=== PATIENT | female | born 1975 ===

== ENCOUNTER 2017-01-15 10:12 | Observation (INO) | payer MEDICAID ==
[2017-01-15 10:26] VITALS: BMI 39.3
[2017-01-15 11:11] LABS: BASO # 0.1 K/uL (0.0-0.2); BASO % 0.6 % (0.0-2.0); EOS # 0.6 K/uL (0.0-0.7); EOS % 5.8 % (0.0-4.0); HEMATOCRIT 40.8 % (34.0-47.0); LYMPH # 1.5 K/uL (1.0-4.3); LYMPH % 14.6 % (20.0-40.0); MEAN CELL VOLUME 81.8 fL (81.0-99.0); MEAN CORPUSCULAR HEMOGLOBIN 27.5 pg (27.0-31.0); MEAN CORPUSCULAR HGB CONC 33.6 g/dL (33.0-37.0); MEAN PLATELET VOLUME 9.3 fL (7.2-11.7); MONO # 0.7 K/uL (0.0-0.8); MONO % 6.3 % (0.0-10.0); NRBC % 0.1 % (0.0-2.0); RED CELL DISTRIBUTION WIDTH 14.8 % (11.5-14.5); WHITE BLOOD COUNT 10.5 K/uL (4.8-10.8)
[2017-01-15 11:17] LABS: CHLORIDE 100 mmol/L (98-107)
[2017-01-15 11:18] LABS: POTASSIUM 3.6 mmol/L (3.6-5.2); SODIUM 137 mmol/L (132-148)
[2017-01-15 11:20] LABS: ALB/GLOB RATIO 1.1 (1.0-2.1); ALKALINE PHOSPHATASE 113 U/L (38-126); ALT/SGPT 45 U/L (9-52); AST/SGOT 28 U/L (14-36); BILIRUBIN,TOTAL 0.5 mg/dL (0.2-1.3); BLOOD UREA NITROGEN 10 mg/dL (7-17); CARBON DIOXIDE 23 mmol/L (22-30); GFR AFRICAN-AMERICAN > 60; GLUCOSE,RANDOM 170 mg/dL (65-105); TOTAL PROTEIN 7.6 g/dL (6.3-8.3)
[2017-01-15 11:21] LABS: CALCIUM 8.8 mg/dl (8.6-10.4)
[2017-01-15 11:22] LABS: INR 1.1
--- NOTE | 2017-01-15 11:47 | RAD ---
PROCEDURE: CHEST RADIOGRAPH, 1 VIEW. Technique: Single view portable semi erect @ 11:00 HISTORY: chest pain COMPARISON: 09/06/2016. FINDINGS: LUNGS: Clear. PLEURA: No pneumothorax or pleural fluid seen. CARDIOVASCULAR: Normal. OSSEOUS STRUCTURES: No significant abnormalities. VISUALIZED UPPER ABDOMEN: Normal. OTHER FINDINGS: None. IMPRESSION: No active disease. No acute/significant interval changes.
--- NOTE | 2017-01-15 11:50 | C.PDOC ---
History Of Present Illness 41 y/o female pmhx morbid obesity, HTN presents to the ED with complains of worsening chest pain over the past 3 days. Pt brought in by EMS, given aspirin and nitro UMBRELLA TIPPER. Pt is currently pain free. Denies SOB, vomiting, fever or any other complaints at this time. Time Seen by Provider: 01/15/17 10:58 Chief Complaint (Nursing): Chest Pain History Per: Patient History/Exam Limitations: no limitations Onset/Duration Of Symptoms: Days Current Symptoms Are (Timing): Worse Severity: Moderate Quality: "Pain" Modifying Factors: None Alleviating Factors: None Nitro Therapy Administered: 1, Per EMS Recent travel outside of the [place]: No Past Medical History Reviewed: Historical Data, Nursing Documentation, Vital Signs Vital Signs: Last Vital Signs Temp 98.1 F 01/15/17 12:54 Pulse 75 01/15/17 12:54 Resp 18 01/15/17 12:54 BP 161/120 H 01/15/17 12:54 Pulse Ox 99 01/15/17 12:54 - Medical History PMH: Anxiety, Arthritis, Asthma, Back Problems, Bronchitis, COPD, Depression, Diabetes, Emphysema, Gastritis, Gastrointestinal Ulcer, HTN, Hypercholesterolemia, Pancreatitis, Rheumatoid Arthritis Surgical History: Endoscopy (X2) - [facility] Procedures CLOSED ENDOSCOPIC BIOPSY OF LARGE INTESTINE (03/05/14) CORONAR ARTERIOGR-2 CATH (03/28/12) ESOPHAGOGASTRODUODENOSCOPY [EGD] W/CLOSED BIOPSY (03/10/14) EXCISION OF STOMACH, ENDO, DIAGN (10/27/15) INJECT/INFUSE NEC (05/04/14) LEFT HEART CARDIAC CATH (03/28/12) LT HEART ANGIOCARDIOGRAM (03/28/12) Family History: States: Unknown Family Hx - Social History Hx Tobacco Use: Yes Hx Alcohol Use: No Hx Substance Use: No - Immunization History Hx Tetanus Toxoid Vaccination: No Hx Influenza Vaccination: No Hx Pneumococcal Vaccination: No Review Of Systems Except As Marked, All Systems Reviewed And Found Negative. Constitutional: Negative for: Fever Cardiovascular: Positive for: Chest Pain (resolved) Respiratory: Negative for: Shortness of Breath Gastrointestinal: Negative for: Vomiting Physical Exam - Physical Exam Appears: Non-toxic, No Acute Distress Skin: Warm, Dry, No Rash Head: Atraumatic, Normacephalic Neck: Normal ROM, Supple Chest: Symmetrical Cardiovascular: Rhythm Regular, No Murmur Respiratory: Normal Breath Sounds, No Rales, No Rhonchi, No Wheezing Gastrointestinal/Abdominal: Normal Exam, Soft Extremity: Normal ROM Extremity: Bilateral: Atraumatic Neurological/Psych: Oriented x3, Normal Speech ED Course And Treatment - Laboratory Results Result Diagrams: 01/15/17 11:06 01/15/17 11:06 ECG: Interpreted By Me, Viewed By Me ECG Rhythm: Sinus Rhythm Interpretation Of ECG: No ST/T wave changes Rate From EC (BPM) O2 Sat by Pulse Oximetry: 97 (on room air) Pulse Ox Interpretation: Normal - Radiology CXR: Viewed By Me, Read By Radiologist CXR Interpretation: Yes: No Acute Disease Medical Decision Making Medical Decision Making: Plan: EKG, CXR, labs, zofran, UA, IV fluids Disposition - Disposition Disposition: HOSPITALIZED Disposition Time: 12:00 Condition: STABLE - Clinical Impression Clinical Impression: Chest pain - Scribe Statement The provider has reviewed the documentation as recorded by the Bertha Boone Provider Attestation: All medical record entries made by the Yuriibyumi were at my direction and personally dictated by me. I have reviewed the chart and agree that the record accurately reflects my personal performance of the history, physical exam, medical decision making, and the department course for this patient. I have also personally directed, reviewed, and agree with the discharge instructions and disposition. Decision To Admit - Pt Status Changed To: Hospital Disposition Of: Observation - . Bed Request Type: Telemetry Admitting Physician: Corey Orellana Patient Diagnosis: Chest pain
[2017-01-15 15:44] VITALS: RESP 20
[2017-01-15 16:22] LABS: RBC URINE 4068 /hpf (0-3); URINE BACTERIA RARE (<OCC); URINE BILIRUBIN NEGATIVE (NEGATIVE); URINE BLOOD 3+ (NEGATIVE); URINE COLOR Yellow (YELLOW); URINE GLUCOSE (UA) 1+ mg/dL (Normal); URINE KETONE NEGATIVE (NEGATIVE); URINE LEUKOCYTE ESTERASE NEG Leu/uL (Negative); URINE PROTEIN 2+ mg/dL (NEGATIVE); URINE UROBILINOGEN NORMAL mg/dL (0.2-1.0); WBC URINE 5 /hpf (0-5)
[2017-01-15] MEDS: oxyCODONE 5 mg Immediate Release Tab PO PRN (18:49)
[2017-01-15 18:55] VITALS: O2SAT 98
[2017-01-15] MEDS: Albuterol HFA 90 mcg/actuation (8 g) IH SCH ×2 (20:30→20:31)
[2017-01-15] MEDS: (Novolog) Insulin Aspart, Recombinant 100 u/ml 10 ml vial SC SCH (21:51)
[2017-01-15] MEDS ORDERED: Latanoprost 2.5 ml Opht Soln OU SCH (22:00)
[2017-01-15] MEDS ORDERED: (Lantus) Insulin Glargine, Recombinant SC SCH ×2 (22:00)
--- NOTE | 2017-01-15 22:48 | CP.PCM.HP ---
History of Present Illness - History of Present Illness History of Present Illness: Cheif complain: left sided chest pain HPI:41 y/o female pmhx morbid obesity, HTN , hyperlipidemia, DM, non compliant with diet, medications and follow up presents to the ED with complains of worsening chest pain over the past 3 days associated with on and off dyspepsia and cough when she lays down. Pt brought in by EMS, given aspirin and nitro WEB MASTER. Pt is currently pain free. Denies SOB, vomiting, fever or any other complaints at this time. Review of Systems - Review of Systems Systems not reviewed;Unavailable: Acuity of Condition - Constitutional Constitutional: Lethargy, Malaise - EENT Ears: absent: As Per HPI, Decreased Hearing, Ear Discharge, Ear Pain, Tinnitus, Abnormal Hearing, Disequilibrium, Dizziness, Other Nose/Mouth/Throat: absent: As Per HPI, Epistaxis, Nasal Congestion, Nasal Discharge, Nasal Obstruction, Nasal Trauma, Nose Pain, Post Nasal Drip, Sinus Pain, Sinus Pressure, Bleeding Gums, Change in Voice, Dental Pain, Dry Mouth, Dysphagia, Halitosis, Hoarsness, Lip Swelling, Mouth Lesions, Mouth Pain, Odynophagia, Sore Throat, Throat Swelling, Tongue Swelling, Facial Pain, Neck Pain, Neck Mass, Other - Cardiovascular Cardiovascular: Chest Pain, Orthopnea - Respiratory Respiratory: Cough, Dyspnea on Exertion, Chest Congestion, Pain with Coughing - Gastrointestinal Gastrointestinal: Dyspepsia. absent: As Per HPI, Abdominal Pain, Belching, Bloating, Change in Bowel Habits, Change in Stool Character, Coffee Ground Emesis, Constipation, Cramping, Diarrhea, Dysphagia, Early Satiety, Excessive Flatus, Fecal Incontinence, Heartburn, Hematemesis, Hematochezia, Loose Stools, Melena, Nausea, Odynophagia, Temesmus, Vomiting, Other - Genitourinary Genitourinary: absent: As Per HPI, Change in Urinary Stream, Difficulty Urinating, Dysuria, Flank Pain, Hematuria, Pyuria, Nocturia, Urinary Incontinence, Urinary Frequency, Urinary Hesitance, Urinary Urgency, Voiding Freq/Small Amts, Freq UTI, Hx Renal/Bladder Calculi, Hx /Renal Surgery, Bladder Distension, Other - Musculoskeletal Musculoskeletal: Arthralgias, Back Pain, Muscle Cramps - Integumentary Integumentary: absent: As Per HPI, Acne, Alopecia, Bleeding Lesions, Change in Hair, Change in Nails, Change in Pigmentation, Changing Lesions, Dry Skin, Erythema, Furuncle, Hirsutism, Lesions, New Lesions, Non-Healing Lesions, Photosensitivity, Pruritus, Rash, Skin Pain, Skin Ulcer, Sores, Striae, Swelling , Unusual Bruising, Wounds, Jaundice, Other Past Patient History - Infectious Disease Hx of Infectious Diseases: None - Past Medical History & Family History Past Medical History?: Yes - Past Social History Smoking Status: Current Some Days Smoker - CARDIAC Hx Cardiac Disorders: Yes Hx Hypercholesterolemia: Yes Hx Hypertension: Yes - PULMONARY Hx Respiratory Disorders: Yes Hx Asthma: Yes Hx Bronchitis: Yes Hx Chronic Obstructive Pulmonary Disease (COPD): Yes Hx Emphysema: Yes Hx Pneumonia: Yes - NEUROLOGICAL Hx Neurological Disorder: No - HEENT Hx HEENT Problems: Yes Hx Glaucoma: Yes - RENAL Hx Chronic Kidney Disease: No - ENDOCRINE/METABOLIC Hx Endocrine Disorders: Yes Hx Diabetes Mellitus Type 2: Yes Hx Systemic Lupus Erythematosus: Yes - HEMATOLOGICAL/ONCOLOGICAL Hx Blood Disorders: Yes Hx Blood Transfusions: No Other/Comment: lupus - INTEGUMENTARY Hx Dermatological Problems: No - MUSCULOSKELETAL/RHEUMATOLOGICAL Hx Musculoskeletal Disorders: Yes Hx Arthritis: Yes Hx Falls: Yes Hx Rheumatoid Arthritis: Yes - GASTROINTESTINAL Hx Gastrointestinal Disorders: Yes Hx Constipation: Yes Hx Gastritis: Yes Hx Pancreatitis: Yes - GENITOURINARY/GYNECOLOGICAL Hx Genitourinary Disorders: Yes Other/Comment: endometriosis - PSYCHIATRIC Hx Psychophysiologic Disorder: Yes Hx Anxiety: Yes Hx Depression: Yes Hx Physical Abuse: No Hx Substance Use: No - SURGICAL HISTORY Hx Surgeries: Yes Hx Section: Yes (X2) Hx Dilation and Curettage: Yes (X2) Other/Comment: Sinus Sx - ANESTHESIA Hx Anesthesia: Yes Hx Anesthesia Reactions: No Hx Malignant Hyperthermia: No Meds Allergies/Adverse Reactions: Allergies Allergy/AdvReac Type Severity Reaction Status Date / Time methylergonovine maleate Allergy Intermediate RASH Verified 12/21/16 16:00 [From Methergine] Penicillins Allergy Intermediate RASH Verified 12/21/16 16:00 Physical Exam - Constitutional Appears: No Acute Distress - Eye Exam Eye Exam: EOMI, Normal appearance, PERRL Pupil Exam: NORMAL ACCOMODATION, PERRL - ENT Exam ENT Exam: Mucous Membranes Moist, Normal Exam - Neck Exam Neck exam: Positive for: Normal Inspection - Respiratory Exam Respiratory Exam: Clear to Auscultation Bilateral, NORMAL BREATHING PATTERN - Cardiovascular Exam Cardiovascular Exam: REGULAR RHYTHM, +S1, +S2 - GI/Abdominal Exam GI & Abdominal Exam: Normal Bowel Sounds, Soft. absent: Tenderness - Neurological Exam Neurological exam: Alert, CN II-XII Intact, Oriented x3 - Psychiatric Exam Psychiatric exam: Agitated, Anxious Results - Vital Signs Recent Vital Signs: Last Vital Signs Temp 99.2 F 01/15/17 16:46 Pulse 90 01/15/17 20:32 Resp 20 01/15/17 16:46 BP 148/79 01/15/17 16:46 Pulse Ox 98 01/15/17 16:46 - Labs Result Diagrams: 01/15/17 11:06 01/15/17 11:06 Labs: Laboratory Results - last 24 hr 01/15/17 01/15/17 01/15/17 16:01 16:03 19:45 POC Glucose (mg/dL) 200 H Troponin I 0.0130 Urine Color Yellow Urine Clarity Hazy Urine pH 8.0 Ur Specific [place] 1.016 Urine Protein 2+ H Urine Glucose (UA) 1+ Urine Ketones Negative Urine Blood 3+ H Urine Nitrate Negative Urine Bilirubin Negative Urine Urobilinogen Normal Ur Leukocyte Esterase Neg Urine WBC (Auto) 5 Urine RBC (Auto) 4068 H Ur Squamous Epith Cells 1 Urine Bacteria Rare Urine HCG, Qual Negative 01/15/17 21:26 POC Glucose (mg/dL) 129 H Troponin I Urine Color Urine Clarity Urine pH Ur Specific [place] Urine Protein Urine Glucose (UA) Urine Ketones Urine Blood Urine Nitrate Urine Bilirubin Urine Urobilinogen Ur Leukocyte Esterase Urine WBC (Auto) Urine RBC (Auto) Ur Squamous Epith Cells Urine Bacteria Urine HCG, Qual Assessment & Plan (1) Diabetes mellitus Status: Chronic (2) Hypertension Status: Chronic (3) Obesity Status: Chronic (4) Atypical chest pain Status: Acute
[2017-01-16] MEDS: oxyCODONE 5 mg Immediate Release Tab PO PRN ×2 (01:05→08:46)
[2017-01-16] MEDS: Albuterol HFA 90 mcg/actuation (8 g) IH SCH ×2 (01:13→10:40)
[2017-01-16 06:21] LABS: CHLORIDE 95 mmol/L (98-107); POTASSIUM 3.4 mmol/L (3.6-5.2); SODIUM 136 mmol/L (132-148)
[2017-01-16 06:24] LABS: BLOOD UREA NITROGEN 16 mg/dL (7-17); CALCIUM 8.3 mg/dl (8.6-10.4); CARBON DIOXIDE 28 mmol/L (22-30); GFR AFRICAN-AMERICAN > 60; GLUCOSE,RANDOM 150 mg/dL (65-105)
[2017-01-16] MEDS ORDERED: Tiotropium 18 mcg Cap For Inhalation INH SCH (08:00)
[2017-01-16] MEDS: (Novolog) Insulin Aspart, Recombinant 100 u/ml 10 ml vial SC SCH ×2 (08:27→12:38)
[2017-01-16 08:36] VITALS: BP 142/92; PULSE 76; TEMP 98.2
[2017-01-16] MEDS: Enoxaparin 40 mg Syringe SC SCH ×2 (09:08→09:11)
[2017-01-16] MEDS ORDERED: Pantoprazole 40 mg EC Tab PO SCH (10:00)
[2017-01-16] MEDS ORDERED: Tiotropium 18 mcg Cap For Inhalation IH SCH (10:00)
[2017-01-16] MEDS ORDERED: Potassium Chloride 20 mEq ER Tab PO ONE ×2 (10:18→11:00)
[2017-01-16] MEDS ORDERED: Influenza Virus Vaccine 45 mcg/0.5 ml Syr IM ONE (12:15)
--- NOTE | 2017-01-17 21:03 | CP.PCM.DIS ---
Provider - Provider Date of Admission: 01/15/17 11:41 Attending physician: Corey Orellana MD Diagnosis - Discharge Diagnosis (1) Diabetes mellitus Status: Chronic (2) Hypertension Status: Chronic (3) Obesity Status: Chronic (4) Atypical chest pain Status: Acute Hospital Course - Lab Results Lab Results: Most Recent Lab Values WBC 10.5 K/uL (4.8-10.8) 01/15/17 11:06 RBC 4.99 Mil/uL (3.80-5.20) 01/15/17 11:06 Hgb 13.7 g/dL (11.0-16.0) 01/15/17 11:06 Hct 40.8 % (34.0-47.0) 01/15/17 11:06 MCV 81.8 fL (81.0-99.0) D 01/15/17 11:06 MCH 27.5 pg (27.0-31.0) 01/15/17 11:06 MCHC 33.6 g/dL (33.0-37.0) 01/15/17 11:06 RDW 14.8 % (11.5-14.5) H 01/15/17 11:06 Plt Count 158 K/uL (130-400) 01/15/17 11:06 MPV 9.3 fL (7.2-11.7) 01/15/17 11:06 Neut % (Auto) 72.7 % (50.0-75.0) 01/15/17 11:06 Lymph % (Auto) 14.6 % (20.0-40.0) L 01/15/17 11:06 Grant % (Auto) 6.3 % (0.0-10.0) 01/15/17 11:06 Eos % (Auto) 5.8 % (0.0-4.0) H 01/15/17 11:06 Baso % (Auto) 0.6 % (0.0-2.0) 01/15/17 11:06 Neut # 7.7 K/uL (1.8-7.0) H 01/15/17 11:06 Lymph # 1.5 K/uL (1.0-4.3) 01/15/17 11:06 Grant # 0.7 K/uL (0.0-0.8) 01/15/17 11:06 Eos # 0.6 K/uL (0.0-0.7) 01/15/17 11:06 Baso # 0.1 K/uL (0.0-0.2) 01/15/17 11:06 PT 12.0 SECONDS (9.7-12.2) 01/15/17 11:06 INR 1.1 01/15/17 11:06 APTT 35 SECONDS (21-34) H 01/15/17 11:06 Sodium 136 mmol/L (132-148) 01/16/17 06:00 Potassium 3.4 mmol/L (3.6-5.2) L 01/16/17 06:00 Chloride 95 mmol/L (98-107) L 01/16/17 06:00 Carbon Dioxide 28 mmol/L (22-30) 01/16/17 06:00 Anion Gap 16 (10-20) 01/16/17 06:00 BUN 16 mg/dL (7-17) 01/16/17 06:00 Creatinine 0.8 MG/DL (0.7-1.2) 01/16/17 06:00 Est GFR ( Amer) > 60 01/16/17 06:00 Est GFR (Non-Af Amer) > 60 01/16/17 06:00 POC Glucose (mg/dL) 146 mg/dL (65-110) H 01/16/17 11:45 Random Glucose 150 mg/dL (65-105) H 01/16/17 06:00 Calcium 8.3 mg/dl (8.6-10.4) L 01/16/17 06:00 Total Bilirubin 0.5 mg/dL (0.2-1.3) 01/15/17 11:06 AST 28 U/L (14-36) 01/15/17 11:06 ALT 45 U/L (9-52) 01/15/17 11:06 Alkaline Phosphatase 113 U/L (38-126) 01/15/17 11:06 Troponin I < 0.0120 ng/mL (0.00-0.120) 01/16/17 06:00 Total Protein 7.6 g/dL (6.3-8.3) 01/15/17 11:06 Albumin 3.9 g/dL (3.5-5.0) 01/15/17 11:06 Globulin 3.6 gm/dL (2.2-3.9) 01/15/17 11:06 Albumin/Globulin Ratio 1.1 (1.0-2.1) 01/15/17 11:06 Lipase 167 U/L (23-300) 01/15/17 11:06 Urine Color Yellow (YELLOW) 01/15/17 16:01 Urine Clarity Hazy (Clear) 01/15/17 16:01 Urine pH 8.0 (5.0-8.0) 01/15/17 16:01 Ur Specific [place] 1.016 (1.003-1.030) 01/15/17 16:01 Urine Protein 2+ mg/dL (NEGATIVE) H 01/15/17 16:01 Urine Glucose (UA) 1+ mg/dL (Normal) 01/15/17 16:01 Urine Ketones Negative mg/dL (NEGATIVE) 01/15/17 16:01 Urine Blood 3+ (NEGATIVE) H 01/15/17 16:01 Urine Nitrate Negative (NEGATIVE) 01/15/17 16:01 Urine Bilirubin Negative (NEGATIVE) 01/15/17 16:01 Urine Urobilinogen Normal mg/dL (0.2-1.0) 01/15/17 16:01 Ur Leukocyte Esterase Neg Archana/uL (Negative) 01/15/17 16:01 Urine WBC (Auto) 5 /hpf (0-5) 01/15/17 16:01 Urine RBC (Auto) 4068 /hpf (0-3) H 01/15/17 16:01 Ur Squamous Epith Cells 1 /hpf (0-5) 01/15/17 16:01 Urine Bacteria Rare (<OCC) 01/15/17 16:01 Urine HCG, Qual Negative (NEGATIVE) 01/15/17 16:01 - Hospital Course Hospital Course: pt was discharged home today, cardiac enzymes x 3 neg, she denies chest pain, she has some dyspepsia most llikely GERD she states that she feels better Discharge Exam - Eye Exam Eye Exam: EOMI, Normal appearance, PERRL Pupil Exam: NORMAL ACCOMODATION, PERRL - Respiratory Exam Respiratory Exam: Clear to PA & Lateral, NORMAL BREATHING PATTERN - Cardiovascular Exam Cardiovascular Exam: REGULAR RHYTHM, +S1, +S2 - GI/Abdominal Exam GI & Abdominal Exam: Normal Bowel Sounds Discharge Plan - Follow Up Plan Condition: STABLE Disposition: HOME/ ROUTINE Instructions: Chest Pain (DC), Heart Healthy Diet (DC) Additional Instructions: Follow up with Dr Orellana in the office in one week Referrals: Corey Orellana MD [Staff Provider] -
--- NOTE | 2017-01-18 20:00 | CARD ---
APPROVED REPORT EKG Measurement Heart [id number] <Conclusion> Normal sinus rhythm with sinus arrhythmia Prolonged QT Abnormal ECG
== END 2017-01-16 13:28 | disposition home or self-care (01) ==
LOC: C.ER 10:12 → C.9E 11:41 → C.6T 16:01
PROVIDERS: ADMIT Internal Medicine; ATTEND Internal Medicine
DX: R07.9 Chest pain, unspecified (principal); E66.01 Morbid (severe) obesity due to excess calories; J44.1 Chronic obstructive pulmonary disease with (acute) exacerbation; F41.8 Other specified anxiety disorders
CPT/HCPCS: 36415 ×2; 71010; 80048; 80053; 81001; 82948 ×2; 83690; 84484 ×2; 84703; 85025; 85610; 85730; 90471; 94640 ×3; 99285; C9113 ×2; G0378 ×2; Q2035

== ENCOUNTER 2017-02-04 18:27 | Emergency (ER) | payer MEDICAID ==
[2017-02-04 18:27] VITALS: BMI 39.3
[2017-02-04 18:45] VITALS: TEMP 98
[2017-02-04] MEDS ORDERED: Sodium Chloride 0.9% 1,000 ML IV ONE ×2 (19:55→19:57)
[2017-02-04] MEDS ORDERED: Sodium Chloride 0.9% 1,000 ML ONE (20:06)
[2017-02-04] MEDS ORDERED: Morphine 4 MG/ML VIAL ONE ×2 (20:06→22:06)
[2017-02-04 20:26] LABS: BASO # 0.1 K/uL (0.0-0.2); BASO % 0.7 % (0.0-2.0); EOS # 0.1 K/uL (0.0-0.7); EOS % 0.8 % (0.0-4.0); HEMATOCRIT 41.4 % (34.0-47.0); LYMPH # 1.2 K/uL (1.0-4.3); LYMPH % 9.8 % (20.0-40.0); MEAN CELL VOLUME 81.5 fL (81.0-99.0); MEAN CORPUSCULAR HGB CONC 33.1 g/dL (33.0-37.0); MEAN PLATELET VOLUME 9.2 fL (7.2-11.7); MONO # 0.4 K/uL (0.0-0.8); PLATELET COUNT 183 K/uL (130-400); RED CELL DISTRIBUTION WIDTH 14.7 % (11.5-14.5); WHITE BLOOD COUNT 12.7 K/uL (4.8-10.8)
[2017-02-04 20:32] LABS: CHLORIDE 103 mmol/L (98-107); POTASSIUM 3.5 mmol/L (3.6-5.2); SODIUM 138 mmol/L (132-148)
[2017-02-04 20:34] LABS: ALB/GLOB RATIO 1.3 (1.0-2.1); ALKALINE PHOSPHATASE 117 U/L (38-126); AST/SGOT 52 U/L (14-36); BILIRUBIN,TOTAL 0.6 mg/dL (0.2-1.3); CARBON DIOXIDE 20 mmol/L (22-30); GFR AFRICAN-AMERICAN > 60
[2017-02-04 20:35] LABS: ALT/SGPT 49 U/L (9-52); BLOOD UREA NITROGEN 17 mg/dL (7-17); CALCIUM 9.1 mg/dl (8.6-10.4); GLUCOSE,RANDOM 207 mg/dL (65-105)
[2017-02-04 21:03] LABS: LARGE PLATELETS PRESENT; NEUTROPHIL 84 % (50-75); TOTAL CELLS COUNTED 100
[2017-02-04 21:57] LABS: RBC URINE 1 /hpf (0-3); URINE BACTERIA RARE (<OCC); URINE BILIRUBIN NEGATIVE (NEGATIVE); URINE BLOOD NEGATIVE (NEGATIVE); URINE COLOR Yellow (YELLOW); URINE GLUCOSE (UA) NORMAL (Normal); URINE KETONE 1+ mg/dL (NEGATIVE); URINE LEUKOCYTE ESTERASE NEG Leu/uL (Negative); URINE UROBILINOGEN NORMAL mg/dL (0.2-1.0); WBC URINE 1 /hpf (0-5)
[2017-02-04 21:58] LABS: URINE PROTEIN 100 mg/dL (NEGATIVE)
--- NOTE | 2017-02-04 22:52 | C.PDOC ---
History Of Present Illness 41 year old female presents to the ED with complaints of nausea, vomiting, and diarrhea for the past two days. Patient states vomiting episodes have worsened chronic neck pain and has taken Zofran with no relief. She denies any fever, chills, or urinary symptoms. Time Seen by Provider: 02/04/17 19:36 Chief Complaint (Nursing): Abdominal Pain History Per: Patient History/Exam Limitations: no limitations Onset/Duration Of Symptoms: Days Current Symptoms Are (Timing): Still Present Quality Of Discomfort: "Pain" (neck pain) Associated Symptoms: Nausea, Vomiting, Diarrhea. denies: Fever, Chills Past Medical History Reviewed: Historical Data, Nursing Documentation, Vital Signs Vital Signs: Last Vital Signs Temp 98.0 F 02/04/17 23:44 Pulse 76 02/04/17 23:44 Resp 12 02/04/17 23:44 BP 172/90 H 02/04/17 23:44 Pulse Ox 98 02/04/17 23:44 - Medical History PMH: Anxiety, Arthritis, Asthma, Back Problems, Bronchitis, COPD, Depression, Diabetes, Emphysema, Gastritis, Gastrointestinal Ulcer, HTN, Hypercholesterolemia, Pancreatitis, Pneumonia, Rheumatoid Arthritis Surgical History: Endoscopy (X2) - [facility] Procedures CLOSED ENDOSCOPIC BIOPSY OF LARGE INTESTINE (03/05/14) CORONAR ARTERIOGR-2 CATH (03/28/12) ESOPHAGOGASTRODUODENOSCOPY [EGD] W/CLOSED BIOPSY (03/10/14) EXCISION OF STOMACH, ENDO, DIAGN (10/27/15) INJECT/INFUSE NEC (05/04/14) LEFT HEART CARDIAC CATH (03/28/12) LT HEART ANGIOCARDIOGRAM (03/28/12) Family History: States: Unknown Family Hx - Social History Hx Tobacco Use: Yes Hx Alcohol Use: No Hx Substance Use: No Review Of Systems Constitutional: Negative for: Fever, Chills, Sweats Cardiovascular: Negative for: Chest Pain Respiratory: Negative for: Cough, Shortness of Breath Gastrointestinal: Positive for: Nausea, Vomiting, Diarrhea. Negative for: Abdominal Pain Genitourinary: Negative for: Dysuria, Hematuria Musculoskeletal: Positive for: Neck Pain (chronic neck pain worsening due to vomiting episodes ) Physical Exam - Physical Exam Appears: Non-toxic, In Acute Distress Skin: Warm, Dry Neck: Normal ROM, Supple Chest: Symmetrical, No Deformity Cardiovascular: Rhythm Regular, No Murmur Respiratory: No Rales, No Rhonchi, No Wheezing Gastrointestinal/Abdominal: Soft, No Tenderness, No Distention, No Guarding, No Rebound Back: Vertebral Tenderness (diffuse C-spine tenderness ) Neurological/Psych: Oriented x3, Normal Speech, Normal Cognition ED Course And Treatment - Laboratory Results Result Diagrams: 02/04/17 20:21 02/04/17 20:21 O2 Sat by Pulse Oximetry: 100 Medical Decision Making Medical Decision Making: Pt feeling better post meds Abd continued soft Tolerated po Plan dc home Disposition Counseled Patient/Family Regarding: Diagnosis, Need For Followup - Disposition Disposition: HOME/ ROUTINE Disposition Time: 23:27 Condition: GOOD Instructions: Acute Nausea and Vomiting (ED) - Clinical Impression Clinical Impression: Nausea, Vomiting - Scribe Statement The provider has reviewed the documentation as recorded by the Scribyumi Bach All medical record entries made by the Scribe were at my direction and personally dictated by me. I have reviewed the chart and agree that the record accurately reflects my personal performance of the history, physical exam, medical decision making, and the department course for this patient. I have also personally directed, reviewed, and agree with the discharge instructions and disposition.
[2017-02-04 23:44] VITALS: BP 172/90; PULSE 76; RESP 12
[2017-02-06 23:18] VITALS: O2SAT 100
--- NOTE | 2017-02-08 08:33 | CARD ---
APPROVED REPORT EKG Measurement Heart [id number] <Conclusion> SInus rhythm with second degree A-V block type 1. Abnormal ECG
== END 2017-02-04 23:45 | disposition home or self-care (01) ==
LOC: C.ER 18:27
DX: R11.2 Nausea with vomiting, unspecified (principal)
CPT/HCPCS: 80053; 81001; 83690; 84484; 85025; 96361; 96374; 96375; 96376; 99285; J2270; J2765; J7040

== ENCOUNTER 2017-02-05 11:05 | Emergency (ER) | payer MEDICAID ==
[2017-02-05 11:06] VITALS: BMI 39.3
[2017-02-05] MEDS ORDERED: Sodium Chloride 0.9% 1,000 ML IV ONE (12:05)
[2017-02-05] MEDS ORDERED: DiphenhydrAMINE 50 mg/ml Inj IVP STA (12:06)
--- NOTE | 2017-02-05 12:28 | C.PDOC ---
History Of Present Illness 41 y/o female presents to the ED complaining of "gastritis problems." She reports "problems for years" and states she saw a specialist and she is on medication. Patient is complaining of vomiting and states when she tried to take her medications today she vomited. She denies any new foods or "anything different." Patient denies fever, abdominal pain, chest pain, shortness of breath, or other complaints. Note that the patient was seen here in the [facility] ED yesterday and discharged home after symptoms improved. Time Seen by Provider: 02/05/17 11:19 Chief Complaint (Nursing): GI Problem History Per: Patient History/Exam Limitations: no limitations Onset/Duration Of Symptoms: Days, Persistent Current Symptoms Are (Timing): Still Present Pain Scale Rating Of: 0 Radiation Of Pain To:: None Associated Symptoms: Nausea, Vomiting Exacerbating Factors: None Alleviating Factors: None Recent travel outside of the [place]: No Past Medical History Reviewed: Historical Data, Nursing Documentation, Vital Signs Vital Signs: Last Vital Signs Temp 99.0 F 02/05/17 17:09 Pulse 78 02/05/17 17:09 Resp 19 02/05/17 17:09 BP 179/88 H 02/05/17 17:09 Pulse Ox 98 02/09/17 11:14 - Medical History PMH: Anxiety, Arthritis, Asthma, Back Problems, Bronchitis, COPD, Depression, Diabetes, Emphysema, Gastritis, Gastrointestinal Ulcer, HTN, Hypercholesterolemia, Pancreatitis, Pneumonia, Rheumatoid Arthritis Surgical History: Endoscopy (X2) - [facility] Procedures CLOSED ENDOSCOPIC BIOPSY OF LARGE INTESTINE (03/05/14) CORONAR ARTERIOGR-2 CATH (03/28/12) ESOPHAGOGASTRODUODENOSCOPY [EGD] W/CLOSED BIOPSY (03/10/14) EXCISION OF STOMACH, ENDO, DIAGN (10/27/15) INJECT/INFUSE NEC (05/04/14) LEFT HEART CARDIAC CATH (03/28/12) LT HEART ANGIOCARDIOGRAM (03/28/12) Family History: States: No Known Family Hx - Social History Hx Tobacco Use: Yes Hx Alcohol Use: No Hx Substance Use: No - Immunization History Hx Tetanus Toxoid Vaccination: No Hx Influenza Vaccination: Yes (December 2016) Hx Pneumococcal Vaccination: Yes (Oct 2015) Review Of Systems Except As Marked, All Systems Reviewed And Found Negative. Constitutional: Negative for: Fever Cardiovascular: Negative for: Chest Pain Respiratory: Negative for: Shortness of Breath Gastrointestinal: Positive for: Nausea, Vomiting. Negative for: Abdominal Pain Physical Exam - Physical Exam Appears: Non-toxic, No Acute Distress Skin: Normal Color, Warm, Dry, No Rash Head: Atraumatic, Normacephalic Eye(s): bilateral: Normal Inspection, PERRL, EOMI Oral Mucosa: Moist Throat: No Erythema, No Exudate Neck: Normal ROM, Supple Chest: Symmetrical Cardiovascular: Rhythm Regular, No Friction Rub, No Murmur Respiratory: Normal Breath Sounds, No Rales, No Rhonchi, No Wheezing Gastrointestinal/Abdominal: Normal Exam, Bowel Sounds (active), Soft, No Tenderness Back: Normal Inspection, No CVA Tenderness Extremity: Normal ROM, No Tenderness, No Swelling Neurological/Psych: Oriented x3, Normal Speech, Normal Cognition, Normal Motor Gait: Steady ED Course And Treatment - Laboratory Results Result Diagrams: 02/05/17 13:10 02/05/17 13:10 ECG: Interpreted By Me ECG Rhythm: Sinus Rhythm Interpretation Of ECG: normal ST/T waves, no acute changes Rate From EC (bpm) O2 Sat by Pulse Oximetry: 98 (ra) Pulse Ox Interpretation: Normal Medical Decision Making Medical Decision Making: Old records reviewed, the patient was seen in the ED for similar symptoms on , had negative work up, and was discharged home. Plan: * Blood Work * Urinalysis * Benadryl IVP, Protonix IVP, Toradol IVP, Reglan IV, IV Fluids Patient still complaining of abdominal pain, nausea, and vomiting. Given Cozaar PO, Potassium Chloride PO, and Morphine IVP. On reevaluation, patient reports improvement of abdominal pain. Patient is resting comfortably, abdomen remains soft, non-tender and patient is tolerating PO. Patient feels comfortable going home. Patient discharged home and instructed to follow up with physician/clinic in 1-2 days for further evaluation or return to ED if symptoms persist or worsen. Disposition - Disposition Referrals: Corey Orellana MD [Staff Provider] - Disposition: HOME/ ROUTINE Disposition Time: 17:00 Condition: IMPROVED Additional Instructions: Follow up with the medical doctor within 1-2 days. Return if worsened. Prescriptions: Metoclopramide [Reglan] 1 tab PO TID PRN #25 tab PRN Reason: Nausea/Vomiting Instructions: Acute Nausea and Vomiting (ED) - Clinical Impression Clinical Impression: Gastritis, Vomiting alone - PA / TECHNOLOGY SALES REPRESENTATIVE / Resident Statement MD/DO has reviewed & agrees with the documentation as recorded. - Scribe Statement The provider has reviewed the documentation as recorded by the Scribe (Carmela Banegas) All medical record entries made by the Scribe were at my direction and personally dictated by me. I have reviewed the chart and agree that the record accurately reflects my personal performance of the history, physical exam, medical decision making, and the department course for this patient. I have also personally directed, reviewed, and agree with the discharge instructions and disposition.
[2017-02-05] MEDS ORDERED: DiphenhydrAMINE 50 mg/ml Inj ONE (12:37)
[2017-02-05] MEDS ORDERED: Sodium Chloride 0.9% 1,000 ML ONE (12:37)
[2017-02-05 12:42] LABS: RBC URINE 1 /hpf (0-3); URINE BACTERIA RARE (<OCC); URINE BILIRUBIN NEGATIVE (NEGATIVE); URINE BLOOD 2+ (NEGATIVE); URINE COLOR Yellow (YELLOW); URINE GLUCOSE (UA) 1+ mg/dL (Normal); URINE KETONE 2+ mg/dL (NEGATIVE); URINE LEUKOCYTE ESTERASE NEG Leu/uL (Negative); URINE PROTEIN 2+ mg/dL (NEGATIVE); URINE UROBILINOGEN NORMAL mg/dL (0.2-1.0); WBC URINE 1 /hpf (0-5)
[2017-02-05 13:17] LABS: BASO % 0.2 % (0.0-2.0); EOS % 0.1 % (0.0-4.0); HEMATOCRIT 43.4 % (34.0-47.0); LYMPH % 5.7 % (20.0-40.0); MEAN CELL VOLUME 81.8 fL (81.0-99.0); MEAN CORPUSCULAR HEMOGLOBIN 27.4 pg (27.0-31.0); MEAN CORPUSCULAR HGB CONC 33.5 g/dL (33.0-37.0); MEAN PLATELET VOLUME 9.5 fL (7.2-11.7); MONO % 5.3 % (0.0-10.0); PLATELET COUNT 200 K/uL (130-400); WHITE BLOOD COUNT 18.3 K/uL (4.8-10.8)
[2017-02-05 13:26] LABS: CHLORIDE 98 mmol/L (98-107); POTASSIUM 2.9 mmol/L (3.6-5.2); SODIUM 136 mmol/L (132-148)
[2017-02-05 13:28] LABS: GFR AFRICAN-AMERICAN > 60
[2017-02-05 13:29] LABS: ALB/GLOB RATIO 1.3 (1.0-2.1); ALKALINE PHOSPHATASE 117 U/L (38-126); ALT/SGPT 45 U/L (9-52); AST/SGOT 37 U/L (14-36); BILIRUBIN,TOTAL 0.6 mg/dL (0.2-1.3); BLOOD UREA NITROGEN 13 mg/dL (7-17); CALCIUM 9.4 mg/dl (8.6-10.4); CARBON DIOXIDE 20 mmol/L (22-30); GLUCOSE,RANDOM 206 mg/dL (65-105); TOTAL PROTEIN 8.3 g/dL (6.3-8.3)
[2017-02-05] MEDS ORDERED: Potassium Chloride 10 mEq 100 ML IV ONE (13:33)
[2017-02-05] MEDS ORDERED: Potassium Chloride 10 mEq 100 ML IVPB ONE (13:52)
[2017-02-05 14:13] LABS: NEUTROPHIL 92 % (50-75); TOTAL CELLS COUNTED 100
[2017-02-05] MEDS ORDERED: Labetalol 25mg/5ml Syringe IV STA (14:49)
[2017-02-05] MEDS ORDERED: Morphine 4 MG/ML VIAL ONE (15:05)
[2017-02-05 15:46] VITALS: RESP 19
[2017-02-05] MEDS ORDERED: Potassium Chloride 20 mEq/15 ml LIQ UD PO STA (15:48)
[2017-02-05] MEDS ORDERED: Potassium Chloride 20 mEq ER Tab PO STA (15:58)
[2017-02-05] MEDS ORDERED: Potassium Chloride 20 mEq ER Tab PO ONE (15:59)
[2017-02-05 17:10] VITALS: BP 179/88; PULSE 78; TEMP 99
[2017-02-09 11:14] VITALS: O2SAT 98
== END 2017-02-05 17:10 | disposition home or self-care (01) ==
LOC: C.ER 11:05
DX: K29.70 Gastritis, unspecified, without bleeding (principal); R11.11 Vomiting without nausea
CPT/HCPCS: 80053; 81001; 82009; 82948; 83690; 84703; 85025; 96361; 96374; 96375; 99285; C9113; J1200; J1885; J2270; J2765; J3480; J7040

== ENCOUNTER 2017-03-07 14:00 | Emergency (ER) | payer MEDICAID ==
[2017-03-07 14:00] VITALS: BMI 39.3
[2017-03-07 14:21] VITALS: BP 132/82; PULSE 101; RESP 20; TEMP 97.9; O2SAT 98
--- NOTE | 2017-03-07 15:54 | C.PDOC ---
History Of Present Illness 41 yr old female with PMHx of diabetes, presents to the ER efor evaluation of right hand 5th finger pain for the past 3 days. Patient states she accidentally had her hand jammed in the "car door". States the pain is localized over the ulnar aspect of the 5th finger. Patient is also requesting evaluation of left foot, states she was cutting her nails today when "went too deep and was bleeding". Bleeding resolved with time. Patient denies chest pain, back pain, shoulder pain, arm pain, weakness or numbness. Time Seen by Provider: 03/07/17 14:23 Chief Complaint (Nursing): Finger,Hand,&Wrist History Per: Patient History/Exam Limitations: no limitations Onset/Duration Of Symptoms: Days (3) Past Medical History Reviewed: Historical Data, Nursing Documentation, Vital Signs Vital Signs: Last Vital Signs Temp 97.9 F 03/07/17 14:21 Pulse 101 H 03/07/17 14:21 Resp 20 03/07/17 14:21 BP 132/82 03/07/17 14:21 Pulse Ox 98 03/07/17 15:57 - Medical History PMH: Anxiety, Arthritis, Asthma, Back Problems, Bronchitis, COPD, Depression, Diabetes, Emphysema, Gastritis, Gastrointestinal Ulcer, HTN, Hypercholesterolemia, Pancreatitis, Pneumonia, Rheumatoid Arthritis Surgical History: Endoscopy (X2) - [facility] Procedures CLOSED ENDOSCOPIC BIOPSY OF LARGE INTESTINE (03/05/14) CORONAR ARTERIOGR-2 CATH (03/28/12) ESOPHAGOGASTRODUODENOSCOPY [EGD] W/CLOSED BIOPSY (03/10/14) EXCISION OF STOMACH, ENDO, DIAGN (10/27/15) INJECT/INFUSE NEC (05/04/14) LEFT HEART CARDIAC CATH (03/28/12) LT HEART ANGIOCARDIOGRAM (03/28/12) Family History: States: No Known Family Hx - Social History Hx Tobacco Use: Yes Hx Alcohol Use: No Hx Substance Use: No - Immunization History Hx Tetanus Toxoid Vaccination: No Hx Influenza Vaccination: Yes (December 2016) Hx Pneumococcal Vaccination: Yes (Oct 2015) Review Of Systems Except As Marked, All Systems Reviewed And Found Negative. Cardiovascular: Negative for: Chest Pain Musculoskeletal: Positive for: Other ((+) Right Hand - 5th finger pain ). Negative for: Shoulder Pain, Arm Pain, Back Pain Neurological: Negative for: Weakness, Numbness Physical Exam - Physical Exam Appears: Well, Non-toxic, No Acute Distress Skin: Warm, Dry, No Rash, Other (Left foot: no cellulitis , no eviden coef ingrown nail. ) Extremity: Normal ROM (Right upper extrimities), Capillary Refill (<2), No Deformity, No Swelling, Other (Right hand:Diffuse tenderness over ulnar aspect from proximal 5th phalanx down to wrist area. Mild edema to distal 5th phalanx. No palpable deformity, no skin changes, no neurovascular deficist distally to injury noted. ) Neurological/Psych: Oriented x3, Normal Speech, Normal Motor, Normal Sensation, Normal Reflexes ED Course And Treatment O2 Sat by Pulse Oximetry: 98 Pulse Ox Interpretation: Normal - Other Rad Right hand X-Ray: Interpreted by Me, Viewed By Me Interpretation: no acute fx or dislocation Progress Note: On re-evaluation, pt is afebrile, hemodynamicaly stable. Non- toxic. Ambulatory in ED with stable gait. RUE: exam c/w right hand and 5th phalanx contusion. FAROM, no neurovascular deficits. neurologicaly intact. SKin: no evidence of cellulitis. Imaging review and appears noraml. Volar splint applied to Right wrist. analgesics given. Pt avdised. ref. to f/u with PMD, hand specialist in 2-3 days for re-eval. return if any new changes. Medical Decision Making Medical Decision Making: PLAN: * X-Ray - Right Hand * Tramadol PO Disposition Counseled Patient/Family Regarding: Studies Performed, Diagnosis, Need For Followup, Rx Given - Disposition Referrals: Corey Orellana MD [Staff Provider] - Madelin Lopez MD [Staff Provider] - Disposition: HOME/ ROUTINE Disposition Time: 15:45 Condition: STABLE Additional Instructions: Light duty to Right hand ice, splint for 1 week take Iburpofen as need for pain Follow up with PMD, Hand specialist in 2-3 days for re-evaluation. Return to ED if any worsening or new changes. Prescriptions: traMADol [Ultram] 50 mg PO TID #7 tab Instructions: Hand Sprain (ED), Contusion in Adults (ED) - Clinical Impression Clinical Impression: Hand contusion - PA / SPRIGGER / Resident Statement MD/DO has reviewed & agrees with the documentation as recorded. - Scribe Statement The provider has reviewed the documentation as recorded by the Yuriibe Abby Ladd All medical record entries made by the Bertha were at my direction and personally dictated by me. I have reviewed the chart and agree that the record accurately reflects my personal performance of the history, physical exam, medical decision making, and the department course for this patient. I have also personally directed, reviewed, and agree with the discharge instructions and disposition.
--- NOTE | 2017-03-07 16:19 | RAD ---
PROCEDURE: Right 5th finger dated 03/07/2017 PA view of the right hand and 2 cone-down views of the right 5th finger performed. HISTORY: injury COMPARISON: None. FINDINGS: BONES: No evidence of acute displaced fracture nor dislocation. The osseous structures appear intact. JOINTS: Joint spaces preserved. No significant osteoarthritis. SOFT TISSUES: Normal. OTHER FINDINGS: None. IMPRESSION: No acute fractures. If symptoms persist or occult fracture suspected clinically recommend repeat radiographs in 5-10 days as most fractures should become radiographically evident this timeframe.
== END 2017-03-07 16:20 | disposition home or self-care (01) ==
LOC: C.ER 14:00
DX: S60.051A Contusion of right little finger without damage to nail, initial encounter (principal); V48.3XXA Unspecified car occupant injured in noncollision transport accident in nontraffic accident, initial encounter; Y92.410 Unspecified street and highway as the place of occurrence of the external cause

== ENCOUNTER 2017-04-30 18:46 | Inpatient (IN) | payer MEDICAID ==
[2017-04-30 18:47] VITALS: BMI 39.3
[2017-04-30] MEDS ORDERED: Sodium Chloride 0.9% 1,000 ML IV ONE (19:45)
--- NOTE | 2017-04-30 19:45 | C.PDOC ---
History Of Present Illness Patient presents to the ER with a complaint of left flank pain radiating to the groin for the past 2 days. Denies dysuria, fever, chills, nausea, or vomiting. Time Seen by Provider: 04/30/17 19:44 Chief Complaint (Nursing): Back Pain History Per: Patient History/Exam Limitations: no limitations Onset/Duration Of Symptoms: Days (2) Current Symptoms Are (Timing): Still Present Quality Of Discomfort: Unable To Describe Severity: Moderate Pain Scale Rating Of: 4 Previous Symptoms: None Associated Symptoms: None Recent travel outside of the [place]: No Past Medical History Reviewed: Historical Data, Nursing Documentation, Vital Signs Vital Signs: Last Vital Signs Temp 97.8 F 04/30/17 23:05 Pulse 82 04/30/17 23:05 Resp 20 04/30/17 23:05 BP 121/82 04/30/17 18:52 Pulse Ox 98 04/30/17 23:05 - Medical History PMH: Anxiety, Arthritis, Asthma, Back Problems, Bronchitis, COPD, Depression, Diabetes, Emphysema, Gastritis, Gastrointestinal Ulcer, HTN, Hypercholesterolemia, Pancreatitis, Pneumonia, Rheumatoid Arthritis Surgical History: Endoscopy (X2) - [facility] Procedures CLOSED ENDOSCOPIC BIOPSY OF LARGE INTESTINE (03/05/14) CORONAR ARTERIOGR-2 CATH (03/28/12) ESOPHAGOGASTRODUODENOSCOPY [EGD] W/CLOSED BIOPSY (03/10/14) EXCISION OF STOMACH, ENDO, DIAGN (10/27/15) INJECT/INFUSE NEC (05/04/14) LEFT HEART CARDIAC CATH (03/28/12) LT HEART ANGIOCARDIOGRAM (03/28/12) Family History: States: No Known Family Hx - Social History Hx Tobacco Use: Yes Hx Alcohol Use: No Hx Substance Use: No - Immunization History Hx Tetanus Toxoid Vaccination: No Hx Influenza Vaccination: Yes (December 2016) Hx Pneumococcal Vaccination: Yes (Oct 2015) Review Of Systems Constitutional: Negative for: Fever, Chills Eyes: Negative for: Redness ENT: Negative for: Throat Pain Cardiovascular: Negative for: Chest Pain, Palpitations Respiratory: Negative for: Shortness of Breath Gastrointestinal: Positive for: Abdominal Pain (Left flank). Negative for: Nausea, Vomiting Genitourinary: Negative for: Dysuria Musculoskeletal: Negative for: Back Pain Skin: Negative for: Rash, Lesions, Jaundice Neurological: Negative for: Weakness Psych: Negative for: Anxiety Physical Exam - Physical Exam Appears: Non-toxic Skin: Warm, Dry Eye(s): bilateral: Normal Inspection Oral Mucosa: Moist Neck: Trachea Midline, Supple Chest: Symmetrical, No Tenderness Cardiovascular: Rhythm Regular, No Murmur Respiratory: No Rales, No Rhonchi, No Wheezing Gastrointestinal/Abdominal: Soft, Tenderness (Left flank), No Guarding, No Rebound, Other (obese) Back: No CVA Tenderness Extremity: Normal ROM Extremity: Bilateral: Atraumatic, Normal Color And Temperature, Normal ROM Neurological/Psych: Oriented x3, Normal Speech, Normal Cognition Gait: Steady ED Course And Treatment - Laboratory Results Result Diagrams: 04/30/17 19:50 04/30/17 19:50 O2 Sat by Pulse Oximetry: 97 (Room air) Pulse Ox Interpretation: Normal Progress Note: CT abd/pel ordered. Pepcid, toradol, zofran, and IV fluids administered. Disposition Discussed With DrSteffany: Corey Orellana Comment: accepted the pt on his service and took over the care at 12:41 AM Doctor Will See Patient In The: Hospital Counseled Patient/Family Regarding: Studies Performed, Diagnosis - Disposition Disposition: HOSPITALIZED Disposition Time: 19:45 Condition: FAIR - POA Present On Arrival: None - Clinical Impression Clinical Impression: Abdominal pain, Colitis - Scribe Statement The provider has reviewed the documentation as recorded by the Scribyumi Vo All medical record entries made by the Scribe were at my direction and personally dictated by me. I have reviewed the chart and agree that the record accurately reflects my personal performance of the history, physical exam, medical decision making, and the department course for this patient. I have also personally directed, reviewed, and agree with the discharge instructions and disposition. Decision To Admit - Pt Status Changed To: Hospital Disposition Of: Inpatient - Admit Certification Admit to Inpatient:: After my assessment, the patient will require hospitalization for at least two midnights. This is because of the severity of symptoms shown, intensity of services needed, and/or the medical risk in this patient being treated as an outpatient. - InPatient: Physician Admission Certification:: After my assessment, the patient will require hospitalization for at least two midnights. This is because of the severity of symptoms shown, intensity of services needed, and/or the medical risk in this patient being treated as an outpatient. - . Bed Request Type: Regular Patient Diagnosis: Colitis, Abdominal pain
[2017-04-30] MEDS ORDERED: Sodium Chloride 0.9% 1,000 ML ONE (19:56)
[2017-04-30 19:58] LABS: ALBUMIN 3.6 g/dL (3.5-5.0)
[2017-04-30 19:59] LABS: BASO # 0.1 K/uL (0.0-0.2); BASO % 0.7 % (0.0-2.0); EOS # 0.8 K/uL (0.0-0.7); EOS % 8.7 % (0.0-4.0); HEMOGLOBIN 14.2 g/dL (11.0-16.0); LYMPH # 2.1 K/uL (1.0-4.3); LYMPH % 23.7 % (20.0-40.0); MEAN CORPUSCULAR HEMOGLOBIN 28.9 pg (27.0-31.0); MEAN CORPUSCULAR HGB CONC 32.9 g/dL (33.0-37.0); MEAN PLATELET VOLUME 9.7 fL (7.2-11.7); MONO # 0.9 K/uL (0.0-0.8); MONO % 10.2 % (0.0-10.0); NEUT # 4.9 K/uL (1.8-7.0); NEUT % 56.7 % (50.0-75.0); NRBC % 0.2 % (0.0-2.0); RBC 4.91 Mil/uL (3.80-5.20)
[2017-04-30 20:00] LABS: WHITE BLOOD COUNT 8.7 K/uL (4.8-10.8)
[2017-04-30 20:01] LABS: GFR AFRICAN-AMERICAN > 60; GFR NON-AFRICAN AMERICAN > 60
[2017-04-30 20:02] LABS: ALB/GLOB RATIO 1.1 (1.0-2.1); ALT/SGPT 35 U/L (9-52); AST/SGOT 35 U/L (14-36); BLOOD UREA NITROGEN 20 mg/dL (7-17); CALCIUM 8.9 mg/dl (8.6-10.4); LIPASE 201 U/L (23-300)
[2017-04-30 20:07] LABS: SQUAMOUS EPITHIAL 1 /hpf (0-5); URINE BACTERIA RARE (<OCC); URINE BILIRUBIN NEGATIVE (NEGATIVE); URINE BLOOD NEGATIVE (NEGATIVE); URINE CLARITY Clear (Clear); URINE COLOR Yellow (YELLOW); URINE GLUCOSE (UA) NORMAL (Normal); URINE LEUKOCYTE ESTERASE NEG Leu/uL (Negative); URINE NITRATE NEGATIVE (NEGATIVE); URINE PROTEIN NEGATIVE (NEGATIVE); URINE UROBILINOGEN NORMAL mg/dL (0.2-1.0)
[2017-04-30 20:09] LABS: HCG,QUALITATIVE URINE NEGATIVE (NEGATIVE)
[2017-04-30 20:23] LABS: PROTHROMBIN TIME 10.8 SECONDS (9.7-12.2)
[2017-04-30] MEDS ORDERED: Iohexol 300 100 ML IJ ONE (20:41)
[2017-04-30] MEDS ORDERED: Morphine 4 MG/ML VIAL ONE (22:44)
[2017-05-01] MEDS ORDERED: metroNIDAZOLE IV 500 mg/100 ml 500 MG/100 ML BAG IVPB STA (00:18)
[2017-05-01] MEDS ORDERED: HYDROmorphone 1 mg/ml ISec IVP STA (00:26)
[2017-05-01] MEDS ORDERED: HYDROmorphone 1 mg/ml ISec ONE (00:31)
[2017-05-01] MEDS ORDERED: metroNIDAZOLE IV 500 mg/100 ml 500 MG/100 ML BAG ONE (00:31)
[2017-05-01] MEDS: Albuterol HFA 90 mcg/actuation (8 g) IH SCH ×4 (01:15→20:25)
[2017-05-01] MEDS: metroNIDAZOLE IV 500 mg/100 ml 500 MG/100 ML BAG IVPB SCH ×3 (05:01→21:31)
[2017-05-01] MEDS: oxyCODONE 5 mg Immediate Release Tab PO SCH ×3 (06:23→18:06)
[2017-05-01] MEDS: (Novolin R) Insulin Human Regular 100 units/ml vial SC SCH ×4 (07:53→22:09)
[2017-05-01] MEDS: Enoxaparin 40 mg Syringe SC SCH ×2 (09:07→09:13)
--- NOTE | 2017-05-01 09:59 | CT ---
PROCEDURE: CT Abdomen and Pelvis with intravenous contrast HISTORY: Left flank pain. COMPARISON: CT abdomen and pelvis dated 02/13/2016 TECHNIQUE: Multiple contiguous axial images were performed through the abdomen and pelvis with the use of intravenous contrast. Subsequently, sagittal and coronal reformatted images were obtained. Radiation dose: Total exam DLP = 1049 mGy-cm. This CT exam was performed using one or more of the following dose reduction techniques: Automated exposure control, adjustment of the mA and/or kV according to patient size, and/or use of iterative reconstruction technique. FINDINGS: LOWER THORAX: Small left-sided pleural effusion with adjacent compressive atelectasis. LIVER: Enlarged liver. GALLBLADDER AND BILE DUCTS: Decompressed gallbladder. PANCREAS: Unremarkable. No gross lesion or ductal dilatation. SPLEEN: Unremarkable. ADRENALS: Unremarkable. No mass. KIDNEYS AND URETERS: Unremarkable. No hydronephrosis. No solid mass. VASCULATURE: Unremarkable. No aortic aneurysm. BOWEL: Small bowel wall thickening. APPENDIX: Unremarkable. Normal appendix. PERITONEUM: Unremarkable. No free fluid. No free air. LYMPH NODES: Shotty retroperitoneal lymph nodes. BLADDER: Unremarkable. REPRODUCTIVE: Unremarkable. BONES: No acute fracture. OTHER FINDINGS: None. IMPRESSION: Trace mural thickening within multiple loops of small bowel, to the left of midline, without surrounding inflammation or fluid to confirm an acute enteritis. Clinical correlation. Small left pleural effusion with adjacent compressive atelectasis. Enlarged liver. Shotty retroperitoneal lymph nodes. Additional findings as above. These findings were preliminarily reported at 12:05 a.m. on 05/01/[address] Yisel Jaimes from [facility].
[2017-05-01] MEDS ORDERED: Tiotropium 18 mcg Cap For Inhalation IH SCH (10:00)
[2017-05-01] MEDS ORDERED: Pantoprazole 40 mg EC Tab PO SCH (10:00)
[2017-05-01] MEDS ORDERED: Ciprofloxacin 200mg/100ml D5W 100 ML IVPB SCH (17:30)
[2017-05-01] MEDS: Ciprofloxacin 200mg/100ml D5W 100 ML IVPB SCH (19:16)
[2017-05-01] MEDS: (Lantus) Insulin Glargine, Recombinant SC SCH (21:34)
[2017-05-02] MEDS: oxyCODONE 5 mg Immediate Release Tab PO SCH ×4 (00:18→18:18)
[2017-05-02 01:03] VITALS: RESP 20
[2017-05-02] MEDS: Albuterol HFA 90 mcg/actuation (8 g) IH SCH ×2 (01:38→20:00)
[2017-05-02] MEDS: metroNIDAZOLE IV 500 mg/100 ml 500 MG/100 ML BAG IVPB SCH ×3 (05:15→21:19)
[2017-05-02] MEDS: Ciprofloxacin 200mg/100ml D5W 100 ML IVPB SCH ×2 (06:15→18:20)
[2017-05-02] MEDS: (Novolin R) Insulin Human Regular 100 units/ml vial SC SCH ×4 (07:49→22:00)
[2017-05-02] MEDS: Enoxaparin 40 mg Syringe SC SCH (09:20)
[2017-05-02] MEDS: (Lantus) Insulin Glargine, Recombinant SC SCH (21:22)
--- NOTE | 2017-05-02 22:32 | CP.PCM.HP ---
History of Present Illness - History of Present Illness History of Present Illness: Patient presents to the ER with a complaint of left flank pain radiating to the groin for the past 2 days. Denies dysuria, fever, chills, nausea, or vomiting. Present on Admission - Present on Admission Any Indicators Present on Admission: Yes Past Patient History - Infectious Disease Hx of Infectious Diseases: None - Past Medical History & Family History Past Medical History?: Yes - Past Social History Smoking Status: Current Some Days Smoker - CARDIAC Hx Hypercholesterolemia: Yes Hx Hypertension: Yes - PULMONARY Hx Asthma: Yes Hx Bronchitis: Yes Hx Chronic Obstructive Pulmonary Disease (COPD): Yes Hx Emphysema: Yes Hx Pneumonia: Yes - NEUROLOGICAL Hx Neurological Disorder: No - HEENT Hx HEENT Problems: Yes Hx Glaucoma: Yes - RENAL Hx Chronic Kidney Disease: No - ENDOCRINE/METABOLIC Hx Endocrine Disorders: Yes Hx Diabetes Mellitus Type 2: Yes Hx Systemic Lupus Erythematosus: Yes - HEMATOLOGICAL/ONCOLOGICAL Hx Blood Disorders: Yes Hx Blood Transfusions: No Other/Comment: lupus - INTEGUMENTARY Hx Dermatological Problems: No - MUSCULOSKELETAL/RHEUMATOLOGICAL Hx Falls: No - GASTROINTESTINAL Hx Gastritis: Yes Hx Pancreatitis: Yes HX Swallowing Problems: Yes - GENITOURINARY/GYNECOLOGICAL Hx Genitourinary Disorders: Yes (SEE COMMENT) Other/Comment: endometriosis - PSYCHIATRIC Hx Substance Use: No - SURGICAL HISTORY Hx Surgeries: Yes - ANESTHESIA Hx Anesthesia: Yes Hx Anesthesia Reactions: No Hx Malignant Hyperthermia: No Has any member of the family had a problem w/ anesthesia?: No Meds Home Medications: Home Medication List Medication Instructions Recorded Confirmed Type Ciprofloxacin HCl [Cipro] 500 mg PO BID #6 tab 05/03/17 Rx Metronidazole [Flagyl] 500 mg PO Q8 #21 tablet 05/03/17 Rx Allergies/Adverse Reactions: Allergies Allergy/AdvReac Type Severity Reaction Status Date / Time methylergonovine maleate Allergy Intermediate RASH Verified 04/30/17 18:56 [From Methergine] Penicillins Allergy Intermediate RASH Verified 04/30/17 18:56 Results - Vital Signs Recent Vital Signs: Last Vital Signs Temp 98.1 F 05/02/17 15:00 Pulse 65 05/02/17 15:00 Resp 20 05/02/17 15:00 BP 126/74 05/02/17 15:00 Pulse Ox 98 05/02/17 15:00 - Labs Result Diagrams: 04/30/17 19:50 04/30/17 19:50 Labs: Laboratory Results - last 24 hr 05/02/17 05/02/17 05/02/17 03:22 06:21 12:09 POC Glucose (mg/dL) 114 H 119 H 119 H 05/02/17 05/02/17 16:21 21:05 POC Glucose (mg/dL) 83 134 H
--- NOTE | 2017-05-02 22:33 | CP.PCM.PN ---
Subjective - Date & Time of Evaluation Date of Evaluation: 05/02/17 Time of Evaluation: 21:00 - Subjective Subjective: Pt seen and evaluated, charts and labs reviewed is improving Objective - Vital Signs/Intake and Output Vital Signs (last 24 hours): Temp Pulse Resp BP Pulse Ox 98.1 F 65 20 126/74 98 05/02/17 15:00 05/02/17 15:00 05/02/17 15:00 05/02/17 15:00 05/02/17 15:00 Intake and Output: 05/02/17 05/03/17 18:59 06:59 Intake Total 600 Balance 600 - Medications Medications: Current Medications Albuterol (Ventolin Hfa 90 Mcg/Actuation (8 G)) 2 puff IH RQ6 [facility] Last Admin: 05/02/17 20:00 Dose: Not Given Alprazolam (Xanax) 0.5 mg PO TID [facility] Last Admin: 05/02/17 18:18 Dose: 0.5 mg Amlodipine Besylate (Norvasc) 5 mg PO DAILY [facility] Last Admin: 05/02/17 10:24 Dose: 5 mg Cyclobenzaprine HCl (Flexeril) 10 mg PO TID [facility] Last Admin: 05/02/17 18:21 Dose: 10 mg Enoxaparin Sodium (Lovenox) 40 mg SC DAILY [facility] Last Admin: 05/02/17 09:20 Dose: Not Given Famotidine (Pepcid) 40 mg PO DAILY [facility] Last Admin: 05/02/17 10:24 Dose: 40 mg Folic Acid (Folic Acid) 1 mg PO DAILY [facility] Last Admin: 05/02/17 10:24 Dose: 1 mg Gabapentin (Neurontin) 300 mg PO TID [facility] Last Admin: 05/02/17 18:21 Dose: 300 mg Hydrochlorothiazide (Hydrodiuril) 25 mg PO DAILY [facility] Last Admin: 05/02/17 10:24 Dose: 25 mg Hydroxychloroquine Sulfate (Plaquenil) 200 mg PO BID [facility] Last Admin: 05/02/17 18:17 Dose: 200 mg Metronidazole (Flagyl) 500 mg in 100 mls @ 100 mls/hr IVPB Q8 [facility] Last Admin: 05/02/17 21:19 Dose: 100 mls/hr Ciprofloxacin (Cipro 200mg/100ml D5w) 100 mls @ 67 mls/hr IVPB Q12H [facility] Last Admin: 05/02/17 18:20 Dose: 67 mls/hr Insulin Glargine (Lantus) 10 unit SC HS [facility] Last Admin: 05/02/17 21:22 Dose: Not Given Insulin Human Regular (Novolin R) 0 unit SC ACHS [facility] PRN Reason: Protocol Last Admin: 05/02/17 22:00 Dose: Not Given Losartan Potassium (Cozaar) 100 mg PO DAILY [facility] Last Admin: 05/02/17 10:25 Dose: 100 mg Metformin HCl (Glucophage) 1,000 mg PO BID [facility] Metoclopramide HCl (Reglan) 5 mg PO TIDAC [facility] Last Admin: 05/02/17 16:30 Dose: 5 mg Ondansetron HCl (Zofran Inj) 4 mg IVP Q8 PRN PRN Reason: Nausea/Vomiting Last Admin: 05/02/17 09:19 Dose: 4 mg Oxycodone HCl (Oxycodone Immediate Release Tab) 15 mg PO Q6 [facility] Last Admin: 05/02/17 18:18 Dose: 15 mg Tiotropium [place] (Spiriva) 18 mcg IH DAILY [facility] - Labs Labs: PT 10.8 SECONDS (9.7-12.2) 04/30/17 20:07 INR 1.0 04/30/17 20:07 APTT 32 SECONDS (21-34) 04/30/17 20:07
--- NOTE | 2017-05-02 22:33 | CP.PCM.PN ---
Subjective - Date & Time of Evaluation Date of Evaluation: 05/01/17 Time of Evaluation: 08:40 - Subjective Subjective: Pt seen and evaluated, charts and labs reviewed is improving Objective - Vital Signs/Intake and Output Vital Signs (last 24 hours): Temp Pulse Resp BP Pulse Ox 98.1 F 65 20 126/74 98 05/02/17 15:00 05/02/17 15:00 05/02/17 15:00 05/02/17 15:00 05/02/17 15:00 Intake and Output: 05/02/17 05/03/17 18:59 06:59 Intake Total 600 Balance 600 - Medications Medications: Current Medications Albuterol (Ventolin Hfa 90 Mcg/Actuation (8 G)) 2 puff IH RQ6 [facility] Last Admin: 05/02/17 20:00 Dose: Not Given Alprazolam (Xanax) 0.5 mg PO TID [facility] Last Admin: 05/02/17 18:18 Dose: 0.5 mg Amlodipine Besylate (Norvasc) 5 mg PO DAILY [facility] Last Admin: 05/02/17 10:24 Dose: 5 mg Cyclobenzaprine HCl (Flexeril) 10 mg PO TID [facility] Last Admin: 05/02/17 18:21 Dose: 10 mg Enoxaparin Sodium (Lovenox) 40 mg SC DAILY [facility] Last Admin: 05/02/17 09:20 Dose: Not Given Famotidine (Pepcid) 40 mg PO DAILY [facility] Last Admin: 05/02/17 10:24 Dose: 40 mg Folic Acid (Folic Acid) 1 mg PO DAILY [facility] Last Admin: 05/02/17 10:24 Dose: 1 mg Gabapentin (Neurontin) 300 mg PO TID [facility] Last Admin: 05/02/17 18:21 Dose: 300 mg Hydrochlorothiazide (Hydrodiuril) 25 mg PO DAILY [facility] Last Admin: 05/02/17 10:24 Dose: 25 mg Hydroxychloroquine Sulfate (Plaquenil) 200 mg PO BID [facility] Last Admin: 05/02/17 18:17 Dose: 200 mg Metronidazole (Flagyl) 500 mg in 100 mls @ 100 mls/hr IVPB Q8 [facility] Last Admin: 05/02/17 21:19 Dose: 100 mls/hr Ciprofloxacin (Cipro 200mg/100ml D5w) 100 mls @ 67 mls/hr IVPB Q12H [facility] Last Admin: 05/02/17 18:20 Dose: 67 mls/hr Insulin Glargine (Lantus) 10 unit SC HS [facility] Last Admin: 05/02/17 21:22 Dose: Not Given Insulin Human Regular (Novolin R) 0 unit SC ACHS [facility] PRN Reason: Protocol Last Admin: 05/02/17 22:00 Dose: Not Given Losartan Potassium (Cozaar) 100 mg PO DAILY [facility] Last Admin: 05/02/17 10:25 Dose: 100 mg Metformin HCl (Glucophage) 1,000 mg PO BID [facility] Metoclopramide HCl (Reglan) 5 mg PO TIDAC [facility] Last Admin: 05/02/17 16:30 Dose: 5 mg Ondansetron HCl (Zofran Inj) 4 mg IVP Q8 PRN PRN Reason: Nausea/Vomiting Last Admin: 05/02/17 09:19 Dose: 4 mg Oxycodone HCl (Oxycodone Immediate Release Tab) 15 mg PO Q6 [facility] Last Admin: 05/02/17 18:18 Dose: 15 mg Tiotropium [place] (Spiriva) 18 mcg IH DAILY [facility] - Labs Labs: PT 10.8 SECONDS (9.7-12.2) 04/30/17 20:07 INR 1.0 04/30/17 20:07 APTT 32 SECONDS (21-34) 04/30/17 20:07
[2017-05-03] MEDS: oxyCODONE 5 mg Immediate Release Tab PO SCH ×3 (00:25→12:51)
[2017-05-03] MEDS: metroNIDAZOLE IV 500 mg/100 ml 500 MG/100 ML BAG IVPB SCH ×2 (05:30→13:54)
[2017-05-03] MEDS: Ciprofloxacin 200mg/100ml D5W 100 ML IVPB SCH (06:30)
[2017-05-03] MEDS: (Novolin R) Insulin Human Regular 100 units/ml vial SC SCH ×2 (07:30→12:53)
[2017-05-03] MEDS: Enoxaparin 40 mg Syringe SC SCH (09:09)
[2017-05-03 16:53] VITALS: BP 146/93; PULSE 74; TEMP 98.4; O2SAT 98
--- NOTE | 2017-05-03 17:16 | CP.PCM.PN ---
Subjective - Date & Time of Evaluation Date of Evaluation: 05/03/17 Time of Evaluation: 13:00 - Subjective Subjective: Pt seen today , states abdominal pain improved, and tolerating regular diet since yesterday without any issues , denies any N/V/D BMX1 soft , a febrile Objective - Vital Signs/Intake and Output Vital Signs (last 24 hours): Temp Pulse Resp BP Pulse Ox 98.4 F 74 20 146/93 H 98 05/03/17 16:00 05/03/17 16:00 05/03/17 16:00 05/03/17 16:00 05/03/17 16:00 Intake and Output: 05/03/17 05/03/17 06:59 18:59 Intake Total 500 400 Output Total 600 Balance 500 -200 - Medications Medications: Current Medications Albuterol (Ventolin Hfa 90 Mcg/Actuation (8 G)) 2 puff IH RQ6 [facility] Last Admin: 05/02/17 20:00 Dose: Not Given Alprazolam (Xanax) 0.5 mg PO TID [facility] Last Admin: 05/03/17 13:46 Dose: 0.5 mg Amlodipine Besylate (Norvasc) 5 mg PO DAILY [facility] Last Admin: 05/03/17 09:11 Dose: 5 mg Cyclobenzaprine HCl (Flexeril) 10 mg PO TID [facility] Last Admin: 05/03/17 13:46 Dose: 10 mg Enoxaparin Sodium (Lovenox) 40 mg SC DAILY [facility] Last Admin: 05/03/17 09:09 Dose: Not Given Famotidine (Pepcid) 40 mg PO DAILY [facility] Last Admin: 05/03/17 09:09 Dose: 40 mg Folic Acid (Folic Acid) 1 mg PO DAILY [facility] Last Admin: 05/03/17 09:11 Dose: 1 mg Gabapentin (Neurontin) 300 mg PO TID [facility] Last Admin: 05/03/17 13:46 Dose: 300 mg Hydrochlorothiazide (Hydrodiuril) 25 mg PO DAILY [facility] Last Admin: 05/03/17 09:11 Dose: 25 mg Hydroxychloroquine Sulfate (Plaquenil) 200 mg PO BID [facility] Last Admin: 05/03/17 09:09 Dose: 200 mg Metronidazole (Flagyl) 500 mg in 100 mls @ 100 mls/hr IVPB Q8 [facility] Last Admin: 05/03/17 13:54 Dose: 100 mls/hr Ciprofloxacin (Cipro 200mg/100ml D5w) 100 mls @ 67 mls/hr IVPB Q12H [facility] Last Admin: 05/03/17 06:30 Dose: 67 mls/hr Insulin Glargine (Lantus) 10 unit SC HS [facility] Last Admin: 05/02/17 21:22 Dose: Not Given Insulin Human Regular (Novolin R) 0 unit SC ACHS [facility] PRN Reason: Protocol Last Admin: 05/03/17 12:53 Dose: 1 unit Losartan Potassium (Cozaar) 100 mg PO DAILY [facility] Last Admin: 05/03/17 09:11 Dose: 100 mg Metformin HCl (Glucophage) 1,000 mg PO BID [facility] Metoclopramide HCl (Reglan) 5 mg PO TIDAC [facility] Last Admin: 05/03/17 12:52 Dose: 5 mg Ondansetron HCl (Zofran Inj) 4 mg IVP Q8 PRN PRN Reason: Nausea/Vomiting Last Admin: 05/02/17 09:19 Dose: 4 mg Oxycodone HCl (Oxycodone Immediate Release Tab) 15 mg PO Q6 [facility] Last Admin: 05/03/17 12:51 Dose: 15 mg Tiotropium [place] (Spiriva) 18 mcg IH DAILY [facility] - Labs Labs: PT 10.8 SECONDS (9.7-12.2) 04/30/17 20:07 INR 1.0 04/30/17 20:07 APTT 32 SECONDS (21-34) 04/30/17 20:07 Assessment and Plan - Assessment and Plan (Free Text) Assessment: A/P 41 yr old female admitted for abdominal pain/colitis a febrile CT - abdomen -Trace mural thickening within multiple loops of small bowel, to the left of midline, without surrounding inflammation or fluid to confirm an acute enteritis. Clinical correlation. Small left pleural effusion with adjacent compressive atelectasis. D/w Dr. Orellana, stable for discharge home today with jessie and rebeca and f/u with Dr. Orellana office in 1 week
--- NOTE | 2017-05-03 23:03 | CP.PCM.DIS ---
Provider - Provider Date of Admission: 05/01/17 00:40 Attending physician: Corey Orellana MD Time Spent in preparation of Discharge (in minutes): 55 Hospital Course - Lab Results Lab Results: Most Recent Lab Values WBC 8.7 K/uL (4.8-10.8) D 04/30/17 19:50 RBC 4.91 Mil/uL (3.80-5.20) 04/30/17 19:50 Hgb 14.2 g/dL (11.0-16.0) 04/30/17 19:50 Hct 43.3 % (34.0-47.0) 04/30/17 19:50 MCV 88.0 fL (81.0-99.0) D 04/30/17 19:50 MCH 28.9 pg (27.0-31.0) 04/30/17 19:50 MCHC 32.9 g/dL (33.0-37.0) L 04/30/17 19:50 RDW 15.0 % (11.5-14.5) H 04/30/17 19:50 Plt Count 139 K/uL (130-400) 04/30/17 19:50 MPV 9.7 fL (7.2-11.7) 04/30/17 19:50 Neut % (Auto) 56.7 % (50.0-75.0) 04/30/17 19:50 Lymph % (Auto) 23.7 % (20.0-40.0) 04/30/17 19:50 [place] % (Auto) 10.2 % (0.0-10.0) H 04/30/17 19:50 Eos % (Auto) 8.7 % (0.0-4.0) H 04/30/17 19:50 Baso % (Auto) 0.7 % (0.0-2.0) 04/30/17 19:50 Neut # 4.9 K/uL (1.8-7.0) 04/30/17 19:50 Lymph # 2.1 K/uL (1.0-4.3) 04/30/17 19:50 [place] # 0.9 K/uL (0.0-0.8) H 04/30/17 19:50 Eos # 0.8 K/uL (0.0-0.7) H 04/30/17 19:50 Baso # 0.1 K/uL (0.0-0.2) 04/30/17 19:50 PT 10.8 SECONDS (9.7-12.2) 04/30/17 20:07 INR 1.0 04/30/17 20:07 APTT 32 SECONDS (21-34) 04/30/17 20:07 Sodium 135 mmol/L (132-148) 04/30/17 19:50 Potassium 4.0 mmol/L (3.6-5.2) 04/30/17 19:50 Chloride 105 mmol/L (98-107) 04/30/17 19:50 Carbon Dioxide 20 mmol/L (22-30) L 04/30/17 19:50 Anion Gap 14 (10-20) 04/30/17 19:50 BUN 20 mg/dL (7-17) H 04/30/17 19:50 Creatinine 1.0 MG/DL (0.7-1.2) 04/30/17 19:50 Est GFR ( Amer) > 60 04/30/17 19:50 Est GFR (Non-Af Amer) > 60 04/30/17 19:50 POC Glucose (mg/dL) 171 mg/dL (65-110) H 05/03/17 12:44 Random Glucose 112 mg/dL (65-105) H 04/30/17 19:50 Calcium 8.9 mg/dl (8.6-10.4) 04/30/17 19:50 Total Bilirubin 0.4 mg/dL (0.2-1.3) 04/30/17 19:50 AST 35 U/L (14-36) 04/30/17 19:50 ALT 35 U/L (9-52) 04/30/17 19:50 Alkaline Phosphatase 102 U/L (38-126) 04/30/17 19:50 Total Protein 6.9 g/dL (6.3-8.3) 04/30/17 19:50 Albumin 3.6 g/dL (3.5-5.0) 04/30/17 19:50 Globulin 3.3 gm/dL (2.2-3.9) 04/30/17 19:50 Albumin/Globulin Ratio 1.1 (1.0-2.1) 04/30/17 19:50 Lipase 201 U/L (23-300) 04/30/17 19:50 Urine Color Yellow (YELLOW) 04/30/17 19:55 Urine Clarity Clear (Clear) 04/30/17 19:55 Urine pH 5.0 (5.0-8.0) 04/30/17 19:55 Ur Specific [place] 1.024 (1.003-1.030) 04/30/17 19:55 Urine Protein Negative mg/dL (NEGATIVE) 04/30/17 19:55 Urine Glucose (UA) Normal mg/dL (Normal) 04/30/17 19:55 Urine Ketones Negative mg/dL (NEGATIVE) 04/30/17 19:55 Urine Blood Negative (NEGATIVE) 04/30/17 19:55 Urine Nitrate Negative (NEGATIVE) 04/30/17 19:55 Urine Bilirubin Negative (NEGATIVE) 04/30/17 19:55 Urine Urobilinogen Normal mg/dL (0.2-1.0) 04/30/17 19:55 Ur Leukocyte Esterase Neg [place]/uL (Negative) 04/30/17 19:55 Urine WBC (Auto) 1 /hpf (0-5) 04/30/17 19:55 Urine RBC (Auto) < 1 /hpf (0-3) 04/30/17 19:55 Ur Squamous Epith Cells 1 /hpf (0-5) 04/30/17 19:55 Urine Bacteria Rare (<OCC) 04/30/17 19:55 Urine HCG, Qual Negative (NEGATIVE) 04/30/17 19:55 C. difficile Ag & Toxin Negative (NEGATIVE) 05/02/17 Unknown - Hospital Course Hospital Course: A/P 41 yr old female admitted for abdominal pain/colitis a febrile CT - abdomen -Trace mural thickening within multiple loops of small bowel, to the left of midline, without surrounding inflammation or fluid to confirm an acute enteritis. Clinical correlation. Small left pleural effusion with adjacent compressive atelectasis. stable for discharge home today with flagmadie and chrisro and f/u with me office in 1 week Discharge Exam - Head Exam Head Exam: ATRAUMATIC, NORMAL INSPECTION, NORMOCEPHALIC - Eye Exam Eye Exam: EOMI, Normal appearance, PERRL Pupil Exam: NORMAL ACCOMODATION, PERRL - ENT Exam ENT Exam: Mucous Membranes Moist - Respiratory Exam Respiratory Exam: Clear to PA & Lateral, NORMAL BREATHING PATTERN - Cardiovascular Exam Cardiovascular Exam: REGULAR RHYTHM, +S1, +S2 - GI/Abdominal Exam GI & Abdominal Exam: Normal Bowel Sounds - Rectal Exam Rectal Exam: Deferred Discharge Plan - Discharge Medications Prescriptions: Ciprofloxacin HCl [Cipro] 500 mg PO BID #6 tab Metronidazole [Flagyl] 500 mg PO Q8 #21 tablet - Follow Up Plan Condition: FAIR Disposition: HOME/ ROUTINE Instructions: Ciprofloxacin (By mouth), Metronidazole (By mouth), Irritable Bowel Syndrome (DC), Acute Abdominal Pain (DC) Referrals: Corey Orellana MD [Staff Provider] -
== END 2017-05-03 17:15 | disposition home or self-care (01) | DRG 813 ==
LOC: C.ER 18:46 → C.6T 05-01 00:40 → C.3T 05-02 10:35
PROVIDERS: ADMIT Internal Medicine; ATTEND Internal Medicine
DX: K52.9 Noninfective gastroenteritis and colitis, unspecified (principal); J44.9 Chronic obstructive pulmonary disease, unspecified; I10 Essential (primary) hypertension; J98.11 Atelectasis; E11.9 Type 2 diabetes mellitus without complications; E78.00 Pure hypercholesterolemia, unspecified; M06.9 Rheumatoid arthritis, unspecified; Z87.891 Personal history of nicotine dependence

== ENCOUNTER 2017-05-14 10:07 | Inpatient (IN) | payer MEDICAID ==
[2017-05-14 10:07] VITALS: BMI 39.3
[2017-05-14] MEDS ORDERED: Sodium Chloride 0.9% 1,000 ML IV STA (11:01)
[2017-05-14] MEDS ORDERED: Sodium Chloride 0.9% 1,000 ML ONE (11:09)
[2017-05-14 11:18] LABS: BASO # 0.1 K/uL (0.0-0.2); BASO % 0.8 % (0.0-2.0); EOS # 0.5 K/uL (0.0-0.7); EOS % 5.7 % (0.0-4.0); HEMATOCRIT 39.5 % (34.0-47.0); LYMPH # 1.2 K/uL (1.0-4.3); LYMPH % 13.6 % (20.0-40.0); MEAN CELL VOLUME 86.8 fL (81.0-99.0); MEAN CORPUSCULAR HEMOGLOBIN 28.6 pg (27.0-31.0); MEAN PLATELET VOLUME 9.7 fL (7.2-11.7); MONO # 0.7 K/uL (0.0-0.8); MONO % 7.4 % (0.0-10.0); NRBC % 0.1 % (0.0-2.0); RED CELL DISTRIBUTION WIDTH 14.9 % (11.5-14.5); WHITE BLOOD COUNT 9.2 K/uL (4.8-10.8)
[2017-05-14 11:25] LABS: CHLORIDE 99 mmol/L (98-107); POTASSIUM 3.7 mmol/L (3.6-5.2); SODIUM 139 mmol/L (132-148)
[2017-05-14 11:27] LABS: BILIRUBIN,TOTAL 0.5 mg/dL (0.2-1.3); CARBON DIOXIDE 26 mmol/L (22-30); GFR AFRICAN-AMERICAN > 60
[2017-05-14 11:28] LABS: ALB/GLOB RATIO 1.2 (1.0-2.1); ALKALINE PHOSPHATASE 114 U/L (38-126); ALT/SGPT 66 U/L (9-52); AST/SGOT 51 U/L (14-36); BLOOD UREA NITROGEN 17 mg/dL (7-17); CALCIUM 9.8 mg/dl (8.6-10.4); GLUCOSE,RANDOM 121 mg/dL (65-105); TOTAL PROTEIN 7.1 g/dL (6.3-8.3)
--- NOTE | 2017-05-14 11:35 | C.PDOC ---
History Of Present Illness 41 y/o female presents to ED with complaints of left sided abdominal pain and cramping x2 days. Pt recently diagnosed with colitis, discharged home with cipro and flagyl. Pt has not followed up with GI. Denies fever, chills, nausea, vomiting, diarrhea or any other complaints. Chief Complaint (Nursing): Abdominal Pain History Per: Patient History/Exam Limitations: no limitations Onset/Duration Of Symptoms: Days Current Symptoms Are (Timing): Still Present Severity: Moderate Location Of Pain/Discomfort: LUQ, LLQ Radiation Of Pain To:: None Quality Of Discomfort: Cramping, "Pain" Associated Symptoms: denies: Fever, Chills, Nausea, Vomiting, Diarrhea Exacerbating Factors: None Alleviating Factors: None Recent travel outside of the [place]: No Past Medical History Reviewed: Historical Data, Nursing Documentation, Vital Signs Vital Signs: Last Vital Signs Temp 98.1 F 05/14/17 18:00 Pulse 62 05/14/17 18:00 Resp 20 05/14/17 18:00 BP 171/98 H 05/14/17 18:00 Pulse Ox 96 05/14/17 18:00 - Medical History PMH: Anxiety, Arthritis, Asthma, Back Problems, Bronchitis, COPD, Depression, Diabetes, Emphysema, Gastritis, Gastrointestinal Ulcer, HTN, Hypercholesterolemia, Pancreatitis, Pneumonia, Rheumatoid Arthritis Surgical History: Endoscopy (X2) - [facility] Procedures CLOSED ENDOSCOPIC BIOPSY OF LARGE INTESTINE (03/05/14) CORONAR ARTERIOGR-2 CATH (03/28/12) ESOPHAGOGASTRODUODENOSCOPY [EGD] W/CLOSED BIOPSY (03/10/14) EXCISION OF STOMACH, ENDO, DIAGN (10/27/15) INJECT/INFUSE NEC (05/04/14) LEFT HEART CARDIAC CATH (03/28/12) LT HEART ANGIOCARDIOGRAM (03/28/12) Family History: States: Unknown Family Hx - Social History Hx Tobacco Use: Yes Hx Alcohol Use: No Hx Substance Use: No - Immunization History Hx Tetanus Toxoid Vaccination: No Hx Influenza Vaccination: Yes (December 2016) Hx Pneumococcal Vaccination: Yes (Oct 2015) Review Of Systems Except As Marked, All Systems Reviewed And Found Negative. Constitutional: Negative for: Fever, Chills Cardiovascular: Negative for: Chest Pain Respiratory: Negative for: Shortness of Breath Gastrointestinal: Positive for: Abdominal Pain. Negative for: Nausea, Vomiting , Diarrhea Physical Exam - Physical Exam Appears: Non-toxic, No Acute Distress Skin: Warm, Dry, No Rash Head: Atraumatic, Normacephalic Chest: Symmetrical Cardiovascular: Rhythm Regular, No Murmur Respiratory: Normal Breath Sounds, No Rales, No Rhonchi, No Wheezing Gastrointestinal/Abdominal: Soft, Tenderness (diffuse left abdominal tenderness) , No Guarding, No Rebound Extremity: Bilateral: Atraumatic Neurological/Psych: Oriented x3, Normal Speech, Normal Cognition ED Course And Treatment - Laboratory Results Result Diagrams: 05/14/17 11:09 05/14/17 11:09 O2 Sat by Pulse Oximetry: 98 (room air) Pulse Ox Interpretation: Normal - CT Scan/US CT abdomen Other Rad Studies (CT/US): Read By Radiologist, Radiology Report Reviewed CT/US Interpretation: Accession No. : [id number]. Patient Name / ID : ROSHAN ANDRE / [id number]. Exam Date : 05/14/2017 12:37:04 ( Approved ). Study Comment : Sex / Age : F / 41Y. Creator : Althea Tariq MD. Dictator : Althea Tariq MD. Whiskey Proof Reader : Tie Tape Machine Operator : Althea Tariq MD. Approver2 : Report Date : 05/14/2017 13:30:40. My Comment : . PROCEDURE: CT Abdomen and Pelvis without Oral or IV contrast. HISTORY: left abd pain. COMPARISON: CT abdomen and pelvis with contrast performed . TECHNIQUE: Contiguous axial images of the abdomen and pelvis. No oral or IV contrast administered. Coronal and Sagittal reformats generated and reviewed. Radiation dose: Total exam DLP = 1096.05 mGy-cm. This CT exam was performed using one or more of the following dose reduction techniques: Automated exposure control, adjustment of the mA and/or kV according to patient size, and/or use of iterative reconstruction technique. FINDINGS: There is limited evaluation of the solid organs without the administration of IV contrast. LOWER THORAX: No visible consolidation, pleural effusion, or pneumothorax. LIVER: Hepatomegaly. GALLBLADDER AND BILE DUCTS: Contracted gallbladder limits evaluation. PANCREAS: Unremarkable unenhanced appearance. SPLEEN: Unremarkable unenhanced appearance. ADRENALS: Unremarkable unenhanced appearance. KIDNEYS AND URETERS: No hydronephrosis or obstructing renal calculus. BLADDER: The urinary bladder appears unremarkable. REPRODUCTIVE: Uterus is present. APPENDIX: The appendix appears within normal limits of caliber. No secondary signs of acute appendicitis. BOWEL: The stomach is nondistended. Lack of oral contrast limits evaluation for bowel pathology. The bowel loops appear within normal limits of caliber without evidence of intestinal obstruction. Suspect persistent mural thickening involving multiple loops of small bowel to the left of midline ; however cannot be adequately assessed in the absence of oral contrast. No associated inflammatory changes appreciated. Moderate diffuse constipation. PERITONEUM: No significant free fluid. No definite free air. LYMPH NODES: Prominent but sub cm retroperitoneal lymph nodes, nonspecific. No bulky lymphadenopathy identified. VASCULATURE: No aortic aneurysm. BONES: Degenerative changes of the spine. OTHER FINDINGS: Small fat containing umbilical hernia. IMPRESSION : Hepatomegaly. Prominent but sub cm retroperitoneal lymph nodes, nonspecific. Diffuse constipation. Suspect persistent mural thickening involving multiple loops of small bowel to the left of midline ; however cannot be adequately assessed in the absence of oral contrast. No associated inflammatory changes appreciated to indicate acute enteritis. Correlate clinically. Additional findings as above. Progress Note: Plan: CT abd, labs, UA, IV fluids, pepcid, zofran, toradol. Reassess (Abdominal Pain): Patient still c/o severe abdominal pain. case was d/ w who covers for patient's PMD . Patient was accepted to her service for admission. Disposition - Disposition Disposition: HOSPITALIZED Disposition Time: 16:03 Condition: FAIR - Clinical Impression Clinical Impression: Abdominal pain, Colitis Decision To Admit - Pt Status Changed To: Hospital Disposition Of: Inpatient - Admit Certification Admit to Inpatient:: After my assessment, the patient will require hospitalization for at least two midnights. This is because of the severity of symptoms shown, intensity of services needed, and/or the medical risk in this patient being treated as an outpatient. - InPatient: Physician Admission Certification:: Patient failed her outpatient treatment and needs to be admitted for more than 2 days for treatment. - . Bed Request Type: Regular Admitting Physician: Latisha Trevino Patient Diagnosis: Abdominal pain, Colitis
[2017-05-14 11:39] LABS: RBC URINE < 1 /hpf (0-3); URINE BACTERIA RARE (<OCC); URINE BILIRUBIN NEGATIVE (NEGATIVE); URINE BLOOD NEGATIVE (NEGATIVE); URINE COLOR Yellow (YELLOW); URINE GLUCOSE (UA) NORMAL (Normal); URINE KETONE NEGATIVE (NEGATIVE); URINE LEUKOCYTE ESTERASE TRACE Leu/uL (Negative); URINE PROTEIN NEGATIVE (NEGATIVE); URINE UROBILINOGEN NORMAL mg/dL (0.2-1.0); WBC URINE < 1 /hpf (0-5)
--- NOTE | 2017-05-14 13:34 | CT ---
PROCEDURE: CT Abdomen and Pelvis without Oral or IV contrast. HISTORY: left abd pain COMPARISON: CT abdomen and pelvis with contrast performed 04/30/17 TECHNIQUE: Contiguous axial images of the abdomen and pelvis. No oral or IV contrast administered. Coronal and Sagittal reformats generated and reviewed. Radiation dose: Total exam DLP = 1096.05 mGy-cm. This CT exam was performed using one or more of the following dose reduction techniques: Automated exposure control, adjustment of the mA and/or kV according to patient size, and/or use of iterative reconstruction technique. FINDINGS: There is limited evaluation of the solid organs without the administration of IV contrast. LOWER THORAX: No visible consolidation, pleural effusion, or pneumothorax. LIVER: Hepatomegaly. GALLBLADDER AND BILE DUCTS: Contracted gallbladder limits evaluation. PANCREAS: Unremarkable unenhanced appearance. SPLEEN: Unremarkable unenhanced appearance. ADRENALS: Unremarkable unenhanced appearance. KIDNEYS AND URETERS: No hydronephrosis or obstructing renal calculus. BLADDER: The urinary bladder appears unremarkable. REPRODUCTIVE: Uterus is present. APPENDIX: The appendix appears within normal limits of caliber. No secondary signs of acute appendicitis. BOWEL: The stomach is nondistended. Lack of oral contrast limits evaluation for bowel pathology. The bowel loops appear within normal limits of caliber without evidence of intestinal obstruction. Suspect persistent mural thickening involving multiple loops of small bowel to the left of midline ; however cannot be adequately assessed in the absence of oral contrast. No associated inflammatory changes appreciated. Moderate diffuse constipation. PERITONEUM: No significant free fluid. No definite free air. LYMPH NODES: Prominent but sub cm retroperitoneal lymph nodes, nonspecific. No bulky lymphadenopathy identified. VASCULATURE: No aortic aneurysm. BONES: Degenerative changes of the spine. OTHER FINDINGS: Small fat containing umbilical hernia. IMPRESSION: Hepatomegaly. Prominent but sub cm retroperitoneal lymph nodes, nonspecific. Diffuse constipation. Suspect persistent mural thickening involving multiple loops of small bowel to the left of midline ; however cannot be adequately assessed in the absence of oral contrast. No associated inflammatory changes appreciated to indicate acute enteritis. Correlate clinically Additional findings as above.
[2017-05-14] MEDS ORDERED: Morphine 4 MG/ML VIAL ONE (15:17)
[2017-05-14] MEDS ORDERED: Mometasone 220 mcg/puff-14 puff Inh INH SCH (18:00)
[2017-05-14] MEDS: Ciprofloxacin 400mg/200ml D5W 400 MG/200 ML BAG IVPB SCH (21:00)
[2017-05-14] MEDS: (Novolog) Insulin Aspart, Recombinant 100 u/ml 10 ml vial SC SCH (21:46)
[2017-05-14] MEDS: HYDROmorphone 0.5 mg/0.5 ml ISec IVP PRN (21:51)
[2017-05-14] MEDS: Albuterol HFA 90 mcg/actuation (8 g) IH SCH (22:19)
[2017-05-14] MEDS: metroNIDAZOLE IV 500 mg/100 ml 500 MG/100 ML BAG IVPB SCH (23:00)
--- NOTE | 2017-05-14 23:23 | CP.PCM.HP ---
History of Present Illness - History of Present Illness History of Present Illness: 05/14/17 History Of Present Illness 41 y/o female presents to ED with complaints of left sided abdominal pain and cramping x2 days. Pt recently diagnosed with colitis, discharged home with cipro and flagyl. Pt has not followed up with GI. Denies fever, chills, nausea, vomiting, diarrhea or any other complaints. Chief Complaint (Nursing): Abdominal Pain History Per: Patient History/Exam Limitations: no limitations Onset/Duration Of Symptoms: Days Current Symptoms Are (Timing): Still Present Severity: Moderate Location Of Pain/Discomfort: LUQ, LLQ Radiation Of Pain To:: None Quality Of Discomfort: Cramping, "Pain" Associated Symptoms: denies: Fever, Chills, Nausea, Vomiting, Diarrhea Exacerbating Factors: None Alleviating Factors: None Recent travel outside of the [place]: No Temp 98.1 F 05/14/17 18:00 Pulse 62 05/14/17 18:00 Resp 20 05/14/17 18:00 BP 171/98 H Pulse Ox 96 had h/o Anxiety, Arthritis, Asthma, Back Problems, Bronchitis, COPD, Depression, Diabetes, Emphysema, Gastritis, Gastrointestinal Ulcer, HTN, Hypercholesterolemia, Pancreatitis, Pneumonia, Rheumatoid Arthritis Surgical History: Endoscopy (X2) Present on Admission - Present on Admission Any Indicators Present on Admission: No Review of Systems - Constitutional Constitutional: As Per HPI - EENT Eyes: As Per HPI Ears: As Per HPI Nose/Mouth/Throat: As Per HPI - Breasts Breasts: As Per HPI - Cardiovascular Cardiovascular: As Per HPI - Respiratory Respiratory: As Per HPI - Gastrointestinal Gastrointestinal: Abdominal Pain, Cramping, Dyspepsia, Dysphagia - Musculoskeletal Musculoskeletal: As Per HPI - Integumentary Integumentary: As Per HPI - Neurological Neurological: As Per HPI - Psychiatric Psychiatric: As Per HPI - Endocrine Endocrine: As Per HPI - Hematologic/Lymphatic Hematologic: As Per HPI Past Patient History - Infectious Disease Hx of Infectious Diseases: None - Past Medical History & Family History Past Medical History?: Yes - Past Social History Smoking Status: Smoker Currrent Status Unknown - CARDIAC Hx Hypercholesterolemia: Yes Hx Hypertension: Yes - PULMONARY Hx Asthma: Yes Hx Bronchitis: Yes Hx Chronic Obstructive Pulmonary Disease (COPD): Yes Hx Emphysema: Yes Hx Pneumonia: Yes - NEUROLOGICAL Hx Neurological Disorder: No - HEENT Hx HEENT Problems: Yes Hx Glaucoma: Yes - RENAL Hx Chronic Kidney Disease: No - ENDOCRINE/METABOLIC Hx Endocrine Disorders: Yes Hx Diabetes Mellitus Type 2: Yes Hx Systemic Lupus Erythematosus: Yes - HEMATOLOGICAL/ONCOLOGICAL Hx Blood Disorders: Yes Hx Blood Transfusions: No Other/Comment: lupus - INTEGUMENTARY Hx Dermatological Problems: No - MUSCULOSKELETAL/RHEUMATOLOGICAL Hx Arthritis: Yes Hx Rheumatoid Arthritis: Yes - GASTROINTESTINAL Hx Gastritis: Yes Hx Pancreatitis: Yes - GENITOURINARY/GYNECOLOGICAL Hx Genitourinary Disorders: Yes (SEE COMMENT) Other/Comment: endometriosis - PSYCHIATRIC Hx Anxiety: Yes Hx Depression: Yes Hx Substance Use: No - SURGICAL HISTORY Hx Surgeries: Yes Hx Section: Yes (x) Other/Comment: Sinus surgery, laparoscopy - ANESTHESIA Hx Anesthesia: Yes Hx Anesthesia Reactions: No Hx Malignant Hyperthermia: No Has any member of the family had a problem w/ anesthesia?: No Meds Allergies/Adverse Reactions: Allergies Allergy/AdvReac Type Severity Reaction Status Date / Time methylergonovine maleate Allergy Intermediate RASH Verified 05/14/17 10:21 [From Methergine] Penicillins Allergy Intermediate RASH Verified 05/14/17 10:21 Physical Exam - Constitutional Appears: Well - Head Exam Head Exam: ATRAUMATIC, NORMAL INSPECTION, NORMOCEPHALIC - Eye Exam Eye Exam: EOMI, Normal appearance, PERRL Pupil Exam: NORMAL ACCOMODATION, PERRL - ENT Exam ENT Exam: Mucous Membranes Moist, Normal Exam - Neck Exam Neck exam: Positive for: Normal Inspection - Respiratory Exam Respiratory Exam: Clear to Auscultation Bilateral, NORMAL BREATHING PATTERN - Cardiovascular Exam Cardiovascular Exam: REGULAR RHYTHM - GI/Abdominal Exam GI & Abdominal Exam: Soft. absent: Tenderness - Rectal Exam Rectal Exam: NORMAL INSPECTION - Exam Exam: Circumcision, NORMAL INSPECTION External exam: NORMAL EXTERNAL EXAM Speculum exam: NORMAL SPECULUM EXAM Bimanual exam: NORMAL BIMANUAL EXAM - Extremities Exam Extremities exam: Positive for: normal inspection - Back Exam Back exam: NORMAL INSPECTION - Neurological Exam Neurological exam: Alert, CN II-XII Intact, Normal Gait, Oriented x3, Reflexes Normal - Psychiatric Exam Psychiatric exam: Normal Affect, Normal Mood - Skin Skin Exam: Dry, Intact, Normal Color, Warm Results - Vital Signs Recent Vital Signs: Last Vital Signs Temp 98.1 F 05/14/17 18:00 Pulse 62 07/24/17 18:00 Resp 20 05/14/17 18:00 BP 171/98 H 05/14/17 18:00 Pulse Ox 98 05/14/17 19:57 - Labs Result Diagrams: 05/14/17 11:09 05/14/17 11:09 Labs: Laboratory Results - last 24 hr 05/14/17 05/14/17 18:20 21:16 POC Glucose (mg/dL) 137 H 169 H Assessment & Plan (1) Abdominal pain Status: Acute Priority: High (2) Colitis Status: Acute (3) Acute pancreatitis Status: Acute (4) Asthma Status: Acute (5) Atypical chest pain Status: Acute (6) Bronchitis Status: Acute (7) Cervical sprain Status: Acute (8) Chest pain Status: Acute (9) Chest pain Status: Acute (10) Colitis Status: Acute (11) Cough Status: Acute (12) Ear pain Status: Acute (13) Foot contusion Status: Acute (14) Gastritis Status: Acute (15) Gastroesophageal reflux disease Status: Acute (16) Hand contusion Status: Acute (17) Head injury Status: Acute (18) Herpes genitalia Status: Acute (19) Hyperglycemia Status: Acute (20) Hyperlipidemia Status: Acute (21) Joint pain Status: Acute (22) Joint swelling Status: Acute (23) Leg pain Status: Acute (24) Nausea Status: Acute (25) Nausea & vomiting Status: Acute (26) Neck pain on left side Status: Acute (27) Respiratory tract infection Status: Acute (28) Right knee sprain Status: Acute (29) Thrombophlebitis Status: Acute (30) UTI (urinary tract infection) Status: Acute (31) Visit for wound check Status: Acute (32) Vomiting Status: Acute (33) Vomiting alone Status: Acute (34) Diabetes mellitus Status: Chronic (35) Diabetes mellitus type 2 Status: Chronic Priority: Medium (36) Hypertension Status: Chronic (37) Obesity Status: Chronic - Assessment and Plan (Free Text) Assessment: Abdominal pain, Colitis , htn , failed out pt treatment , obesity had h/o Anxiety, Arthritis, Asthma, Back Problems, Bronchitis, COPD, Depression, Diabetes, Emphysema, Gastritis, Gastrointestinal Ulcer, HTN, Hypercholesterolemia, Pancreatitis, Pneumonia, Rheumatoid Arthritis Surgical History: Endoscopy (X2)gi consult called . anb, stARTED , pain meds given
[2017-05-15] MEDS: Albuterol HFA 90 mcg/actuation (8 g) IH SCH ×4 (01:50→21:05)
[2017-05-15] MEDS: HYDROmorphone 0.5 mg/0.5 ml ISec IVP PRN ×4 (02:01→19:05)
--- NOTE | 2017-05-15 05:26 | CP.PCM.CON ---
<Akshat King - Last Filed: 05/15/17 06:58> History of Present Illness - History of Present Illness History of Present Illness: Surgery Consult note. Dr. Norman CC: Abdominal Pain 41yo F with PMHx including Anxiety/Depression, Asthma, COPD, DM, HTN, HLD, Lupus , RA, here for evaluation of left sided abdominal pain. Patient states that she was recently in the hospital for similar symptoms and was told she has colitis and was discharged on Cipro/Flagyl. She completed her course of antibiotics, however, denies any relief. She states that the pain is located in the left side of the abd, cramping in nature, radiates to left back. Denies any fever. Does state she has chills. Had one episode of vomiting 2 days ago, non bloody, non bilious. Does state that she has been having loose stools, attributes this to taking antibiotics. Pain is not associated with food intake. No CP/SOB. No Headaches. PMD: Reyna PMHx: Anxiety/Depression, Arthritis, Asthma, COPD, DM, HTN, HLD, Gastritis, Lupus, RA, Endometriosis PSHx: EGDx3, Colonoscopy, Laparascopic Endometriosis removal, x2, Left breast Bx x2 (benign) Social Hx: Unemployed; 2-3 cigarrets per week. Denies Alcohol use. Denies any illicit drugs Family Hx: Maternal Hx- RA, various types of CA; Paternal Hx - Lupus, HTN, DM Allergy: Methylergonovine Maleate, PCN Review of Systems - Review of Systems All systems: reviewed and no additional remarkable complaints except - Constitutional Constitutional: Chills. absent: Fever - EENT Ears: absent: Dizziness - Cardiovascular Cardiovascular: absent: Chest Pain, Dyspnea - Gastrointestinal Gastrointestinal: Abdominal Pain, Vomiting. absent: Diarrhea, Hematochezia, Melena, Nausea - Genitourinary Genitourinary: absent: Dysuria, Hematuria - Musculoskeletal Musculoskeletal: Back Pain - Neurological Neurological: absent: Confusion, Headaches - Psychiatric Psychiatric: Anxiety Past Patient History - Infectious Disease Hx of Infectious Diseases: None - Past Medical History & Family History Past Medical History?: Yes - Past Social History Smoking Status: Current Some Days Smoker - CARDIAC Hx Hypercholesterolemia: Yes Hx Hypertension: Yes - PULMONARY Hx Asthma: Yes Hx Bronchitis: Yes Hx Chronic Obstructive Pulmonary Disease (COPD): Yes Hx Emphysema: Yes Hx Pneumonia: Yes - NEUROLOGICAL Hx Neurological Disorder: No - HEENT Hx HEENT Problems: Yes Hx Glaucoma: Yes - RENAL Hx Chronic Kidney Disease: No - ENDOCRINE/METABOLIC Hx Endocrine Disorders: Yes Hx Diabetes Mellitus Type 2: Yes Hx Systemic Lupus Erythematosus: Yes - HEMATOLOGICAL/ONCOLOGICAL Hx Blood Disorders: Yes Hx Blood Transfusions: No Other/Comment: lupus - INTEGUMENTARY Hx Dermatological Problems: No - MUSCULOSKELETAL/RHEUMATOLOGICAL Hx Arthritis: Yes Hx Rheumatoid Arthritis: Yes - GASTROINTESTINAL Hx Gastritis: Yes Hx Pancreatitis: Yes - GENITOURINARY/GYNECOLOGICAL Hx Genitourinary Disorders: Yes (SEE COMMENT) Other/Comment: endometriosis - PSYCHIATRIC Hx Anxiety: Yes Hx Depression: Yes Hx Substance Use: No - SURGICAL HISTORY Hx Surgeries: Yes Hx Section: Yes (x) Other/Comment: Sinus surgery, laparoscopy - ANESTHESIA Hx Anesthesia: Yes Hx Anesthesia Reactions: No Hx Malignant Hyperthermia: No Has any member of the family had a problem w/ anesthesia?: No Meds Allergies/Adverse Reactions: Allergies Allergy/AdvReac Type Severity Reaction Status Date / Time methylergonovine maleate Allergy Intermediate RASH Verified 05/14/17 10:21 [From Methergine] Penicillins Allergy Intermediate RASH Verified 05/14/17 10:21 - Medications Medications: Current Medications Albuterol (Ventolin Hfa 90 Mcg/Actuation (8 G)) 2 puff IH RQ6 [facility] Last Admin: 05/15/17 01:50 Dose: 2 puff Alprazolam (Xanax) 0.5 mg PO TID [facility] Last Admin: 05/14/17 19:00 Dose: 0.5 mg Amlodipine Besylate (Norvasc) 5 mg PO DAILY [facility] Enoxaparin Sodium (Lovenox) 40 mg SC DAILY [facility] Famotidine (Pepcid) 40 mg PO DAILY [facility] Folic Acid (Folic Acid) 1 mg PO DAILY [facility] Gabapentin (Neurontin) 300 mg PO TID [facility] Last Admin: 05/14/17 19:00 Dose: 300 mg Hydrochlorothiazide (Hydrodiuril) 25 mg PO DAILY [facility] Hydromorphone HCl (Dilaudid) 0.5 mg IVP Q4H PRN PRN Reason: Pain, Mild (1-3) Last Admin: 05/15/17 02:01 Dose: 0.5 mg Metronidazole (Flagyl) 500 mg in 100 mls @ 100 mls/hr IVPB Q8 [facility] Last Admin: 05/14/17 23:00 Dose: 100 mls/hr Ciprofloxacin (Cipro 400mg/200ml Dsw) 400 mg in 200 mls @ 133 mls/hr IVPB Q12H [facility] Last Admin: 05/14/17 21:00 Dose: 133 mls/hr Insulin Aspart (Novolog) 0 unit SC ACHS [facility] PRN Reason: Protocol Last Admin: 05/14/17 21:46 Dose: Not Given Losartan Potassium (Cozaar) 100 mg PO DAILY [facility] Mometasone Furoate (Asmanex Twisthaler 220 Mcg) 1 puff INH QPM [facility] Ondansetron HCl (Zofran Inj) 4 mg IVP Q6H PRN PRN Reason: Nausea/Vomiting Last Admin: 05/15/17 01:57 Dose: 4 mg Pantoprazole Sodium (Protonix Ec Tab) 40 mg PO DAILY [facility] Tiotropium [place] (Spiriva) 18 mcg IH RQD [facility] Physical Exam - Constitutional Appears: Well, No Acute Distress - Head Exam Head Exam: ATRAUMATIC, NORMAL INSPECTION, NORMOCEPHALIC - Eye Exam Eye Exam: EOMI - ENT Exam ENT Exam: Mucous Membranes Moist - Respiratory Exam Respiratory Exam: NORMAL BREATHING PATTERN - GI/Abdominal Exam GI & Abdominal Exam: Soft Additional comments: Tender to palpation left abdomen. Soft, non distended - Extremities Exam Extremities exam: Positive for: normal inspection. Negative for: calf tenderness, pedal edema - Back Exam Back exam: NORMAL INSPECTION. absent: CVA tenderness (L), CVA tenderness (R) - Neurological Exam Neurological exam: Alert, Oriented x3 - Psychiatric Exam Psychiatric exam: Normal Affect, Normal Mood - Skin Skin Exam: Dry, Intact, Normal Color, Warm Results - Vital Signs Recent Vital Signs: Last Vital Signs Temp 97.7 F 05/15/17 00:03 Pulse 67 05/15/17 00:03 Resp 18 05/15/17 00:03 BP 152/92 H 05/15/17 00:03 Pulse Ox 98 05/15/17 00:03 - Labs Result Diagrams: 05/14/17 11:09 05/14/17 11:09 Labs: Laboratory Results - last 24 hr 05/14/17 05/14/17 18:20 21:16 POC Glucose (mg/dL) 137 H 169 H Assessment & Plan - Assessment and Plan (Free Text) Assessment: 41yo F here for Left sided Abdominal pain - CT- Constipation, persistent mural thickening of multiple small bowel loops, no inflammatory changes. Hepatomegaly - Mild Transaminitis noted - VSS - Continue Abx - f/u stool studies - IVF - Trial of Colace for constipation - Agree with GI eval. Will f/u - No plans for any acute surgical intervention Further recs as per Dr. Emerson King PGY1 surgery pager: [phone] <Negrito Norman - Last Filed: 05/15/17 20:14> Meds - Medications Medications: Current Medications Albuterol (Ventolin Hfa 90 Mcg/Actuation (8 G)) 2 puff IH RQ6 [facility] Last Admin: 05/15/17 13:40 Dose: 2 puff Alprazolam (Xanax) 0.5 mg PO TID [facility] Last Admin: 05/15/17 18:23 Dose: 0.5 mg Amlodipine Besylate (Norvasc) 5 mg PO DAILY [facility] Last Admin: 05/15/17 10:46 Dose: 5 mg Docusate Sodium (Colace) 100 mg PO BID [facility] Last Admin: 05/15/17 18:22 Dose: 100 mg Enoxaparin Sodium (Lovenox) 40 mg SC DAILY [facility] Last Admin: 05/15/17 10:55 Dose: Not Given Folic Acid (Folic Acid) 1 mg PO DAILY [facility] Last Admin: 05/15/17 10:46 Dose: 1 mg Gabapentin (Neurontin) 300 mg PO TID [facility] Last Admin: 05/15/17 18:22 Dose: 300 mg Hydrochlorothiazide (Hydrodiuril) 25 mg PO DAILY [facility] Last Admin: 05/15/17 10:46 Dose: 25 mg Hydromorphone HCl (Dilaudid) 0.5 mg IVP Q4H PRN PRN Reason: Pain, Mild (1-3) Last Admin: 05/15/17 19:05 Dose: 0.5 mg Metronidazole (Flagyl) 500 mg in 100 mls @ 100 mls/hr IVPB Q8 [facility] Last Admin: 05/15/17 13:35 Dose: 100 mls/hr Ciprofloxacin (Cipro 400mg/200ml Dsw) 400 mg in 200 mls @ 133 mls/hr IVPB Q12H [facility] Last Admin: 05/15/17 08:41 Dose: 133 mls/hr Insulin Aspart (Novolog) 0 unit SC ACHS [facility] PRN Reason: Protocol Last Admin: 05/15/17 18:22 Dose: Not Given Losartan Potassium (Cozaar) 100 mg PO DAILY [facility] Last Admin: 05/15/17 10:46 Dose: 100 mg Metoclopramide HCl (Reglan) 10 mg IVP ACTID [facility] Last Admin: 05/15/17 18:23 Dose: 10 mg Mometasone Furoate (Asmanex Twisthaler 220 Mcg) 1 puff INH QPM [facility] Pantoprazole Sodium (Protonix Ec Tab) 40 mg PO DAILY [facility] Last Admin: 05/15/17 10:46 Dose: 40 mg Polyethylene Glycol (Miralax) 17 gm PO DAILY [facility] Last Admin: 05/15/17 10:53 Dose: 17 gm Tiotropium [place] (Spiriva) 18 mcg IH RQD [facility] Results - Vital Signs Recent Vital Signs: Last Vital Signs Temp 98 F 05/15/17 15:00 Pulse 60 05/15/17 15:00 Resp 20 05/15/17 15:00 BP 143/82 05/15/17 15:00 Pulse Ox 96 05/15/17 15:00 - Labs Result Diagrams: 05/15/17 06:32 05/15/17 06:32 Labs: Laboratory Results - last 24 hr 05/14/17 05/15/17 05/15/17 21:16 06:32 06:32 WBC 8.3 RBC 4.28 Hgb 12.3 Hct 37.1 MCV 86.7 MCH 28.7 MCHC 33.1 RDW 15.1 H Plt Count 171 MPV 9.7 Sodium 138 Potassium 4.0 Chloride 98 Carbon Dioxide 28 Anion Gap 16 BUN 12 Creatinine 0.8 Est GFR ( Amer) > 60 Est GFR (Non-Af Amer) > 60 POC Glucose (mg/dL) 169 H Random Glucose 110 H Hemoglobin A1c Calcium 8.5 L Total Bilirubin 0.5 Direct Bilirubin 0.4 AST 48 H ALT 54 H Alkaline Phosphatase 90 Total Protein 6.6 Albumin 3.5 Globulin 3.1 Albumin/Globulin Ratio 1.1 Urine Opiates Screen Urine Methadone Screen Ur Barbiturates Screen Ur Phencyclidine Scrn Ur Amphetamines Screen U Benzodiazepines Scrn U Oth Cocaine Metabols U Cannabinoids Screen Alcohol, Quantitative < 10 Hepatitis A IgM Ab Hep Bs Antigen Hep B Core IgM Ab Hepatitis C Antibody 05/15/17 05/15/17 05/15/17 06:35 06:35 07:09 WBC RBC Hgb Hct MCV MCH MCHC RDW Plt Count MPV Sodium Potassium Chloride Carbon Dioxide Anion Gap BUN Creatinine Est GFR ( Amer) Est GFR (Non-Af Amer) POC Glucose (mg/dL) 123 H Random Glucose Hemoglobin A1c 7.0 H Calcium Total Bilirubin Direct Bilirubin AST ALT Alkaline Phosphatase Total Protein Albumin Globulin Albumin/Globulin Ratio Urine Opiates Screen Urine Methadone Screen Ur Barbiturates Screen Ur Phencyclidine Scrn Ur Amphetamines Screen U Benzodiazepines Scrn U Oth Cocaine Metabols U Cannabinoids Screen Alcohol, Quantitative Hepatitis A IgM Ab Negative Hep Bs Antigen Negative Hep B Core IgM Ab Negative Hepatitis C Antibody Negative 05/15/17 05/15/17 05/15/17 07:14 11:29 16:36 WBC RBC Hgb Hct MCV MCH MCHC RDW Plt Count MPV Sodium Potassium Chloride Carbon Dioxide Anion Gap BUN Creatinine Est GFR ( Amer) Est GFR (Non-Af Amer) POC Glucose (mg/dL) 159 H 116 H Random Glucose Hemoglobin A1c Calcium Total Bilirubin Direct Bilirubin AST ALT Alkaline Phosphatase Total Protein Albumin Globulin Albumin/Globulin Ratio Urine Opiates Screen Positive Urine Methadone Screen Negative Ur Barbiturates Screen Negative Ur Phencyclidine Scrn Negative Ur Amphetamines Screen Negative U Benzodiazepines Scrn Positive U Oth Cocaine Metabols Negative U Cannabinoids Screen Positive Alcohol, Quantitative Hepatitis A IgM Ab Hep Bs Antigen Hep B Core IgM Ab Hepatitis C Antibody Attending/Attestation - Attestation I have personally seen and examined this patient.: Yes I have fully participated in the care of the patient.: Yes I have reviewed all pertinent clinical information: Yes Notes (Text): 05/15/17 20:13 Pt was seen and examined at bedside on 05/15/17 Agree with above note and assessment. Pt with Colitis C.w current mx ID consult IV antibiotics GI consult appreciated Plan d.w pt in detail Risk and benefit explained in detail.
[2017-05-15] MEDS: metroNIDAZOLE IV 500 mg/100 ml 500 MG/100 ML BAG IVPB SCH ×3 (05:40→21:38)
[2017-05-15 07:00] LABS: CHLORIDE 98 mmol/L (98-107); HEMATOCRIT 37.1 % (34.0-47.0); MEAN CELL VOLUME 86.7 fL (81.0-99.0); MEAN CORPUSCULAR HEMOGLOBIN 28.7 pg (27.0-31.0); MEAN CORPUSCULAR HGB CONC 33.1 g/dL (33.0-37.0); MEAN PLATELET VOLUME 9.7 fL (7.2-11.7); RED CELL DISTRIBUTION WIDTH 15.1 % (11.5-14.5); WHITE BLOOD COUNT 8.3 K/uL (4.8-10.8)
[2017-05-15 07:01] LABS: SODIUM 138 mmol/L (132-148)
[2017-05-15 07:03] LABS: ALB/GLOB RATIO 1.1 (1.0-2.1); BILIRUBIN,DIRECT 0.4 mg/dL (0.0-0.4); BILIRUBIN,TOTAL 0.5 mg/dL (0.2-1.3); CARBON DIOXIDE 28 mmol/L (22-30); GFR AFRICAN-AMERICAN > 60; TOTAL PROTEIN 6.6 g/dL (6.3-8.3)
[2017-05-15 07:04] LABS: ALKALINE PHOSPHATASE 90 U/L (38-126); ALT/SGPT 54 U/L (9-52); AST/SGOT 48 U/L (14-36); BLOOD UREA NITROGEN 12 mg/dL (7-17); CALCIUM 8.5 mg/dl (8.6-10.4); GLUCOSE,RANDOM 110 mg/dL (65-105)
[2017-05-15 07:05] LABS: ALCOHOL SERUM < 10 mg/dl (0-10)
--- NOTE | 2017-05-15 07:14 | CP.PCM.CON ---
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 Pt pw co left sided abdominal pain, sharp pain radiating to back with associated nausea and vomiting, chills, and loose BM for 2 days. Pt did complete her antibiotic course with no improvement in pain. Pt does report to taking pain medication for back and neck pain and has a regular bm daily without taking any stool softeners, denies any rectal bleeding. Pt CT A/P shows mural thickening of small bowel loops with moderate constipation and hepatomegaly, imaging similar to prior CT scan. Pt reports history of transaminitis due to medications but no hx of hepatitis exposure, denies alcohol use. Pt had an EGD 10/2015-mild chronic inflammation, gastritis. EGD/ Colonoscopy 02/2014: gastritis, esophagitis, chronic inflammation, mild colitis with mild chronic inflammation. ROS: A 12pt ROS was obtained and was negative except as above. PmHx: As stated in HPI PsHx: Laparascopic Endometriosis removal, , Left breast Bx SHx: 2-3 cigarets weekly, no current alcohol, drank socially in the past, hx of marijuana FHx: RA, SLE, HTN, DM Past Patient History - Infectious Disease Hx of Infectious Diseases: None - Past Medical History & Family History Past Medical History?: Yes - Past Social History Smoking Status: Current Some Days Smoker - CARDIAC Hx Hypercholesterolemia: Yes Hx Hypertension: Yes - PULMONARY Hx Asthma: Yes Hx Bronchitis: Yes Hx Chronic Obstructive Pulmonary Disease (COPD): Yes Hx Emphysema: Yes Hx Pneumonia: Yes - NEUROLOGICAL Hx Neurological Disorder: No - HEENT Hx HEENT Problems: Yes Hx Glaucoma: Yes - RENAL Hx Chronic Kidney Disease: No - ENDOCRINE/METABOLIC Hx Endocrine Disorders: Yes Hx Diabetes Mellitus Type 2: Yes Hx Systemic Lupus Erythematosus: Yes - HEMATOLOGICAL/ONCOLOGICAL Hx Blood Disorders: Yes Hx Blood Transfusions: No Other/Comment: lupus - INTEGUMENTARY Hx Dermatological Problems: No - MUSCULOSKELETAL/RHEUMATOLOGICAL Hx Arthritis: Yes Hx Rheumatoid Arthritis: Yes - GASTROINTESTINAL Hx Gastritis: Yes Hx Pancreatitis: Yes - GENITOURINARY/GYNECOLOGICAL Hx Genitourinary Disorders: Yes (SEE COMMENT) Other/Comment: endometriosis - PSYCHIATRIC Hx Anxiety: Yes Hx Depression: Yes Hx Substance Use: No - SURGICAL HISTORY Hx Surgeries: Yes Hx Section: Yes (x) Other/Comment: Sinus surgery, laparoscopy - ANESTHESIA Hx Anesthesia: Yes Hx Anesthesia Reactions: No Hx Malignant Hyperthermia: No Has any member of the family had a problem w/ anesthesia?: No Meds Allergies/Adverse Reactions: Allergies Allergy/AdvReac Type Severity Reaction Status Date / Time methylergonovine maleate Allergy Intermediate RASH Verified 05/14/17 10:21 [From Methergine] Penicillins Allergy Intermediate RASH Verified 05/14/17 10:21 - Medications Medications: Current Medications Albuterol (Ventolin Hfa 90 Mcg/Actuation (8 G)) 2 puff IH RQ6 [facility] Last Admin: 05/15/17 01:50 Dose: 2 puff Alprazolam (Xanax) 0.5 mg PO TID [facility] Last Admin: 05/14/17 19:00 Dose: 0.5 mg Amlodipine Besylate (Norvasc) 5 mg PO DAILY [facility] Docusate Sodium (Colace) 100 mg PO BID [facility] Enoxaparin Sodium (Lovenox) 40 mg SC DAILY [facility] Folic Acid (Folic Acid) 1 mg PO DAILY [facility] Gabapentin (Neurontin) 300 mg PO TID [facility] Last Admin: 05/14/17 19:00 Dose: 300 mg Hydrochlorothiazide (Hydrodiuril) 25 mg PO DAILY [facility] Hydromorphone HCl (Dilaudid) 0.5 mg IVP Q4H PRN PRN Reason: Pain, Mild (1-3) Last Admin: 05/15/17 02:01 Dose: 0.5 mg Metronidazole (Flagyl) 500 mg in 100 mls @ 100 mls/hr IVPB Q8 [facility] Last Admin: 05/15/17 05:40 Dose: 100 mls/hr Ciprofloxacin (Cipro 400mg/200ml Dsw) 400 mg in 200 mls @ 133 mls/hr IVPB Q12H [facility] Last Admin: 05/14/17 21:00 Dose: 133 mls/hr Insulin Aspart (Novolog) 0 unit SC ACHS [facility] PRN Reason: Protocol Last Admin: 05/14/17 21:46 Dose: Not Given Losartan Potassium (Cozaar) 100 mg PO DAILY [facility] Mometasone Furoate (Asmanex Twisthaler 220 Mcg) 1 puff INH QPM [facility] Ondansetron HCl (Zofran Inj) 4 mg IVP Q6H PRN PRN Reason: Nausea/Vomiting Last Admin: 05/15/17 01:57 Dose: 4 mg Pantoprazole Sodium (Protonix Ec Tab) 40 mg PO DAILY [facility] Polyethylene Glycol (Miralax) 17 gm PO BID [facility] Tiotropium [place] (Spiriva) 18 mcg IH RQD [facility] Physical Exam - Constitutional Appears: Well, Non-toxic, No Acute Distress - Head Exam Head Exam: ATRAUMATIC, NORMAL INSPECTION, NORMOCEPHALIC - Eye Exam Eye Exam: EOMI, Normal appearance, PERRL Pupil Exam: PERRL - ENT Exam ENT Exam: Mucous Membranes Moist, Normal Exam - Neck Exam Neck exam: Positive for: Normal Inspection - Respiratory Exam Respiratory Exam: Clear to Auscultation Bilateral, NORMAL BREATHING PATTERN - Cardiovascular Exam Cardiovascular Exam: RRR, +S1, +S2 - GI/Abdominal Exam GI & Abdominal Exam: Normal Bowel Sounds, Soft, Tenderness. absent: Distended, Firm, Guarding, Organomegaly Additional comments: Mild TTP LLQ, obese - Rectal Exam Rectal Exam: Deferred - Extremities Exam Extremities exam: Positive for: full ROM, normal inspection - Back Exam Back exam: NORMAL INSPECTION - Neurological Exam Neurological exam: Alert, Oriented x3 - Psychiatric Exam Psychiatric exam: Normal Affect, Normal Mood - Skin Skin Exam: Dry, Intact, Normal Color, Warm Results - Vital Signs Recent Vital Signs: Last Vital Signs Temp 97.7 F 05/15/17 00:03 Pulse 67 05/15/17 00:03 Resp 18 05/15/17 00:03 BP 152/92 H 05/15/17 00:03 Pulse Ox 98 05/15/17 00:03 - Labs Result Diagrams: 05/15/17 06:32 05/15/17 06:32 Labs: Laboratory Results - last 24 hr 05/14/17 05/14/17 05/15/17 18:20 21:16 06:32 WBC 8.3 RBC 4.28 Hgb 12.3 Hct 37.1 MCV 86.7 MCH 28.7 MCHC 33.1 RDW 15.1 H Plt Count 171 MPV 9.7 Sodium Potassium Chloride Carbon Dioxide Anion Gap BUN Creatinine Est GFR ( Amer) Est GFR (Non-Af Amer) POC Glucose (mg/dL) 137 H 169 H Random Glucose Calcium Total Bilirubin Direct Bilirubin AST ALT Alkaline Phosphatase Total Protein Albumin Globulin Albumin/Globulin Ratio Alcohol, Quantitative 05/15/17 06:32 WBC RBC Hgb Hct MCV MCH MCHC RDW Plt Count MPV Sodium 138 Potassium 4.0 Chloride 98 Carbon Dioxide 28 Anion Gap 16 BUN 12 Creatinine 0.8 Est GFR ( Amer) > 60 Est GFR (Non-Af Amer) > 60 POC Glucose (mg/dL) Random Glucose 110 H Calcium 8.5 L Total Bilirubin 0.5 Direct Bilirubin 0.4 AST 48 H ALT 54 H Alkaline Phosphatase 90 Total Protein 6.6 Albumin 3.5 Globulin 3.1 Albumin/Globulin Ratio 1.1 Alcohol, Quantitative < 10 Assessment & Plan - Assessment and Plan (Free Text) Assessment: This is a 41yF recently discharged from [facility] with enteritis and antibiotic therapy pw recurrent abdominal pain, nausea, vomiting and loose BM for 2 days. 1. Enteritis 2. Constipation 3. Transaminitis 4. Chronic pain and narcotic use 5. DM 6. HLD 7. Hx of RA/SLE Plan: -Continue supportive care for enteritis with full liquid diet and advance as tolerated -Recommend discontinuing antibiotic therapy since pt has already been treated with abx course, also can worsen symptoms of nausea/vomiting-no signs of fever or leukocytes -Constipation from narcotic use-aggressive bowel regimen with miralax bid and colace bid, constipation can be contributing the abdominal pain -Abdominal Pain, N/V can also be from gastroparesis with hx of DM and uncontrolled BG, order HgbA1c, may need outpt gastric emptying study -Transaminitis maybe from medications, pt is on methotrexate and hydroxycloroquine, will order hepatitis panel and alcohol level for completion -Hx of Marijuana use which can contribute to cyclic nausea/vomiting-UDS ordered -No plan for inpt endoscopic evaluation, recommend outpt followup <Mario Floyd - Last Filed: 05/15/17 11:51> Meds - Medications Medications: Current Medications Albuterol (Ventolin Hfa 90 Mcg/Actuation (8 G)) 2 puff IH RQ6 [facility] Last Admin: 05/15/17 01:50 Dose: 2 puff Alprazolam (Xanax) 0.5 mg PO TID [facility] Last Admin: 05/15/17 10:46 Dose: 0.5 mg Amlodipine Besylate (Norvasc) 5 mg PO DAILY [facility] Last Admin: 05/15/17 10:46 Dose: 5 mg Docusate Sodium (Colace) 100 mg PO BID [facility] Last Admin: 05/15/17 10:46 Dose: 100 mg Enoxaparin Sodium (Lovenox) 40 mg SC DAILY [facility] Last Admin: 05/15/17 10:55 Dose: Not Given Folic Acid (Folic Acid) 1 mg PO DAILY [facility] Last Admin: 05/15/17 10:46 Dose: 1 mg Gabapentin (Neurontin) 300 mg PO TID [facility] Last Admin: 05/15/17 10:46 Dose: 300 mg Hydrochlorothiazide (Hydrodiuril) 25 mg PO DAILY [facility] Last Admin: 05/15/17 10:46 Dose: 25 mg Hydromorphone HCl (Dilaudid) 0.5 mg IVP Q4H PRN PRN Reason: Pain, Mild (1-3) Last Admin: 05/15/17 08:28 Dose: 0.5 mg Metronidazole (Flagyl) 500 mg in 100 mls @ 100 mls/hr IVPB Q8 [facility] Last Admin: 05/15/17 05:40 Dose: 100 mls/hr Ciprofloxacin (Cipro 400mg/200ml Dsw) 400 mg in 200 mls @ 133 mls/hr IVPB Q12H [facility] Last Admin: 05/15/17 08:41 Dose: 133 mls/hr Insulin Aspart (Novolog) 0 unit SC ACHS [facility] PRN Reason: Protocol Last Admin: 05/15/17 08:30 Dose: Not Given Losartan Potassium (Cozaar) 100 mg PO DAILY [facility] Last Admin: 05/15/17 10:46 Dose: 100 mg Mometasone Furoate (Asmanex Twisthaler 220 Mcg) 1 puff INH QPM [facility] Pantoprazole Sodium (Protonix Ec Tab) 40 mg PO DAILY [facility] Last Admin: 05/15/17 10:46 Dose: 40 mg Polyethylene Glycol (Miralax) 17 gm PO DAILY [facility] Last Admin: 05/15/17 10:53 Dose: 17 gm Tiotropium [place] (Spiriva) 18 mcg IH RQD [facility] Results - Vital Signs Recent Vital Signs: Last Vital Signs Temp 98.3 F 05/15/17 07:57 Pulse 70 05/15/17 07:57 Resp 20 05/15/17 07:57 BP 151/96 H 05/15/17 07:57 Pulse Ox 97 05/15/17 07:57 - Labs Result Diagrams: 05/15/17 06:32 05/15/17 06:32 Labs: Laboratory Results - last 24 hr 05/14/17 05/14/17 05/15/17 18:20 21:16 06:32 WBC 8.3 RBC 4.28 Hgb 12.3 Hct 37.1 MCV 86.7 MCH 28.7 MCHC 33.1 RDW 15.1 H Plt Count 171 MPV 9.7 Sodium Potassium Chloride Carbon Dioxide Anion Gap BUN Creatinine Est GFR ( Amer) Est GFR (Non-Af Amer) POC Glucose (mg/dL) 137 H 169 H Random Glucose Hemoglobin A1c Calcium Total Bilirubin Direct Bilirubin AST ALT Alkaline Phosphatase Total Protein Albumin Globulin Albumin/Globulin Ratio Urine Opiates Screen Urine Methadone Screen Ur Barbiturates Screen Ur Phencyclidine Scrn Ur Amphetamines Screen U Benzodiazepines Scrn U Oth Cocaine Metabols U Cannabinoids Screen Alcohol, Quantitative Hepatitis A IgM Ab Hep Bs Antigen Hep B Core IgM Ab Hepatitis C Antibody 05/15/17 05/15/17 05/15/17 06:32 06:35 06:35 WBC RBC Hgb Hct MCV MCH MCHC RDW Plt Count MPV Sodium 138 Potassium 4.0 Chloride 98 Carbon Dioxide 28 Anion Gap 16 BUN 12 Creatinine 0.8 Est GFR ( Amer) > 60 Est GFR (Non-Af Amer) > 60 POC Glucose (mg/dL) Random Glucose 110 H Hemoglobin A1c 7.0 H Calcium 8.5 L Total Bilirubin 0.5 Direct Bilirubin 0.4 AST 48 H ALT 54 H Alkaline Phosphatase 90 Total Protein 6.6 Albumin 3.5 Globulin 3.1 Albumin/Globulin Ratio 1.1 Urine Opiates Screen Urine Methadone Screen Ur Barbiturates Screen Ur Phencyclidine Scrn Ur Amphetamines Screen U Benzodiazepines Scrn U Oth Cocaine Metabols U Cannabinoids Screen Alcohol, Quantitative < 10 Hepatitis A IgM Ab Negative Hep Bs Antigen Negative Hep B Core IgM Ab Negative Hepatitis C Antibody Negative 05/15/17 05/15/17 07:09 07:14 WBC RBC Hgb Hct MCV MCH MCHC RDW Plt Count MPV Sodium Potassium Chloride Carbon Dioxide Anion Gap BUN Creatinine Est GFR ( Amer) Est GFR (Non-Af Amer) POC Glucose (mg/dL) 123 H Random Glucose Hemoglobin A1c Calcium Total Bilirubin Direct Bilirubin AST ALT Alkaline Phosphatase Total Protein Albumin Globulin Albumin/Globulin Ratio Urine Opiates Screen Positive Urine Methadone Screen Negative Ur Barbiturates Screen Negative Ur Phencyclidine Scrn Negative Ur Amphetamines Screen Negative U Benzodiazepines Scrn Positive U Oth Cocaine Metabols Negative U Cannabinoids Screen Positive Alcohol, Quantitative Hepatitis A IgM Ab Hep Bs Antigen Hep B Core IgM Ab Hepatitis C Antibody Attending/Attestation - Attestation I have personally seen and examined this patient.: Yes I have fully participated in the care of the patient.: Yes I have reviewed all pertinent clinical information: Yes Notes (Text): 05/15/17 11:43 I have seen and examined patient with GI fellow. Agree with above documentation with the following additions. In brief, this is a 41 year old female with history of HTN, DM, hyperlipidemia, SLE, rheumatoid arthritis who presents to hospital with complaint of left sided abdominal pain and loose bowel movements for the past two days. She describes sharp, 8/10 intensity pain in LUQ which radiates to back that is worse after attempted meal consumption. Patient with recent hospitalization for similar complaints and was diagnosed with enteritis and was discharged with antibiotic regimen which has not helped her. She denies vomiting, fever/chills, weight loss, rectal bleeding, sick contacts, or unusual food consumption. Of note, patient takes chronic narcotic pain medication at home for relief of back and neck pain. She had an EGD in october 2015 and colonoscopy in 2013 which did not reveal any significant findings. HTN / DM Hyperlipidemia SLE RA Abdominal pain CT imaging reviewed by me showing fecal retention, mural thickening of small bowel loops consistent with enteritis - Liquid diet as tolerated - Check stool studies (culture, c-difficile) - Continue with antibiotic therapy as per ID - Optimize blood glucose control, check HbA1C - LFTs stable, continue to monitor, awaiting viral hepatitis panel - Continue with supportive care, anti-emetic therapy. No planned inpatient GI intervention, will continue to monitor patient clinical course.
[2017-05-15] MEDS ORDERED: Tiotropium 18 mcg Cap For Inhalation IH SCH (08:00)
[2017-05-15] MEDS: (Novolog) Insulin Aspart, Recombinant 100 u/ml 10 ml vial SC SCH ×4 (08:30→21:41)
[2017-05-15] MEDS: Ciprofloxacin 400mg/200ml D5W 400 MG/200 ML BAG IVPB SCH ×2 (08:41→21:32)
[2017-05-15] MEDS ORDERED: POLYETHYLENE GLYCOL 3350 17 GM/Dose PACKET PO SCH ×2 (10:00)
[2017-05-15] MEDS: Pantoprazole 40 mg EC Tab PO SCH (10:46)
[2017-05-15] MEDS: Enoxaparin 40 mg Syringe SC SCH ×2 (10:46→10:55)
[2017-05-15] MEDS ORDERED: Bisacodyl 5mg EC Tab PO ONE (12:24)
[2017-05-16] MEDS: Albuterol HFA 90 mcg/actuation (8 g) IH SCH ×4 (01:35→19:47)
[2017-05-16] MEDS: HYDROmorphone 0.5 mg/0.5 ml ISec IVP PRN ×3 (06:00→19:04)
[2017-05-16] MEDS: metroNIDAZOLE IV 500 mg/100 ml 500 MG/100 ML BAG IVPB SCH ×2 (06:01→13:40)
--- NOTE | 2017-05-16 08:22 | CP.PCM.PN ---
<StevanVedaJulietCarlyle - Last Filed: 05/16/17 08:18> Subjective - Date & Time of Evaluation Date of Evaluation: 05/16/17 Time of Evaluation: 08:18 - Subjective Subjective: Surgery: Dr. Norman Patient reports similar pain to the left side of her abdomen. She reports some nausea but denies vomiting. She had 1 loose BM yesterday but denies BM or diarrhea today. She denies f/c. Objective - Vital Signs/Intake and Output Vital Signs (last 24 hours): Temp Pulse Resp BP Pulse Ox 98.4 F 73 20 169/100 H 99 05/16/17 07:42 05/16/17 07:42 05/16/17 07:42 05/16/17 07:42 05/16/17 07:42 Intake and Output: 05/16/17 05/16/17 06:59 18:59 Intake Total 940 Balance 940 - Medications Medications: Current Medications Albuterol (Ventolin Hfa 90 Mcg/Actuation (8 G)) 2 puff IH RQ6 [facility] Last Admin: 05/16/17 01:35 Dose: 2 puff Alprazolam (Xanax) 0.5 mg PO TID [facility] Last Admin: 05/15/17 18:23 Dose: 0.5 mg Amlodipine Besylate (Norvasc) 5 mg PO DAILY [facility] Last Admin: 05/15/17 10:46 Dose: 5 mg Docusate Sodium (Colace) 100 mg PO BID [facility] Last Admin: 05/15/17 18:22 Dose: 100 mg Enoxaparin Sodium (Lovenox) 40 mg SC DAILY [facility] Last Admin: 05/15/17 10:55 Dose: Not Given Folic Acid (Folic Acid) 1 mg PO DAILY [facility] Last Admin: 05/15/17 10:46 Dose: 1 mg Gabapentin (Neurontin) 300 mg PO TID [facility] Last Admin: 05/15/17 18:22 Dose: 300 mg Hydrochlorothiazide (Hydrodiuril) 25 mg PO DAILY [facility] Last Admin: 05/15/17 10:46 Dose: 25 mg Hydromorphone HCl (Dilaudid) 0.5 mg IVP Q4H PRN PRN Reason: Pain, Mild (1-3) Last Admin: 05/16/17 06:00 Dose: 0.5 mg Metronidazole (Flagyl) 500 mg in 100 mls @ 100 mls/hr IVPB Q8 [facility] Last Admin: 05/16/17 06:01 Dose: 100 mls/hr Ciprofloxacin (Cipro 400mg/200ml Dsw) 400 mg in 200 mls @ 133 mls/hr IVPB Q12H [facility] Last Admin: 05/15/17 21:32 Dose: 133 mls/hr Insulin Aspart (Novolog) 0 unit SC ACHS [facility] PRN Reason: Protocol Last Admin: 05/15/17 21:41 Dose: Not Given Losartan Potassium (Cozaar) 100 mg PO DAILY [facility] Last Admin: 05/15/17 10:46 Dose: 100 mg Metoclopramide HCl (Reglan) 10 mg IVP ACTID [facility] Last Admin: 05/16/17 08:03 Dose: 10 mg Mometasone Furoate (Asmanex Twisthaler 220 Mcg) 1 puff INH QPM [facility] Pantoprazole Sodium (Protonix Ec Tab) 40 mg PO DAILY [facility] Last Admin: 05/15/17 10:46 Dose: 40 mg Polyethylene Glycol (Miralax) 17 gm PO DAILY [facility] Last Admin: 05/15/17 10:53 Dose: 17 gm Tiotropium [place] (Spiriva) 18 mcg IH RQD [facility] - Labs Labs: 05/15/17 06:32 05/15/17 06:32 - Constitutional Appears: Non-toxic, No Acute Distress - Head Exam Head Exam: ATRAUMATIC, NORMOCEPHALIC - Eye Exam Eye Exam: EOMI, Normal appearance - ENT Exam ENT Exam: Mucous Membranes Moist - Respiratory Exam Respiratory Exam: NORMAL BREATHING PATTERN. absent: Respiratory Distress - Cardiovascular Exam Cardiovascular Exam: REGULAR RHYTHM. absent: Tachycardia - GI/Abdominal Exam GI & Abdominal Exam: Soft, Tenderness (Left mid abdomen, mild w/ deep palpation ). absent: Guarding, Rigid, Rebound - Neurological Exam Neurological Exam: Alert, Awake, Oriented x3 - Psychiatric Exam Psychiatric exam: Normal Affect, Normal Mood - Skin Skin Exam: Dry, Normal Color, Warm Assessment and Plan - Assessment and Plan (Free Text) Assessment: 41 y/o female w/ enteritis, recurrent Plan: -recommend infectious disease consult for antibiotic coverage considering cipro/ flagyl has not yielded significant improvement and patient with PCN allergy -cont diet per GI -serial abdominal exams -stool studies -no acute surgical intervention at this time -further recs [place] Dr. [place] PGY3 <Negrito Norman - Last Filed: 05/16/17 19:24> Objective - Vital Signs/Intake and Output Vital Signs (last 24 hours): Temp Pulse Resp BP Pulse Ox 98.6 F 78 20 152/91 H 95 05/16/17 15:00 05/16/17 15:00 05/16/17 15:00 05/16/17 15:00 05/16/17 15:00 Intake and Output: 05/16/17 05/17/17 18:59 06:59 Intake Total 540 Balance 540 - Medications Medications: Current Medications Albuterol (Ventolin Hfa 90 Mcg/Actuation (8 G)) 2 puff IH RQ6 [facility] Last Admin: 05/16/17 13:30 Dose: 2 puff Alprazolam (Xanax) 0.5 mg PO TID [facility] Last Admin: 05/16/17 18:01 Dose: 0.5 mg Amlodipine Besylate (Norvasc) 5 mg PO DAILY [facility] Last Admin: 05/16/17 11:23 Dose: 5 mg Docusate Sodium (Colace) 100 mg PO BID [facility] Last Admin: 05/16/17 18:01 Dose: 100 mg Enoxaparin Sodium (Lovenox) 40 mg SC DAILY [facility] Last Admin: 05/16/17 11:24 Dose: Not Given Folic Acid (Folic Acid) 1 mg PO DAILY [facility] Last Admin: 05/16/17 11:22 Dose: 1 mg Gabapentin (Neurontin) 300 mg PO TID [facility] Last Admin: 05/16/17 18:01 Dose: 300 mg Hydrochlorothiazide (Hydrodiuril) 25 mg PO DAILY [facility] Last Admin: 05/16/17 11:22 Dose: 25 mg Hydromorphone HCl (Dilaudid) 0.5 mg IVP Q4H PRN PRN Reason: Pain, Mild (1-3) Last Admin: 05/16/17 19:04 Dose: 0.5 mg Ciprofloxacin (Cipro 400mg/200ml Dsw) 400 mg in 200 mls @ 133 mls/hr IVPB Q12H [facility] Last Admin: 05/16/17 09:07 Dose: 133 mls/hr Insulin Aspart (Novolog) 0 unit SC ACHS [facility] PRN Reason: Protocol Last Admin: 05/16/17 17:10 Dose: 1 unit Losartan Potassium (Cozaar) 100 mg PO DAILY [facility] Last Admin: 05/16/17 11:22 Dose: 100 mg Metoclopramide HCl (Reglan) 10 mg IVP ACTID [facility] Last Admin: 05/16/17 17:10 Dose: 10 mg Mometasone Furoate (Asmanex Twisthaler 220 Mcg) 1 puff INH QPM [facility] Pantoprazole Sodium (Protonix Ec Tab) 40 mg PO DAILY [facility] Last Admin: 05/16/17 11:23 Dose: 40 mg Polyethylene Glycol (Miralax) 17 gm PO BID [facility] Last Admin: 05/16/17 18:15 Dose: 17 gm Tiotropium [place] (Spiriva) 18 mcg IH RQD [facility] - Labs Labs: 05/15/17 06:32 05/15/17 06:32 Attending/Attestation - Attestation I have personally seen and examined this patient.: Yes I have fully participated in the care of the patient.: Yes I have reviewed all pertinent clinical information, including history, physical exam and plan: Yes Notes (Text): 05/16/17 19:23 Pt was seen and examined at bedside on 05/16/17 Agree with above note and assessment Pt with colitis Stable Improving clinically No general surgery intervention required at present F/U PRN Plan d.w pt in detail Risk and benefit explained in detail
[2017-05-16] MEDS: (Novolog) Insulin Aspart, Recombinant 100 u/ml 10 ml vial SC SCH ×4 (08:36→21:52)
[2017-05-16] MEDS: Ciprofloxacin 400mg/200ml D5W 400 MG/200 ML BAG IVPB SCH ×2 (09:07→21:00)
--- NOTE | 2017-05-16 10:40 | CP.PCM.PN ---
Subjective - Date & Time of Evaluation Date of Evaluation: 05/15/17 Time of Evaluation: 06:30 - Subjective Subjective: 41yo F with PMHx including Anxiety/Depression, Asthma, COPD, DM, HTN, HLD, Lupus , RA, here for evaluation of left sided abdominal pain. Patient states that she was recently in the hospital for similar symptoms and was told she has colitis and was discharged on Cipro/Flagyl. She completed her course of antibiotics, however, denies any relief. She states that the pain is located in the left side of the abd, cramping in nature, radiates to left back. Denies any fever. Does state she has chills. Had one episode of vomiting 2 days ago, non bloody, non bilious. Does state that she has been having loose stools, attributes this to taking antibiotics. Pain is not associated with food intake. No CP/SOB. No Headaches. Objective - Vital Signs/Intake and Output Vital Signs (last 24 hours): Temp Pulse Resp BP Pulse Ox 98.4 F 73 20 169/100 H 99 05/16/17 07:42 05/16/17 07:42 05/16/17 07:42 05/16/17 07:42 05/16/17 07:42 Intake and Output: 05/16/17 05/16/17 06:59 18:59 Intake Total 940 Balance 940 - Medications Medications: Current Medications Albuterol (Ventolin Hfa 90 Mcg/Actuation (8 G)) 2 puff IH RQ6 [facility] Last Admin: 05/16/17 01:35 Dose: 2 puff Alprazolam (Xanax) 0.5 mg PO TID [facility] Last Admin: 05/15/17 18:23 Dose: 0.5 mg Amlodipine Besylate (Norvasc) 5 mg PO DAILY [facility] Last Admin: 05/15/17 10:46 Dose: 5 mg Docusate Sodium (Colace) 100 mg PO BID [facility] Last Admin: 05/15/17 18:22 Dose: 100 mg Enoxaparin Sodium (Lovenox) 40 mg SC DAILY [facility] Last Admin: 05/15/17 10:55 Dose: Not Given Folic Acid (Folic Acid) 1 mg PO DAILY [facility] Last Admin: 05/15/17 10:46 Dose: 1 mg Gabapentin (Neurontin) 300 mg PO TID [facility] Last Admin: 05/15/17 18:22 Dose: 300 mg Hydrochlorothiazide (Hydrodiuril) 25 mg PO DAILY [facility] Last Admin: 05/15/17 10:46 Dose: 25 mg Hydromorphone HCl (Dilaudid) 0.5 mg IVP Q4H PRN PRN Reason: Pain, Mild (1-3) Last Admin: 05/16/17 06:00 Dose: 0.5 mg Metronidazole (Flagyl) 500 mg in 100 mls @ 100 mls/hr IVPB Q8 [facility] Last Admin: 05/16/17 06:01 Dose: 100 mls/hr Ciprofloxacin (Cipro 400mg/200ml Dsw) 400 mg in 200 mls @ 133 mls/hr IVPB Q12H [facility] Last Admin: 05/16/17 09:07 Dose: 133 mls/hr Insulin Aspart (Novolog) 0 unit SC ACHS [facility] PRN Reason: Protocol Last Admin: 05/16/17 08:36 Dose: Not Given Losartan Potassium (Cozaar) 100 mg PO DAILY [facility] Last Admin: 05/15/17 10:46 Dose: 100 mg Metoclopramide HCl (Reglan) 10 mg IVP ACTID [facility] Last Admin: 05/16/17 08:03 Dose: 10 mg Mometasone Furoate (Asmanex Twisthaler 220 Mcg) 1 puff INH QPM [facility] Pantoprazole Sodium (Protonix Ec Tab) 40 mg PO DAILY [facility] Last Admin: 05/15/17 10:46 Dose: 40 mg Polyethylene Glycol (Miralax) 17 gm PO BID [facility] Tiotropium [place] (Spiriva) 18 mcg IH RQD [facility] - Labs Labs: 05/15/17 06:32 05/15/17 06:32 - Constitutional Appears: Well Assessment and Plan (1) Abdominal pain Status: Acute (2) Colitis Status: Acute (3) Acute pancreatitis Status: Acute (4) Asthma Status: Acute (5) Atypical chest pain Status: Acute (6) Bronchitis Status: Acute (7) Cervical sprain Status: Acute (8) Chest pain Status: Acute (9) Chest pain Status: Acute (10) Colitis Status: Acute (11) Cough Status: Acute (12) Ear pain Status: Acute (13) Foot contusion Status: Acute (14) Gastritis Status: Acute (15) Gastroesophageal reflux disease Status: Acute (16) Hand contusion Status: Acute (17) Head injury Status: Acute (18) Herpes genitalia Status: Acute (19) Hyperglycemia Status: Acute (20) Hyperlipidemia Status: Acute (21) Joint pain Status: Acute (22) Joint swelling Status: Acute (23) Leg pain Status: Acute (24) Nausea Status: Acute (25) Nausea & vomiting Status: Acute (26) Neck pain on left side Status: Acute (27) Respiratory tract infection Status: Acute (28) Right knee sprain Status: Acute (29) Thrombophlebitis Status: Acute (30) UTI (urinary tract infection) Status: Acute (31) Visit for wound check Status: Acute (32) Vomiting Status: Acute (33) Vomiting alone Status: Acute (34) Diabetes mellitus Status: Chronic (35) Diabetes mellitus type 2 Status: Chronic (36) Hypertension Status: Chronic (37) Obesity Status: Chronic - Assessment and Plan (Free Text) Assessment: Assessment: This is a 41yF recently discharged from [facility] with enteritis and antibiotic therapy pw recurrent abdominal pain, nausea, vomiting and loose BM for 2 days. 1. Enteritis 2. Constipation 3. Transaminitis 4. Chronic pain and narcotic use 5. DM 6. HLD 7. Hx of RA/SLE Plan: -Continue supportive care for enteritis with full liquid diet and advance as tolerated -Recommend discontinuing antibiotic therapy since pt has already been treated with abx course, also can worsen symptoms of nausea/vomiting-no signs of fever or leukocytes -Constipation from narcotic use-aggressive bowel regimen with miralax bid and colace bid, constipation can be contributing the abdominal pain -Abdominal Pain, N/V can also be from gastroparesis with hx of DM and uncontrolled BG, order HgbA1c, may need outpt gastric emptying study -Transaminitis maybe from medications, pt is on methotrexate and hydroxycloroquine, will order hepatitis panel and alcohol level for completion -Hx of Marijuana use which can contribute to cyclic nausea/vomiting-UDS ordered -No plan for inpt endoscopic evaluation, recommend outpt followup surgion is on the case
[2017-05-16 11:22] LABS: IRON 47 ug/dL (37-170)
[2017-05-16] MEDS: POLYETHYLENE GLYCOL 3350 17 GM/Dose PACKET PO SCH ×2 (11:23→18:15)
[2017-05-16] MEDS: Enoxaparin 40 mg Syringe SC SCH ×2 (11:23→11:24)
[2017-05-16] MEDS: Pantoprazole 40 mg EC Tab PO SCH (11:23)
--- NOTE | 2017-05-16 11:47 | CP.PCM.PN ---
<Xi Dow - Last Filed: 05/16/17 14:11> Subjective - Date & Time of Evaluation Date of Evaluation: 05/16/17 Time of Evaluation: 07:10 - Subjective Subjective: GI Fellow PGY4 Progress Note Pt seen and evaluated at beside, pt reports abdominal pain is the same and pain medication helps. Reports tolerating liquid diet with no vomiting but does have nausea that is relieved IV Zofran. No more diarrhea and did have a small BM yesterday with bowel regimen. Denies fevers or chills. ROS: A 12pt ROS was obtained and negative except as above. Objective - Vital Signs/Intake and Output Vital Signs (last 24 hours): Temp Pulse Resp BP Pulse Ox 98.4 F 73 20 169/100 H 99 05/16/17 07:42 05/16/17 07:42 05/16/17 07:42 05/16/17 07:42 05/16/17 07:42 Intake and Output: 05/16/17 05/16/17 06:59 18:59 Intake Total 940 Balance 940 - Medications Medications: Current Medications Albuterol (Ventolin Hfa 90 Mcg/Actuation (8 G)) 2 puff IH RQ6 [facility] Last Admin: 05/16/17 01:35 Dose: 2 puff Alprazolam (Xanax) 0.5 mg PO TID [facility] Last Admin: 05/16/17 11:28 Dose: 0.5 mg Amlodipine Besylate (Norvasc) 5 mg PO DAILY [facility] Last Admin: 05/16/17 11:23 Dose: 5 mg Docusate Sodium (Colace) 100 mg PO BID [facility] Last Admin: 05/16/17 11:22 Dose: 100 mg Enoxaparin Sodium (Lovenox) 40 mg SC DAILY [facility] Last Admin: 05/16/17 11:24 Dose: Not Given Folic Acid (Folic Acid) 1 mg PO DAILY [facility] Last Admin: 05/16/17 11:22 Dose: 1 mg Gabapentin (Neurontin) 300 mg PO TID [facility] Last Admin: 05/16/17 11:23 Dose: 300 mg Hydrochlorothiazide (Hydrodiuril) 25 mg PO DAILY [facility] Last Admin: 05/16/17 11:22 Dose: 25 mg Hydromorphone HCl (Dilaudid) 0.5 mg IVP Q4H PRN PRN Reason: Pain, Mild (1-3) Last Admin: 05/16/17 06:00 Dose: 0.5 mg Metronidazole (Flagyl) 500 mg in 100 mls @ 100 mls/hr IVPB Q8 [facility] Last Admin: 05/16/17 06:01 Dose: 100 mls/hr Ciprofloxacin (Cipro 400mg/200ml Dsw) 400 mg in 200 mls @ 133 mls/hr IVPB Q12H [facility] Last Admin: 05/16/17 09:07 Dose: 133 mls/hr Insulin Aspart (Novolog) 0 unit SC ACHS [facility] PRN Reason: Protocol Last Admin: 05/16/17 08:36 Dose: Not Given Losartan Potassium (Cozaar) 100 mg PO DAILY [facility] Last Admin: 05/16/17 11:22 Dose: 100 mg Metoclopramide HCl (Reglan) 10 mg IVP ACTID [facility] Last Admin: 05/16/17 08:03 Dose: 10 mg Mometasone Furoate (Asmanex Twisthaler 220 Mcg) 1 puff INH QPM [facility] Pantoprazole Sodium (Protonix Ec Tab) 40 mg PO DAILY [facility] Last Admin: 05/16/17 11:23 Dose: 40 mg Polyethylene Glycol (Miralax) 17 gm PO BID [facility] Last Admin: 05/16/17 11:23 Dose: 17 gm Tiotropium [place] (Spiriva) 18 mcg IH RQD [facility] - Labs Labs: 05/15/17 06:32 05/15/17 06:32 - Constitutional Appears: Well, Non-toxic, No Acute Distress - Head Exam Head Exam: ATRAUMATIC, NORMAL INSPECTION, NORMOCEPHALIC - Eye Exam Eye Exam: EOMI, Normal appearance, PERRL Pupil Exam: PERRL - ENT Exam ENT Exam: Mucous Membranes Moist, Normal Exam - Neck Exam Neck Exam: Full ROM, Normal Inspection - Respiratory Exam Respiratory Exam: Clear to Ausculation Bilateral, NORMAL BREATHING PATTERN - Cardiovascular Exam Cardiovascular Exam: RRR, +S1, +S2 - GI/Abdominal Exam GI & Abdominal Exam: Soft, Tenderness, Normal Bowel Sounds. absent: Distended, Organomegaly Additional comments: Left flank TTP - Rectal Exam Rectal Exam: Deferred - Extremities Exam Extremities Exam: Full ROM, Normal Inspection. absent: Pedal Edema - Back Exam Back Exam: NORMAL INSPECTION - Neurological Exam Neurological Exam: Alert, Awake, Oriented x3 - Psychiatric Exam Psychiatric exam: Normal Affect, Normal Mood - Skin Skin Exam: Dry, Intact, Normal Color, Warm Assessment and Plan - Assessment and Plan (Free Text) Assessment: This is a 41yF recently discharged from [facility] with enteritis and antibiotic therapy pw recurrent abdominal pain, nausea, vomiting and loose BM for 2 days. 1. Enteritis 2. Constipation 3. Transaminitis 4. Chronic pain and narcotic use 5. DM 6. HLD 7. Hx of RA/SLE Plan: -Continue supportive care for enteritis with bland diet and advance as tolerated -Recommend discontinuing antibiotic therapy since pt has already been treated with abx course, also can worsen symptoms of nausea/vomiting-no signs of fever or leukocytes -Constipation from narcotic use-aggressive bowel regimen with miralax bid and colace bid, constipation can be contributing the abdominal pain -Transaminitis maybe from medications, pt is on methotrexate and hydroxycloroquine, hepatitis panel negative and alcohol level negative -Will order autoimmune workup and iron studies -Hx of Marijuana use which can contribute to cyclic nausea/vomiting-UDS positive -No plan for inpt endoscopic evaluation, recommend outpt followup <Rafael Lopez - Last Filed: 05/16/17 15:32> Objective - Vital Signs/Intake and Output Vital Signs (last 24 hours): Temp Pulse Resp BP Pulse Ox 98.4 F 73 20 169/100 H 99 05/16/17 07:42 05/16/17 07:42 05/16/17 07:42 05/16/17 07:42 05/16/17 07:42 Intake and Output: 05/16/17 05/16/17 06:59 18:59 Intake Total 940 Balance 940 - Medications Medications: Current Medications Albuterol (Ventolin Hfa 90 Mcg/Actuation (8 G)) 2 puff IH RQ6 [facility] Last Admin: 05/16/17 13:30 Dose: 2 puff Alprazolam (Xanax) 0.5 mg PO TID [facility] Last Admin: 05/16/17 13:40 Dose: 0.5 mg Amlodipine Besylate (Norvasc) 5 mg PO DAILY [facility] Last Admin: 05/16/17 11:23 Dose: 5 mg Docusate Sodium (Colace) 100 mg PO BID [facility] Last Admin: 05/16/17 11:22 Dose: 100 mg Enoxaparin Sodium (Lovenox) 40 mg SC DAILY [facility] Last Admin: 05/16/17 11:24 Dose: Not Given Folic Acid (Folic Acid) 1 mg PO DAILY [facility] Last Admin: 05/16/17 11:22 Dose: 1 mg Gabapentin (Neurontin) 300 mg PO TID [facility] Last Admin: 05/16/17 13:40 Dose: 300 mg Hydrochlorothiazide (Hydrodiuril) 25 mg PO DAILY [facility] Last Admin: 05/16/17 11:22 Dose: 25 mg Hydromorphone HCl (Dilaudid) 0.5 mg IVP Q4H PRN PRN Reason: Pain, Mild (1-3) Last Admin: 05/16/17 12:14 Dose: 0.5 mg Ciprofloxacin (Cipro 400mg/200ml Dsw) 400 mg in 200 mls @ 133 mls/hr IVPB Q12H [facility] Last Admin: 05/16/17 09:07 Dose: 133 mls/hr Insulin Aspart (Novolog) 0 unit SC ACHS [facility] PRN Reason: Protocol Last Admin: 05/16/17 12:25 Dose: Not Given Losartan Potassium (Cozaar) 100 mg PO DAILY [facility] Last Admin: 05/16/17 11:22 Dose: 100 mg Metoclopramide HCl (Reglan) 10 mg IVP ACTID [facility] Last Admin: 05/16/17 08:03 Dose: 10 mg Mometasone Furoate (Asmanex Twisthaler 220 Mcg) 1 puff INH QPM [facility] Pantoprazole Sodium (Protonix Ec Tab) 40 mg PO DAILY [facility] Last Admin: 05/16/17 11:23 Dose: 40 mg Polyethylene Glycol (Miralax) 17 gm PO BID [facility] Last Admin: 05/16/17 11:23 Dose: 17 gm Tiotropium [place] (Spiriva) 18 mcg IH RQD [facility] - Labs Labs: 05/15/17 06:32 05/15/17 06:32 Attending/Attestation - Attestation I have personally seen and examined this patient.: Yes I have fully participated in the care of the patient.: Yes I have reviewed all pertinent clinical information, including history, physical exam and plan: Yes Notes (Text): 05/16/17 15:27 41 year old female with h/o chronic pain, opiate use, constipation, RA on methotrexate admitted with abdominal pain, N/V. 1. Elevated LFTs 2. Chronic pain 3. Opiate induced constipation 4. Nausea and vomiting Plan: -No need for antibiotics -recommend bowel regimen for opiate induced constipation -advised patient to re-evaluate chronic methotrexate use in the setting of abnormal lfts, as this is could be related to MTX -eval for other chronic liver dz as above -advised discontinuation of marijuana -supportive care with anti-emetics/zofran -minimize narcotics -advance diet as tolerated / small frequent meals / low fat diet
--- NOTE | 2017-05-16 14:08 | CP.PCM.CON ---
History of Present Illness - History of Present Illness History of Present Illness: INFECTIOUS DISEASE CONSULTATION; HPI;40-year-old female with multiple medical problems including rheumatoid arthritis/SLE, diabetes mellitus, hyperlipidemia, chronic pain and narcotic use who presented to [facility] on 05/14/17 with recurrent abdominal pain, nausea and vomiting and LOOSE BM for 2 days. PATIENT WAS RECENTLY DISCHARGED FROM ON PO CIPRO AND FLAGYL FOR 1 WEEK FOR ENTERITIS. Patient now returns with similar complaints. Stool C. difficile is negative and hepatitis screen is negative for A,B AND HEPATITIS C ANTIBODY. PATIENT DOES HAVE SOME ELEVATION OF TRANSAMINASES. CT A/P shows mural thickening of small bowel loops with moderate constipation and hepatomegaly, imaging similar to prior CT scan. Pt reports history of transaminitis due to medications but no hx of hepatitis exposure, denies alcohol use. PATIENT WAS EMPIRICALLY STARTED ON iv cIPRO AND fLAGYL. pATIENT CONTINUES TO HAVE NAUSEA BUT PRESENTLY DENIES ANY FURTHER DIARRHEA OR VOMITING. INFECTIOUS DISEASE CONSULTATION REQUESTED BY PMD RECURRENT COLITIS. Patient denies any fever or chills. PMHx: Anxiety/Depression, Arthritis, Asthma, COPD, DM, HTN, HLD, Gastritis, Lupus, RA, Endometriosis PSHx: EGDx3, Colonoscopy, Laparascopic Endometriosis removal, x2, Left breast Bx x2 (benign) Social Hx: Unemployed; 2-3 cigarrets per week. Denies Alcohol use. Denies any illicit drugs Family Hx: Maternal Hx- RA, various types of CA; Paternal Hx - Lupus, HTN, DM Allergy: Methylergonovine Maleate, penicillin. meds; reviewed. Review of Systems - Constitutional Constitutional: absent: Chills, Fever, Weight Loss - EENT Eyes: absent: Floaters - Cardiovascular Cardiovascular: absent: Chest Pain, Dyspnea - Respiratory Respiratory: absent: Cough, Chest Congestion - Gastrointestinal Gastrointestinal: Abdominal Pain, Constipation, Diarrhea, Nausea. absent: Vomiting - Genitourinary Genitourinary: Flank Pain. absent: Dysuria, Pyuria - Neurological Neurological: absent: Headaches - Hematologic/Lymphatic Hematologic: As Per HPI. absent: Lymphadenopathy Past Patient History - Infectious Disease Hx of Infectious Diseases: None - Past Medical History & Family History Past Medical History?: Yes - Past Social History Smoking Status: Current Some Days Smoker - CARDIAC Hx Hypercholesterolemia: Yes Hx Hypertension: Yes - PULMONARY Hx Asthma: Yes Hx Bronchitis: Yes Hx Chronic Obstructive Pulmonary Disease (COPD): Yes Hx Emphysema: Yes Hx Pneumonia: Yes - NEUROLOGICAL Hx Neurological Disorder: No - HEENT Hx HEENT Problems: Yes Hx Glaucoma: Yes - RENAL Hx Chronic Kidney Disease: No - ENDOCRINE/METABOLIC Hx Endocrine Disorders: Yes Hx Diabetes Mellitus Type 2: Yes Hx Systemic Lupus Erythematosus: Yes - HEMATOLOGICAL/ONCOLOGICAL Hx Blood Disorders: Yes Hx Blood Transfusions: No Other/Comment: lupus - INTEGUMENTARY Hx Dermatological Problems: No - MUSCULOSKELETAL/RHEUMATOLOGICAL Hx Arthritis: Yes Hx Rheumatoid Arthritis: Yes - GASTROINTESTINAL Hx Gastritis: Yes Hx Pancreatitis: Yes - GENITOURINARY/GYNECOLOGICAL Hx Genitourinary Disorders: Yes (SEE COMMENT) Other/Comment: endometriosis - PSYCHIATRIC Hx Anxiety: Yes Hx Depression: Yes Hx Substance Use: No - SURGICAL HISTORY Hx Surgeries: Yes Hx Section: Yes (x) Other/Comment: Sinus surgery, laparoscopy - ANESTHESIA Hx Anesthesia: Yes Hx Anesthesia Reactions: No Hx Malignant Hyperthermia: No Has any member of the family had a problem w/ anesthesia?: No Meds Allergies/Adverse Reactions: Allergies Allergy/AdvReac Type Severity Reaction Status Date / Time methylergonovine maleate Allergy Intermediate RASH Verified 05/14/17 10:21 [From Methergine] Penicillins Allergy Intermediate RASH Verified 05/14/17 10:21 - Medications Medications: Current Medications Albuterol (Ventolin Hfa 90 Mcg/Actuation (8 G)) 2 puff IH RQ6 [facility] Last Admin: 05/16/17 13:30 Dose: 2 puff Alprazolam (Xanax) 0.5 mg PO TID [facility] Last Admin: 05/16/17 13:40 Dose: 0.5 mg Amlodipine Besylate (Norvasc) 5 mg PO DAILY [facility] Last Admin: 05/16/17 11:23 Dose: 5 mg Docusate Sodium (Colace) 100 mg PO BID [facility] Last Admin: 05/16/17 11:22 Dose: 100 mg Enoxaparin Sodium (Lovenox) 40 mg SC DAILY [facility] Last Admin: 05/16/17 11:24 Dose: Not Given Folic Acid (Folic Acid) 1 mg PO DAILY [facility] Last Admin: 05/16/17 11:22 Dose: 1 mg Gabapentin (Neurontin) 300 mg PO TID [facility] Last Admin: 05/16/17 13:40 Dose: 300 mg Hydrochlorothiazide (Hydrodiuril) 25 mg PO DAILY [facility] Last Admin: 05/16/17 11:22 Dose: 25 mg Hydromorphone HCl (Dilaudid) 0.5 mg IVP Q4H PRN PRN Reason: Pain, Mild (1-3) Last Admin: 05/16/17 12:14 Dose: 0.5 mg Metronidazole (Flagyl) 500 mg in 100 mls @ 100 mls/hr IVPB Q8 [facility] Last Admin: 05/16/17 13:40 Dose: 100 mls/hr Ciprofloxacin (Cipro 400mg/200ml Dsw) 400 mg in 200 mls @ 133 mls/hr IVPB Q12H [facility] Last Admin: 05/16/17 09:07 Dose: 133 mls/hr Insulin Aspart (Novolog) 0 unit SC ACHS [facility] PRN Reason: Protocol Last Admin: 05/16/17 12:25 Dose: Not Given Losartan Potassium (Cozaar) 100 mg PO DAILY [facility] Last Admin: 05/16/17 11:22 Dose: 100 mg Metoclopramide HCl (Reglan) 10 mg IVP ACTID [facility] Last Admin: 05/16/17 08:03 Dose: 10 mg Mometasone Furoate (Asmanex Twisthaler 220 Mcg) 1 puff INH QPM [facility] Pantoprazole Sodium (Protonix Ec Tab) 40 mg PO DAILY [facility] Last Admin: 05/16/17 11:23 Dose: 40 mg Polyethylene Glycol (Miralax) 17 gm PO BID [facility] Last Admin: 05/16/17 11:23 Dose: 17 gm Tiotropium [place] (Spiriva) 18 mcg IH RQD [facility] Physical Exam - Constitutional Appears: No Acute Distress - Head Exam Head Exam: NORMAL INSPECTION - Eye Exam Eye Exam: EOMI, PERRL. absent: Scleral icterus - ENT Exam ENT Exam: Normal Oropharynx - Neck Exam Neck exam: Positive for: Normal Inspection - Respiratory Exam Respiratory Exam: Clear to Auscultation Bilateral - Cardiovascular Exam Cardiovascular Exam: REGULAR RHYTHM, +S1, +S2 - GI/Abdominal Exam GI & Abdominal Exam: Normal Bowel Sounds, Soft, Tenderness (epigastric and left flank/LLQ.) - Extremities Exam Extremities exam: Positive for: pedal pulses present. Negative for: calf tenderness, pedal edema - Psychiatric Exam Psychiatric exam: Normal Mood - Skin Skin Exam: Normal Color, Warm Results - Vital Signs Recent Vital Signs: Last Vital Signs Temp 98.4 F 05/16/17 07:42 Pulse 73 05/16/17 07:42 Resp 20 05/16/17 07:42 BP 169/100 H 05/16/17 07:42 Pulse Ox 99 05/16/17 07:42 - Labs Result Diagrams: 05/15/17 06:32 05/15/17 06:32 Labs: Laboratory Results - last 24 hr 05/15/17 05/15/17 05/16/17 16:36 21:20 07:49 POC Glucose (mg/dL) 116 H 161 H 128 H Iron TIBC % Saturation Ferritin 05/16/17 05/16/17 05/16/17 11:05 11:05 11:05 POC Glucose (mg/dL) Iron 47 TIBC 297 % Saturation 16 L 17 L Ferritin 14.5 05/16/17 11:18 POC Glucose (mg/dL) 134 H Iron TIBC % Saturation Ferritin - Imaging and Cardiology CT scan - abdomenand pelvis without contrast Status: Report reviewed by me Assessment & Plan (1) Abdominal pain Assessment and Plan: CT of the abdomen and pelvis without by mouth contrast. 05/14/17 noted. Patient still continues to have abdominal pain and intermittent constipation and diarrhea. Status: Acute Priority: High (2) Colitis Assessment and Plan: stools C. difficile negative.. DC IV Flagyl as may be causing nausea and elevation of LFTs. Continue IV Cipro 400 mg every 12 hourly for now as patient has still persistent mural thickening involving multiple loops of small bowel to the left of midline. ? Ischemic colitis vs bowel edema. Status: Acute (3) Transaminitis Assessment and Plan: follow-up LFTs. Status: Acute (4) Nausea Assessment and Plan: patient on Zofran as per PMD for nausea and vomiting. check serum amylase and lipase. Status: Acute (5) Diabetes mellitus type 2 Status: Chronic Priority: Medium (6) Obesity Status: Chronic (7) Lupus (systemic lupus erythematosus) Assessment and Plan: patient on hydroxychloroquine and methotrexate. Consider rheumatology evaluation.. Status: Acute
[2017-05-16 15:31] LABS: IMMUNOGLOBULIN A 195.1 mg/dL (70.0-400.0); IMMUNOGLOBULIN M 226.4 mg/dL (40.0-230.0)
[2017-05-17] MEDS: HYDROmorphone 0.5 mg/0.5 ml ISec IVP PRN ×5 (00:10→21:03)
[2017-05-17] MEDS: Albuterol HFA 90 mcg/actuation (8 g) IH SCH ×4 (01:14→19:52)
[2017-05-17] MEDS: (Novolog) Insulin Aspart, Recombinant 100 u/ml 10 ml vial SC SCH ×4 (07:47→22:05)
[2017-05-17] MEDS: Ciprofloxacin 400mg/200ml D5W 400 MG/200 ML BAG IVPB SCH ×2 (07:58→20:30)
[2017-05-17 08:20] LABS: HEMATOCRIT 41.3 % (34.0-47.0); MEAN CELL VOLUME 86.5 fL (81.0-99.0); MEAN CORPUSCULAR HEMOGLOBIN 28.7 pg (27.0-31.0); MEAN CORPUSCULAR HGB CONC 33.2 g/dL (33.0-37.0); MEAN PLATELET VOLUME 9.7 fL (7.2-11.7); RED CELL DISTRIBUTION WIDTH 15.2 % (11.5-14.5); WHITE BLOOD COUNT 8.1 K/uL (4.8-10.8)
[2017-05-17 08:30] LABS: CHLORIDE 99 mmol/L (98-107); POTASSIUM 3.6 mmol/L (3.6-5.2); SODIUM 137 mmol/L (132-148)
[2017-05-17 08:32] LABS: AST/SGOT 62 U/L (14-36); BILIRUBIN,TOTAL 0.4 mg/dL (0.2-1.3); CARBON DIOXIDE 24 mmol/L (22-30); GFR AFRICAN-AMERICAN > 60
[2017-05-17 08:33] LABS: ALB/GLOB RATIO 1.1 (1.0-2.1); ALKALINE PHOSPHATASE 127 U/L (38-126); ALT/SGPT 65 U/L (9-52); BLOOD UREA NITROGEN 13 mg/dL (7-17); CALCIUM 8.7 mg/dl (8.6-10.4); GLUCOSE,RANDOM 127 mg/dL (65-105); TOTAL PROTEIN 7.1 g/dL (6.3-8.3)
[2017-05-17] MEDS: Pantoprazole 40 mg EC Tab PO SCH (10:35)
[2017-05-17] MEDS: POLYETHYLENE GLYCOL 3350 17 GM/Dose PACKET PO SCH ×2 (10:36→17:35)
[2017-05-17] MEDS: Enoxaparin 40 mg Syringe SC SCH ×2 (10:36→10:40)
--- NOTE | 2017-05-17 10:57 | CP.PCM.PN ---
<Xi Dow - Last Filed: 05/17/17 10:53> Subjective - Date & Time of Evaluation Date of Evaluation: 05/17/17 Time of Evaluation: 07:00 - Subjective Subjective: GI Fellow PGY4 Progress Note Pt seen and evaluated at bedside, no events over night. Pt has a small bm last night, denies any nausea or vomiting. Pt tolerated diet without worsening abdominal pain. Pt reports that she still has crampy abdominal pain, left sided which has not improved since admission. ROS: A 12pt ROS was obtained adn was negative except as above. Objective - Vital Signs/Intake and Output Vital Signs (last 24 hours): Temp Pulse Resp BP Pulse Ox 98.2 F 72 20 160/92 H 97 05/17/17 08:09 05/17/17 08:09 05/17/17 08:09 05/17/17 08:09 05/17/17 08:09 Intake and Output: 05/17/17 05/17/17 06:59 18:59 Intake Total 760 Balance 760 - Medications Medications: Current Medications Albuterol (Ventolin Hfa 90 Mcg/Actuation (8 G)) 2 puff IH RQ6 [facility] Last Admin: 05/17/17 07:27 Dose: Not Given Alprazolam (Xanax) 0.5 mg PO TID [facility] Last Admin: 05/17/17 10:35 Dose: 0.5 mg Amlodipine Besylate (Norvasc) 5 mg PO DAILY [facility] Last Admin: 05/17/17 10:35 Dose: 5 mg Docusate Sodium (Colace) 100 mg PO BID [facility] Last Admin: 05/17/17 10:35 Dose: 100 mg Enoxaparin Sodium (Lovenox) 40 mg SC DAILY [facility] Last Admin: 05/17/17 10:40 Dose: Not Given Folic Acid (Folic Acid) 1 mg PO DAILY [facility] Last Admin: 05/17/17 10:36 Dose: 1 mg Gabapentin (Neurontin) 300 mg PO TID [facility] Last Admin: 05/17/17 10:35 Dose: 300 mg Hydrochlorothiazide (Hydrodiuril) 25 mg PO DAILY [facility] Last Admin: 05/17/17 10:35 Dose: 25 mg Hydromorphone HCl (Dilaudid) 0.5 mg IVP Q4H PRN PRN Reason: Pain, Mild (1-3) Last Admin: 05/17/17 06:12 Dose: 0.5 mg Ciprofloxacin (Cipro 400mg/200ml Dsw) 400 mg in 200 mls @ 133 mls/hr IVPB Q12H [facility] Last Admin: 05/17/17 07:58 Dose: 133 mls/hr Insulin Aspart (Novolog) 0 unit SC ACHS [facility] PRN Reason: Protocol Last Admin: 05/17/17 07:47 Dose: Not Given Losartan Potassium (Cozaar) 100 mg PO DAILY [facility] Last Admin: 05/17/17 10:35 Dose: 100 mg Metoclopramide HCl (Reglan) 10 mg IVP ACTID [facility] Last Admin: 05/17/17 07:58 Dose: 10 mg Mometasone Furoate (Asmanex Twisthaler 220 Mcg) 1 puff INH QPM [facility] Pantoprazole Sodium (Protonix Ec Tab) 40 mg PO DAILY [facility] Last Admin: 05/17/17 10:35 Dose: 40 mg Polyethylene Glycol (Miralax) 17 gm PO BID [facility] Last Admin: 05/17/17 10:36 Dose: 17 gm Tiotropium [place] (Spiriva) 18 mcg IH RQD [facility] - Labs Labs: 05/17/17 08:11 05/17/17 08:11 - Constitutional Appears: Well, Non-toxic, No Acute Distress - Head Exam Head Exam: ATRAUMATIC, NORMAL INSPECTION, NORMOCEPHALIC - Eye Exam Eye Exam: EOMI, Normal appearance, PERRL Pupil Exam: PERRL - ENT Exam ENT Exam: Mucous Membranes Moist, Normal Exam - Neck Exam Neck Exam: Full ROM, Normal Inspection - Respiratory Exam Respiratory Exam: Clear to Ausculation Bilateral, NORMAL BREATHING PATTERN - Cardiovascular Exam Cardiovascular Exam: RRR, +S1, +S2 - GI/Abdominal Exam GI & Abdominal Exam: Soft, Tenderness, Normal Bowel Sounds. absent: Organomegaly - Extremities Exam Extremities Exam: Full ROM, Normal Inspection - Back Exam Back Exam: NORMAL INSPECTION - Neurological Exam Neurological Exam: Alert, Awake, Normal Gait, Oriented x3 - Psychiatric Exam Psychiatric exam: Normal Affect, Normal Mood - Skin Skin Exam: Dry, Intact, Normal Color, Warm Assessment and Plan - Assessment and Plan (Free Text) Assessment: This is a 41yF recently discharged from [facility] with enteritis and antibiotic therapy pw recurrent abdominal pain, nausea, vomiting and loose BM for 2 days. 1. Enteritis 2. Opioid indcied Constipation 3. Transaminitis 4. Chronic pain and narcotic use 5. DM 6. HLD 7. Hx of RA/SLE 8. Nausea and Vomiting Plan: -Continue supportive care for enteritis with bland diet and advance as tolerated -Abx therapy per ID -Constipation from narcotic use-aggressive bowel regimen with miralax bid and colace bid, will add tap water enema today -Transaminitis maybe from medications, pt is on methotrexate and hydroxycloroquine, hepatitis panel negative and alcohol level negative -Autoimmune workup pending and iron studies wnl -Hx of Marijuana use which can contribute to cyclic nausea/vomiting-UDS positive -No plan for inpt endoscopic evaluation, recommend outpt followup <Mario Floyd - Last Filed: 05/17/17 13:08> Objective - Vital Signs/Intake and Output Vital Signs (last 24 hours): Temp Pulse Resp BP Pulse Ox 98.2 F 72 20 160/92 H 97 05/17/17 08:09 05/17/17 08:09 05/17/17 08:09 05/17/17 08:09 05/17/17 08:09 Intake and Output: 05/17/17 05/17/17 06:59 18:59 Intake Total 760 Balance 760 - Medications Medications: Current Medications Albuterol (Ventolin Hfa 90 Mcg/Actuation (8 G)) 2 puff IH RQ6 [facility] Last Admin: 05/17/17 07:27 Dose: Not Given Alprazolam (Xanax) 0.5 mg PO TID [facility] Last Admin: 05/17/17 10:35 Dose: 0.5 mg Amlodipine Besylate (Norvasc) 5 mg PO DAILY [facility] Last Admin: 05/17/17 10:35 Dose: 5 mg Docusate Sodium (Colace) 100 mg PO BID [facility] Last Admin: 05/17/17 10:35 Dose: 100 mg Enoxaparin Sodium (Lovenox) 40 mg SC DAILY [facility] Last Admin: 05/17/17 10:40 Dose: Not Given Folic Acid (Folic Acid) 1 mg PO DAILY [facility] Last Admin: 05/17/17 10:36 Dose: 1 mg Gabapentin (Neurontin) 300 mg PO TID [facility] Last Admin: 05/17/17 10:35 Dose: 300 mg Hydrochlorothiazide (Hydrodiuril) 25 mg PO DAILY [facility] Last Admin: 05/17/17 10:35 Dose: 25 mg Hydromorphone HCl (Dilaudid) 0.5 mg IVP Q4H PRN PRN Reason: Pain, Mild (1-3) Last Admin: 05/17/17 10:56 Dose: 0.5 mg Ciprofloxacin (Cipro 400mg/200ml Dsw) 400 mg in 200 mls @ 133 mls/hr IVPB Q12H [facility] Last Admin: 05/17/17 07:58 Dose: 133 mls/hr Insulin Aspart (Novolog) 0 unit SC ACHS [facility] PRN Reason: Protocol Last Admin: 05/17/17 11:42 Dose: Not Given Losartan Potassium (Cozaar) 100 mg PO DAILY [facility] Last Admin: 05/17/17 10:35 Dose: 100 mg Metoclopramide HCl (Reglan) 10 mg IVP ACTID [facility] Last Admin: 05/17/17 12:30 Dose: 10 mg Mometasone Furoate (Asmanex Twisthaler 220 Mcg) 1 puff INH QPM [facility] Pantoprazole Sodium (Protonix Ec Tab) 40 mg PO DAILY [facility] Last Admin: 05/17/17 10:35 Dose: 40 mg Polyethylene Glycol (Miralax) 17 gm PO BID [facility] Last Admin: 05/17/17 10:36 Dose: 17 gm Tiotropium [place] (Spiriva) 18 mcg IH RQD [facility] - Labs Labs: 05/17/17 08:11 05/17/17 08:11 Attending/Attestation - Attestation I have personally seen and examined this patient.: Yes I have fully participated in the care of the patient.: Yes I have reviewed all pertinent clinical information, including history, physical exam and plan: Yes Notes (Text): 05/17/17 13:05 I have seen and examined patient with GI fellow. No acute events overnight, she is seen resting in bed, continues to endorse L flank, LUQ abdominal pain. She denies nausea, vomiting, fever/chills. She had a scant bowel movement yesterday, tolerating PO diet without difficulty. Review of vitals from today shows elevated BP. Abdominal pain Constipation Eneteritis - Diet as tolerated - Antibiotic therapy adjusted as per ID recommendations - Maintain aggressive bowel regimen for treatment of constipation, administer tap water enema x 1 today - LFTs stable, continue to monitor, awaiting autoimmune panel - From GI perspective if patient tolerating PO diet, ok to discharge home with subsequent outpatient follow up
--- NOTE | 2017-05-17 11:47 | CP.PCM.PN ---
Subjective - Date & Time of Evaluation Date of Evaluation: 05/16/17 Time of Evaluation: 08:00 - Subjective Subjective: Subjective: Pt seen and evaluated at beside, pt reports abdominal pain is the same and pain medication helps. Reports tolerating liquid diet with no vomiting but does have nausea that is relieved IV Zofran. No more diarrhea and did have a small BM yesterday with bowel regimen. Denies fevers or chills. ROS: A 12pt ROS was obtained and negative except as above. Objective - Vital Signs/Intake and Output Vital Signs (last 24 hours): Temp Pulse Resp BP Pulse Ox 98.2 F 72 20 160/92 H 97 05/17/17 08:09 05/17/17 08:09 05/17/17 08:09 05/17/17 08:09 05/17/17 08:09 Intake and Output: 05/17/17 05/17/17 06:59 18:59 Intake Total 760 Balance 760 - Medications Medications: Current Medications Albuterol (Ventolin Hfa 90 Mcg/Actuation (8 G)) 2 puff IH RQ6 [facility] Last Admin: 05/17/17 07:27 Dose: Not Given Alprazolam (Xanax) 0.5 mg PO TID [facility] Last Admin: 05/17/17 10:35 Dose: 0.5 mg Amlodipine Besylate (Norvasc) 5 mg PO DAILY [facility] Last Admin: 05/17/17 10:35 Dose: 5 mg Docusate Sodium (Colace) 100 mg PO BID [facility] Last Admin: 05/17/17 10:35 Dose: 100 mg Enoxaparin Sodium (Lovenox) 40 mg SC DAILY [facility] Last Admin: 05/17/17 10:40 Dose: Not Given Folic Acid (Folic Acid) 1 mg PO DAILY [facility] Last Admin: 05/17/17 10:36 Dose: 1 mg Gabapentin (Neurontin) 300 mg PO TID [facility] Last Admin: 05/17/17 10:35 Dose: 300 mg Hydrochlorothiazide (Hydrodiuril) 25 mg PO DAILY [facility] Last Admin: 05/17/17 10:35 Dose: 25 mg Hydromorphone HCl (Dilaudid) 0.5 mg IVP Q4H PRN PRN Reason: Pain, Mild (1-3) Last Admin: 05/17/17 10:56 Dose: 0.5 mg Ciprofloxacin (Cipro 400mg/200ml Dsw) 400 mg in 200 mls @ 133 mls/hr IVPB Q12H [facility] Last Admin: 05/17/17 07:58 Dose: 133 mls/hr Insulin Aspart (Novolog) 0 unit SC ACHS [facility] PRN Reason: Protocol Last Admin: 05/17/17 07:47 Dose: Not Given Losartan Potassium (Cozaar) 100 mg PO DAILY [facility] Last Admin: 05/17/17 10:35 Dose: 100 mg Metoclopramide HCl (Reglan) 10 mg IVP ACTID [facility] Last Admin: 05/17/17 07:58 Dose: 10 mg Mometasone Furoate (Asmanex Twisthaler 220 Mcg) 1 puff INH QPM [facility] Pantoprazole Sodium (Protonix Ec Tab) 40 mg PO DAILY [facility] Last Admin: 05/17/17 10:35 Dose: 40 mg Polyethylene Glycol (Miralax) 17 gm PO BID [facility] Last Admin: 05/17/17 10:36 Dose: 17 gm Tiotropium [place] (Spiriva) 18 mcg IH RQD [facility] - Labs Labs: 05/17/17 08:11 05/17/17 08:11 - Constitutional Appears: Well - Head Exam Head Exam: ATRAUMATIC, NORMAL INSPECTION, NORMOCEPHALIC - Eye Exam Eye Exam: EOMI, Normal appearance, PERRL Pupil Exam: NORMAL ACCOMODATION, PERRL - ENT Exam ENT Exam: Mucous Membranes Moist, Normal Exam - Neck Exam Neck Exam: Full ROM, Normal Inspection. absent: Lymphadenopathy - Respiratory Exam Respiratory Exam: Clear to Ausculation Bilateral, NORMAL BREATHING PATTERN - Cardiovascular Exam Cardiovascular Exam: REGULAR RHYTHM, +S1, +S2. absent: Murmur - GI/Abdominal Exam GI & Abdominal Exam: Soft, Normal Bowel Sounds. absent: Tenderness - Rectal Exam Rectal Exam: NORMAL INSPECTION - Exam Exam: Circumcision, NORMAL INSPECTION External exam: NORMAL EXTERNAL EXAM Speculum exam: NORMAL SPECULUM EXAM Bimanual exam: NORMAL BIMANUAL EXAM - Extremities Exam Extremities Exam: Full ROM, Normal Capillary Refill, Normal Inspection. absent : Joint Swelling, Pedal Edema - Back Exam Back Exam: NORMAL INSPECTION - Neurological Exam Neurological Exam: Alert, Awake, CN II-XII Intact, Normal Gait, Oriented x3 - Psychiatric Exam Psychiatric exam: Normal Affect, Normal Mood - Skin Skin Exam: Dry, Intact, Normal Color, Warm Assessment and Plan (1) Abdominal pain Status: Acute (2) Colitis Status: Acute (3) Asthma Status: Acute (4) Chest pain Status: Acute (5) Colitis Status: Acute (6) Foot contusion Status: Acute (7) Gastritis Status: Acute (8) Gastroesophageal reflux disease Status: Acute (9) Herpes genitalia Status: Acute (10) Hyperglycemia Status: Acute (11) Hyperlipidemia Status: Acute (12) Joint pain Status: Chronic (13) Leg pain Status: Acute (14) Nausea & vomiting Status: Acute (15) Respiratory tract infection Status: Acute (16) Right knee sprain Status: Acute (17) Visit for wound check Status: Acute (18) Diabetes mellitus Status: Chronic (19) Diabetes mellitus type 2 Status: Chronic (20) Hypertension Status: Chronic (21) Obesity Status: Chronic - Assessment and Plan (Free Text) Assessment: Assessment and Plan - Assessment and Plan (Free Text) Assessment: This is a 41yF recently discharged from [facility] with enteritis and antibiotic therapy pw recurrent abdominal pain, nausea, vomiting and loose BM for 2 days. 1. Enteritis 2. Constipation 3. Transaminitis 4. Chronic pain and narcotic use 5. DM 6. HLD 7. Hx of RA/SLE Plan: -Continue supportive care for enteritis with bland diet and advance as tolerated -Recommend discontinuing antibiotic therapy since pt has already been treated with abx course, also can worsen symptoms of nausea/vomiting-no signs of fever or leukocytes -Constipation from narcotic use-aggressive bowel regimen with miralax bid and colace bid, constipation can be contributing the abdominal pain -Transaminitis maybe from medications, pt is on methotrexate and hydroxycloroquine, hepatitis panel negative and alcohol level negative -Will order autoimmune workup and iron studies -Hx of Marijuana use which can contribute to cyclic nausea/vomiting-UDS positive -No plan for inpt endoscopic evaluation, recommend outpt followup
[2017-05-17] MEDS: Mometasone 220 mcg/puff-14 puff Inh INH SCH (19:52)
--- NOTE | 2017-05-17 22:32 | CP.PCM.PN ---
Subjective - Date & Time of Evaluation Date of Evaluation: 05/17/17 Time of Evaluation: 20:00 - Subjective Subjective: Pt seen and evaluated c/o left upper quad abdominal pain associated with nausea , no vomitting, pt is on medical optimization, also evaluated by GI Objective - Vital Signs/Intake and Output Vital Signs (last 24 hours): Temp Pulse Resp BP Pulse Ox 98.6 F 74 20 138/88 98 05/17/17 16:00 05/17/17 16:00 05/17/17 16:00 05/17/17 16:00 05/17/17 16:00 Intake and Output: 05/17/17 05/18/17 18:59 06:59 Intake Total 700 Balance 700 - Medications Medications: Current Medications Albuterol (Ventolin Hfa 90 Mcg/Actuation (8 G)) 2 puff IH RQ6 [facility] Last Admin: 05/17/17 19:52 Dose: 2 puff Alprazolam (Xanax) 0.5 mg PO TID [facility] Last Admin: 05/17/17 17:36 Dose: 0.5 mg Amlodipine Besylate (Norvasc) 5 mg PO DAILY [facility] Last Admin: 05/17/17 10:35 Dose: 5 mg Docusate Sodium (Colace) 100 mg PO BID [facility] Last Admin: 05/17/17 17:34 Dose: 100 mg Enoxaparin Sodium (Lovenox) 40 mg SC DAILY [facility] Last Admin: 05/17/17 10:40 Dose: Not Given Folic Acid (Folic Acid) 1 mg PO DAILY [facility] Last Admin: 05/17/17 10:36 Dose: 1 mg Gabapentin (Neurontin) 300 mg PO TID [facility] Last Admin: 05/17/17 17:35 Dose: 300 mg Hydrochlorothiazide (Hydrodiuril) 25 mg PO DAILY [facility] Last Admin: 05/17/17 10:35 Dose: 25 mg Hydromorphone HCl (Dilaudid) 0.5 mg IVP Q4H PRN PRN Reason: Pain, Mild (1-3) Last Admin: 05/17/17 21:03 Dose: 0.5 mg Ciprofloxacin (Cipro 400mg/200ml Dsw) 400 mg in 200 mls @ 133 mls/hr IVPB Q12H [facility] Last Admin: 05/17/17 20:30 Dose: 133 mls/hr Insulin Aspart (Novolog) 0 unit SC ACHS [facility] PRN Reason: Protocol Last Admin: 05/17/17 22:05 Dose: Not Given Losartan Potassium (Cozaar) 100 mg PO DAILY [facility] Last Admin: 05/17/17 10:35 Dose: 100 mg Metoclopramide HCl (Reglan) 10 mg IVP ACTID [facility] Last Admin: 05/17/17 16:18 Dose: 10 mg Mometasone Furoate (Asmanex Twisthaler 220 Mcg) 1 puff INH RQ24 [facility] Last Admin: 05/17/17 19:52 Dose: 1 puff Pantoprazole Sodium (Protonix Ec Tab) 40 mg PO DAILY [facility] Last Admin: 05/17/17 10:35 Dose: 40 mg Polyethylene Glycol (Miralax) 17 gm PO BID [facility] Last Admin: 05/17/17 17:35 Dose: 17 gm Tiotropium [place] (Spiriva) 18 mcg IH RQD [facility] - Labs Labs: 05/17/17 08:11 05/17/17 08:11 - Constitutional Appears: No Acute Distress - Head Exam Head Exam: ATRAUMATIC, NORMAL INSPECTION, NORMOCEPHALIC - Eye Exam Eye Exam: EOMI, Normal appearance, PERRL Pupil Exam: NORMAL ACCOMODATION, PERRL - Respiratory Exam Respiratory Exam: Decreased Breath Sounds - Cardiovascular Exam Cardiovascular Exam: REGULAR RHYTHM, +S1, +S2. absent: Murmur - GI/Abdominal Exam GI & Abdominal Exam: Tenderness - Rectal Exam Rectal Exam: Deferred - Back Exam Back Exam: NORMAL INSPECTION - Neurological Exam Neurological Exam: Alert, Awake, CN II-XII Intact, Normal Gait, Oriented x3 Assessment and Plan (1) Enteritis Status: Acute (2) Abdominal pain Status: Acute (3) Colitis Status: Acute (4) Lupus (systemic lupus erythematosus) Status: Acute (5) Transaminitis Status: Acute - Assessment and Plan (Free Text) Assessment: This is a 41yF recently discharged from [facility] with enteritis and antibiotic therapy pw recurrent abdominal pain, nausea, vomiting and loose BM for 2 days. 1. Enteritis 2. Constipation 3. Transaminitis 4. Chronic pain and narcotic use 5. DM 6. HLD 7. Hx of RA/SLE Plan: Plan: -Continue supportive care for enteritis with bland diet and advance as tolerated -Recommend discontinuing antibiotic therapy since pt has already been treated with abx course, also can worsen symptoms of nausea/vomiting-no signs of fever or leukocytes -Constipation from narcotic use-aggressive bowel regimen with miralax bid and colace bid, constipation can be contributing the abdominal pain -Transaminitis maybe from medications, pt is on methotrexate and hydroxycloroquine, hepatitis panel negative and alcohol level negative -Will order autoimmune workup and iron studies -Hx of Marijuana use which can contribute to cyclic nausea/vomiting-UDS positive -No plan for inpt endoscopic evaluation, recommend outpt followup
--- NOTE | 2017-05-17 22:47 | CP.PCM.PN ---
Subjective - Date & Time of Evaluation Date of Evaluation: 05/17/17 Time of Evaluation: 22:47 - Subjective Subjective: afebrile, Patient denies any nausea vomiting.. Tolerating diet Still with abdominal pains mainly left-sided. had a bowel movement LFTS STILL HAS TRANSAMINITIS ? DRUGS HEPATITIS PROFILE NEGATIVE. Objective - Vital Signs/Intake and Output Vital Signs (last 24 hours): Temp Pulse Resp BP Pulse Ox 98.6 F 74 20 138/88 98 05/17/17 16:00 05/17/17 16:00 05/17/17 16:00 05/17/17 16:00 05/17/17 16:00 Intake and Output: 05/17/17 05/18/17 18:59 06:59 Intake Total 700 Balance 700 - Medications Medications: Current Medications Albuterol (Ventolin Hfa 90 Mcg/Actuation (8 G)) 2 puff IH RQ6 [facility] Last Admin: 05/17/17 19:52 Dose: 2 puff Alprazolam (Xanax) 0.5 mg PO TID [facility] Last Admin: 05/17/17 17:36 Dose: 0.5 mg Amlodipine Besylate (Norvasc) 5 mg PO DAILY [facility] Last Admin: 05/17/17 10:35 Dose: 5 mg Docusate Sodium (Colace) 100 mg PO BID [facility] Last Admin: 05/17/17 17:34 Dose: 100 mg Enoxaparin Sodium (Lovenox) 40 mg SC DAILY [facility] Last Admin: 05/17/17 10:40 Dose: Not Given Folic Acid (Folic Acid) 1 mg PO DAILY [facility] Last Admin: 05/17/17 10:36 Dose: 1 mg Gabapentin (Neurontin) 300 mg PO TID [facility] Last Admin: 05/17/17 17:35 Dose: 300 mg Hydrochlorothiazide (Hydrodiuril) 25 mg PO DAILY [facility] Last Admin: 05/17/17 10:35 Dose: 25 mg Hydromorphone HCl (Dilaudid) 0.5 mg IVP Q4H PRN PRN Reason: Pain, Mild (1-3) Last Admin: 05/17/17 21:03 Dose: 0.5 mg Ciprofloxacin (Cipro 400mg/200ml Dsw) 400 mg in 200 mls @ 133 mls/hr IVPB Q12H [facility] Last Admin: 05/17/17 20:30 Dose: 133 mls/hr Insulin Aspart (Novolog) 0 unit SC ACHS [facility] PRN Reason: Protocol Last Admin: 05/17/17 22:05 Dose: Not Given Losartan Potassium (Cozaar) 100 mg PO DAILY [facility] Last Admin: 05/17/17 10:35 Dose: 100 mg Metoclopramide HCl (Reglan) 10 mg IVP ACTID [facility] Last Admin: 05/17/17 16:18 Dose: 10 mg Mometasone Furoate (Asmanex Twisthaler 220 Mcg) 1 puff INH RQ24 [facility] Last Admin: 05/17/17 19:52 Dose: 1 puff Pantoprazole Sodium (Protonix Ec Tab) 40 mg PO DAILY [facility] Last Admin: 05/17/17 10:35 Dose: 40 mg Polyethylene Glycol (Miralax) 17 gm PO BID [facility] Last Admin: 05/17/17 17:35 Dose: 17 gm Tiotropium [place] (Spiriva) 18 mcg IH RQD [facility] - Labs Labs: 05/17/17 08:11 05/17/17 08:11 - Constitutional Appears: No Acute Distress - Head Exam Head Exam: NORMAL INSPECTION - Eye Exam Eye Exam: EOMI, PERRL. absent: Scleral icterus - ENT Exam ENT Exam: Normal Oropharynx - Neck Exam Neck Exam: Normal Inspection - Respiratory Exam Respiratory Exam: Clear to Ausculation Bilateral, NORMAL BREATHING PATTERN - Cardiovascular Exam Cardiovascular Exam: REGULAR RHYTHM, +S1, +S2 - GI/Abdominal Exam GI & Abdominal Exam: Soft, Tenderness (MILD TENDERNESS LEFT FLANK AND LEFT LOWER QUADRANT.), Normal Bowel Sounds - Extremities Exam Extremities Exam: Normal Capillary Refill. absent: Calf Tenderness, Pedal Edema - Neurological Exam Neurological Exam: Alert, Awake, CN II-XII Intact, Oriented x3 - Psychiatric Exam Psychiatric exam: Normal Mood - Skin Skin Exam: Normal Color, Warm Assessment and Plan (1) Abdominal pain Assessment & Plan: SLIGHTLY IMPROVED FROM BEFORE. TOLERATING DIET. Status: Acute (2) Colitis Assessment & Plan: STOOL C. DIFFICILE NEGATIVE. Status: Acute (3) Transaminitis Assessment & Plan: INCREASING TRANSAMINITIS ? DRUGS. dc iv CIPRO AND OBSERVE FEVER CURVE AND LFTS. WORKUP IN PROGRESS TO RULE OUT AUTOIMMUNE HEPATITIS. Status: Acute (4) Diabetes mellitus type 2 Status: Chronic (5) Obesity Status: Chronic (6) Lupus (systemic lupus erythematosus) Assessment & Plan: PATIENT ON HYDROXYCHLOROQUINE AND METHOTREXATE FOR HER LUPUS AND RHEUMATOID ARTHRITIS. Status: Acute
[2017-05-18] MEDS: HYDROmorphone 0.5 mg/0.5 ml ISec IVP PRN ×6 (01:01→23:46)
[2017-05-18] MEDS: Albuterol HFA 90 mcg/actuation (8 g) IH SCH ×4 (01:18→19:40)
[2017-05-18] MEDS: (Novolog) Insulin Aspart, Recombinant 100 u/ml 10 ml vial SC SCH ×4 (07:44→21:20)
[2017-05-18] MEDS: Mometasone 220 mcg/puff-14 puff Inh INH SCH (08:05)
[2017-05-18] MEDS ORDERED: Iohexol 240 (50 ml) PO ONE (08:30)
[2017-05-18] MEDS: Pantoprazole 40 mg EC Tab PO SCH (09:55)
[2017-05-18] MEDS: Enoxaparin 40 mg Syringe SC SCH (09:56)
[2017-05-18] MEDS: POLYETHYLENE GLYCOL 3350 17 GM/Dose PACKET PO SCH ×2 (09:56→17:00)
--- NOTE | 2017-05-18 10:07 | CP.PCM.PN ---
<Obie Harper - Last Filed: 05/18/17 10:15> Subjective - Date & Time of Evaluation Date of Evaluation: 05/18/17 Time of Evaluation: 06:30 - Subjective Subjective: PGY5 GI Fellow Progress Note Patient seen and examined bedside this morning. The patient states that she continues to have left sided abdominal pain. Passed small amount of stool with enema yesterday. Tolerating diet thusfar without nausea, vomiting. Denies any fever, chills. 12 system ROS performed and negative except where stated. Objective - Vital Signs/Intake and Output Vital Signs (last 24 hours): Temp Pulse Resp BP Pulse Ox 98.4 F 72 20 123/82 98 05/18/17 00:00 05/18/17 00:00 05/18/17 00:00 05/18/17 00:00 05/18/17 00:00 Intake and Output: 05/18/17 05/18/17 06:59 18:59 Intake Total 350 Balance 350 - Medications Medications: Current Medications Albuterol (Ventolin Hfa 90 Mcg/Actuation (8 G)) 2 puff IH RQ6 [facility] Last Admin: 05/18/17 08:05 Dose: 2 puff Alprazolam (Xanax) 0.5 mg PO TID [facility] Last Admin: 05/18/17 09:55 Dose: 0.5 mg Amlodipine Besylate (Norvasc) 5 mg PO DAILY [facility] Last Admin: 05/18/17 09:55 Dose: 5 mg Docusate Sodium (Colace) 100 mg PO BID [facility] Last Admin: 05/18/17 09:55 Dose: 100 mg Enoxaparin Sodium (Lovenox) 40 mg SC DAILY [facility] Last Admin: 05/18/17 09:56 Dose: Not Given Folic Acid (Folic Acid) 1 mg PO DAILY [facility] Last Admin: 05/18/17 09:55 Dose: 1 mg Gabapentin (Neurontin) 300 mg PO TID [facility] Last Admin: 05/18/17 09:55 Dose: 300 mg Hydrochlorothiazide (Hydrodiuril) 25 mg PO DAILY [facility] Last Admin: 05/18/17 09:55 Dose: 25 mg Hydromorphone HCl (Dilaudid) 0.5 mg IVP Q4H PRN PRN Reason: Pain, Mild (1-3) Last Admin: 05/18/17 06:11 Dose: 0.5 mg Insulin Aspart (Novolog) 0 unit SC ACHS [facility] PRN Reason: Protocol Last Admin: 05/18/17 07:44 Dose: Not Given Losartan Potassium (Cozaar) 100 mg PO DAILY [facility] Last Admin: 05/18/17 09:55 Dose: 100 mg Metoclopramide HCl (Reglan) 10 mg IVP ACTID [facility] Last Admin: 05/18/17 07:59 Dose: 10 mg Mometasone Furoate (Asmanex Twisthaler 220 Mcg) 1 puff INH RQ24 [facility] Last Admin: 05/18/17 08:05 Dose: 1 puff Pantoprazole Sodium (Protonix Ec Tab) 40 mg PO DAILY [facility] Last Admin: 05/18/17 09:55 Dose: 40 mg Polyethylene Glycol (Miralax) 17 gm PO BID [facility] Last Admin: 05/18/17 09:56 Dose: 17 gm Tiotropium [place] (Spiriva) 18 mcg IH RQD [facility] - Labs Labs: 05/17/17 08:11 05/17/17 08:11 - Constitutional Appears: Non-toxic, No Acute Distress - Eye Exam Eye Exam: EOMI, PERRL - ENT Exam ENT Exam: Mucous Membranes Moist - Respiratory Exam Respiratory Exam: Clear to Ausculation Bilateral. absent: Rales, Rhonchi, Wheezes - Cardiovascular Exam Cardiovascular Exam: RRR, +S1, +S2 - GI/Abdominal Exam GI & Abdominal Exam: Soft, Tenderness (left sided), Normal Bowel Sounds. absent : Distended, Firm, Guarding, Rigid, Organomegaly - Extremities Exam Extremities Exam: Normal Inspection. absent: Pedal Edema - Neurological Exam Neurological Exam: Alert, Awake, Oriented x3 - Psychiatric Exam Psychiatric exam: Anxious, Normal Mood - Skin Skin Exam: Dry, Warm Assessment and Plan - Assessment and Plan (Free Text) Assessment: Patient is a 41yo female with PMHx significant for RA/SLE, DM, HTN, recent bout of enteritis earlier this month, chronic pain with narcotic use who presented to the hospital with abdominal pain, nausea, vomiting and loose BM for 2 days. -Acute enteritis -Opioid induced constipation -Elevated LFTs -H/O SLE and RA on MTX and hydroxychloroquine -DM -HLD Plan: -Given persistent discomfort, check CT enterography if patient can tolerate PO contrast load -Inflammatory process possibly 2/2 infection, underlying rheumatologic disease or less likely undiagnosed IBD (given prior endoscopic history) -ABX therapy per ID recommendations -Recommend repeating enemas today Q3H x 3 doses + continued miralax -Consider addition of Dulcolax if above unsuccessful -May ultimately need an agent such as Relistor -Repeat CMP tomorrow; LFTs possibly elevated as a result of MTX -Outpatient follow up with rheumatology -Autoimmune w/u pending: ASMA negative; FRANK/AMA/LKM-Ab pending -Encourage marijuana cessation <Rafael Lopez - Last Filed: 05/18/17 19:31> Objective - Vital Signs/Intake and Output Vital Signs (last 24 hours): Temp Pulse Resp BP Pulse Ox 98.5 F 73 20 130/80 97 05/18/17 08:00 05/18/17 08:00 05/18/17 08:00 05/18/17 08:00 05/18/17 08:00 Intake and Output: 05/18/17 05/19/17 18:59 06:59 Intake Total 120 Balance 120 - Medications Medications: Current Medications Albuterol (Ventolin Hfa 90 Mcg/Actuation (8 G)) 2 puff IH RQ6 [facility] Last Admin: 05/18/17 13:55 Dose: Not Given Alprazolam (Xanax) 0.5 mg PO TID [facility] Last Admin: 05/18/17 17:02 Dose: 0.5 mg Amlodipine Besylate (Norvasc) 5 mg PO DAILY [facility] Last Admin: 05/18/17 09:55 Dose: 5 mg Docusate Sodium (Colace) 100 mg PO BID [facility] Last Admin: 05/18/17 17:00 Dose: 100 mg Enoxaparin Sodium (Lovenox) 40 mg SC DAILY [facility] Last Admin: 05/18/17 09:56 Dose: Not Given Folic Acid (Folic Acid) 1 mg PO DAILY [facility] Last Admin: 05/18/17 09:55 Dose: 1 mg Gabapentin (Neurontin) 300 mg PO TID [facility] Last Admin: 05/18/17 17:00 Dose: 300 mg Hydrochlorothiazide (Hydrodiuril) 25 mg PO DAILY [facility] Last Admin: 05/18/17 09:55 Dose: 25 mg Hydromorphone HCl (Dilaudid) 0.5 mg IVP Q4H PRN PRN Reason: Pain, Mild (1-3) Last Admin: 05/18/17 18:13 Dose: 0.5 mg Insulin Aspart (Novolog) 0 unit SC ACHS [facility] PRN Reason: Protocol Last Admin: 05/18/17 16:50 Dose: 1 unit Losartan Potassium (Cozaar) 100 mg PO DAILY [facility] Last Admin: 05/18/17 09:55 Dose: 100 mg Metoclopramide HCl (Reglan) 10 mg IVP ACTID [facility] Last Admin: 05/18/17 16:53 Dose: 10 mg Mometasone Furoate (Asmanex Twist[place]er 220 Mcg) 1 puff INH RQ24 [facility] Last Admin: 05/18/17 08:05 Dose: 1 puff Pantoprazole Sodium (Protonix Ec Tab) 40 mg PO DAILY [facility] Last Admin: 05/18/17 09:55 Dose: 40 mg Polyethylene Glycol (Miralax) 17 gm PO BID [facility] Last Admin: 05/18/17 17:00 Dose: 17 gm Tiotropium [place] (Spiriva) 18 mcg IH RQD [facility] - Labs Labs: 05/17/17 08:11 05/17/17 08:11 Attending/Attestation - Attestation I have personally seen and examined this patient.: Yes I have fully participated in the care of the patient.: Yes I have reviewed all pertinent clinical information, including history, physical exam and plan: Yes Notes (Text): 05/18/17 10:29 41 year old female with h/o chronic pain, opiate use, constipation, RA on methotrexate admitted with abdominal pain, N/V. 1. Chronic abdominal pain 2. Opiate induced constipation 3. Nausea and vomiting 4. Elevated lfts Plan: -continue bowel regimen for opiate induced constipation including enema -considering persistent pain and abnormal CT findings in small bowel, recommend CT enterography for further evaluation -supportive measures in the meantime -advised patient to re-evaluate chronic methotrexate use in the setting of abnormal lfts, as this is could be related to MTX -supportive care with anti-emetics/zofran -minimize narcotics -advance diet as tolerated / small frequent meals / low fat diet
[2017-05-18] MEDS ORDERED: Barium Sulfate Susp 0.1% w/v, 0.1% w/w 450 mL Bottle PO ONE (12:43)
[2017-05-18] MEDS ORDERED: Iodixanol 320 MG/ML 100 ML BOTTLE IV ONE (13:00)
--- NOTE | 2017-05-18 14:35 | CT ---
PROCEDURE: CT Abdomen and Pelvis with contrast HISTORY: abdominal pain/vomiting/dilated SB r/o crohns COMPARISON: None. TECHNIQUE: Contrast dose: Visipaque 320, 100 cc. Radiation dose: Total exam DLP = 1058 mGy-cm. This CT exam was performed using one or more of the following dose reduction techniques: Automated exposure control, adjustment of the mA and/or kV according to patient size, and/or use of iterative reconstruction technique. FINDINGS: LOWER THORAX: Unremarkable. LIVER: Diffuse fatty infiltration liver is identified without definitive mass or intrahepatic biliary duct dilatation. GALLBLADDER AND BILE DUCTS: Gallbladder is partially contracted with the wall upper limits normal thickness. No radiodense cholelithiasis or pericholecystic fluid collection identified. PANCREAS: Unremarkable. No gross lesion or ductal dilatation. SPLEEN: Unremarkable. ADRENALS: Unremarkable. No mass. KIDNEYS AND URETERS: Unremarkable. No hydronephrosis. No solid mass. VASCULATURE: Unremarkable. No aortic aneurysm. BOWEL: Limited mural thickening is questioned along the proximal small bowel at the left upper quadrant with the remaining small bowel unremarkable.There is no mesenteric reaction or ascites appreciated. Oral contrast mildly distends the stomach. No obstruction. There are no suspicious large-bowel findings. APPENDIX: Normal appendix. PERITONEUM: Unremarkable. No free fluid. No free air. LYMPH NODES: Unremarkable. No enlarged lymph nodes. BLADDER: Unremarkable. REPRODUCTIVE: Somewhat inhomogeneous enhancement throughout the uterus may indicate an element of fibroid uterine disease. Consider follow-up pelvic ultrasound for greater characterization. BONES: No acute fracture. OTHER FINDINGS: None. IMPRESSION: Segmental enteritis of the proximal small bowel is suggested in limited fashion with remaining large and small bowel loops unremarkable. No measure edema ascites appears or gas. Diversion differs diagnosis is of infectious or inflammatory causes with ischemia less likely as well as neoplasm. Remainder the examination appears unremarkable.
--- NOTE | 2017-05-18 22:26 | CP.PCM.PN ---
Subjective - Date & Time of Evaluation Date of Evaluation: 05/18/17 Time of Evaluation: 22:24 - Subjective Subjective: afebrile, Patient denies any nausea vomiting.. Tolerating diet Still with abdominal pains mainly left-sided. had a SMALL bowel movement OFF ANTIBIOTICS. FOLLOW-UP lftS W/U IN PROGRESS TO RULE OUT AUTOIMMUNE HEPATITIS. Objective - Vital Signs/Intake and Output Vital Signs (last 24 hours): Temp Pulse Resp BP Pulse Ox 98.5 F 73 20 130/80 97 05/18/17 08:00 05/18/17 08:00 05/18/17 08:00 05/18/17 08:00 05/18/17 08:00 Intake and Output: 05/18/17 05/19/17 18:59 06:59 Intake Total 120 Output Total 600 Balance 120 -600 - Medications Medications: Current Medications Albuterol (Ventolin Hfa 90 Mcg/Actuation (8 G)) 2 puff IH RQ6 [facility] Last Admin: 05/18/17 19:40 Dose: 2 puff Alprazolam (Xanax) 0.5 mg PO TID [facility] Last Admin: 05/18/17 17:02 Dose: 0.5 mg Amlodipine Besylate (Norvasc) 5 mg PO DAILY [facility] Last Admin: 05/18/17 09:55 Dose: 5 mg Docusate Sodium (Colace) 100 mg PO BID [facility] Last Admin: 05/18/17 17:00 Dose: 100 mg Enoxaparin Sodium (Lovenox) 40 mg SC DAILY [facility] Last Admin: 05/18/17 09:56 Dose: Not Given Folic Acid (Folic Acid) 1 mg PO DAILY [facility] Last Admin: 05/18/17 09:55 Dose: 1 mg Gabapentin (Neurontin) 300 mg PO TID [facility] Last Admin: 05/18/17 17:00 Dose: 300 mg Hydrochlorothiazide (Hydrodiuril) 25 mg PO DAILY [facility] Last Admin: 05/18/17 09:55 Dose: 25 mg Hydromorphone HCl (Dilaudid) 0.5 mg IVP Q4H PRN PRN Reason: Pain, Mild (1-3) Last Admin: 05/18/17 18:13 Dose: 0.5 mg Insulin Aspart (Novolog) 0 unit SC [facility] PRN Reason: Protocol Last Admin: 05/18/17 21:20 Dose: Not Given Losartan Potassium (Cozaar) 100 mg PO DAILY [facility] Last Admin: 05/18/17 09:55 Dose: 100 mg Metoclopramide HCl (Reglan) 10 mg IVP ACTID [facility] Last Admin: 05/18/17 16:53 Dose: 10 mg Mometasone Furoate (Asmanex Twisthaler 220 Mcg) 1 puff INH RQ24 [facility] Last Admin: 05/18/17 08:05 Dose: 1 puff Pantoprazole Sodium (Protonix Ec Tab) 40 mg PO DAILY [facility] Last Admin: 05/18/17 09:55 Dose: 40 mg Polyethylene Glycol (Miralax) 17 gm PO BID [facility] Last Admin: 05/18/17 17:00 Dose: 17 gm Tiotropium [place] (Spiriva) 18 mcg IH RQD [facility] - Labs Labs: 05/17/17 08:11 05/17/17 08:11 - Constitutional Appears: No Acute Distress - Head Exam Head Exam: NORMAL INSPECTION - Eye Exam Eye Exam: EOMI, PERRL - ENT Exam ENT Exam: Normal Oropharynx - Neck Exam Neck Exam: Normal Inspection - Respiratory Exam Respiratory Exam: Clear to Ausculation Bilateral, NORMAL BREATHING PATTERN - Cardiovascular Exam Cardiovascular Exam: REGULAR RHYTHM, +S1, +S2 - GI/Abdominal Exam GI & Abdominal Exam: Soft, Tenderness (EPIGASTRIC LEFT UPPER QUADRANT.). absent : Organomegaly - Extremities Exam Extremities Exam: absent: Calf Tenderness, Pedal Edema - Neurological Exam Neurological Exam: Alert, Awake, CN II-XII Intact, Oriented x3 - Psychiatric Exam Psychiatric exam: Normal Mood - Skin Skin Exam: Normal Color, Warm Assessment and Plan (1) Abdominal pain Assessment & Plan: IMPROVING. tOLERATING DIET. Status: Acute (2) Colitis Status: Acute (3) Transaminitis Assessment & Plan: FOLLOW-UP lftS. oFF ANTIBIOTICS SINCE 05/17/17 GI W/U IN PROGRESS RULE OUT AUTOIMMUNE HEPATITIS.. Status: Acute (4) Diabetes mellitus type 2 Status: Chronic (5) Obesity Status: Chronic (6) Lupus (systemic lupus erythematosus) Status: Acute
--- NOTE | 2017-05-18 23:46 | CP.PCM.PN ---
Subjective - Date & Time of Evaluation Date of Evaluation: 05/18/17 Time of Evaluation: 20:40 - Subjective Subjective: afebrile, Patient denies any nausea vomiting.. Tolerating diet Still with abdominal pains mainly left-sided. had a SMALL bowel movement OFF ANTIBIOTICS. FOLLOW-UP lftS W/U IN PROGRESS TO RULE OUT AUTOIMMUNE HEPATITIS. Objective - Vital Signs/Intake and Output Vital Signs (last 24 hours): Temp Pulse Resp BP Pulse Ox 98.5 F 73 20 130/80 97 05/18/17 08:00 05/18/17 08:00 05/18/17 08:00 05/18/17 08:00 05/18/17 08:00 Intake and Output: 05/18/17 05/19/17 18:59 06:59 Intake Total 120 Output Total 600 Balance 120 -600 - Medications Medications: Current Medications Albuterol (Ventolin Hfa 90 Mcg/Actuation (8 G)) 2 puff IH RQ6 [facility] Last Admin: 05/18/17 19:40 Dose: 2 puff Alprazolam (Xanax) 0.5 mg PO TID [facility] Last Admin: 05/18/17 17:02 Dose: 0.5 mg Amlodipine Besylate (Norvasc) 5 mg PO DAILY [facility] Last Admin: 05/18/17 09:55 Dose: 5 mg Docusate Sodium (Colace) 100 mg PO BID [facility] Last Admin: 05/18/17 17:00 Dose: 100 mg Enoxaparin Sodium (Lovenox) 40 mg SC DAILY [facility] Last Admin: 05/18/17 09:56 Dose: Not Given Folic Acid (Folic Acid) 1 mg PO DAILY [facility] Last Admin: 05/18/17 09:55 Dose: 1 mg Gabapentin (Neurontin) 300 mg PO TID [facility] Last Admin: 05/18/17 17:00 Dose: 300 mg Hydrochlorothiazide (Hydrodiuril) 25 mg PO DAILY [facility] Last Admin: 05/18/17 09:55 Dose: 25 mg Hydromorphone HCl (Dilaudid) 0.5 mg IVP Q4H PRN PRN Reason: Pain, Mild (1-3) Last Admin: 05/18/17 18:13 Dose: 0.5 mg Insulin Aspart (Novolog) 0 unit SC [facility] PRN Reason: Protocol Last Admin: 05/18/17 21:20 Dose: Not Given Losartan Potassium (Cozaar) 100 mg PO DAILY [facility] Last Admin: 05/18/17 09:55 Dose: 100 mg Metoclopramide HCl (Reglan) 10 mg IVP ACTID [facility] Last Admin: 05/18/17 16:53 Dose: 10 mg Mometasone Furoate (Asmanex Twisthaler 220 Mcg) 1 puff INH RQ24 [facility] Last Admin: 05/18/17 08:05 Dose: 1 puff Pantoprazole Sodium (Protonix Ec Tab) 40 mg PO DAILY [facility] Last Admin: 05/18/17 09:55 Dose: 40 mg Polyethylene Glycol (Miralax) 17 gm PO BID [facility] Last Admin: 05/18/17 17:00 Dose: 17 gm Tiotropium [place] (Spiriva) 18 mcg IH RQD [facility] - Labs Labs: 05/17/17 08:11 05/17/17 08:11 - Constitutional Appears: No Acute Distress, Chronically Ill - Head Exam Head Exam: ATRAUMATIC, NORMAL INSPECTION, NORMOCEPHALIC - Eye Exam Eye Exam: EOMI, Normal appearance, PERRL Pupil Exam: NORMAL ACCOMODATION, PERRL - Respiratory Exam Respiratory Exam: Clear to Ausculation Bilateral, NORMAL BREATHING PATTERN - Cardiovascular Exam Cardiovascular Exam: REGULAR RHYTHM, +S1, +S2. absent: Murmur - GI/Abdominal Exam GI & Abdominal Exam: Soft, Normal Bowel Sounds. absent: Tenderness Assessment and Plan (1) Enteritis Status: Acute (2) Abdominal pain Status: Acute (3) Colitis Status: Acute (4) Lupus (systemic lupus erythematosus) Status: Acute (5) Transaminitis Status: Acute
[2017-05-19] MEDS: HYDROmorphone 0.5 mg/0.5 ml ISec IVP PRN ×5 (04:00→20:28)
[2017-05-19 07:11] LABS: BASO # 0.1 K/uL (0.0-0.2); BASO % 0.7 % (0.0-2.0); EOS # 1.7 K/uL (0.0-0.7); EOS % 15.3 % (0.0-4.0); HEMATOCRIT 42.6 % (34.0-47.0); LYMPH # 2.1 K/uL (1.0-4.3); LYMPH % 18.2 % (20.0-40.0); MEAN CELL VOLUME 86.4 fL (81.0-99.0); MEAN CORPUSCULAR HEMOGLOBIN 28.4 pg (27.0-31.0); MEAN CORPUSCULAR HGB CONC 32.8 g/dL (33.0-37.0); MEAN PLATELET VOLUME 10.1 fL (7.2-11.7); MONO # 1.1 K/uL (0.0-0.8); MONO % 9.9 % (0.0-10.0); NRBC % 0.1 % (0.0-2.0); RED CELL DISTRIBUTION WIDTH 15.2 % (11.5-14.5); WHITE BLOOD COUNT 11.3 K/uL (4.8-10.8)
[2017-05-19] MEDS ORDERED: Mineral Oil Enema 135 ml RC ONE (07:51)
[2017-05-19] MEDS: Mometasone 220 mcg/puff-14 puff Inh INH SCH (07:52)
[2017-05-19] MEDS ORDERED: Bisacodyl 5mg EC Tab PO ONE (07:52)
[2017-05-19] MEDS: Albuterol HFA 90 mcg/actuation (8 g) IH SCH ×3 (07:53→20:23)
[2017-05-19 07:55] LABS: CHLORIDE 99 mmol/L (98-107); POTASSIUM 3.9 mmol/L (3.6-5.2); SODIUM 135 mmol/L (132-148)
[2017-05-19 07:57] LABS: BILIRUBIN,TOTAL 0.5 mg/dL (0.2-1.3); GFR AFRICAN-AMERICAN > 60
[2017-05-19 07:58] LABS: ALKALINE PHOSPHATASE 114 U/L (38-126); ALT/SGPT 52 U/L (9-52); AST/SGOT 44 U/L (14-36); BLOOD UREA NITROGEN 12 mg/dL (7-17); CALCIUM 8.8 mg/dl (8.6-10.4); CARBON DIOXIDE 23 mmol/L (22-30); GLUCOSE,RANDOM 134 mg/dL (65-105); TOTAL PROTEIN 7.1 g/dL (6.3-8.3)
[2017-05-19] MEDS: (Novolog) Insulin Aspart, Recombinant 100 u/ml 10 ml vial SC SCH ×4 (07:59→22:28)
[2017-05-19] MEDS: Pantoprazole 40 mg EC Tab PO SCH (09:16)
[2017-05-19] MEDS: Enoxaparin 40 mg Syringe SC SCH (09:16)
[2017-05-19] MEDS: POLYETHYLENE GLYCOL 3350 17 GM/Dose PACKET PO SCH ×2 (09:16→18:03)
--- NOTE | 2017-05-19 13:25 | CP.PCM.PN ---
<Obie Harper - Last Filed: 05/19/17 13:15> Subjective - Date & Time of Evaluation Date of Evaluation: 05/19/17 Time of Evaluation: 11:20 - Subjective Subjective: PGY5 GI Fellow Progress Note Patient seen and examined bedside this morning. The patient denies any new symptoms. Remains constipated despite therapies thusfar. Pain improved overall. 12 system ROS performed and negative except where stated. Objective - Vital Signs/Intake and Output Vital Signs (last 24 hours): Temp Pulse Resp BP Pulse Ox 98.3 F 76 20 143/88 72 L 05/19/17 08:00 05/19/17 08:00 05/19/17 08:00 05/19/17 08:00 05/19/17 08:00 Intake and Output: 05/19/17 05/19/17 06:59 18:59 Intake Total 240 Output Total 600 Balance -360 - Medications Medications: Current Medications Albuterol (Ventolin Hfa 90 Mcg/Actuation (8 G)) 2 puff IH RQ6 [facility] Last Admin: 05/19/17 13:09 Dose: 2 puff Alprazolam (Xanax) 0.5 mg PO TID [facility] Last Admin: 05/19/17 09:16 Dose: 0.5 mg Amlodipine Besylate (Norvasc) 5 mg PO DAILY [facility] Last Admin: 05/19/17 09:16 Dose: 5 mg Enoxaparin Sodium (Lovenox) 40 mg SC DAILY [facility] Last Admin: 05/19/17 09:16 Dose: Not Given Folic Acid (Folic Acid) 1 mg PO DAILY [facility] Last Admin: 05/19/17 09:16 Dose: 1 mg Gabapentin (Neurontin) 300 mg PO TID [facility] Last Admin: 05/19/17 09:16 Dose: 300 mg Hydrochlorothiazide (Hydrodiuril) 25 mg PO DAILY [facility] Last Admin: 05/19/17 09:16 Dose: 25 mg Hydromorphone HCl (Dilaudid) 0.5 mg IVP Q4H PRN PRN Reason: Pain, Mild (1-3) Last Admin: 05/19/17 12:05 Dose: 0.5 mg Insulin Aspart (Novolog) 0 unit SC ACHS [facility] PRN Reason: Protocol Last Admin: 05/19/17 11:58 Dose: 1 unit Losartan Potassium (Cozaar) 100 mg PO DAILY [facility] Last Admin: 05/19/17 09:16 Dose: 100 mg Metoclopramide HCl (Reglan) 10 mg IVP ACTID [facility] Last Admin: 05/19/17 11:58 Dose: 10 mg Mometasone Furoate (Asmanex Twisthaler 220 Mcg) 1 puff INH RQ24 [facility] Last Admin: 05/19/17 07:52 Dose: 1 puff Pantoprazole Sodium (Protonix Ec Tab) 40 mg PO DAILY [facility] Last Admin: 05/19/17 09:16 Dose: 40 mg Polyethylene Glycol (Miralax) 17 gm PO BID [facility] Last Admin: 05/19/17 09:16 Dose: 17 gm Tiotropium [place] (Spiriva) 18 mcg IH RQD [facility] - Labs Labs: 05/19/17 06:56 05/19/17 06:56 - Constitutional Appears: Non-toxic, No Acute Distress - Eye Exam Eye Exam: EOMI, PERRL - ENT Exam ENT Exam: Mucous Membranes Moist - Respiratory Exam Respiratory Exam: Clear to Ausculation Bilateral. absent: Rales, Rhonchi, Wheezes - Cardiovascular Exam Cardiovascular Exam: RRR, +S1, +S2 - GI/Abdominal Exam GI & Abdominal Exam: Soft, Tenderness (left sided), Normal Bowel Sounds. absent : Distended, Firm, Guarding, Rigid, Organomegaly - Extremities Exam Extremities Exam: Normal Inspection. absent: Pedal Edema - Neurological Exam Neurological Exam: Alert, Awake, Oriented x3 - Psychiatric Exam Psychiatric exam: Normal Affect, Normal Mood - Skin Skin Exam: Dry, Warm Assessment and Plan - Assessment and Plan (Free Text) Assessment: Patient is a 41yo female with PMHx significant for RA/SLE, DM, HTN, recent bout of enteritis earlier this month, chronic pain with narcotic use who presented to the hospital with abdominal pain, nausea, vomiting and loose BM for 2 days. -Acute enteritis -Opioid induced constipation -Elevated LFTs -AMA positivity -H/O SLE and RA on MTX and hydroxychloroquine -DM -HLD Plan: -CTE reviewed; no new significant findings -ABX per ID -Continue bowel regimen for constipation; s/p mineral oil enema and dulcolax PO -May ultimately need an agent such as Relistor -LFTs improved, possibly improved as a result of holding MTX -AMA+ in 1:1280 titer; possibly 2/2 underlying SLE vs PBC picture - patient fits demographic but does not have symptoms of PBC presently -Outpatient follow up with rheumatology -Encourage marijuana cessation <Ivan Yan MD - Last Filed: 05/19/17 15:52> Objective - Vital Signs/Intake and Output Vital Signs (last 24 hours): Temp Pulse Resp BP Pulse Ox 98.3 F 76 20 143/88 72 L 05/19/17 08:00 05/19/17 08:00 05/19/17 08:00 05/19/17 08:00 05/19/17 08:00 Intake and Output: 05/19/17 05/19/17 06:59 18:59 Intake Total 240 Output Total 600 Balance -360 - Medications Medications: Current Medications Albuterol (Ventolin Hfa 90 Mcg/Actuation (8 G)) 2 puff IH RQ6 [facility] Last Admin: 05/19/17 13:09 Dose: 2 puff Alprazolam (Xanax) 0.5 mg PO TID [facility] Last Admin: 05/19/17 13:30 Dose: 0.5 mg Amlodipine Besylate (Norvasc) 5 mg PO DAILY [facility] Last Admin: 05/19/17 09:16 Dose: 5 mg Enoxaparin Sodium (Lovenox) 40 mg SC DAILY [facility] Last Admin: 05/19/17 09:16 Dose: Not Given Folic Acid (Folic Acid) 1 mg PO DAILY [facility] Last Admin: 05/19/17 09:16 Dose: 1 mg Gabapentin (Neurontin) 300 mg PO TID [facility] Last Admin: 05/19/17 13:30 Dose: 300 mg Hydrochlorothiazide (Hydrodiuril) 25 mg PO DAILY [facility] Last Admin: 05/19/17 09:16 Dose: 25 mg Hydromorphone HCl (Dilaudid) 0.5 mg IVP Q4H PRN PRN Reason: Pain, Mild (1-3) Last Admin: 05/19/17 12:05 Dose: 0.5 mg Insulin Aspart (Novolog) 0 unit SC ACHS [facility] PRN Reason: Protocol Last Admin: 05/19/17 11:58 Dose: 1 unit Losartan Potassium (Cozaar) 100 mg PO DAILY [facility] Last Admin: 05/19/17 09:16 Dose: 100 mg Metoclopramide HCl (Reglan) 10 mg IVP ACTID [facility] Last Admin: 05/19/17 11:58 Dose: 10 mg Mometasone Furoate (Asmanex Twisthaler 220 Mcg) 1 puff INH RQ24 [facility] Last Admin: 05/19/17 07:52 Dose: 1 puff Pantoprazole Sodium (Protonix Ec Tab) 40 mg PO DAILY [facility] Last Admin: 05/19/17 09:16 Dose: 40 mg Polyethylene Glycol (Miralax) 17 gm PO BID [facility] Last Admin: 05/19/17 09:16 Dose: 17 gm Tiotropium [place] (Spiriva) 18 mcg IH RQD [facility] - Labs Labs: 05/19/17 06:56 05/19/17 06:56 Attending/Attestation - Attestation I have personally seen and examined this patient.: Yes I have fully participated in the care of the patient.: Yes I have reviewed all pertinent clinical information, including history, physical exam and plan: Yes Notes (Text): 05/19/17 15:48 Patient seen with GI fellow. This is a 41 yo female with PMHx significant for RA /SLE, DM, HTN, recent bout of enteritis earlier this month, chronic pain with narcotic use who presented to the hospital with abdominal pain, nausea, vomiting and loose BM for 2 days. Found to have dilated small bowel loops and enteritis. Now with opioid induced constipation. AMA positive with abnormal transminemia likely due to MTX or/ and lupus. Had few BM - will increase laxatives. Antibiotics as per ID. Abdominal pain resolving. Advance diet as tolerated
[2017-05-19 17:49] LABS: LKM-1 Ab (IgG) <=20.0 U (<=20.0)
--- NOTE | 2017-05-19 18:20 | CP.PCM.PN ---
Subjective - Date & Time of Evaluation Date of Evaluation: 05/19/17 Time of Evaluation: 18:20 - Subjective Subjective: afebrile, REMAINS CONSTIPATED OVERALL ABDOMINAL PAIN IMPROVED. DENIES NAUSEA OR VOMITING. tOLERATING BY MOUTH DIET. Objective - Vital Signs/Intake and Output Vital Signs (last 24 hours): Temp Pulse Resp BP Pulse Ox 98.6 F 70 20 145/86 99 05/19/17 15:00 05/19/17 15:00 05/19/17 15:00 05/19/17 15:00 05/19/17 15:00 Intake and Output: 05/19/17 05/19/17 06:59 18:59 Intake Total 240 Output Total 600 Balance -360 - Medications Medications: Current Medications Albuterol (Ventolin Hfa 90 Mcg/Actuation (8 G)) 2 puff IH RQ6 [facility] Last Admin: 05/19/17 13:09 Dose: 2 puff Alprazolam (Xanax) 0.5 mg PO TID [facility] Last Admin: 05/19/17 18:03 Dose: 0.5 mg Amlodipine Besylate (Norvasc) 5 mg PO DAILY [facility] Last Admin: 05/19/17 09:16 Dose: 5 mg Enoxaparin Sodium (Lovenox) 40 mg SC DAILY [facility] Last Admin: 05/19/17 09:16 Dose: Not Given Folic Acid (Folic Acid) 1 mg PO DAILY [facility] Last Admin: 05/19/17 09:16 Dose: 1 mg Gabapentin (Neurontin) 300 mg PO TID [facility] Last Admin: 05/19/17 18:03 Dose: 300 mg Hydrochlorothiazide (Hydrodiuril) 25 mg PO DAILY [facility] Last Admin: 05/19/17 09:16 Dose: 25 mg Hydromorphone HCl (Dilaudid) 0.5 mg IVP Q4H PRN PRN Reason: Pain, Mild (1-3) Last Admin: 05/19/17 16:23 Dose: 0.5 mg Insulin Aspart (Novolog) 0 unit SC ACHS [facility] PRN Reason: Protocol Last Admin: 05/19/17 18:07 Dose: 1 unit Losartan Potassium (Cozaar) 100 mg PO DAILY [facility] Last Admin: 05/19/17 09:16 Dose: 100 mg Metoclopramide HCl (Reglan) 10 mg IVP ACTID [facility] Last Admin: 05/19/17 16:24 Dose: 10 mg Mometasone Furoate (Asmanex Twisthaler 220 Mcg) 1 puff INH RQ24 [facility] Last Admin: 05/19/17 07:52 Dose: 1 puff Pantoprazole Sodium (Protonix Ec Tab) 40 mg PO DAILY [facility] Last Admin: 05/19/17 09:16 Dose: 40 mg Polyethylene Glycol (Miralax) 17 gm PO BID [facility] Last Admin: 05/19/17 18:03 Dose: 17 gm Tiotropium [place] (Spiriva) 18 mcg IH RQD [facility] - Labs Labs: 05/19/17 06:56 05/19/17 06:56 - Constitutional Appears: No Acute Distress - Head Exam Head Exam: NORMAL INSPECTION - Eye Exam Eye Exam: EOMI, PERRL - ENT Exam ENT Exam: Normal Oropharynx - Neck Exam Neck Exam: Normal Inspection - Respiratory Exam Respiratory Exam: Clear to Ausculation Bilateral - Cardiovascular Exam Cardiovascular Exam: REGULAR RHYTHM, +S1, +S2 - GI/Abdominal Exam GI & Abdominal Exam: Soft, Tenderness (MILD TENDERNESS LEFT LOWER QUADRANT.), Normal Bowel Sounds - Extremities Exam Extremities Exam: absent: Calf Tenderness, Pedal Edema - Neurological Exam Neurological Exam: Awake, CN II-XII Intact, Normal Gait, Oriented x3, Reflexes Normal - Psychiatric Exam Psychiatric exam: Normal Mood - Skin Skin Exam: Normal Color, Warm Assessment and Plan (1) Abdominal pain Assessment & Plan: IMPROVING. pATIENT CONSTIPATED STILL. oN VARIOUS REGIMENS FOR CONSTIPATION. Status: Acute (2) Colitis Assessment & Plan: PATIENT OFF ANTIBIOTICS. cONTINUE TO OBSERVE. Status: Acute (3) Transaminitis Assessment & Plan: IMPROVING. ANTIMITOCHONDRIAL ANTIBODIES +VE. mORE CONSISTENT WITH LUPUS aS PER GI , NO EVIDENCE OF PRIMARY BILIARY CIRRHOSIS. Status: Acute (4) Diabetes mellitus type 2 Status: Chronic (5) Obesity Status: Chronic (6) Lupus (systemic lupus erythematosus) Status: Acute
[2017-05-19] MEDS: Latanoprost 2.5 ml Opht Soln OU SCH (22:00)
--- NOTE | 2017-05-19 22:45 | CP.PCM.PN ---
Subjective - Date & Time of Evaluation Date of Evaluation: 05/19/17 Time of Evaluation: 20:00 - Subjective Subjective: afebrile, REMAINS CONSTIPATED OVERALL ABDOMINAL PAIN IMPROVED. DENIES NAUSEA OR VOMITING. tOLERATING BY MOUTH DIET. Objective - Vital Signs/Intake and Output Vital Signs (last 24 hours): Temp Pulse Resp BP Pulse Ox 98.6 F 70 20 145/86 99 05/19/17 15:00 05/19/17 15:00 05/19/17 15:00 05/19/17 15:00 05/19/17 15:00 Intake and Output: 05/19/17 05/20/17 18:59 06:59 Intake Total 300 Output Total 500 Balance -200 - Medications Medications: Current Medications Albuterol (Ventolin Hfa 90 Mcg/Actuation (8 G)) 2 puff IH RQ6 [facility] Last Admin: 05/19/17 20:23 Dose: 2 puff Alprazolam (Xanax) 0.5 mg PO TID [facility] Last Admin: 05/19/17 18:03 Dose: 0.5 mg Amlodipine Besylate (Norvasc) 5 mg PO DAILY [facility] Last Admin: 05/19/17 09:16 Dose: 5 mg Enoxaparin Sodium (Lovenox) 40 mg SC DAILY [facility] Last Admin: 05/19/17 09:16 Dose: Not Given Folic Acid (Folic Acid) 1 mg PO DAILY [facility] Last Admin: 05/19/17 09:16 Dose: 1 mg Gabapentin (Neurontin) 300 mg PO TID [facility] Last Admin: 05/19/17 18:03 Dose: 300 mg Hydrochlorothiazide (Hydrodiuril) 25 mg PO DAILY [facility] Last Admin: 05/19/17 09:16 Dose: 25 mg Hydromorphone HCl (Dilaudid) 0.5 mg IVP Q4H PRN PRN Reason: Pain, Mild (1-3) Last Admin: 05/19/17 20:28 Dose: 0.5 mg Insulin Aspart (Novolog) 0 unit SC ACHS [facility] PRN Reason: Protocol Last Admin: 05/19/17 22:28 Dose: Not Given Latanoprost (Xalatan Opht) 0 ml OU HS [facility] Losartan Potassium (Cozaar) 100 mg PO DAILY [facility] Last Admin: 05/19/17 09:16 Dose: 100 mg Metoclopramide HCl (Reglan) 10 mg IVP ACTID [facility] Last Admin: 05/19/17 16:24 Dose: 10 mg Mometasone Furoate (Asmanex Twisthaler 220 Mcg) 1 puff INH RQ24 [facility] Last Admin: 05/19/17 07:52 Dose: 1 puff Pantoprazole Sodium (Protonix Ec Tab) 40 mg PO DAILY [facility] Last Admin: 05/19/17 09:16 Dose: 40 mg Polyethylene Glycol (Miralax) 17 gm PO BID [facility] Last Admin: 05/19/17 18:03 Dose: 17 gm Tiotropium [place] (Spiriva) 18 mcg IH RQD [facility] - Labs Labs: 05/19/17 06:56 05/19/17 06:56 Assessment and Plan (1) Enteritis Status: Acute (2) Abdominal pain Status: Acute (3) Colitis Status: Acute (4) Lupus (systemic lupus erythematosus) Status: Acute (5) Transaminitis Status: Acute
[2017-05-20] MEDS: HYDROmorphone 0.5 mg/0.5 ml ISec IVP PRN ×6 (00:32→21:52)
[2017-05-20] MEDS: Albuterol HFA 90 mcg/actuation (8 g) IH SCH ×4 (01:35→20:11)
[2017-05-20] MEDS: Mometasone 220 mcg/puff-14 puff Inh INH SCH (08:14)
[2017-05-20] MEDS: (Novolog) Insulin Aspart, Recombinant 100 u/ml 10 ml vial SC SCH ×4 (08:29→21:56)
[2017-05-20] MEDS: Pantoprazole 40 mg EC Tab PO SCH (09:00)
[2017-05-20] MEDS: Enoxaparin 40 mg Syringe SC SCH (09:01)
[2017-05-20] MEDS: POLYETHYLENE GLYCOL 3350 17 GM/Dose PACKET PO SCH ×2 (09:01→17:04)
[2017-05-20] MEDS ORDERED: Bisacodyl 5mg EC Tab PO ONE (10:00)
--- NOTE | 2017-05-20 11:23 | CP.PCM.PN ---
<Obie Harper - Last Filed: 05/20/17 11:20> Subjective - Date & Time of Evaluation Date of Evaluation: 05/20/17 Time of Evaluation: 09:40 - Subjective Subjective: PGY5 GI Fellow Progress Note Patient seen and examined bedside this morning. The patient states that she is feeling better overall but is fatigued from lack of sleep. Denies any nausea vomiting and is tolerating diet. Did have small bowel movement yesterday. 12 system ROS performed and negative except where stated. Objective - Vital Signs/Intake and Output Vital Signs (last 24 hours): Temp Pulse Resp BP Pulse Ox 98.7 F 80 18 112/70 98 05/19/17 23:00 05/19/17 23:00 05/19/17 23:00 05/19/17 23:00 05/19/17 23:00 Intake and Output: 05/20/17 05/20/17 06:59 18:59 Intake Total 780 Output Total 500 Balance 280 - Medications Medications: Current Medications Albuterol (Ventolin Hfa 90 Mcg/Actuation (8 G)) 2 puff IH RQ6 [facility] Last Admin: 05/20/17 08:15 Dose: 2 puff Alprazolam (Xanax) 0.5 mg PO TID [facility] Last Admin: 05/20/17 09:00 Dose: 0.5 mg Amlodipine Besylate (Norvasc) 5 mg PO DAILY [facility] Last Admin: 05/20/17 09:00 Dose: 5 mg Enoxaparin Sodium (Lovenox) 40 mg SC DAILY [facility] Last Admin: 05/20/17 09:01 Dose: Not Given Folic Acid (Folic Acid) 1 mg PO DAILY [facility] Last Admin: 05/20/17 09:00 Dose: 1 mg Gabapentin (Neurontin) 300 mg PO TID [facility] Last Admin: 05/20/17 09:00 Dose: 300 mg Hydrochlorothiazide (Hydrodiuril) 25 mg PO DAILY [facility] Last Admin: 05/20/17 09:00 Dose: 25 mg Hydromorphone HCl (Dilaudid) 0.5 mg IVP Q4H PRN PRN Reason: Pain, Mild (1-3) Last Admin: 05/20/17 08:32 Dose: 0.5 mg Insulin Aspart (Novolog) 0 unit SC ACHS [facility] PRN Reason: Protocol Last Admin: 05/20/17 08:29 Dose: 1 unit Latanoprost (Xalatan Opht) 0 ml OU HS [facility] Losartan Potassium (Cozaar) 100 mg PO DAILY [facility] Last Admin: 05/20/17 09:01 Dose: 100 mg Metoclopramide HCl (Reglan) 10 mg IVP ACTID [facility] Last Admin: 05/20/17 08:29 Dose: 10 mg Mometasone Furoate (Asmanex Twisthaler 220 Mcg) 1 puff INH RQ24 [facility] Last Admin: 05/20/17 08:14 Dose: 1 puff Pantoprazole Sodium (Protonix Ec Tab) 40 mg PO DAILY [facility] Last Admin: 05/20/17 09:00 Dose: 40 mg Polyethylene Glycol (Miralax) 17 gm PO BID [facility] Last Admin: 05/20/17 09:01 Dose: 17 gm Tiotropium [place] (Spiriva) 18 mcg IH RQD [facility] - Labs Labs: 05/19/17 06:56 05/19/17 06:56 - Constitutional Appears: Non-toxic, No Acute Distress - Eye Exam Eye Exam: EOMI, PERRL - ENT Exam ENT Exam: Mucous Membranes Moist - Respiratory Exam Respiratory Exam: Clear to Ausculation Bilateral. absent: Rales, Rhonchi, Wheezes - Cardiovascular Exam Cardiovascular Exam: RRR, +S1, +S2 - GI/Abdominal Exam GI & Abdominal Exam: Soft, Normal Bowel Sounds. absent: Distended, Firm, Guarding, Rigid, Tenderness, Organomegaly - Extremities Exam Extremities Exam: Normal Inspection. absent: Pedal Edema - Neurological Exam Neurological Exam: Alert, Awake, Oriented x3 - Psychiatric Exam Psychiatric exam: Normal Affect, Normal Mood - Skin Skin Exam: Dry, Warm Assessment and Plan - Assessment and Plan (Free Text) Assessment: Patient is a 41yo female with PMHx significant for RA/SLE, DM, HTN, recent bout of enteritis earlier this month, chronic pain with narcotic use who presented to the hospital with abdominal pain, nausea, vomiting and loose BM for 2 days. -Acute enteritis -Opioid induced constipation -Elevated LFTs -AMA positivity -H/O SLE and RA on MTX and hydroxychloroquine -DM -HLD Plan: -Dulcolax 20mg PO once today -Continue aggressive bowel regimen as outpatient as long as she continues with analgesic medications -ABX per ID -LFTs improved, possibly improved as a result of holding MTX -AMA+ in 1:1280 titer -Outpatient follow up with rheumatology given above findings -Tolerating diet w/o issue, pain lessened -Encourage marijuana cessation -OK to D/C from GI standpoint <Ivan Yan MD - Last Filed: 05/20/17 12:41> Objective - Vital Signs/Intake and Output Vital Signs (last 24 hours): Temp Pulse Resp BP Pulse Ox 98.7 F 80 18 112/70 98 05/19/17 23:00 05/19/17 23:00 05/19/17 23:00 05/19/17 23:00 05/19/17 23:00 Intake and Output: 05/20/17 05/20/17 06:59 18:59 Intake Total 780 Output Total 500 Balance 280 - Medications Medications: Current Medications Albuterol (Ventolin Hfa 90 Mcg/Actuation (8 G)) 2 puff IH RQ6 [facility] Last Admin: 05/20/17 08:15 Dose: 2 puff Alprazolam (Xanax) 0.5 mg PO TID [facility] Last Admin: 05/20/17 09:00 Dose: 0.5 mg Amlodipine Besylate (Norvasc) 5 mg PO DAILY [facility] Last Admin: 05/20/17 09:00 Dose: 5 mg Enoxaparin Sodium (Lovenox) 40 mg SC DAILY [facility] Last Admin: 05/20/17 09:01 Dose: Not Given Folic Acid (Folic Acid) 1 mg PO DAILY [facility] Last Admin: 05/20/17 09:00 Dose: 1 mg Gabapentin (Neurontin) 300 mg PO TID [facility] Last Admin: 05/20/17 09:00 Dose: 300 mg Hydrochlorothiazide (Hydrodiuril) 25 mg PO DAILY [facility] Last Admin: 05/20/17 09:00 Dose: 25 mg Hydromorphone HCl (Dilaudid) 0.5 mg IVP Q4H PRN PRN Reason: Pain, Mild (1-3) Last Admin: 05/20/17 12:28 Dose: 0.5 mg Insulin Aspart (Novolog) 0 unit SC ACHS [facility] PRN Reason: Protocol Last Admin: 05/20/17 12:30 Dose: 1 unit Latanoprost (Xalatan Opht) 0 ml OU HS [facility] Losartan Potassium (Cozaar) 100 mg PO DAILY [facility] Last Admin: 05/20/17 09:01 Dose: 100 mg Metoclopramide HCl (Reglan) 10 mg IVP ACTID [facility] Last Admin: 05/20/17 12:30 Dose: 10 mg Mometasone Furoate (Asmanex Twisthaler 220 Mcg) 1 puff INH RQ24 [facility] Last Admin: 05/20/17 08:14 Dose: 1 puff Pantoprazole Sodium (Protonix Ec Tab) 40 mg PO DAILY [facility] Last Admin: 05/20/17 09:00 Dose: 40 mg Polyethylene Glycol (Miralax) 17 gm PO BID [facility] Last Admin: 05/20/17 09:01 Dose: 17 gm Tiotropium [place] (Spiriva) 18 mcg IH RQD [facility] - Labs Labs: 05/19/17 06:56 05/19/17 06:56 Attending/Attestation - Attestation I have personally seen and examined this patient.: Yes I have fully participated in the care of the patient.: Yes I have reviewed all pertinent clinical information, including history, physical exam and plan: Yes Notes (Text): 05/20/17 12:40 Patient seen with GI fellow. This is a 41 yo female with PMHx significant for RA /SLE, DM, HTN, recent bout of enteritis earlier this month, chronic pain with narcotic use who presented to the hospital with abdominal pain, nausea, vomiting and loose BM for 2 days. Found to have dilated small bowel loops and enteritis. Now with opioid induced constipation. AMA positive with abnormal transminemia likely due to MTX or/ and lupus. Had few BM - will increase laxatives. Antibiotics as per ID. Abdominal pain resolved and tolerating diet. Can be discharged with outpatient follow up
[2017-05-20 17:14] VITALS: RESP 20
[2017-05-20] MEDS: Latanoprost 2.5 ml Opht Soln OU SCH (21:51)
--- NOTE | 2017-05-20 22:25 | CP.PCM.PN ---
Subjective - Date & Time of Evaluation Date of Evaluation: 05/20/17 Time of Evaluation: 15:15 - Subjective Subjective: pt seen and examined, improving, abdominal pain decreased Objective - Vital Signs/Intake and Output Vital Signs (last 24 hours): Temp Pulse Resp BP Pulse Ox 98.3 F 71 20 130/72 97 05/20/17 16:00 05/20/17 16:00 05/20/17 16:00 05/20/17 16:00 05/20/17 16:00 Intake and Output: 05/20/17 05/21/17 18:59 06:59 Intake Total 360 300 Output Total 700 Balance 360 -400 - Medications Medications: Current Medications Albuterol (Ventolin Hfa 90 Mcg/Actuation (8 G)) 2 puff IH RQ6 [facility] Last Admin: 05/20/17 20:11 Dose: 2 puff Alprazolam (Xanax) 0.5 mg PO TID [facility] Last Admin: 05/20/17 17:06 Dose: 0.5 mg Amlodipine Besylate (Norvasc) 5 mg PO DAILY [facility] Last Admin: 05/20/17 09:00 Dose: 5 mg Enoxaparin Sodium (Lovenox) 40 mg SC DAILY [facility] Last Admin: 05/20/17 09:01 Dose: Not Given Folic Acid (Folic Acid) 1 mg PO DAILY [facility] Last Admin: 05/20/17 09:00 Dose: 1 mg Gabapentin (Neurontin) 300 mg PO TID [facility] Last Admin: 05/20/17 17:04 Dose: 300 mg Hydrochlorothiazide (Hydrodiuril) 25 mg PO DAILY [facility] Last Admin: 05/20/17 09:00 Dose: 25 mg Hydromorphone HCl (Dilaudid) 0.5 mg IVP Q4H PRN PRN Reason: Pain, Mild (1-3) Last Admin: 05/20/17 21:52 Dose: 0.5 mg Insulin Aspart (Novolog) 0 unit SC ACHS [facility] PRN Reason: Protocol Last Admin: 05/20/17 21:56 Dose: Not Given Latanoprost (Xalatan Opht) 0 ml OU HS [facility] Last Admin: 05/20/17 21:51 Dose: 2.5 ml Losartan Potassium (Cozaar) 100 mg PO DAILY [facility] Last Admin: 05/20/17 09:01 Dose: 100 mg Metoclopramide HCl (Reglan) 10 mg IVP ACTID [facility] Last Admin: 05/20/17 17:04 Dose: 10 mg Mometasone Furoate (Asmanex Twisthaler 220 Mcg) 1 puff INH RQ24 [facility] Last Admin: 05/20/17 08:14 Dose: 1 puff Pantoprazole Sodium (Protonix Ec Tab) 40 mg PO DAILY [facility] Last Admin: 05/20/17 09:00 Dose: 40 mg Polyethylene Glycol (Miralax) 17 gm PO BID [facility] Last Admin: 05/20/17 17:04 Dose: 17 gm Tiotropium [place] (Spiriva) 18 mcg IH RQD [facility] - Labs Labs: 05/19/17 06:56 05/19/17 06:56 - Constitutional Appears: No Acute Distress - Head Exam Head Exam: ATRAUMATIC, NORMAL INSPECTION, NORMOCEPHALIC - Cardiovascular Exam Cardiovascular Exam: REGULAR RHYTHM, +S1, +S2. absent: Murmur - GI/Abdominal Exam GI & Abdominal Exam: Tenderness Assessment and Plan (1) Enteritis Status: Acute (2) Abdominal pain Assessment & Plan: Assessment and Plan (1) Abdominal pain Assessment & Plan: IMPROVING. pATIENT CONSTIPATED STILL. oN VARIOUS REGIMENS FOR CONSTIPATION. Status: Acute (2) Colitis Assessment & Plan: PATIENT OFF ANTIBIOTICS. cONTINUE TO OBSERVE. Status: Acute (3) Transaminitis Assessment & Plan: IMPROVING. ANTIMITOCHONDRIAL ANTIBODIES +VE. mORE CONSISTENT WITH LUPUS aS PER GI , NO EVIDENCE OF PRIMARY BILIARY CIRRHOSIS. Status: Acute (4) Diabetes mellitus type 2 Status: Chronic (5) Obesity Status: Chronic (6) Lupus (systemic lupus erythematosus) Status: Acute Status: Acute (3) Colitis Status: Acute (4) Lupus (systemic lupus erythematosus) Status: Acute (5) Transaminitis Status: Acute - Assessment and Plan (Free Text) Assessment: Assessment and Plan (1) Abdominal pain Assessment & Plan: IMPROVING. pATIENT CONSTIPATED STILL. oN VARIOUS REGIMENS FOR CONSTIPATION. Status: Acute (2) Colitis Assessment & Plan: PATIENT OFF ANTIBIOTICS. cONTINUE TO OBSERVE. Status: Acute (3) Transaminitis Assessment & Plan: IMPROVING. ANTIMITOCHONDRIAL ANTIBODIES +VE. mORE CONSISTENT WITH LUPUS aS PER GI , NO EVIDENCE OF PRIMARY BILIARY CIRRHOSIS. Status: Acute (4) Diabetes mellitus type 2 Status: Chronic (5) Obesity Status: Chronic (6) Lupus (systemic lupus erythematosus) Status: Acute
[2017-05-21] MEDS: Albuterol HFA 90 mcg/actuation (8 g) IH SCH ×3 (01:48→13:34)
[2017-05-21] MEDS: HYDROmorphone 0.5 mg/0.5 ml ISec IVP PRN ×3 (01:53→10:11)
--- NOTE | 2017-05-21 06:36 | CP.PCM.PN ---
<Nirmala Sullivan - Last Filed: 05/21/17 12:14> Subjective - Date & Time of Evaluation Date of Evaluation: 05/21/17 Time of Evaluation: 06:30 - Subjective Subjective: PGY4 GI Fellow Progress Note Patient seen and examined bedside this morning. Fell better Wants to go home today Tolerating Po intake and reg diet yesterday Reports have multiple bina BM, loose w/ formed stool; s/p 4 tabs of dulcolax yesteray in the AM Pain in LUQ, but minimal, states its a 3 out of 10 reports some abd discomfort yesterday, but improved after BM No other complaints 12 system ROS performed and negative except where stated. Objective - Vital Signs/Intake and Output Vital Signs (last 24 hours): Temp Pulse Resp BP Pulse Ox 97.8 F 78 20 144/91 H 98 05/21/17 00:00 05/21/17 00:00 05/21/17 00:00 05/21/17 00:00 05/21/17 00:00 Intake and Output: 05/20/17 05/21/17 18:59 06:59 Intake Total 360 300 Output Total 700 Balance 360 -400 - Medications Medications: Current Medications Albuterol (Ventolin Hfa 90 Mcg/Actuation (8 G)) 2 puff IH RQ6 [facility] Last Admin: 05/21/17 01:48 Dose: Not Given Alprazolam (Xanax) 0.5 mg PO TID [facility] Last Admin: 05/20/17 17:06 Dose: 0.5 mg Amlodipine Besylate (Norvasc) 5 mg PO DAILY [facility] Last Admin: 05/20/17 09:00 Dose: 5 mg Enoxaparin Sodium (Lovenox) 40 mg SC DAILY [facility] Last Admin: 05/20/17 09:01 Dose: Not Given Folic Acid (Folic Acid) 1 mg PO DAILY [facility] Last Admin: 05/20/17 09:00 Dose: 1 mg Gabapentin (Neurontin) 300 mg PO TID [facility] Last Admin: 05/20/17 17:04 Dose: 300 mg Hydrochlorothiazide (Hydrodiuril) 25 mg PO DAILY [facility] Last Admin: 05/20/17 09:00 Dose: 25 mg Hydromorphone HCl (Dilaudid) 0.5 mg IVP Q4H PRN PRN Reason: Pain, Mild (1-3) Last Admin: 05/21/17 05:54 Dose: 0.5 mg Insulin Aspart (Novolog) 0 unit SC ACHS [facility] PRN Reason: Protocol Last Admin: 05/20/17 21:56 Dose: Not Given Latanoprost (Xalatan Opht) 0 ml OU HS [facility] Last Admin: 05/20/17 21:51 Dose: 2.5 ml Losartan Potassium (Cozaar) 100 mg PO DAILY [facility] Last Admin: 05/20/17 09:01 Dose: 100 mg Metoclopramide HCl (Reglan) 10 mg IVP ACTID [facility] Last Admin: 05/20/17 17:04 Dose: 10 mg Mometasone Furoate (Asmanex Twisthaler 220 Mcg) 1 puff INH RQ24 [facility] Last Admin: 05/20/17 08:14 Dose: 1 puff Pantoprazole Sodium (Protonix Ec Tab) 40 mg PO DAILY [facility] Last Admin: 05/20/17 09:00 Dose: 40 mg Polyethylene Glycol (Miralax) 17 gm PO BID [facility] Last Admin: 05/20/17 17:04 Dose: 17 gm Tiotropium [place] (Spiriva) 18 mcg IH RQD [facility] - Labs Labs: 05/19/17 06:56 05/19/17 06:56 - Constitutional Appears: Non-toxic, No Acute Distress - Eye Exam Eye Exam: Normal appearance - ENT Exam ENT Exam: Mucous Membranes Moist, Normal Exam - Neck Exam Neck Exam: Normal Inspection - Respiratory Exam Respiratory Exam: Clear to Ausculation Bilateral, NORMAL BREATHING PATTERN. absent: Rales, Rhonchi, Wheezes, Respiratory Distress - Cardiovascular Exam Cardiovascular Exam: REGULAR RHYTHM, +S1, +S2 - GI/Abdominal Exam GI & Abdominal Exam: Soft, Normal Bowel Sounds. absent: Distended, Firm, Guarding, Rigid, Organomegaly - Extremities Exam Extremities Exam: Normal Inspection - Neurological Exam Neurological Exam: Alert, Awake, Oriented x3 - Psychiatric Exam Psychiatric exam: Normal Affect, Normal Mood - Skin Skin Exam: Dry, Intact, Normal Color, Warm Assessment and Plan - Assessment and Plan (Free Text) Assessment: Patient is a 41yo female with PMHx significant for RA/SLE, DM, HTN, recent bout of enteritis earlier this month, chronic pain with narcotic use who presented to the hospital with abdominal pain, nausea, vomiting and loose BM for 2 days. -Acute enteritis -Opioid induced constipation -Elevated LFTs -AMA positivity -H/O SLE and RA on MTX and hydroxychloroquine -DM -HLD Plan: -Continue Miralax BID at home and dulcolax PRN -ABX per ID -LFTs improved, possibly improved as a result of holding MTX -AMA+ in 1:1280 titer -Outpatient follow up with rheumatology given above findings -Tolerating diet w/o issue, pain lessened -Encourage marijuana cessation -OK to D/C from GI standpoint -F/U with Dr. Floyd as oupt once discharged D/W Dr. Yan <Farrah PATEL,[facility] - Last Filed: 05/21/17 19:58> Objective - Vital Signs/Intake and Output Vital Signs (last 24 hours): Temp Pulse Resp BP Pulse Ox 98.2 F 68 20 176/83 H 97 05/21/17 08:00 05/21/17 08:00 05/21/17 08:00 05/21/17 08:00 05/21/17 08:00 Intake and Output: 05/21/17 05/22/17 18:59 06:59 Intake Total 500 Balance 500 - Labs Labs: 05/19/17 06:56 05/19/17 06:56 Attending/Attestation - Attestation I have personally seen and examined this patient.: Yes I have fully participated in the care of the patient.: Yes I have reviewed all pertinent clinical information, including history, physical exam and plan: Yes Notes (Text): 05/21/17 19:57 This is a 41yo female with PMHx significant for RA/SLE, DM, HTN, recent bout of enteritis earlier this month, chronic pain with narcotic use who presented to the hospital with abdominal pain, nausea, vomiting and loose BM for 2 days. LFt improved after holding MTX. Needs rheumatology follow up. Enteritis resolved. Can be discharged
[2017-05-21] MEDS: (Novolog) Insulin Aspart, Recombinant 100 u/ml 10 ml vial SC SCH ×2 (08:04→12:52)
[2017-05-21 08:40] VITALS: BP 176/83; PULSE 68; TEMP 98.2; O2SAT 97
[2017-05-21] MEDS: Mometasone 220 mcg/puff-14 puff Inh INH SCH (09:16)
[2017-05-21] MEDS: Pantoprazole 40 mg EC Tab PO SCH (10:06)
[2017-05-21] MEDS: Enoxaparin 40 mg Syringe SC SCH ×2 (10:06→10:07)
[2017-05-21] MEDS: POLYETHYLENE GLYCOL 3350 17 GM/Dose PACKET PO SCH (10:06)
--- NOTE | 2017-05-21 14:04 | CP.PCM.PN ---
Subjective - Date & Time of Evaluation Date of Evaluation: 05/21/17 Time of Evaluation: 14:04 - Subjective Subjective: AFEBRILE. fEELING MUCH BETTER. sTILL CONSTIPATED OFF AND ON. aNXIOUS TO GO HOME Objective - Vital Signs/Intake and Output Vital Signs (last 24 hours): Temp Pulse Resp BP Pulse Ox 98.2 F 68 20 176/83 H 97 05/21/17 08:00 05/21/17 08:00 05/21/17 08:00 05/21/17 08:00 05/21/17 08:00 Intake and Output: 05/21/17 05/21/17 06:59 18:59 Intake Total 660 Output Total 700 Balance -40 - Medications Medications: Current Medications Albuterol (Ventolin Hfa 90 Mcg/Actuation (8 G)) 2 puff IH RQ6 [facility] Last Admin: 05/21/17 13:34 Dose: Not Given Alprazolam (Xanax) 0.5 mg PO TID [facility] Last Admin: 05/21/17 10:06 Dose: 0.5 mg Amlodipine Besylate (Norvasc) 5 mg PO DAILY [facility] Last Admin: 05/21/17 10:05 Dose: 5 mg Enoxaparin Sodium (Lovenox) 40 mg SC DAILY [facility] Last Admin: 05/21/17 10:07 Dose: Not Given Folic Acid (Folic Acid) 1 mg PO DAILY [facility] Last Admin: 05/21/17 10:06 Dose: 1 mg Gabapentin (Neurontin) 300 mg PO TID [facility] Last Admin: 05/21/17 10:06 Dose: 300 mg Hydrochlorothiazide (Hydrodiuril) 25 mg PO DAILY [facility] Last Admin: 05/21/17 10:05 Dose: 25 mg Hydromorphone HCl (Dilaudid) 0.5 mg IVP Q4H PRN PRN Reason: Pain, Mild (1-3) Last Admin: 05/21/17 10:11 Dose: 0.5 mg Insulin Aspart (Novolog) 0 unit SC ACHS [facility] PRN Reason: Protocol Last Admin: 05/21/17 12:52 Dose: 1 unit Latanoprost (Xalatan Opht) 0 ml OU HS [facility] Last Admin: 05/20/17 21:51 Dose: 2.5 ml Losartan Potassium (Cozaar) 100 mg PO DAILY [facility] Last Admin: 05/21/17 10:06 Dose: 100 mg Metoclopramide HCl (Reglan) 10 mg IVP ACTID [facility] Last Admin: 05/21/17 12:53 Dose: 10 mg Mometasone Furoate (Asmanex Twisthaler 220 Mcg) 1 puff INH RQ24 [facility] Last Admin: 05/21/17 09:16 Dose: 1 puff Pantoprazole Sodium (Protonix Ec Tab) 40 mg PO DAILY [facility] Last Admin: 05/21/17 10:06 Dose: 40 mg Polyethylene Glycol (Miralax) 17 gm PO BID [facility] Last Admin: 05/21/17 10:06 Dose: 17 gm Tiotropium [place] (Spiriva) 18 mcg IH RQD [facility] - Labs Labs: 05/19/17 06:56 05/19/17 06:56 - Constitutional Appears: No Acute Distress - Head Exam Head Exam: NORMAL INSPECTION - Eye Exam Eye Exam: EOMI Pupil Exam: NORMAL ACCOMODATION - ENT Exam ENT Exam: Normal Oropharynx - Neck Exam Neck Exam: Normal Inspection - Respiratory Exam Respiratory Exam: Clear to Ausculation Bilateral - Cardiovascular Exam Cardiovascular Exam: REGULAR RHYTHM, +S1, +S2 - GI/Abdominal Exam GI & Abdominal Exam: Soft, Normal Bowel Sounds (MILD TENDERNESS LEFT FLANK ON DEEP PRESSURE.) - Extremities Exam Extremities Exam: absent: Calf Tenderness, Pedal Edema - Neurological Exam Neurological Exam: Awake, CN II-XII Intact, Oriented x3, Reflexes Normal - Psychiatric Exam Psychiatric exam: Normal Mood - Skin Skin Exam: Normal Color, Warm Assessment and Plan (1) Abdominal pain Assessment & Plan: IMPROVED. Status: Acute (2) Colitis Status: Acute (3) Transaminitis Assessment & Plan: IMPROVING. AMA -ANTIBODIES POSITIVE. PATIENT FOLLOW-UP WITH RHEUMATOLOGY AND gi OUTPATIENT.. Status: Acute (4) Diabetes mellitus type 2 Status: Chronic (5) Obesity Assessment & Plan: PATIENT ENCOURAGED TO LOSE WEIGHT. Status: Chronic (6) Lupus (systemic lupus erythematosus) Status: Acute
--- NOTE | 2017-05-21 16:17 | CP.PCM.PN ---
Subjective - Date & Time of Evaluation Date of Evaluation: 05/21/17 Time of Evaluation: 10:00 - Subjective Subjective: Alert and orietedx3, denies abdominal wallis or distress. Objective - Vital Signs/Intake and Output Vital Signs (last 24 hours): Temp Pulse Resp BP Pulse Ox 98.2 F 68 20 176/83 H 97 05/21/17 08:00 05/21/17 08:00 05/21/17 08:00 05/21/17 08:00 05/21/17 08:00 Intake and Output: 05/21/17 05/21/17 06:59 18:59 Intake Total 660 500 Output Total 700 Balance -40 500 - Labs Labs: 05/19/17 06:56 05/19/17 06:56 Assessment and Plan - Assessment and Plan (Free Text) Assessment: Patient is seen and examined. Awake, alert, NAD. No fever or distress. Cleared by GI, DR Carver, and DR Orellana for discharge home today on no antibiotics. Patient is advised to follow up with DR Carver and PMD in 1 week.
--- NOTE | 2017-05-21 23:46 | CP.PCM.DIS ---
Provider - Provider Date of Admission: 05/14/17 16:03 Attending physician: Corey Orellana MD Time Spent in preparation of Discharge (in minutes): 34 Diagnosis - Discharge Diagnosis (1) Enteritis Status: Acute (2) Abdominal pain Status: Acute Priority: High (3) Colitis Status: Acute (4) Lupus (systemic lupus erythematosus) Status: Acute (5) Transaminitis Status: Acute Hospital Course - Lab Results Lab Results: Most Recent Lab Values WBC 11.3 K/uL (4.8-10.8) H 05/19/17 06:56 RBC 4.93 Mil/uL (3.80-5.20) 05/19/17 06:56 Hgb 14.0 g/dL (11.0-16.0) 05/19/17 06:56 Hct 42.6 % (34.0-47.0) 05/19/17 06:56 MCV 86.4 fL (81.0-99.0) 05/19/17 06:56 MCH 28.4 pg (27.0-31.0) 05/19/17 06:56 MCHC 32.8 g/dL (33.0-37.0) L 05/19/17 06:56 RDW 15.2 % (11.5-14.5) H 05/19/17 06:56 Plt Count 186 K/uL (130-400) 05/19/17 06:56 MPV 10.1 fL (7.2-11.7) 05/19/17 06:56 Neut % (Auto) 55.9 % (50.0-75.0) 05/19/17 06:56 Lymph % (Auto) 18.2 % (20.0-40.0) L 05/19/17 06:56 [place] % (Auto) 9.9 % (0.0-10.0) 05/19/17 06:56 Eos % (Auto) 15.3 % (0.0-4.0) H 05/19/17 06:56 Baso % (Auto) 0.7 % (0.0-2.0) 05/19/17 06:56 Neut # 6.3 K/uL (1.8-7.0) 05/19/17 06:56 Lymph # 2.1 K/uL (1.0-4.3) 05/19/17 06:56 [place] # 1.1 K/uL (0.0-0.8) H 05/19/17 06:56 Eos # 1.7 K/uL (0.0-0.7) H 05/19/17 06:56 Baso # 0.1 K/uL (0.0-0.2) 05/19/17 06:56 Sodium 135 mmol/L (132-148) 05/19/17 06:56 Potassium 3.9 mmol/L (3.6-5.2) 05/19/17 06:56 Chloride 99 mmol/L (98-107) 05/19/17 06:56 Carbon Dioxide 23 mmol/L (22-30) 05/19/17 06:56 Anion Gap 17 (10-20) 05/19/17 06:56 BUN 12 mg/dL (7-17) 05/19/17 06:56 Creatinine 0.6 MG/DL (0.7-1.2) L 05/19/17 06:56 Est GFR ( Amer) > 60 05/19/17 06:56 Est GFR (Non-Af Amer) > 60 05/19/17 06:56 POC Glucose (mg/dL) 187 mg/dL (65-110) H 05/21/17 11:40 Random Glucose 134 mg/dL (65-105) H 05/19/17 06:56 Hemoglobin A1c 7.0 % (4.2-6.5) H 05/15/17 06:35 Calcium 8.8 mg/dl (8.6-10.4) 05/19/17 06:56 Iron 47 ug/dL (37-170) 05/16/17 11:05 TIBC 297 ug/dL (250-450) 05/16/17 11:05 % Saturation 17 (20-55) L 05/16/17 11:05 Ferritin 14.5 ng/mL 05/16/17 11:05 Total Bilirubin 0.5 mg/dL (0.2-1.3) 05/19/17 06:56 Direct Bilirubin 0.4 mg/dL (0.0-0.4) 05/15/17 06:32 AST 44 U/L (14-36) H D 05/19/17 06:56 ALT 52 U/L (9-52) 07/29/17 06:56 Alkaline Phosphatase 114 U/L (38-126) 05/19/17 06:56 Total Protein 7.1 g/dL (6.3-8.3) 05/19/17 06:56 Albumin 3.6 g/dL (3.5-5.0) 05/19/17 06:56 Globulin 3.5 gm/dL (2.2-3.9) 05/19/17 06:56 Albumin/Globulin Ratio 1.0 (1.0-2.1) 05/19/17 06:56 Lipase 103 U/L (23-300) 05/14/17 11:09 Mitochondrial AB Titer 1:1280 Titer (< 1:20) H 05/16/17 11:05 Urine Color Yellow (YELLOW) 05/14/17 11:09 Urine Clarity Clear (Clear) 05/14/17 11:09 Urine pH 6.0 (5.0-8.0) 05/14/17 11:09 Ur Specific [place] 1.015 (1.003-1.030) 05/14/17 11:09 Urine Protein Negative mg/dL (NEGATIVE) 05/14/17 11:09 Urine Glucose (UA) Normal mg/dL (Normal) 05/14/17 11:09 Urine Ketones Negative mg/dL (NEGATIVE) 05/14/17 11:09 Urine Blood Negative (NEGATIVE) 05/14/17 11:09 Urine Nitrate Negative (NEGATIVE) 05/14/17 11:09 Urine Bilirubin Negative (NEGATIVE) 05/14/17 11:09 Urine Urobilinogen Normal mg/dL (0.2-1.0) 05/14/17 11:09 Ur Leukocyte Esterase Trace [place]/uL (Negative) 05/14/17 11:09 Urine WBC (Auto) < 1 /hpf (0-5) 05/14/17 11:09 Urine RBC (Auto) < 1 /hpf (0-3) 05/14/17 11:09 Ur Squamous Epith Cells 3 /hpf (0-5) 05/14/17 11:09 Urine Bacteria Rare (<OCC) 05/14/17 11:09 Urine HCG, Qual Negative (NEGATIVE) 05/18/17 10:26 Urine Opiates Screen Positive (NEGATIVE) 05/15/17 07:14 Urine Methadone Screen Negative (NEGATIVE) 05/15/17 07:14 Ur Barbiturates Screen Negative (NEGATIVE) 05/15/17 07:14 Ur Phencyclidine Scrn Negative (NEGATIVE) 05/15/17 07:14 Ur Amphetamines Screen Negative (NEGATIVE) 05/15/17 07:14 U Benzodiazepines Scrn Positive (NEGATIVE) 05/15/17 07:14 U Oth Cocaine Metabols Negative (NEGATIVE) 05/15/17 07:14 U Cannabinoids Screen Positive (NEGATIVE) 05/15/17 07:14 Alcohol, Quantitative < 10 mg/dl (0-10) 05/15/17 06:32 IgG 1282.0 mg/dL (700.0-1600.0) 05/16/17 14:36 IgA 195.1 mg/dL (70.0-400.0) 05/16/17 14:36 IgM 226.4 mg/dL (40.0-230.0) 05/16/17 14:36 FRANK 6 Profile Negative (NEGATIVE) 05/16/17 11:05 Anti-Mitochondrial Ab Positive (Negative) H 05/16/17 11:05 Anti-Smooth Muscle Ab Negative (Negative) 05/16/17 11:05 Liver/Kid Microsomes Ab <=20.0 U (<=20.0) 05/16/17 11:05 C. difficile Ag & Toxin Negative (NEGATIVE) 05/15/17 17:15 Hepatitis A IgM Ab Negative (NEGATIVE) 05/15/17 06:35 Hep Bs Antigen Negative (NEGATIVE) 05/15/17 06:35 Hep B Core IgM Ab Negative (NEGATIVE) 05/15/17 06:35 Hepatitis C Antibody Negative (NEGATIVE) 05/15/17 06:35 - Hospital Course Hospital Course: Patient is seen and examined. Awake, alert, NAD. No fever or distress. Cleared by GI, DR Carver, and me for discharge home today on no antibiotics. Patient is advised to follow up with DR Carver and PMD in 1 week. Discharge Exam - Head Exam Head Exam: NORMAL INSPECTION Discharge Plan - Discharge Medications Prescriptions: Docusate Sodium [Dulcolax Stool Softener] 100 mg PO BID #60 capsule Polyethylene Glycol 3350 [Miralax] 17 gm PO BID #30 packet - Follow Up Plan Condition: FAIR Disposition: HOME/ ROUTINE Instructions: Laxative, Stool Softeners (By mouth), Polyethylene Glycol 3350 ( By mouth), Lupus Erythematosus (DC), Enteritis (DC), Enteritis (GEN) Additional Instructions: Follow up with in office. Follow up with Home Office Representative Follow up with in 1 week Referrals: Mario Floyd MD [Staff Provider] - Corey Orellana MD [Staff Provider] - Oswaldo Patton MD [Staff Provider] -
== END 2017-05-21 14:15 | disposition home or self-care (01) | DRG 551 ==
LOC: C.ER 10:07 → C.9E 16:03 → C.3T 17:18
PROVIDERS: ADMIT Internal Medicine; ATTEND Internal Medicine
DX: K52.9 Noninfective gastroenteritis and colitis, unspecified (principal); K85.90 Acute pancreatitis without necrosis or infection, unspecified; S09.90XA Unspecified injury of head, initial encounter; M32.9 Systemic lupus erythematosus, unspecified; E11.65 Type 2 diabetes mellitus with hyperglycemia; I80.9 Phlebitis and thrombophlebitis of unspecified site; J44.9 Chronic obstructive pulmonary disease, unspecified; N39.0 Urinary tract infection, site not specified; K29.70 Gastritis, unspecified, without bleeding; K21.9 Gastro-esophageal reflux disease without esophagitis; A60.00 Herpesviral infection of urogenital system, unspecified; E78.5 Hyperlipidemia, unspecified; I10 Essential (primary) hypertension; E66.9 Obesity, unspecified; Z68.38 Body mass index [BMI] 38.0-38.9, adult; Z72.0 Tobacco use; G89.29 Other chronic pain; K59.03 Drug induced constipation; T40.2X5A Adverse effect of other opioids, initial encounter; M06.9 Rheumatoid arthritis, unspecified; Z79.899 Other long term (current) drug therapy; R74.0 Nonspecific elevation of levels of transaminase and lactic acid dehydrogenase [LDH]

== ENCOUNTER 2017-07-22 23:47 | Inpatient (IN) | payer MEDICAID ==
[2017-07-22 23:48] VITALS: BMI 39.3
[2017-07-23] MEDS ORDERED: Sodium Chloride 0.9% 1,000 ML IV ONE (00:14)
--- NOTE | 2017-07-23 00:20 | C.PDOC ---
History Of Present Illness Patient presents to the ER with a complaint of dull, cramping abdominal pain for the past few days; associated with vomiting all day today. Patient states she ate [employer] pizza and developed abdominal pain afterwards; patient reports she cannot tolerate any PO. Denies fever or chills. Time Seen by Provider: 07/23/17 00:07 Chief Complaint (Nursing): Abdominal Pain History Per: Patient History/Exam Limitations: no limitations Onset/Duration Of Symptoms: Days Current Symptoms Are (Timing): Still Present Severity: Mild Pain Scale Rating Of: 4 Location Of Pain/Discomfort: Diffuse Radiation Of Pain To:: None Quality Of Discomfort: Dull, Cramping Associated Symptoms: Vomiting. denies: Fever, Chills Exacerbating Factors: None Alleviating Factors: None Recent travel outside of the [place]: No Abnormal Vaginal Bleeding: No Past Medical History Reviewed: Historical Data, Nursing Documentation, Vital Signs Vital Signs: Last Vital Signs Temp 98 F 07/23/17 00:47 Pulse 81 07/23/17 01:58 Resp 16 07/23/17 01:58 BP 158/93 H 07/23/17 01:58 Pulse Ox 100 07/23/17 02:34 - Medical History PMH: Anxiety, Arthritis, Asthma, Back Problems, Bronchitis, COPD, Depression, Diabetes, Emphysema, Gastritis, Gastrointestinal Ulcer, HTN, Hypercholesterolemia, Pancreatitis, Pneumonia, Rheumatoid Arthritis Surgical History: Endoscopy (X2) - [facility] Procedures CLOSED ENDOSCOPIC BIOPSY OF LARGE INTESTINE (03/05/14) CORONAR ARTERIOGR-2 CATH (03/28/12) ESOPHAGOGASTRODUODENOSCOPY [EGD] W/CLOSED BIOPSY (03/10/14) EXCISION OF STOMACH, ENDO, DIAGN (10/27/15) INJECT/INFUSE NEC (05/04/14) LEFT HEART CARDIAC CATH (03/28/12) LT HEART ANGIOCARDIOGRAM (03/28/12) Family History: States: No Known Family Hx - Social History Hx Tobacco Use: Yes Hx Alcohol Use: No Hx Substance Use: No - Immunization History Hx Tetanus Toxoid Vaccination: No Hx Influenza Vaccination: Yes (December 2016) Hx Pneumococcal Vaccination: Yes (Oct 2015) Review Of Systems Constitutional: Negative for: Fever, Chills Gastrointestinal: Positive for: Vomiting, Abdominal Pain Physical Exam - Physical Exam Appears: Non-toxic Skin: Warm, Dry Head: Normacephalic Oral Mucosa: Dry Chest: Symmetrical Cardiovascular: Rhythm Regular Respiratory: No Rales, No Rhonchi, No Wheezing Gastrointestinal/Abdominal: Bowel Sounds (Increased), Soft, Tenderness (Mild, Diffuse), No Guarding, No Rebound Neurological/Psych: Oriented x3 ED Course And Treatment - Laboratory Results Result Diagrams: 07/23/17 00:18 07/23/17 00:18 O2 Sat by Pulse Oximetry: 100 (Room air) Pulse Ox Interpretation: Normal - Radiology CXR: Interpreted by Me, Viewed By Me CXR Interpretation: No: Infiltrates, Fracture, Pnemothorax - Other Rad obstr X-Ray: Interpreted by Me, Viewed By Me Interpretation: no free air or obstr Progress Note: Blood work and urinalysis ordered. IV fluids administered. Disposition Discussed With : Corey Orellana Comment: accepted the pt on his service and took over the care at 2:42 AM Doctor Will See Patient In The: Hospital Counseled Patient/Family Regarding: Studies Performed, Diagnosis - Disposition Disposition: HOSPITALIZED Disposition Time: 00:20 Condition: FAIR Forms: Patient[employer] (Azerbaijani) - POA Present On Arrival: Poor Glycemic Control - Clinical Impression Clinical Impression: Nausea, Vomiting, Diabetes mellitus type 2, Hyperglycemia, Abdominal pain - Scribe Statement The provider has reviewed the documentation as recorded by the Scribyumi Vo All medical record entries made by the Scribe were at my direction and personally dictated by me. I have reviewed the chart and agree that the record accurately reflects my personal performance of the history, physical exam, medical decision making, and the department course for this patient. I have also personally directed, reviewed, and agree with the discharge instructions and disposition. Decision To Admit - Pt Status Changed To: Hospital Disposition Of: Inpatient - Admit Certification Admit to Inpatient:: After my assessment, the patient will require hospitalization for at least two midnights. This is because of the severity of symptoms shown, intensity of services needed, and/or the medical risk in this patient being treated as an outpatient. - InPatient: Physician Admission Certification:: After my assessment, the patient will require hospitalization for at least two midnights. This is because of the severity of symptoms shown, intensity of services needed, and/or the medical risk in this patient being treated as an outpatient. - . Bed Request Type: Regular Admitting Physician: Corey Orellana Patient Diagnosis: Nausea, Vomiting, Diabetes mellitus type 2, Hyperglycemia, Abdominal pain
[2017-07-23 00:21] LABS: BASO # 0.1 K/uL (0.0-0.2); BASO % 0.5 % (0.0-2.0); EOS % 0.2 % (0.0-4.0); HEMATOCRIT 46.4 % (34.0-47.0); LYMPH # 0.9 K/uL (1.0-4.3); LYMPH % 6.1 % (20.0-40.0); MEAN CELL VOLUME 82.1 fL (81.0-99.0); MEAN CORPUSCULAR HEMOGLOBIN 28.3 pg (27.0-31.0); MEAN CORPUSCULAR HGB CONC 34.5 g/dL (33.0-37.0); MEAN PLATELET VOLUME 10.2 fL (7.2-11.7); MONO # 0.3 K/uL (0.0-0.8); MONO % 2.3 % (0.0-10.0); PLATELET COUNT 200 K/uL (130-400); RED CELL DISTRIBUTION WIDTH 14.9 % (11.5-14.5); WHITE BLOOD COUNT 14.7 K/uL (4.8-10.8)
[2017-07-23 00:31] LABS: CHLORIDE 95 mmol/L (98-107); POTASSIUM 3.5 mmol/L (3.6-5.2); RBC URINE 3127 /hpf (0-3); SODIUM 137 mmol/L (132-148); URINE BILIRUBIN NEGATIVE (NEGATIVE); URINE BLOOD 3+ (NEGATIVE); URINE COLOR Yellow (YELLOW); URINE GLUCOSE (UA) 2+ mg/dL (Normal); URINE KETONE 1+ mg/dL (NEGATIVE); URINE LEUKOCYTE ESTERASE NEG Leu/uL (Negative); URINE PROTEIN 3+ mg/dL (NEGATIVE); URINE UROBILINOGEN NORMAL mg/dL (0.2-1.0)
[2017-07-23 00:33] LABS: ALB/GLOB RATIO 1.1 (1.0-2.1); ALKALINE PHOSPHATASE 143 U/L (38-126); AST/SGOT 24 U/L (14-36); BILIRUBIN,TOTAL 0.7 mg/dL (0.2-1.3); CARBON DIOXIDE 23 mmol/L (22-30); GFR AFRICAN-AMERICAN > 60; TOTAL PROTEIN 9.4 g/dL (6.3-8.3)
[2017-07-23 00:34] LABS: ALT/SGPT 46 U/L (9-52); BLOOD UREA NITROGEN 16 mg/dL (7-17); CALCIUM 10.4 mg/dl (8.6-10.4); GLUCOSE,RANDOM 248 mg/dL (65-105)
[2017-07-23] MEDS ORDERED: Morphine 4 MG/ML VIAL ONE (01:13)
[2017-07-23 01:38] LABS: NEUTROPHIL 86 % (50-75); REACTIVE LYMPHOCYTES 1 % (0-0); TOTAL CELLS COUNTED 100
[2017-07-23] MEDS ORDERED: Enalaprilat 2.5 MG/2 ML IV ONE (01:41)
[2017-07-23] MEDS ORDERED: Enalaprilat 2.5 MG/2 ML ONE (01:43)
[2017-07-23] MEDS ORDERED: Ciprofloxacin 400mg/200ml D5W 400 MG/200 ML BAG IVPB STA (02:46)
[2017-07-23] MEDS ORDERED: metroNIDAZOLE IV 500 mg/100 ml 500 MG/100 ML BAG IVPB STA (02:58)
[2017-07-23] MEDS ORDERED: Albuterol HFA 90 mcg/actuation (8 g) IH SCH (03:00)
[2017-07-23] MEDS: Sodium Chloride 0.45% 1,000 ML IV SCH ×2 (03:00→17:28)
[2017-07-23] MEDS ORDERED: Ciprofloxacin 400mg/200ml D5W 400 MG/200 ML BAG IVPB ONE (03:06)
[2017-07-23] MEDS: Albuterol HFA 90 mcg/actuation (8 g) IH PRN (03:46)
[2017-07-23] MEDS: oxyCODONE 5 mg Immediate Release Tab PO SCH ×2 (06:11→13:14)
[2017-07-23] MEDS ORDERED: (Novolin R) Insulin Human Regular 100 units/ml vial SC SCH (07:30)
[2017-07-23] MEDS: (Novolin R) Insulin Human Regular 100 units/ml vial SC SCH ×4 (08:50→21:54)
[2017-07-23] MEDS: Pantoprazole 40 mg EC Tab PO SCH (09:20)
--- NOTE | 2017-07-23 09:38 | RAD ---
PROCEDURE: Radiographs of the chest and abdomen (obstructive series) HISTORY: abd pain COMPARISON: CT abdomen and pelvis with contrast performed 05/18/17 FINDINGS: Examination limited by habitus. CHEST: Heart size appears within normal limits. Ectatic aorta. No focal consolidation, significant pleural effusion, or definite pneumothorax identified.Please note that chest x-ray has limited sensitivity for the detection of pulmonary masses. ABDOMEN AND PELVIS: Nonspecific bowel gas pattern. Moderate constipation. No definite free air. Degenerative changes. IMPRESSION: Nonspecific bowel gas pattern. Moderate constipation.
[2017-07-23] MEDS ORDERED: Tiotropium 18 mcg Cap For Inhalation IH SCH (10:00)
[2017-07-23] MEDS ORDERED: Latanoprost 2.5 ml Opht Soln OU SCH (10:00)
[2017-07-23] MEDS ORDERED: Home Med 1 UNIT (Losartan/Hydrochlorothiazide [Losartan-Hctz 100-25 Mg Tab] 1 TAB) PO SCH (10:00)
[2017-07-23] MEDS ORDERED: FLUTICASONE PROPIONATE IH SCH (10:00)
[2017-07-23] MEDS ORDERED: METFORMIN 850 MG PO SCH (10:00)
[2017-07-23 16:29] VITALS: TEMP 98.2
[2017-07-23] MEDS ORDERED: Mometasone 220 mcg/puff-14 puff Inh INH SCH (18:00)
[2017-07-23] MEDS: oxyCODONE 5 mg Immediate Release Tab PO PRN (21:50)
--- NOTE | 2017-07-23 22:52 | CP.PCM.HP ---
History of Present Illness - History of Present Illness History of Present Illness: CC: abdominal pain HPI: Patient presents to the ER with a complaint of dull, cramping abdominal pain for the past few days; associated with vomiting all day today. Patient states she ate [employer] and developed abdominal pain afterwards; patient reports she cannot tolerate any PO. Denies fever or chills. Present on Admission - Present on Admission Any Indicators Present on Admission: No Past Patient History - Infectious Disease Hx of Infectious Diseases: None - Past Medical History & Family History Past Medical History?: Yes - Past Social History Smoking Status: Never Smoked - CARDIAC Hx Cardiac Disorders: Yes Hx Hypercholesterolemia: Yes Hx Hypertension: Yes - PULMONARY Hx Respiratory Disorders: Yes Hx Asthma: Yes Hx Bronchitis: Yes Hx Chronic Obstructive Pulmonary Disease (COPD): Yes Hx Emphysema: Yes Hx Pneumonia: Yes - NEUROLOGICAL Hx Neurological Disorder: No - HEENT Hx HEENT Problems: Yes Hx Glaucoma: Yes - RENAL Hx Chronic Kidney Disease: No - ENDOCRINE/METABOLIC Hx Endocrine Disorders: Yes Hx Diabetes Mellitus Type 2: Yes Hx Systemic Lupus Erythematosus: Yes - HEMATOLOGICAL/ONCOLOGICAL Hx Blood Disorders: No - INTEGUMENTARY Hx Dermatological Problems: No - MUSCULOSKELETAL/RHEUMATOLOGICAL Hx Arthritis: Yes Hx Falls: No Hx Rheumatoid Arthritis: Yes - GASTROINTESTINAL Hx Gastrointestinal Disorders: Yes Hx Gastritis: Yes Hx Pancreatitis: Yes - GENITOURINARY/GYNECOLOGICAL Hx Genitourinary Disorders: Yes (SEE COMMENT) Other/Comment: endometriosis - PSYCHIATRIC Hx Psychophysiologic Disorder: Yes Hx Anxiety: Yes Hx Depression: Yes Hx Substance Use: No - SURGICAL HISTORY Hx Surgeries: Yes Hx Section: Yes (x) Other/Comment: Sinus surgery, laparoscopy - ANESTHESIA Hx Anesthesia: Yes Hx Anesthesia Reactions: No Hx Malignant Hyperthermia: No Meds Home Medications: Home Medication List Medication Instructions Recorded Confirmed Type Alprazolam [Xanax] 0.5 mg PO TID PRN #15 tablet 07/24/17 Rx Allergies/Adverse Reactions: Allergies Allergy/AdvReac Type Severity Reaction Status Date / Time methylergonovine maleate Allergy Intermediate RASH Verified 07/22/17 23:54 [From Methergine] Penicillins Allergy Intermediate RASH Verified 07/22/17 23:54 Results - Vital Signs Recent Vital Signs: Last Vital Signs Temp 98.2 F 07/23/17 15:00 Pulse 95 H 07/23/17 15:00 Resp 20 07/23/17 15:00 BP 117/69 07/23/17 15:00 Pulse Ox 97 07/23/17 15:00 - Labs Result Diagrams: 07/24/17 11:46 07/24/17 11:46 Labs: Laboratory Results - last 24 hr 07/23/17 07/23/17 07/23/17 00:18 00:18 00:18 WBC 14.7 H RBC 5.65 H Hgb 16.0 D Hct 46.4 MCV 82.1 D MCH 28.3 MCHC 34.5 RDW 14.9 H Plt Count 200 MPV 10.2 Neut % (Auto) 90.9 H Lymph % (Auto) 6.1 L [place] % (Auto) 2.3 Eos % (Auto) 0.2 Baso % (Auto) 0.5 Neut # 13.3 H Lymph # 0.9 L [place] # 0.3 Eos # 0.0 Baso # 0.1 Neutrophils % (Manual) 86 H Band Neutrophils % 3 H Lymphocytes % (Manual) 5 L Reactive Lymphs % 1 H Monocytes % (Manual) 5 Platelet Estimate Normal Sodium 137 Potassium 3.5 L Chloride 95 L Carbon Dioxide 23 Anion Gap 22 H BUN 16 Creatinine 0.6 L Est GFR ( Amer) > 60 Est GFR (Non-Af Amer) > 60 POC Glucose (mg/dL) Random Glucose 248 H Calcium 10.4 Total Bilirubin 0.7 AST 24 ALT 46 Alkaline Phosphatase 143 H Total Protein 9.4 H Albumin 4.9 Globulin 4.5 H Albumin/Globulin Ratio 1.1 Lipase 127 Urine Color Yellow Urine Clarity Hazy Urine pH 8.0 Ur Specific [place] 1.023 Urine Protein 3+ H Urine Glucose (UA) 2+ H Urine Ketones 1+ H Urine Blood 3+ H Urine Nitrate Negative Urine Bilirubin Negative Urine Urobilinogen Normal Ur Leukocyte Esterase Neg Urine RBC (Auto) 3127 H Ur Squamous Epith Cells 6 H Urine HCG, Qual Serum Ketones 07/23/17 07/23/17 07/23/17 00:29 00:29 01:25 WBC RBC Hgb Hct MCV MCH MCHC RDW Plt Count MPV Neut % (Auto) Lymph % (Auto) [place] % (Auto) Eos % (Auto) Baso % (Auto) Neut # Lymph # [place] # Eos # Baso # Neutrophils % (Manual) Band Neutrophils % Lymphocytes % (Manual) Reactive Lymphs % Monocytes % (Manual) Platelet Estimate Sodium Potassium Chloride Carbon Dioxide Anion Gap BUN Creatinine Est GFR ( Amer) Est GFR (Non-Af Amer) POC Glucose (mg/dL) 249 H Random Glucose Calcium Total Bilirubin AST ALT Alkaline Phosphatase Total Protein Albumin Globulin Albumin/Globulin Ratio Lipase Urine Color Urine Clarity Urine pH Ur Specific [place] Urine Protein Urine Glucose (UA) Urine Ketones Urine Blood Urine Nitrate Urine Bilirubin Urine Urobilinogen Ur Leukocyte Esterase Urine RBC (Auto) Ur Squamous Epith Cells Urine HCG, Qual Negative Serum Ketones Negative 07/23/17 07/23/17 07/23/17 11:26 16:48 21:40 WBC RBC Hgb Hct MCV MCH MCHC RDW Plt Count MPV Neut % (Auto) Lymph % (Auto) [place] % (Auto) Eos % (Auto) Baso % (Auto) Neut # Lymph # [place] # Eos # Baso # Neutrophils % (Manual) Band Neutrophils % Lymphocytes % (Manual) Reactive Lymphs % Monocytes % (Manual) Platelet Estimate Sodium Potassium Chloride Carbon Dioxide Anion Gap BUN Creatinine Est GFR ( Amer) Est GFR (Non-Af Amer) POC Glucose (mg/dL) 226 H 175 H 151 H Random Glucose Calcium Total Bilirubin AST ALT Alkaline Phosphatase Total Protein Albumin Globulin Albumin/Globulin Ratio Lipase Urine Color Urine Clarity Urine pH Ur Specific [place] Urine Protein Urine Glucose (UA) Urine Ketones Urine Blood Urine Nitrate Urine Bilirubin Urine Urobilinogen Ur Leukocyte Esterase Urine RBC (Auto) Ur Squamous Epith Cells Urine HCG, Qual Serum Ketones
[2017-07-24] MEDS: oxyCODONE 5 mg Immediate Release Tab PO PRN ×3 (04:31→16:05)
[2017-07-24] MEDS: Sodium Chloride 0.45% 1,000 ML IV SCH ×2 (04:33→17:10)
[2017-07-24] MEDS ORDERED: Tiotropium 18 mcg Cap For Inhalation INH SCH (08:00)
[2017-07-24] MEDS: Albuterol HFA 90 mcg/actuation (8 g) IH PRN (08:12)
[2017-07-24 08:23] VITALS: O2SAT 98
[2017-07-24] MEDS: (Novolin R) Insulin Human Regular 100 units/ml vial SC SCH ×3 (08:27→17:07)
[2017-07-24] MEDS ORDERED: Tiotropium 18 mcg Cap For Inhalation IH SCH (10:00)
[2017-07-24] MEDS: Pantoprazole 40 mg EC Tab PO SCH (10:00)
[2017-07-24] MEDS ORDERED: Magnesium Hydroxide Susp 30 ml UD PO ONE ×2 (10:54→12:00)
[2017-07-24] MEDS ORDERED: POLYETHYLENE GLYCOL 3350 17 GM/Dose PACKET PO SCH (11:00)
[2017-07-24 12:00] LABS: EOS # 0.2 K/uL (0.0-0.7); HEMATOCRIT 40.9 % (34.0-47.0); MEAN PLATELET VOLUME 10.1 fL (7.2-11.7); NRBC % 0.1 % (0.0-2.0); WHITE BLOOD COUNT 9.3 K/uL (4.8-10.8)
[2017-07-24 12:05] LABS: BASO % 0.4 % (0.0-2.0); LYMPH # 2.4 K/uL (1.0-4.3); LYMPH % 25.7 % (20.0-40.0); MEAN CELL VOLUME 83.6 fL (81.0-99.0); MEAN CORPUSCULAR HEMOGLOBIN 28.4 pg (27.0-31.0); MONO # 0.9 K/uL (0.0-0.8); MONO % 9.4 % (0.0-10.0); RED CELL DISTRIBUTION WIDTH 14.6 % (11.5-14.5)
[2017-07-24 12:09] LABS: CHLORIDE 96 mmol/L (98-107); POTASSIUM 3.1 mmol/L (3.6-5.2); SODIUM 136 mmol/L (132-148)
[2017-07-24 12:12] LABS: BLOOD UREA NITROGEN 14 mg/dL (7-17); CARBON DIOXIDE 24 mmol/L (22-30); GFR AFRICAN-AMERICAN > 60
[2017-07-24 12:13] LABS: CALCIUM 8.8 mg/dl (8.6-10.4); GLUCOSE,RANDOM 167 mg/dL (65-105)
[2017-07-24] MEDS: Potassium Chloride 20 mEq ER Tab PO SCH ×2 (12:34→16:06)
--- NOTE | 2017-07-24 16:51 | CP.PCM.PN ---
Subjective - Date & Time of Evaluation Date of Evaluation: 07/24/17 Time of Evaluation: 11:00 - Subjective Subjective: Patient seen today, states abdominal pain, resolved, denies any N/V , tolerating diet without any problems a febrile Objective - Vital Signs/Intake and Output Vital Signs (last 24 hours): Temp Pulse Resp BP Pulse Ox 98.2 F 80 18 133/79 98 07/24/17 07:30 07/24/17 08:14 07/24/17 07:30 07/24/17 07:30 07/24/17 07:30 Intake and Output: 07/24/17 07/24/17 06:59 18:59 Intake Total 740 Balance 740 - Medications Medications: Current Medications Albuterol (Ventolin Hfa 90 Mcg/Actuation (8 G)) 2 puff IH RQ6 PRN PRN Reason: Shortness of Breath Last Admin: 07/24/17 08:12 Dose: 2 puff Alprazolam (Xanax) 0.5 mg PO TID PRN PRN Reason: Anxiety Last Admin: 07/24/17 16:10 Dose: 0.5 mg Amlodipine Besylate (Norvasc) 5 mg PO DAILY [facility] Last Admin: 07/24/17 10:00 Dose: 5 mg Cyclobenzaprine HCl (Flexeril) 10 mg PO TID [facility] Last Admin: 07/24/17 13:57 Dose: 10 mg Famotidine (Pepcid) 40 mg PO DAILY [facility] Last Admin: 07/24/17 10:01 Dose: 40 mg Folic Acid (Folic Acid) 1 mg PO DAILY [facility] Last Admin: 07/24/17 09:59 Dose: 1 mg Gabapentin (Neurontin) 300 mg PO BID [facility] Last Admin: 07/24/17 10:00 Dose: 300 mg Hydrochlorothiazide (Hydrodiuril) 25 mg PO DAILY [facility] Last Admin: 07/24/17 10:00 Dose: 25 mg Hydroxychloroquine Sulfate (Plaquenil) 200 mg PO BID [facility] Last Admin: 07/24/17 10:00 Dose: 200 mg Sodium Chloride (Sodium Chloride 0.45%) 1,000 mls @ 80 mls/hr IV .[id number] [facility] Last Admin: 07/24/17 04:33 Dose: 80 mls/hr Insulin Human Regular (Novolin R) 0 unit SC ACHS [facility] PRN Reason: Protocol Last Admin: 07/24/17 12:35 Dose: 1 unit Latanoprost (Xalatan Opht) 0 ml OU HS [facility] Losartan Potassium (Cozaar) 100 mg PO DAILY [facility] Last Admin: 07/24/17 10:01 Dose: 100 mg Metformin HCl (Glucophage) 850 mg PO BID [facility] Last Admin: 07/24/17 10:01 Dose: 850 mg Metoclopramide HCl (Reglan) 10 mg PO ACHS [facility] Last Admin: 07/24/17 13:04 Dose: 10 mg Mometasone Furoate (Asmanex Twisthaler 220 Mcg) 220 puff INH RQD [facility] Oxycodone HCl (Oxycodone Immediate Release Tab) 15 mg PO Q6 PRN Last Admin: 07/24/17 16:05 Dose: 15 mg Pantoprazole Sodium (Protonix Ec Tab) 40 mg PO DAILY [facility] Last Admin: 07/24/17 10:00 Dose: 40 mg Pneumococcal Polyvalent Vaccine (Pneumovax 23 Vaccine) 0.5 ml IM .ONCE ONE Stop: 07/25/17 10:01 Polyethylene Glycol (Miralax) 17 gm PO DAILY [facility] Last Admin: 07/24/17 12:36 Dose: 17 gm Tiotropium [place] (Spiriva) 18 mcg INH RQ24 [facility] Last Admin: 07/24/17 08:12 Dose: 18 mcg - Labs Labs: 07/24/17 11:46 07/24/17 11:46 - Constitutional Appears: Well, No Acute Distress - Respiratory Exam Respiratory Exam: Clear to Ausculation Bilateral, NORMAL BREATHING PATTERN - Cardiovascular Exam Cardiovascular Exam: REGULAR RHYTHM, +S1, +S2 - GI/Abdominal Exam GI & Abdominal Exam: Soft Assessment and Plan - Assessment and Plan (Free Text) Assessment: A/P 42 yr old female admitted for abdominal pain, N/V abdominal serious-Nonspecific bowel gas pattern. Moderate constipation. -pt tolerated diet without any problems D/w Dr. Orellana, cleared for discharge home today and f/u with Dr. Orellana offfice in 1 week Discharge plan discussed with patient who understands and agrees with plan patient instructed to returns to ED if symptoms returns
[2017-07-24 17:07] VITALS: BP 130/84; PULSE 95; RESP 20
[2017-07-24] MEDS ORDERED: Influenza Vaccine 60 mcg/0.5 mL SYR (4YR UP) IM ONE (18:12)
[2017-07-24] MEDS ORDERED: Latanoprost 2.5 ml Opht Soln OU SCH (22:00)
[2017-07-25] MEDS ORDERED: Pneumococcal 23-Valent Vaccine IM ONE (10:00)
[2017-07-25] MEDS ORDERED: Influenza Vaccine 60 mcg/0.5 mL SYR (4YR UP) IM ONE (10:00)
--- NOTE | 2017-07-25 11:53 | CARD ---
APPROVED REPORT EKG Measurement Heart [id number] <Conclusion> Sinus rhythm with marked sinus arrhythmia Prolonged QT Abnormal ECG
== END 2017-07-24 19:36 | disposition home or self-care (01) | DRG 813 ==
LOC: C.ER 23:47 → C.6T 07-23 02:41
PROVIDERS: ADMIT Internal Medicine; ATTEND Internal Medicine
DX: R10.9 Unspecified abdominal pain (principal); J43.9 Emphysema, unspecified; E11.65 Type 2 diabetes mellitus with hyperglycemia; M32.9 Systemic lupus erythematosus, unspecified; I10 Essential (primary) hypertension; F32.9 Major depressive disorder, single episode, unspecified; F41.9 Anxiety disorder, unspecified; E78.00 Pure hypercholesterolemia, unspecified; M06.9 Rheumatoid arthritis, unspecified; F17.210 Nicotine dependence, cigarettes, uncomplicated; Z79.4 Long term (current) use of insulin; Z88.0 Allergy status to penicillin

== ENCOUNTER 2017-11-15 22:41 | Inpatient (IN) | payer MEDICAID ==
[2017-11-15 22:42] VITALS: BMI 39.3
[2017-11-15 23:57] LABS: SQUAMOUS EPITHIAL 3 /hpf (0-5); URINE BACTERIA RARE (<OCC); URINE BILIRUBIN NEGATIVE (NEGATIVE); URINE BLOOD NEGATIVE (NEGATIVE); URINE CLARITY Clear (Clear); URINE COLOR Yellow (YELLOW); URINE GLUCOSE (UA) 3+ mg/dL (Normal); URINE HYALINE CAST 0-2 /lpf (0-2); URINE LEUKOCYTE ESTERASE NEG Leu/uL (Negative); URINE NITRATE NEGATIVE (NEGATIVE); URINE PROTEIN 3+ mg/dL (NEGATIVE); URINE UROBILINOGEN NORMAL mg/dL (0.2-1.0)
[2017-11-16] MEDS ORDERED: Sodium Chloride 0.9% 1,000 ML IV ONE (00:04)
[2017-11-16 00:20] LABS: VENOUS BLOOD GAS BASE EXCESS -1.8 mmol/L (0.0-2.0); VENOUS BLOOD GAS PCO2 22 mmHg (40-60); VENOUS BLOOD GAS PO2 203 mm/Hg (30-55); VENOUS BLOOD PH 7.54 (7.32-7.43)
--- NOTE | 2017-11-16 00:40 | C.PDOC ---
History Of Present Illness 42 year old female with a Hx of diabetes presents to the ER with hyperglycemia. Patient reports she has been anxious and nervous since her daughter has been dealing with certain issues.; she notes when she gets anxiety she often has stomach problems. Today she has had multiple episodes of anxiety with vomiting and has not been able to tolerate her HTN or diabetes medications. Patient noticed her sugar and blood pressure were high which prompted ER visit. Denies chest pain, SOB, homicidal ideation, or suicidal ideation. Time Seen by Provider: 11/15/17 23:19 Chief Complaint (Nursing): GI Problem History Per: Patient History/Exam Limitations: no limitations Onset/Duration Of Symptoms: Hrs Current Symptoms Are (Timing): Still Present Quality Of Discomfort: Unable To Describe Associated Symptoms: Vomiting, Other (Anxiety) Alleviating Factors: None Recent travel outside of the [place]: No Abnormal Vaginal Bleeding: No Past Medical History Reviewed: Historical Data, Nursing Documentation, Vital Signs Vital Signs: Last Vital Signs Temp 98.1 F 11/15/17 22:48 Pulse 100 H 11/16/17 01:34 Resp 20 11/15/17 22:48 BP 202/123 H 11/16/17 01:36 Pulse Ox 97 11/16/17 01:32 - Medical History PMH: Anxiety, Arthritis, Asthma, Back Problems, Bronchitis, COPD, Depression, Diabetes, Emphysema, Gastritis, Gastrointestinal Ulcer, HTN, Hypercholesterolemia, Pancreatitis, Pneumonia, Rheumatoid Arthritis Surgical History: Endoscopy (X2) - [facility] Procedures CLOSED ENDOSCOPIC BIOPSY OF LARGE INTESTINE (03/05/14) CORONAR ARTERIOGR-2 CATH (03/28/12) ESOPHAGOGASTRODUODENOSCOPY [EGD] W/CLOSED BIOPSY (03/10/14) EXCISION OF STOMACH, ENDO, DIAGN (10/27/15) INJECT/INFUSE NEC (05/04/14) LEFT HEART CARDIAC CATH (03/28/12) LT HEART ANGIOCARDIOGRAM (03/28/12) Family History: States: Unknown Family Hx - Social History Hx Tobacco Use: Yes Hx Alcohol Use: No Hx Substance Use: No - Immunization History Hx Tetanus Toxoid Vaccination: No Hx Influenza Vaccination: Yes (December 2016) Hx Pneumococcal Vaccination: Yes (Oct 2015) Review Of Systems Except As Marked, All Systems Reviewed And Found Negative. Cardiovascular: Negative for: Chest Pain Respiratory: Negative for: Shortness of Breath Psych: Positive for: Anxiety. Negative for: Suicidal ideation, Other ( Homicidal ideation) Physical Exam - Physical Exam Appears: Non-toxic Skin: Normal Color, Warm, Dry Head: Atraumatic, Normacephalic Eye(s): bilateral: Normal Inspection Oral Mucosa: Moist Neck: Normal, Supple Chest: Symmetrical, No Tenderness Cardiovascular: Rhythm Regular, No Murmur Respiratory: Normal Breath Sounds, No Rales, No Rhonchi, No Wheezing Gastrointestinal/Abdominal: Soft, No Tenderness Neurological/Psych: Oriented x3, Normal Speech, Other (No focal deficits) ED Course And Treatment - Laboratory Results Result Diagrams: 11/16/17 01:05 11/16/17 00:27 O2 Sat by Pulse Oximetry: 97 (Room air) Pulse Ox Interpretation: Normal Medical Decision Making Medical Decision Making: Plan: * Blood work * EKG * CXR * Urinalysis * Norvasc * IV fluids * Zofran * * 1:29AM Labs significant for hyponatriemia. Patient's blood glucose is elevated but patient is not acidotic. She has normal lactate. Will transfer to [facility]/s observation under Dr. Orellana for hyponatriemia and persistent vomiting. Disposition - Disposition Disposition: HOSPITALIZED Disposition Time: 01:32 Condition: FAIR Forms: [facility] (Colombian) - Clinical Impression Clinical Impression: Hyponatremia, Hypertension, Vomiting - Scribe Statement The provider has reviewed the documentation as recorded by the Scribe Willian
[2017-11-16 00:49] LABS: CALCIUM 9.3 mg/dl (8.6-10.4); GFR AFRICAN-AMERICAN > 60; GFR NON-AFRICAN AMERICAN > 60; LIPASE 152 U/L (23-300)
[2017-11-16 00:51] LABS: ALBUMIN 4.4 g/dL (3.5-5.0); ALT/SGPT 29 U/L (9-52); AST/SGOT 49 U/L (14-36); BLOOD UREA NITROGEN 12 mg/dL (7-17)
[2017-11-16] MEDS ORDERED: Sodium Chloride 0.9% 1,000 ML ONE (00:57)
[2017-11-16 01:18] LABS: BASO # 0.1 K/uL (0.0-0.2); BASO % 0.4 % (0.0-2.0); HEMOGLOBIN 15.6 g/dL (11.0-16.0); LYMPH # 1.1 K/uL (1.0-4.3); LYMPH % 7.4 % (20.0-40.0); MEAN CELL VOLUME 82.8 fL (81.0-99.0); MEAN CORPUSCULAR HEMOGLOBIN 28.6 pg (27.0-31.0); MEAN CORPUSCULAR HGB CONC 34.5 g/dL (33.0-37.0); MEAN PLATELET VOLUME 10.3 fL (7.2-11.7); MONO # 0.3 K/uL (0.0-0.8); NEUT # 12.9 K/uL (1.8-7.0); NEUT % 90.2 % (50.0-75.0); PLATELET COUNT 196 K/uL (130-400); RBC 5.45 Mil/uL (3.80-5.20); RED CELL DISTRIBUTION WIDTH 14.3 % (11.5-14.5); WHITE BLOOD COUNT 14.3 K/uL (4.8-10.8)
[2017-11-16] MEDS ORDERED: Metoprolol 1 mg/ml Inj IVP ONE ×2 (01:34→02:02)
[2017-11-16] MEDS ORDERED: Sodium Chloride 0.9% 1,000 ML IV SCH (01:45)
[2017-11-16 04:08] LABS: LYMPHOCYTE 6 % (20-40); NEUTROPHIL 87 % (50-75); PLATELET ESTIMATE NORMAL (NORMAL); REACTIVE LYMPHOCYTES 7 % (0-0); TOTAL CELLS COUNTED 100
[2017-11-16 04:10] LABS: MONOCYTE 0 % (0-10)
--- NOTE | 2017-11-16 07:37 | RAD ---
HISTORY: Hypertension. COMPARISON: 01/15/2017. FINDINGS: LUNGS: No active pulmonary disease. PLEURA: No significant pleural effusion identified, no pneumothorax apparent. CARDIOVASCULAR: No radiographic findings to suggest acute or significant cardiovascular disease. OSSEOUS STRUCTURES: No significant abnormalities. VISUALIZED UPPER ABDOMEN: Normal. OTHER FINDINGS: None. IMPRESSION: No active disease. No significant interval change compared to the prior examination(s).
[2017-11-16] MEDS ORDERED: Nitroglycerin 2% Ointment Foilpak UD TOP STA (07:47)
[2017-11-16] MEDS ORDERED: Dextrose 5%/0.45% NS 1,000 ML IV SCH (08:00)
[2017-11-16] MEDS ORDERED: Dextrose 5%-0.225% NS 1,000 ML IV ONE (08:05)
[2017-11-16] MEDS ORDERED: Nitroglycerin 2% Ointment Foilpak UD TOP ONE (08:05)
[2017-11-16] MEDS: oxyCODONE 5 mg Immediate Release Tab PO PRN ×3 (09:01→23:45)
[2017-11-16] MEDS ORDERED: FLUTICASONE PROPIONATE IH SCH (10:00)
[2017-11-16] MEDS ORDERED: Tiotropium 18 mcg Cap For Inhalation IH SCH (10:00)
[2017-11-16] MEDS: Enoxaparin 40 mg Syringe SC SCH (11:24)
[2017-11-16] MEDS ORDERED: oxyCODONE 5 mg Immediate Release Tab PO SCH (12:00)
[2017-11-16] MEDS: Sodium Chloride 0.9% 1,000 ML IV SCH (12:52)
[2017-11-16] MEDS: (Novolog) Insulin Aspart, Recombinant 100 u/ml 10 ml vial SC SCH ×3 (13:00→23:40)
[2017-11-16] MEDS ORDERED: oxyCODONE 5 mg Immediate Release Tab ONE (17:25)
[2017-11-16] MEDS ORDERED: Mometasone 110 mcg/puff-30 puff Inh INH SCH (19:15)
[2017-11-16] MEDS: Latanoprost 2.5 ml Opht Soln OU SCH (23:45)
[2017-11-17] MEDS: Albuterol HFA 90 mcg/actuation (8 g) IH SCH ×5 (01:53→20:48)
[2017-11-17] MEDS: Sodium Chloride 0.9% 1,000 ML IV SCH ×4 (05:30→21:25)
[2017-11-17 06:31] LABS: HEMOGLOBIN 14.7 g/dL (11.0-16.0); MEAN CELL VOLUME 82.6 fL (81.0-99.0); MEAN CORPUSCULAR HEMOGLOBIN 28.6 pg (27.0-31.0); MEAN CORPUSCULAR HGB CONC 34.6 g/dL (33.0-37.0); MEAN PLATELET VOLUME 9.7 fL (7.2-11.7); RBC 5.15 Mil/uL (3.80-5.20); RED CELL DISTRIBUTION WIDTH 14.3 % (11.5-14.5); WHITE BLOOD COUNT 16.6 K/uL (4.8-10.8)
[2017-11-17 06:48] LABS: ALB/GLOB RATIO 1.1 (1.0-2.1); ALT/SGPT 22 U/L (9-52); AST/SGOT 19 U/L (14-36); BLOOD UREA NITROGEN 13 mg/dL (7-17); GFR AFRICAN-AMERICAN > 60; GFR NON-AFRICAN AMERICAN > 60
[2017-11-17 06:58] LABS: AMYLASE 216 U/L (30-110); LIPASE 521 U/L (23-300)
[2017-11-17] MEDS: oxyCODONE 5 mg Immediate Release Tab PO PRN ×3 (08:10→21:23)
[2017-11-17] MEDS: (Novolog) Insulin Aspart, Recombinant 100 u/ml 10 ml vial SC SCH ×4 (08:12→21:27)
--- NOTE | 2017-11-17 08:15 | PN ---
DATE: 11/17/2017 LOCATION: 350, bed A. SUBJECTIVE: This is a 42-year-old female seen and examined yesterday, 11/16/2017 in the emergency room as requested by the admitting MD as well as the ER staff, reexamined again today with a complaint of abdominal pain, but less than before with less nausea and vomiting. No reported active bleeding, chest pain, palpitation or significant shortness of breath. The entire chart is reviewed including but not limited to the most recent lab and radiology study results, current and the previous medication list, current and the previous medical events and today's labs showed leukocytosis of 16.6 with normal hemoglobin and hematocrit with increased sodium to 131, but still low with low potassium of 3.0. Blood glucose level is elevated to 171 with amylase ordered by myself to 116, lipase ordered by myself 521. The patient is still awaiting ultrasound of the abdomen to be done. PHYSICAL EXAMINATION: GENERAL: A 42-year-old female. Awake, alert, oriented. Complaining of this abdominal pain, but no active bleeding with persistent nausea, dyspnea. No vomiting this morning. VITAL SIGNS: The patient is afebrile with pulse of 86, respiratory rate 20 to 22, blood pressure 140/82. HEENT: Showed mildly pale dry oral mucous membrane. Nonicteric sclerae. LUNGS: Few scattered crepitation. Decreased air entry at bases. HEART: Positive S1 and S2. ABDOMEN: Soft with generalized tenderness with mild distention. No mass or organomegaly. No rebound tenderness or guarding. RECTAL: The patient refused. EXTREMITIES: Without significant clubbing, cyanosis or edema. NEUROLOGIC: No reported new neurological deficits, sensory or motor. No reported focal deficits. VASCULAR: Peripheral pulses are present bilaterally. IMPRESSION: 1. Acute pancreatitis of unclear etiology. That could be viral in nature verus hyperlipidemia induced. The possibility of acute pancreatitis secondary to medication was raised. 2. Re-exacerbation of peptic ulcer disease. To rule out gastric versus duodenal ulcers inducing the patient's clinical presentation of recurrent nausea and vomiting. 3. Leukocytosis, most likely secondary to above. 4. Electrolyte imbalance including hyponatremia with hypokalemia secondary to above. 5. Poorly-controlled diabetes mellitus with possible diabetic gastroparesis. 6. Known history of but not limited to chronic obstructive pulmonary disease with bronchitis, severe anxiety syndrome, arthritis, chronic lower back pain syndrome, hyperlipidemia, hypertension with previous episode of pneumonia and pancreatitis. 7. The patient has known history of rheumatoid arthritis. SUGGESTION: 1. Agree with your plan. 2. Keep n.p.o until serum lipase, amylase level normal or near normal. 3. Abdominal ultrasound. 4. Flagyl IV. 5. Endoscopic evaluation of the upper GI tract when the patient is more stable clinically. 6. Further recommendation to follow. Roni Graff MD
[2017-11-17] MEDS: Tiotropium 18 mcg Cap For Inhalation IH SCH (09:19)
--- NOTE | 2017-11-17 09:22 | US ---
Abdominal ultrasound History: Intractable vomiting. Comparison: CT scan dated 05/18/2017 Technique: Real-time sonography was performed through the abdomen. Findings: Liver: 19.4 centimeters in length. Prominent. Increased echogenicity of the hepatic parenchymal cortex suggestive for fatty infiltration versus hepatic parenchymal disease. Clinical correlation. Gallbladder appears preserved. No calculi or sludge. Normal wall thickness of 1.9 millimeters. Negative sonographic Forbes's sign. Common bile duct measures 2.8 millimeters, within normal limits. Visualized portions of the pancreas are preserved. Pancreatic tail not well visualized. Spleen measures 11.8 centimeters in length, within normal limits. Limited visualization of the aorta. Visualized portions appear preserved. Visualized IVC appears grossly preserved. Right kidney: 11.5 x 5.4 x 4.7 centimeters. No calculi or hydronephrosis. Left Kidney: 11.7 x 5.2 x 5.1 centimeters. No calculi or hydronephrosis. Impression: Prominent liver with diffuse increased echogenicity suggestive for fatty infiltration versus hepatic parenchymal disease. Clinical correlation.
[2017-11-17] MEDS: metroNIDAZOLE IV 500 mg/100 ml 500 MG/100 ML BAG IVPB SCH ×2 (10:00→17:02)
[2017-11-17] MEDS: Enoxaparin 40 mg Syringe SC SCH (11:00)
[2017-11-17 14:51] LABS: INR 1.1; PROTHROMBIN TIME 12.2 SECONDS (9.7-12.2)
--- NOTE | 2017-11-17 16:42 | CP.PCM.HP ---
History of Present Illness - History of Present Illness History of Present Illness: CC: nausea, vomitting, weakness HPI: 42 year old female, morbidly obeses with a Hx of diabetes, bronchial asthma , HTn presents to the ER with hyperglycemia. Patient reports she has been anxious and nervous since her daughter has been dealing with certain issues.; she notes when she gets anxiety she often has stomach problems. Today she has had multiple episodes of anxiety with vomiting and has not been able to tolerate her HTN or diabetes medications. Patient noticed her sugar and blood pressure were high which prompted ER visit. Denies chest pain, SOB, homicidal ideation, or suicidal ideation.vomitis consits of food particles hen yellowish but denies any hematites Present on Admission - Present on Admission Any Indicators Present on Admission: Yes Review of Systems - Review of Systems Systems not reviewed;Unavailable: Acuity of Condition - Constitutional Constitutional: Fatigue, Lethargy, Weakness - Cardiovascular Cardiovascular: absent: As Per HPI, Acrocyanosis, Chest Pain, Chest Pain at Rest , Chest Pain with Activity, Claudication, Diaphoresis, Dyspnea, Dyspnea on Exertion, Edema, Irregular Heart Rhythm, Pain Radiating to Arm/Neck/Jaw, Leg Edema, Leg Ulcers, Lightheadedness, Orthopnea, Palpitations, Paroxysmal Nocturnal Dyspnea, Pedal Edema, Radiating Pain, Rapid Heart Rate, Slow Heart Rate, Syncope, Other - Respiratory Respiratory: Dyspnea on Exertion, Pain with Coughing - Gastrointestinal Gastrointestinal: Abdominal Pain, Nausea, Vomiting - Genitourinary Genitourinary: absent: As Per HPI, Change in Urinary Stream, Difficulty Urinating, Dysuria, Flank Pain, Hematuria, Pyuria, Nocturia, Urinary Incontinence, Urinary Frequency, Urinary Hesitance, Urinary Urgency, Voiding Freq/Small Amts, Freq UTI, Hx Renal/Bladder Calculi, Hx /Renal Surgery, Bladder Distension, Other - Reproductive: Female Reproductive:Female: absent: As Per HPI, Amenorrhea, Amenorrhea/ Control, Currently Menstual, Cycle <21 Days, Cycle >35 Days, Cycle Variable, Menses 1-7 Days, Menses >/= 8 Days, Menses Variable, Cycle > 4 Weeks Between, No Menses for 6 Months, Heavy Menses, Light Menses, Normal Menses, Spotting Between Cycles , S/P Hysterectomy, Menopausal, Post Menopausal, Premenarche, Abnormal Vaginal Bleeding, Dysmenorrhea, Dyspareunia, Genital Lesions, Genital Pruritis, Pelvic Pain, Prolapse Symptoms, Sexual Dysfunction, Vaginal Discharge, Vaginal Dryness , Vaginal Odor, Vaginal Pruritis, Other - Musculoskeletal Musculoskeletal: absent: As Per HPI, Abnormal Gait, Arthralgias, Atrophy, Back Pain, Deformity, Joint Swelling, Limited Range of Motion, Loss of Height, Muscle Cramps, Muscle Weakness, Myalgias, Neck Pain, Numbness, Radiating Pain into Limb, Stiffness, Tingling, Other - Integumentary Integumentary: absent: As Per HPI, Acne, Alopecia, Bleeding Lesions, Change in Hair, Change in Nails, Change in Pigmentation, Changing Lesions, Dry Skin, Erythema, Furuncle, Hirsutism, Lesions, New Lesions, Non-Healing Lesions, Photosensitivity, Pruritus, Rash, Skin Pain, Skin Ulcer, Sores, Striae, Swelling , Unusual Bruising, Wounds, Jaundice, Other - Neurological Neurological: absent: As Per HPI, Abnormal Gait, Abnormal Hearing, Abnormal Movements, Abnormal Speech, Behavioral Changes, Burning Sensations, Confusion, Convulsions, Disequilibrium, Dizziness, Numbness, Focal Weakness, Frequent Falls , Headaches, Lack of Coordination, Loss of Vision, Memory Loss, Paresthesias, Radicular Pain, Restless Legs, Sensory Deficit, Syncope, Tingling, Tremor, Vertigo, Weakness, Other Visual Disturbances, Other - Psychiatric Psychiatric: absent: As Per HPI, Abnormal Sleep Pattern, Anhedonia, Anxiety, Auditory Hallucinations, Behavioral Changes, Change in Appetite, Change in Libido, Confusion, Depression, Difficulty Concentrating, Hallucinations, Homicidal Ideation, Hopelessness, Irritability, Memory Loss, Mood Swings, Panic Attacks, Paranoia, Suicidal Ideation, Visual Hallucinations, Tactile Hallucinations, Other - Endocrine Endocrine: absent: As Per HPI, Change in Body Appearance, Change in Libido, Cold Intolorance, Deepening of Voice, Excessive Sweating, Fatigue, Flushing, Heat Intolorance, Increase in Ring/Shoe/Hat Size, Palpitations, Polydipsia, Polyphagia, Polyuria, Other Past Patient History - Infectious Disease Hx of Infectious Diseases: None - Past Medical History & Family History Past Medical History?: Yes - Past Social History Smoking Status: Never Smoked - CARDIAC Hx Hypercholesterolemia: Yes Hx Hypertension: Yes - PULMONARY Hx Asthma: Yes Hx Bronchitis: Yes Hx Chronic Obstructive Pulmonary Disease (COPD): Yes Hx Emphysema: Yes Hx Pneumonia: Yes - NEUROLOGICAL Hx Neurological Disorder: No - HEENT Hx HEENT Problems: Yes Hx Glaucoma: Yes - RENAL Hx Chronic Kidney Disease: No - ENDOCRINE/METABOLIC Hx Endocrine Disorders: Yes Hx Diabetes Mellitus Type 2: Yes Hx Systemic Lupus Erythematosus: Yes - HEMATOLOGICAL/ONCOLOGICAL Hx Blood Disorders: No - INTEGUMENTARY Hx Dermatological Problems: No - MUSCULOSKELETAL/RHEUMATOLOGICAL Hx Arthritis: Yes Hx Rheumatoid Arthritis: Yes - GASTROINTESTINAL Hx Gastritis: Yes Hx Pancreatitis: Yes - GENITOURINARY/GYNECOLOGICAL Hx Genitourinary Disorders: Yes (SEE COMMENT) Other/Comment: endometriosis - PSYCHIATRIC Hx Anxiety: Yes Hx Depression: Yes Hx Substance Use: No - SURGICAL HISTORY Hx Surgeries: Yes Hx Section: Yes (x) Other/Comment: Sinus surgery, laparoscopy - ANESTHESIA Hx Anesthesia: Yes Hx Anesthesia Reactions: No Hx Malignant Hyperthermia: No Meds Allergies/Adverse Reactions: Allergies Allergy/AdvReac Type Severity Reaction Status Date / Time methylergonovine maleate Allergy Intermediate RASH Verified 07/22/17 23:54 [From Methergine] Penicillins Allergy Intermediate RASH Verified 07/22/17 23:54 Physical Exam - Constitutional Appears: Other (in mild distress) - Eye Exam Eye Exam: EOMI, Normal appearance, PERRL Pupil Exam: NORMAL ACCOMODATION, PERRL - Respiratory Exam Respiratory Exam: Clear to Auscultation Bilateral, NORMAL BREATHING PATTERN - Cardiovascular Exam Cardiovascular Exam: REGULAR RHYTHM - GI/Abdominal Exam GI & Abdominal Exam: Tenderness Additional comments: epigastric tenderness - Psychiatric Exam Psychiatric exam: Anxious - Skin Skin Exam: Dry, Intact, Normal Color, Warm Results - Vital Signs Recent Vital Signs: Last Vital Signs Temp 98.2 F 11/17/17 16:00 Pulse 103 H 11/17/17 16:00 Resp 20 11/17/17 16:00 BP 134/81 11/17/17 16:00 Pulse Ox 96 11/17/17 16:00 - Labs Result Diagrams: 11/17/17 06:22 11/17/17 06:22 Labs: Laboratory Results - last 24 hr 11/16/17 11/16/17 11/17/17 17:09 22:52 06:22 WBC 16.6 H RBC 5.15 Hgb 14.7 Hct 42.6 MCV 82.6 MCH 28.6 MCHC 34.6 RDW 14.3 Plt Count 199 MPV 9.7 PT INR Sodium Potassium Chloride Carbon Dioxide Anion Gap BUN Creatinine Est GFR ( Amer) Est GFR (Non-Af Amer) POC Glucose (mg/dL) 203 H 153 H Random Glucose Calcium Total Bilirubin AST ALT Alkaline Phosphatase Total Protein Albumin Globulin Albumin/Globulin Ratio Amylase Lipase Urine HCG, Qual 11/17/17 11/17/17 11/17/17 06:22 06:22 07:35 WBC RBC Hgb Hct MCV MCH MCHC RDW Plt Count MPV PT INR Sodium 131 L Potassium 3.0 L Chloride 96 L Carbon Dioxide 24 Anion Gap 14 BUN 13 Creatinine 0.8 Est GFR ( Amer) > 60 Est GFR (Non-Af Amer) > 60 POC Glucose (mg/dL) Random Glucose 171 H Calcium 9.0 Total Bilirubin 0.7 AST 19 ALT 22 Alkaline Phosphatase 108 Total Protein 7.8 Albumin 4.0 Globulin 3.8 Albumin/Globulin Ratio 1.1 Amylase 216 H D Lipase 521 H Urine HCG, Qual Negative 11/17/17 11/17/17 07:52 14:14 WBC RBC Hgb Hct MCV MCH MCHC RDW Plt Count MPV PT 12.2 INR 1.1 Sodium Potassium Chloride Carbon Dioxide Anion Gap BUN Creatinine Est GFR ( Amer) Est GFR (Non-Af Amer) POC Glucose (mg/dL) 204 H Random Glucose Calcium Total Bilirubin AST ALT Alkaline Phosphatase Total Protein Albumin Globulin Albumin/Globulin Ratio Amylase Lipase Urine HCG, Qual Assessment & Plan (1) Vomiting Status: Acute (2) Hypertension Status: Chronic (3) Abdominal pain Assessment and Plan: Rule ou gastritis, PUD, GERD, OA, \ Medical managment reglan alexan amylase/lipase/UA detailed orders written Status: Acute Priority: High (4) Nausea & vomiting Status: Acute (5) Diabetes mellitus type 2 Status: Chronic Priority: Medium (6) Obesity Status: Chronic
--- NOTE | 2017-11-17 16:42 | CP.PCM.PN ---
Subjective - Date & Time of Evaluation Date of Evaluation: 11/17/17 Time of Evaluation: 19:40 Objective - Vital Signs/Intake and Output Vital Signs (last 24 hours): Temp Pulse Resp BP Pulse Ox 98.2 F 103 H 20 134/81 96 11/17/17 16:00 11/17/17 16:00 11/17/17 16:00 11/17/17 16:00 11/17/17 16:00 Intake and Output: 11/17/17 11/17/17 06:59 18:59 Intake Total 820 Balance 820 - Medications Medications: Current Medications Albuterol (Ventolin Hfa 90 Mcg/Actuation (8 G)) 2 puff IH RQ6 [facility] Last Admin: 11/17/17 14:24 Dose: 2 puff Alprazolam (Xanax) 0.5 mg PO TID PRN PRN Reason: Anxiety Amlodipine Besylate (Norvasc) 5 mg PO DAILY [facility] Last Admin: 11/17/17 11:05 Dose: 5 mg Enoxaparin Sodium (Lovenox) 40 mg SC DAILY [facility] Last Admin: 11/17/17 11:00 Dose: Not Given Famotidine (Pepcid) 20 mg IVP BID [facility] Last Admin: 11/17/17 11:00 Dose: 20 mg Gabapentin (Neurontin) 300 mg PO BID [facility] Last Admin: 11/17/17 11:00 Dose: 300 mg Sodium Chloride (Sodium Chloride 0.9%) 1,000 mls @ 100 mls/hr IV .Q10H [facility] Last Admin: 11/17/17 08:13 Dose: Not Given Metronidazole (Flagyl) 500 mg in 100 mls @ 100 mls/hr IVPB Q8H [facility] Last Admin: 11/17/17 10:00 Dose: 100 mls/hr Insulin Aspart (Novolog) 0 unit SC ACHS [facility] PRN Reason: Protocol Last Admin: 11/17/17 12:30 Dose: 2 unit Latanoprost (Xalatan Opht) 0 ml OU HS [facility] Last Admin: 11/16/17 23:45 Dose: 2.5 ml Losartan Potassium (Cozaar) 100 mg PO DAILY [facility] Last Admin: 11/17/17 11:00 Dose: 100 mg Metoclopramide HCl (Reglan) 10 mg IVP Q8 [facility] Last Admin: 11/17/17 15:00 Dose: 10 mg Mometasone Furoate (Asmanex Twisthaler 110 Mcg) 1 puff INH RBID [facility] Ondansetron HCl (Zofran Inj) 4 mg IVP Q4 PRN PRN Reason: Nausea/Vomiting Stop: 11/23/17 08:05 Oxycodone HCl (Oxycodone Immediate Release Tab) 15 mg PO Q6 PRN PRN Reason: Pain, severe (8-10) Last Admin: 11/17/17 08:10 Dose: 15 mg Pantoprazole Sodium (Protonix Inj) 40 mg IVP DAILY [facility] Last Admin: 11/17/17 11:00 Dose: 40 mg Potassium Chloride (Potassium Chloride Oral Soln) 40 meq PO ONCE ONE Stop: 11/17/17 16:46 Tiotropium [place] (Spiriva) 18 mcg IH RQD [facility] Last Admin: 11/17/17 09:19 Dose: 18 mcg - Labs Labs: 11/17/17 06:22 11/17/17 06:22 PT 12.2 SECONDS (9.7-12.2) 11/17/17 14:14 INR 1.1 11/17/17 14:14
[2017-11-17] MEDS ORDERED: Potassium Chloride 20 mEq/15 ml LIQ UD PO ONE (16:45)
--- NOTE | 2017-11-17 18:37 | CARD ---
APPROVED REPORT EKG Measurement Heart [id number] <Conclusion> Sinus rhythm with premature atrial complexes Prolonged QT Abnormal ECG
[2017-11-17] MEDS: Latanoprost 2.5 ml Opht Soln OU SCH (21:15)
[2017-11-18] MEDS: metroNIDAZOLE IV 500 mg/100 ml 500 MG/100 ML BAG IVPB SCH ×3 (00:25→16:04)
[2017-11-18] MEDS: Albuterol HFA 90 mcg/actuation (8 g) IH SCH ×4 (01:57→20:11)
[2017-11-18] MEDS: oxyCODONE 5 mg Immediate Release Tab PO PRN ×4 (03:25→21:45)
[2017-11-18] MEDS: Sodium Chloride 0.9% 1,000 ML IV SCH ×4 (04:43→21:04)
[2017-11-18 07:45] LABS: AMYLASE 132 U/L (30-110); HDL CHOLESTEROL 24 mg/dL (30-70); LIPASE 130 U/L (23-300)
[2017-11-18 07:50] LABS: LDL CHOLESTEROL 148 mg/dL (0-129)
[2017-11-18] MEDS: Tiotropium 18 mcg Cap For Inhalation IH SCH (08:09)
[2017-11-18] MEDS: (Novolog) Insulin Aspart, Recombinant 100 u/ml 10 ml vial SC SCH ×4 (08:40→21:21)
--- NOTE | 2017-11-18 09:28 | CON ---
DATE: 11/16/[address] Graff to Dr. Corey Orellana. I was called for a GI consultation by the admitting MD. The patient was seen and fully examined on 11/16/2017 as requested by the ER staff and the admitting medical staff. The entire chart is reviewed, including, but not limited to the most recent lab and the radiology study results, current and the previous medication list, current and the previous medical events, allergies to medications list, as well as all the available current and the previous medical records. Case discussed with the staff at length. HISTORY OF PRESENT ILLNESS: This is a 42-year-old female, who was admitted to the hospital through the emergency room with recurrence of severe, crampy abdominal pain and anxiety syndrome, nausea, and vomiting, possible abdominal distention with very poor oral intake for the last several hours prior to her admission with intermittent periods of headache and body ache. No chest pain. No shortness of breath. No palpitation, and no reported active bleeding. No reported chills or fever. PAST MEDICAL HISTORY: Including, but not limited to: 1. COPD with bronchitis. 2. Diabetes mellitus. 3. Peptic ulcer disease. 4. Known history of hypertension with hyperlipidemia. 5. Rheumatoid arthritis. 6. Severe anxiety syndrome. 7. Poorly-controlled diabetes mellitus. 8. More than one episode of pancreatitis - recent, as well as pneumonia before. 9. The patient had her last upper endoscopy done about 2 years ago. FAMILY HISTORY: Unknown. SOCIAL HISTORY: Positive for cigarette smoking, but no reported recent history of alcoholic intake. CURRENT MEDICATIONS: Medication lists were reviewed. ALLERGIES TO MEDICATIONS: Unclear. After being admitted to the hospital, the patient was found to have leukocytosis of 14.3 with low sodium of 126, low CO2 content of 20 indicative of metabolic acidosis with elevated blood glucose level to 277 with low creatinine. PHYSICAL EXAMINATION: GENERAL: A 42-year-old female, who appears to be awake, alert, and oriented, complaining of crampy abdominal pain with recurrent episodes of vomiting with persistent nausea. VITAL SIGNS: Afebrile with pulse of 96, respiratory rate 20-22 with a blood pressure of 194/110. HEENT: Showed mildly dry oral mucous membrane. Nonicteric sclerae. LYMPH NODES: No lymphadenitis or lymphadenopathy. LUNGS: A few scattered crepitation with decreased air entry at bases. HEART: Positive S1 and S2 with increased rate. ABDOMEN: Soft with mild generalized tenderness with mild distention. No mass or organomegaly. No rebound tenderness or guarding. Mild abdominal distention seen. RECTAL EXAMINATION: The patient refused. EXTREMITIES: With slight lower extremity edematous changes. No clubbing or cyanosis. NEUROLOGIC: No reported new neurological deficits, sensory or motor. No focal neurological deficits newly reported. Peripheral pulses are present bilaterally. IMPRESSION 1. Re-exacerbation of peptic ulcer disease, rule out gastric versus duodenal ulcer. 2. Poorly-controlled diabetes mellitus with possible diabetic gastroparesis with recurrent episodes of nausea and vomiting. 3. To rule out an acute stage of recurrent pancreatitis with possible biliary tree disorder. 4. Electrolyte imbalance with hyponatremia that could be secondary to the recurrent episodes of nausea and vomiting versus poorly controlled hyperglycemia. 5. Multiple past medical histories as reported above with severe anxiety syndrome. SUGGESTION: 1. Agree with your plan. 2. Serum lipase and amylase levels. 3. Abdominal ultrasound with attention to the biliary tree and the pancreas. 4. Correct any underlying electrolyte imbalance including the patient's hyperglycemia. 5. Reglan IV. 6. Proton pump inhibitors IV. 7. Re-hydration. 8. Endoscopic evaluation of the upper gastrointestinal tract when the patient is more stable clinically. 9. Further recommendations to follow. Thank you for letting me to participate in your patient's case management. Roni Graff MD
[2017-11-18] MEDS: Enoxaparin 40 mg Syringe SC SCH (10:15)
--- NOTE | 2017-11-18 11:39 | PN ---
DATE: LOCATION: [facility], bed A. SUBJECTIVE: This is a 42-year-old female seen and examined in rounds without significant clinical changes, with complaint of abdominal pain, somewhat less than before, with nausea and dyspepsia. The entire chart is reviewed including, but not limited to the most recent lab and radiology study results, current and the previous medication list, current and the previous medical events. Case discussed with the staff. The patient had abdominal ultrasound indicative of diffuse fatty liver, most likely. Today's lab showed elevated triglyceride to 187, with normal cholesterol, but amylase is still elevated to 132, with normal lipase. The patient had elevated blood glucose level recently. PHYSICAL EXAMINATION: GENERAL: A 42-year-old female. VITAL SIGNS: Afebrile, with pulse of 92, respiratory rate 20 to 22, blood pressure 138/82. HEENT: Showed mildly pale dry oral mucous membrane. Nonicteric sclerae. LUNGS: Few scattered crepitations, decreased air entry at bases. HEART: Positive S1 and S2. ABDOMEN: Soft with mid epigastric tenderness and mild distention. No mass or organomegaly. No rebound tenderness or guarding. RECTAL: The patient refused again. EXTREMITIES: No clubbing, cyanosis or edematous changes. Peripheral pulses are present bilaterally. NEUROLOGIC: No reported new neurological deficits, sensory or motor. IMPRESSION: 1. Acute pancreatitis, gradually improving biochemically and clinically, that could be secondary to hyperlipidemia. 2. Re-exacerbation of peptic ulcer disease, to rule out gastric versus duodenal ulcers. 3. Electrolyte imbalance. 4. Leukocytosis, most likely secondary to above. 5. Poorly-controlled diabetes mellitus with possible diabetic gastroparesis. 6. Known history of rheumatoid arthritis. 7. Known history of severe anxiety syndrome, hypertension with hyperlipidemia, and previous episodes of pancreatitis as well as pneumonia, before. SUGGESTION: 1. Continue current management. 2. Full liquid diet. 3. Patient for upper endoscopy at a.m. 4. Further recommendations to follow. Roni Graff MD
--- NOTE | 2017-11-18 20:58 | CP.PCM.PN ---
Subjective - Date & Time of Evaluation Date of Evaluation: 11/18/17 Time of Evaluation: 18:40 - Subjective Subjective: Pt seen and evaluated at bedside, is anxious, s/p EGD consistent with gastritis , JAYLON, pt is afberile, decresaed nausea, vomitting and abdominal pain, she is feeling better Objective - Vital Signs/Intake and Output Vital Signs (last 24 hours): Temp Pulse Resp BP Pulse Ox 98.5 F 88 20 159/96 H 97 11/18/17 16:00 11/18/17 16:00 11/18/17 16:00 11/18/17 16:00 11/18/17 16:00 Intake and Output: 11/18/17 11/19/17 18:59 06:59 Intake Total 1200 Balance 1200 - Medications Medications: Current Medications Albuterol (Ventolin Hfa 90 Mcg/Actuation (8 G)) 2 puff IH RQ6 [facility] Last Admin: 11/18/17 20:11 Dose: 2 puff Alprazolam (Xanax) 0.5 mg PO TID PRN PRN Reason: Anxiety Amlodipine Besylate (Norvasc) 5 mg PO DAILY [facility] Last Admin: 11/18/17 10:14 Dose: 5 mg Enoxaparin Sodium (Lovenox) 40 mg SC DAILY [facility] Last Admin: 11/18/17 10:15 Dose: Not Given Famotidine (Pepcid) 20 mg IVP BID [facility] Last Admin: 11/18/17 18:07 Dose: 20 mg Gabapentin (Neurontin) 300 mg PO BID [facility] Last Admin: 11/18/17 18:07 Dose: 300 mg Sodium Chloride (Sodium Chloride 0.9%) 1,000 mls @ 100 mls/hr IV .Q10H [facility] Last Admin: 11/18/17 15:20 Dose: Not Given Metronidazole (Flagyl) 500 mg in 100 mls @ 100 mls/hr IVPB Q8H [facility] Last Admin: 11/18/17 16:04 Dose: 100 mls/hr Insulin Aspart (Novolog) 0 unit SC ACHS [facility] PRN Reason: Protocol Last Admin: 11/18/17 16:44 Dose: 2 unit Latanoprost (Xalatan Opht) 0 ml OU HS [facility] Last Admin: 11/17/17 21:15 Dose: 2.5 ml Losartan Potassium (Cozaar) 100 mg PO DAILY [facility] Last Admin: 11/18/17 10:14 Dose: 100 mg Metoclopramide HCl (Reglan) 10 mg IVP Q8 [facility] Last Admin: 11/18/17 13:31 Dose: 10 mg Mometasone Furoate (Asmanex Twisthaler 110 Mcg) 1 puff INH RBID [facility] Ondansetron HCl (Zofran Inj) 4 mg IVP Q4 PRN PRN Reason: Nausea/Vomiting Stop: 11/23/17 08:05 Oxycodone HCl (Oxycodone Immediate Release Tab) 15 mg PO Q6 PRN PRN Reason: Pain, severe (8-10) Last Admin: 11/18/17 16:48 Dose: 15 mg Pantoprazole Sodium (Protonix Inj) 40 mg IVP DAILY [facility] Last Admin: 11/18/17 10:15 Dose: 40 mg Tiotropium [place] (Spiriva) 18 mcg IH RQD [facility] Last Admin: 11/18/17 08:09 Dose: 18 mcg - Labs Labs: 11/17/17 06:22 11/17/17 06:22 PT 12.2 SECONDS (9.7-12.2) 11/17/17 14:14 INR 1.1 11/17/17 14:14 APTT 29 SECONDS (21-34) 11/18/17 08:16 - Constitutional Appears: No Acute Distress - Head Exam Head Exam: ATRAUMATIC, NORMAL INSPECTION, NORMOCEPHALIC - Eye Exam Eye Exam: EOMI, Normal appearance, PERRL Pupil Exam: NORMAL ACCOMODATION, PERRL - Respiratory Exam Respiratory Exam: Decreased Breath Sounds - Cardiovascular Exam Cardiovascular Exam: REGULAR RHYTHM, +S1, +S2. absent: Murmur - GI/Abdominal Exam GI & Abdominal Exam: Soft, Normal Bowel Sounds. absent: Tenderness Assessment and Plan (1) Vomiting Status: Acute (2) Hypertension Status: Chronic (3) Abdominal pain Status: Acute (4) Nausea & vomiting Status: Acute (5) Diabetes mellitus type 2 Status: Chronic (6) Obesity Status: Chronic
[2017-11-18] MEDS: Latanoprost 2.5 ml Opht Soln OU SCH (21:06)
[2017-11-19] MEDS: Albuterol HFA 90 mcg/actuation (8 g) IH SCH ×4 (01:48→19:00)
[2017-11-19] MEDS: oxyCODONE 5 mg Immediate Release Tab PO PRN ×3 (04:35→23:16)
[2017-11-19 07:45] LABS: BASO % 0.6 % (0.0-2.0); EOS # 0.2 K/uL (0.0-0.7); EOS % 2.3 % (0.0-4.0); HEMOGLOBIN 13.5 g/dL (11.0-16.0); LYMPH # 1.8 K/uL (1.0-4.3); LYMPH % 25.4 % (20.0-40.0); MEAN CELL VOLUME 83.4 fL (81.0-99.0); MEAN CORPUSCULAR HEMOGLOBIN 28.5 pg (27.0-31.0); MEAN CORPUSCULAR HGB CONC 34.2 g/dL (33.0-37.0); MEAN PLATELET VOLUME 9.9 fL (7.2-11.7); MONO # 0.9 K/uL (0.0-0.8); MONO % 12.1 % (0.0-10.0); NEUT # 4.2 K/uL (1.8-7.0); NEUT % 59.6 % (50.0-75.0); NRBC % 0.1 % (0.0-2.0); RBC 4.73 Mil/uL (3.80-5.20); RED CELL DISTRIBUTION WIDTH 14.3 % (11.5-14.5)
[2017-11-19 08:12] LABS: ALB/GLOB RATIO 1.1 (1.0-2.1); ALBUMIN 3.4 g/dL (3.5-5.0); ALT/SGPT 27 U/L (9-52); AMYLASE 77 U/L (30-110); AST/SGOT 19 U/L (14-36); BLOOD UREA NITROGEN 7 mg/dL (7-17); CALCIUM 8.6 mg/dl (8.6-10.4); GFR AFRICAN-AMERICAN > 60; GFR NON-AFRICAN AMERICAN > 60; LIPASE 82 U/L (23-300)
[2017-11-19] MEDS: Sodium Chloride 0.9% 1,000 ML IV SCH ×4 (08:15→23:15)
[2017-11-19] MEDS: (Novolog) Insulin Aspart, Recombinant 100 u/ml 10 ml vial SC SCH ×4 (08:16→21:36)
[2017-11-19] MEDS: metroNIDAZOLE IV 500 mg/100 ml 500 MG/100 ML BAG IVPB SCH ×3 (09:46→17:44)
[2017-11-19] MEDS: Tiotropium 18 mcg Cap For Inhalation IH SCH (10:28)
[2017-11-19] MEDS ORDERED: Propofol 10 mg/ml Inj (20 ML) ONE (13:17)
[2017-11-19] MEDS ORDERED: Lidocaine Hydrochloride 10 ML INJ ONE (13:18)
[2017-11-19] MEDS ORDERED: Midazolam 2 MG/2 ML VIAL ONE (13:18)
[2017-11-19] MEDS ORDERED: Lactated Ringer's 1,000 ML IV ONE ×2 (13:20)
[2017-11-19] MEDS ORDERED: Lidocaine 4% (Laryng-O-Jet) Kit MM ONE (13:21)
[2017-11-19] MEDS: Sucralfate 1 gm/10 ml Oral Susp UD PO SCH ×3 (14:58→21:31)
[2017-11-19 15:45] VITALS: RESP 20
[2017-11-19] MEDS ORDERED: Potassium Chloride 20 mEq ER Tab PO ONE (16:00)
[2017-11-19] MEDS: Latanoprost 2.5 ml Opht Soln OU SCH (21:32)
--- NOTE | 2017-11-19 22:15 | CP.PCM.PN ---
Subjective - Date & Time of Evaluation Date of Evaluation: 11/19/17 Time of Evaluation: 19:40 - Subjective Subjective: Pt seen and evaluated at bedside, is anxious, s/p EGD consistent with gastritis , JAYLON, pt is afberile, decresaed nausea, vomitting and abdominal pain, she is feeling better Objective - Vital Signs/Intake and Output Vital Signs (last 24 hours): Temp Pulse Resp BP Pulse Ox 98.4 F 86 20 162/94 H 98 11/19/17 15:30 11/19/17 15:30 11/19/17 15:30 11/19/17 15:30 11/19/17 15:30 Intake and Output: 11/19/17 11/20/17 18:59 06:59 Intake Total 300 Output Total 2 Balance 298 - Medications Medications: Current Medications Albuterol (Ventolin Hfa 90 Mcg/Actuation (8 G)) 2 puff IH RQ6 [facility] Last Admin: 11/19/17 19:00 Dose: 2 puff Alprazolam (Xanax) 0.5 mg PO TID PRN PRN Reason: Anxiety Last Admin: 11/19/17 17:47 Dose: 0.5 mg Amlodipine Besylate (Norvasc) 5 mg PO DAILY [facility] Last Admin: 11/19/17 09:48 Dose: Not Given Enoxaparin Sodium (Lovenox) 40 mg SC DAILY [facility] Last Admin: 11/18/17 10:15 Dose: Not Given Gabapentin (Neurontin) 300 mg PO BID [facility] Last Admin: 11/19/17 17:42 Dose: 300 mg Metronidazole (Flagyl) 500 mg in 100 mls @ 100 mls/hr IVPB Q8H [facility] Last Admin: 11/19/17 17:44 Dose: 100 mls/hr Insulin Aspart (Novolog) 0 unit SC ACHS [facility] PRN Reason: Protocol Last Admin: 11/19/17 21:36 Dose: Not Given Latanoprost (Xalatan Opht) 0 ml OU HS [facility] Last Admin: 11/19/17 21:32 Dose: 2.5 ml Losartan Potassium (Cozaar) 100 mg PO DAILY [facility] Last Admin: 11/19/17 10:07 Dose: Not Given Metoclopramide HCl (Reglan) 10 mg IVP Q8 [facility] Last Admin: 11/19/17 21:31 Dose: 10 mg Mometasone Furoate (Asmanex Twisthaler 110 Mcg) 1 puff INH RBID [facility] Ondansetron HCl (Zofran Inj) 4 mg IVP Q4 PRN PRN Reason: Nausea/Vomiting Stop: 11/23/17 08:05 Oxycodone HCl (Oxycodone Immediate Release Tab) 15 mg PO Q6 PRN PRN Reason: Pain, severe (8-10) Last Admin: 11/19/17 16:45 Dose: 15 mg Pantoprazole Sodium (Protonix Inj) 40 mg IVP DAILY [facility] Last Admin: 11/19/17 10:08 Dose: 40 mg Sucralfate (Carafate Oral Susp) 1 gm PO ACHS [facility] Last Admin: 11/19/17 21:31 Dose: 1 gm Tiotropium [place] (Spiriva) 18 mcg IH RQD [facility] Last Admin: 11/19/17 10:28 Dose: 18 mcg - Labs Labs: 11/19/17 07:23 11/19/17 07:23 PT 12.2 SECONDS (9.7-12.2) 11/17/17 14:14 INR 1.1 11/17/17 14:14 APTT 29 SECONDS (21-34) 11/18/17 08:16 - Constitutional Appears: No Acute Distress - Head Exam Head Exam: ATRAUMATIC, NORMAL INSPECTION, NORMOCEPHALIC - Eye Exam Eye Exam: EOMI, Normal appearance, PERRL Pupil Exam: NORMAL ACCOMODATION, PERRL - Respiratory Exam Respiratory Exam: Clear to Ausculation Bilateral, NORMAL BREATHING PATTERN - Cardiovascular Exam Cardiovascular Exam: REGULAR RHYTHM, +S1, +S2. absent: Murmur - GI/Abdominal Exam GI & Abdominal Exam: Soft, Normal Bowel Sounds. absent: Tenderness Assessment and Plan (1) Vomiting Status: Acute (2) Hypertension Status: Chronic (3) Abdominal pain Status: Resolved (4) Nausea & vomiting Status: Resolved (5) Diabetes mellitus type 2 Status: Chronic (6) Obesity Status: Chronic (7) GERD (gastroesophageal reflux disease) Status: Acute
[2017-11-20] MEDS: metroNIDAZOLE IV 500 mg/100 ml 500 MG/100 ML BAG IVPB SCH ×2 (01:10→09:46)
[2017-11-20] MEDS: Albuterol HFA 90 mcg/actuation (8 g) IH SCH ×3 (01:51→13:17)
[2017-11-20 07:52] LABS: AMYLASE 95 U/L (30-110); LIPASE 66 U/L (23-300)
[2017-11-20] MEDS: Sucralfate 1 gm/10 ml Oral Susp UD PO SCH ×2 (08:04→12:05)
[2017-11-20] MEDS: (Novolog) Insulin Aspart, Recombinant 100 u/ml 10 ml vial SC SCH ×2 (08:05→12:09)
[2017-11-20 08:35] VITALS: BP 159/98; PULSE 77; TEMP 98; O2SAT 99
[2017-11-20] MEDS: Tiotropium 18 mcg Cap For Inhalation IH SCH (09:25)
[2017-11-20] MEDS: oxyCODONE 5 mg Immediate Release Tab PO PRN (09:58)
--- NOTE | 2017-11-20 12:17 | PN ---
DATE: LOCATION: Room 350 bed A. SUBJECTIVE: This is a 42-year-old female seen and examined in rounds without significant clear new changes with much less abdominal pain, tolerating oral intake well. The entire chart is reviewed including, but not limited to the most recent lab and radiology study results, current and the previous medication list, current and the previous medical events and the base blood glucose level is still elevated to 215, but with normal lipase and amylase levels. PHYSICAL EXAMINATION GENERAL: A 42-year-old female VITAL SIGNS: Afebrile with pulse of 74, respiratory rate 20 to 22 with blood pressure 152/90. HEENT: Showed mildly pale dry oral mucoid membrane. Nonicteric sclerae. LUNGS: Few scattered crepitation. Decreased air entry at bases. HEART: Positive S1 and S2. ABDOMEN: Soft, bowel sounds are present with mild distention. No mass or organomegaly. No rebound tenderness or guarding. EXTREMITIES: Without edema, clubbing, or cyanosis. NEUROLOGIC: No reported new neurological deficits, sensory or motor. No focal new deficits reported. IMPRESSION 1. Re-exacerbation of peptic ulcer disease with acute gastritis and duodenitis with medium-sized hiatus hernia. 2. Possible diabetic gastroparesis. 3. Known history of, but not limited to recent acute pancreatitis, improving clinically and biochemically; rheumatoid arthritis, severe anxiety syndrome with history of poorly controlled hypertension. 4. Known history of hyperlipidemia and pneumonia before. SUGGESTIONS 1. Continue current management. 2. tablet one twice a day. 3. Bentyl 10 mg one tablet twice a day. 4. Further recommendations to follow. Roni Graff MD 11/20/2017 9:45:07DT: 11/20/2017 11:02:14Job # [id number]
[2017-11-20 13:44] LABS: BLOOD UREA NITROGEN 12 mg/dL (7-17); CALCIUM 8.4 mg/dl (8.6-10.4); GFR AFRICAN-AMERICAN > 60; GFR NON-AFRICAN AMERICAN > 60
[2017-11-20] MEDS ORDERED: Potassium Chloride 20 mEq ER Tab PO ONE (15:00)
--- NOTE | 2017-11-20 15:30 | CP.PCM.PN ---
Subjective - Date & Time of Evaluation Date of Evaluation: 11/20/17 Time of Evaluation: 11:00 - Subjective Subjective: Alert and orientedx3, no abdominal pain or distress. Objective - Vital Signs/Intake and Output Vital Signs (last 24 hours): Temp Pulse Resp BP Pulse Ox 98.0 F 77 20 159/98 H 99 11/20/17 08:00 11/20/17 08:00 11/20/17 08:00 11/20/17 08:00 11/20/17 08:00 Intake and Output: 11/20/17 11/20/17 06:59 18:59 Intake Total 1100 1040 Balance 1100 1040 - Labs Labs: 11/19/17 07:23 11/20/17 07:18 PT 12.2 SECONDS (9.7-12.2) 11/17/17 14:14 INR 1.1 11/17/17 14:14 APTT 29 SECONDS (21-34) 11/18/17 08:16 Assessment and Plan - Assessment and Plan (Free Text) Assessment: Patient is seen and examined. Had EGD done yesterday, tolerating diet today. No vomiting or abdominal pain noted. Alert and orientedx3, anxious. Discussed with DR Orellana, plan to discharge home today. prescription given for carafate as advised by DR Kwok. Advised to follow up with PMD in 1 week.
--- NOTE | 2017-11-20 23:41 | CP.PCM.DIS ---
Provider - Provider Date of Admission: 11/17/17 09:17 Attending physician: Corey Orellana MD Diagnosis - Discharge Diagnosis (1) Vomiting Status: Acute (2) Hypertension Status: Chronic (3) Abdominal pain Status: Resolved Priority: High (4) Nausea & vomiting Status: Resolved (5) Diabetes mellitus type 2 Status: Chronic Priority: Medium (6) Obesity Status: Chronic (7) GERD (gastroesophageal reflux disease) Status: Acute Hospital Course - Lab Results Lab Results: Most Recent Lab Values WBC 7.0 K/uL (4.8-10.8) D 11/19/17 07:23 RBC 4.73 Mil/uL (3.80-5.20) 11/19/17 07:23 Hgb 13.5 g/dL (11.0-16.0) 11/19/17 07:23 Hct 39.5 % (34.0-47.0) 11/19/17 07:23 MCV 83.4 fL (81.0-99.0) 11/19/17 07:23 MCH 28.5 pg (27.0-31.0) 11/19/17 07:23 MCHC 34.2 g/dL (33.0-37.0) 11/19/17 07:23 RDW 14.3 % (11.5-14.5) 11/19/17 07:23 Plt Count 147 K/uL (130-400) 11/19/17 07:23 MPV 9.9 fL (7.2-11.7) 11/19/17 07:23 Neut % (Auto) 59.6 % (50.0-75.0) 11/19/17 07:23 Lymph % (Auto) 25.4 % (20.0-40.0) 11/19/17 07:23 [place] % (Auto) 12.1 % (0.0-10.0) H 11/19/17 07:23 Eos % (Auto) 2.3 % (0.0-4.0) 11/19/17 07:23 Baso % (Auto) 0.6 % (0.0-2.0) 11/19/17 07:23 Neut # 4.2 K/uL (1.8-7.0) 11/19/17 07:23 Lymph # 1.8 K/uL (1.0-4.3) 11/19/17 07:23 [place] # 0.9 K/uL (0.0-0.8) H 11/19/17 07:23 Eos # 0.2 K/uL (0.0-0.7) 11/19/17 07:23 Baso # 0.0 K/uL (0.0-0.2) 11/19/17 07:23 Neutrophils % (Manual) 87 % (50-75) H 11/16/17 01:05 Lymphocytes % (Manual) 6 % (20-40) L 11/16/17 01:05 Reactive Lymphs % 7 % (0-0) H 11/16/17 01:05 Monocytes % (Manual) 0 % (0-10) 11/16/17 01:05 Platelet Estimate Normal (NORMAL) 11/16/17 01:05 PT 12.2 SECONDS (9.7-12.2) 11/17/17 14:14 INR 1.1 11/17/17 14:14 APTT 29 SECONDS (21-34) 11/18/17 08:16 pO2 203 mm/Hg (30-55) H 11/15/17 00:10 VBG pH 7.54 (7.32-7.43) H 11/15/17 00:10 VBG pCO2 22 mmHg (40-60) L 11/15/17 00:10 VBG HCO3 23.6 mmol/L 11/15/17 00:10 VBG Total CO2 19.5 mmol/L (22-28) L 11/15/17 00:10 VBG O2 Sat (Calc) 98.5 % (40-65) H 11/15/17 00:10 VBG Base Excess -1.8 mmol/L (0.0-2.0) L 11/15/17 00:10 VBG Potassium 5.1 mmol/L (3.6-5.2) 11/15/17 00:10 Sodium 135.0 mmol/l (132-148) 11/15/17 00:10 Chloride 104.0 mmol/L (98-107) 11/15/17 00:10 Glucose 248 mg/dl (65-105) H 11/15/17 00:10 Lactate 1.3 mmol/L (0.7-2.1) 11/15/17 00:10 Sodium 127 mmol/L (132-148) L 11/20/17 07:18 Potassium 3.5 mmol/L (3.6-5.2) L 11/20/17 07:18 Chloride 99 mmol/L (98-107) 11/20/17 07:18 Carbon Dioxide 22 mmol/L (22-30) 11/20/17 07:18 Anion Gap 10 (10-20) 11/20/17 07:18 BUN 12 mg/dL (7-17) 11/20/17 07:18 Creatinine 0.6 mg/dL (0.7-1.2) L 11/20/17 07:18 Est GFR ( Amer) > 60 11/20/17 07:18 Est GFR (Non-Af Amer) > 60 11/20/17 07:18 POC Glucose (mg/dL) 196 mg/dL (65-110) H 11/20/17 11:09 Random Glucose 232 mg/dL (65-105) H 11/20/17 07:18 Calcium 8.4 mg/dl (8.6-10.4) L 11/20/17 07:18 Total Bilirubin 0.6 mg/dL (0.2-1.3) 11/19/17 07:23 AST 19 U/L (14-36) 11/19/17 07:23 ALT 27 U/L (9-52) 11/19/17 07:23 Alkaline Phosphatase 76 U/L (38-126) 11/19/17 07:23 Troponin I 0.0220 ng/mL (0.00-0.120) 11/16/17 00:27 Total Protein 6.6 g/dL (6.3-8.3) 11/19/17 07:23 Albumin 3.4 g/dL (3.5-5.0) L 11/19/17 07:23 Globulin 3.1 gm/dL (2.2-3.9) 11/19/17 07:23 Albumin/Globulin Ratio 1.1 (1.0-2.1) 11/19/17 07:23 Triglycerides 187 mg/dL (0-149) H 11/18/17 07:15 Cholesterol 187 mg/dL (0-199) 11/18/17 07:15 LDL Cholesterol Direct 148 mg/dL (0-129) H 11/18/17 07:15 HDL Cholesterol 24 mg/dL (30-70) L 11/18/17 07:15 Amylase 95 U/L (30-110) 11/20/17 07:18 Lipase 66 U/L (23-300) 11/20/17 07:18 Venous Blood Potassium 5.1 mmol/L (3.6-5.2) 11/15/17 00:10 Urine Color Yellow (YELLOW) 11/15/17 11:50 Urine Clarity Clear (Clear) 11/15/17 11:50 Urine pH 7.0 (5.0-8.0) 11/15/17 11:50 Ur Specific [place] 1.021 (1.003-1.030) 11/15/17 11:50 Urine Protein 3+ mg/dL (NEGATIVE) H 11/15/17 11:50 Urine Glucose (UA) 3+ mg/dL (Normal) H 11/15/17 11:50 Urine Ketones 2+ mg/dL (NEGATIVE) H 11/15/17 11:50 Urine Blood Negative (NEGATIVE) 11/15/17 11:50 Urine Nitrate Negative (NEGATIVE) 11/15/17 11:50 Urine Bilirubin Negative (NEGATIVE) 11/15/17 11:50 Urine Urobilinogen Normal mg/dL (0.2-1.0) 11/15/17 11:50 Ur Leukocyte Esterase Neg [place]/uL (Negative) 11/15/17 11:50 Urine WBC (Auto) 1 /hpf (0-5) 11/15/17 11:50 Urine RBC (Auto) 3 /hpf (0-3) 11/15/17 11:50 Ur Squamous Epith Cells 3 /hpf (0-5) 11/15/17 11:50 Urine Bacteria Rare (<OCC) 11/15/17 11:50 Hyaline Casts 0-2 /lpf (0-2) 11/15/17 11:50 Urine HCG, Qual Negative (NEGATIVE) 11/19/17 07:46 - Hospital Course Hospital Course: Patient is seen and examined. Had EGD done yesterday, tolerating diet today. No vomiting or abdominal pain noted. Alert and orientedx3, anxious. pt is stable, plan to discharge home today. prescription given for carafate as advised by DR Kwok. Advised to follow up with me in 1 week. Discharge Exam - Head Exam Head Exam: ATRAUMATIC, NORMAL INSPECTION, NORMOCEPHALIC Discharge Plan - Discharge Medications Prescriptions: Sucralfate [Carafate] 1 gm PO TID #90 tab Alprazolam [Xanax] 0.5 mg PO TID PRN #15 tablet PRN Reason: Anxiety - Follow Up Plan Condition: FAIR Disposition: HOME/ ROUTINE Instructions: Sucralfate (By mouth), Alprazolam (By mouth), Hyponatremia (DC), Acute Nausea and Vomiting (DC) Referrals: Corey Orellana MD [Staff Provider] -
== END 2017-11-20 15:04 | disposition home or self-care (01) | DRG 533 ==
LOC: C.ER 22:41 → C.9E 11-16 01:35 → C.3T 11-16 17:38 → OBSVTOIN 11-17 09:17
PROVIDERS: ADMIT Internal Medicine; ATTEND Internal Medicine
PROC: 0DB88ZX Excision of Small Intestine, Via Natural or Artificial Opening Endoscopic, Diagnostic (ICD-10-PCS; principal; 2017-11-19 13:29)
DX: E11.43 Type 2 diabetes mellitus with diabetic autonomic (poly)neuropathy (principal); K85.90 Acute pancreatitis without necrosis or infection, unspecified; E11.65 Type 2 diabetes mellitus with hyperglycemia; E87.2 Acidosis; E87.1 Hypo-osmolality and hyponatremia; E66.01 Morbid (severe) obesity due to excess calories; K26.9 Duodenal ulcer, unspecified as acute or chronic, without hemorrhage or perforation; J44.9 Chronic obstructive pulmonary disease, unspecified; I10 Essential (primary) hypertension; K31.84 Gastroparesis; F41.9 Anxiety disorder, unspecified; F32.9 Major depressive disorder, single episode, unspecified; M06.9 Rheumatoid arthritis, unspecified; Z68.39 Body mass index [BMI] 39.0-39.9, adult; K21.9 Gastro-esophageal reflux disease without esophagitis; K29.70 Gastritis, unspecified, without bleeding; F17.210 Nicotine dependence, cigarettes, uncomplicated; Z79.4 Long term (current) use of insulin; E78.5 Hyperlipidemia, unspecified; K29.00 Acute gastritis without bleeding; K44.9 Diaphragmatic hernia without obstruction or gangrene

== ENCOUNTER 2018-03-11 17:53 | Emergency (ER) | payer MEDICAID ==
[2018-03-11 17:54] VITALS: BMI 39.3
--- NOTE | 2018-03-11 20:39 | C.PDOC ---
History Of Present Illness Patient c/o b/l foot and ankle pain for7-10 days. Patient sts she twisted her right foot 10 days ago and was trying to put more pressure to the left side that lead to the pain in the both sides. Patient sts she has h/o RA. Time Seen by Provider: 03/11/18 18:52 Chief Complaint (Nursing): Lower Extremity Problem/Injury Past Medical History Reviewed: Historical Data, Nursing Documentation, Vital Signs Vital Signs: Last Vital Signs Temp 98.1 F 03/11/18 21:18 Pulse 75 03/11/18 21:18 Resp 20 03/11/18 21:18 BP 150/90 03/11/18 21:18 Pulse Ox 96 03/11/18 21:18 - Medical History PMH: Anxiety, Arthritis, Asthma, Back Problems, Bronchitis, COPD, Depression, Diabetes, Emphysema, Gastritis, Gastrointestinal Ulcer, HTN, Hypercholesterolemia, Pancreatitis, Pneumonia, Rheumatoid Arthritis Denies: Chronic Kidney Disease Surgical History: Endoscopy (X2) - [facility] Procedures CLOSED ENDOSCOPIC BIOPSY OF LARGE INTESTINE (03/05/14) CORONAR ARTERIOGR-2 CATH (03/28/12) ESOPHAGOGASTRODUODENOSCOPY [EGD] W/CLOSED BIOPSY (03/10/14) EXCISION OF SMALL INTESTINE, ENDO, DIAGN (11/17/17) EXCISION OF STOMACH, ENDO, DIAGN (10/27/15) INJECT/INFUSE NEC (05/04/14) LEFT HEART CARDIAC CATH (03/28/12) LT HEART ANGIOCARDIOGRAM (03/28/12) Family History: States: Unknown Family Hx - Social History Hx Tobacco Use: Yes Hx Alcohol Use: No Hx Substance Use: No - Immunization History Hx Tetanus Toxoid Vaccination: No Hx Influenza Vaccination: Yes (December 2016) Hx Pneumococcal Vaccination: Yes (Oct 2015) Review Of Systems Except As Marked, All Systems Reviewed And Found Negative. Physical Exam - Physical Exam Appears: Well, Non-toxic, No Acute Distress Skin: Normal Color, Warm, Dry Head: Atraumatic, Normacephalic Eye(s): bilateral: Normal Inspection Neck: Normal ROM Extremity: Normal ROM, Tenderness (diffuse tenderness of both feet and both ankles), No Pedal Edema, No Calf Tenderness, Capillary Refill (<2 sec), No Deformity, No Swelling Neurological/Psych: Oriented x3, Normal Speech, Normal Cognition ED Course And Treatment O2 Sat by Pulse Oximetry: 100 - Other Rad b/l ankles and b/l foot X-Ray: Interpreted by Me Interpretation: DJD, heel spurs Progress Note: Patient was referred to business analysis professional. Disposition - Disposition Referrals: Cameron Orozco DPM [Doctor Podiatric Medicine] - Delfino Lambert DPM [Staff Provider] - Rocael Sepulveda DPM [Doctor Podiatric Medicine] - Disposition: HOME/ ROUTINE Disposition Time: 20:36 Condition: STABLE Additional Instructions: Follow up with business analysis professional within 1-2 days. Return to ED if feel worse. Prescriptions: Naproxen [Naprosyn] 1 tab PO BID PRN #25 tab PRN Reason: Pain Famotidine [Pepcid] 20 mg PO BID #20 tab Forms: [facility] (Ecuadorean) - Clinical Impression Clinical Impression: Foot pain, bilateral
[2018-03-11 21:19] VITALS: BP 150/90; PULSE 75; RESP 20; TEMP 98.1
[2018-03-11 22:43] VITALS: O2SAT 100
--- NOTE | 2018-03-12 11:09 | RAD ---
PROCEDURE: Bilateral Feet Radiographs. More HISTORY: pain/swelling/injury COMPARISON: None. FINDINGS: BONES: Right Foot: Normal. No fracture. Left Foot: Normal. No fracture. JOINTS: Right Foot: Normal. No osteoarthritis. Left Foot: Normal. No osteoarthritis. SOFT TISSUES: Right Foot: Normal. Left Foot: Normal. OTHER FINDINGS: None. IMPRESSION: Normal radiographs of the feet.
--- NOTE | 2018-03-12 11:10 | RAD ---
PROCEDURE: Bilateral Ankle Radiographs. HISTORY: pain/swelling/injury COMPARISON: None FINDINGS: BONES: Right Ankle: No fracture. Plantar calcaneal spur. Left Ankle: No fracture. Plantar calcaneal spur. JOINTS: Right Ankle: Normal. No osteoarthritis. Ankle mortise maintained. Talar dome intact. Left Ankle: Normal. No osteoarthritis. Ankle mortise maintained. Talar dome intact. SOFT TISSUES: Right Ankle: Normal. Left Ankle: Normal. OTHER FINDINGS: None. IMPRESSION: Bilateral plantar calcaneal spur. Otherwise unremarkable examination.
== END 2018-03-11 21:20 | disposition home or self-care (01) ==
LOC: C.ER 17:53
DX: M79.672 Pain in left foot (principal); M79.671 Pain in right foot

== ENCOUNTER 2018-03-19 08:52 | Inpatient (IN) | payer MEDICAID ==
[2018-03-19 08:52] VITALS: BMI 39.3
[2018-03-19] MEDS ORDERED: Magnesium Sulfate 1 gm in D5W 1 GM/100 ML BAG IVPB ONE ×2 (09:25→09:49)
[2018-03-19] MEDS ORDERED: Albuterol-Ipratrop 3 mg / 0.5 (3 ml) UD INH STA ×3 (09:25→11:12)
[2018-03-19 09:35] LABS: BASO % 0.3 % (0.0-2.0); EOS % 0.2 % (0.0-4.0); HEMOGLOBIN 14.6 g/dL (11.0-16.0); LYMPH # 1.5 K/uL (1.0-4.3); LYMPH % 12.2 % (20.0-40.0); MEAN CELL VOLUME 84.6 fL (81.0-99.0); MEAN CORPUSCULAR HEMOGLOBIN 28.9 pg (27.0-31.0); MEAN CORPUSCULAR HGB CONC 34.1 g/dL (33.0-37.0); MEAN PLATELET VOLUME 10.2 fL (7.2-11.7); MONO # 0.8 K/uL (0.0-0.8); MONO % 6.6 % (0.0-10.0); NEUT # 9.9 K/uL (1.8-7.0); NEUT % 80.7 % (50.0-75.0); RBC 5.06 Mil/uL (3.80-5.20); RED CELL DISTRIBUTION WIDTH 14.4 % (11.5-14.5)
[2018-03-19] MEDS ORDERED: Albuterol-Ipratrop 3 mg / 0.5 (3 ml) UD ONE ×3 (09:37→11:20)
[2018-03-19 09:41] LABS: WHITE BLOOD COUNT 12.3 K/uL (4.8-10.8)
[2018-03-19 09:56] LABS: ALB/GLOB RATIO 1.1 (1.0-2.1); ALBUMIN 4.1 g/dL (3.5-5.0); ALT/SGPT 32 U/L (9-52); AST/SGOT 29 U/L (14-36); BLOOD UREA NITROGEN 20 mg/dL (7-17); CALCIUM 9.7 mg/dl (8.6-10.4); GFR AFRICAN-AMERICAN > 60; GFR NON-AFRICAN AMERICAN > 60
[2018-03-19 09:59] LABS: SQUAMOUS EPITHIAL 1 /hpf (0-5); URINE BILIRUBIN NEGATIVE (NEGATIVE); URINE BLOOD NEGATIVE (NEGATIVE); URINE CLARITY Clear (Clear); URINE COLOR Yellow (YELLOW); URINE GLUCOSE (UA) 3+ mg/dL (Normal); URINE LEUKOCYTE ESTERASE NEG Leu/uL (Negative); URINE PROTEIN 2+ mg/dL (NEGATIVE); URINE UROBILINOGEN NORMAL mg/dL (0.2-1.0)
[2018-03-19 10:02] LABS: B-TYPE NATRIURETIC PEPTIDE 103 pg/mL (0-450)
--- NOTE | 2018-03-19 10:02 | RAD ---
PROCEDURE: CHEST RADIOGRAPH, 1 VIEW HISTORY: SOB COMPARISON: Frontal chest radiograph 11/15/2017. FINDINGS: LUNGS: Clear. PLEURA: No pneumothorax or pleural fluid seen. CARDIOVASCULAR: Normal. OSSEOUS STRUCTURES: No significant abnormalities. VISUALIZED UPPER ABDOMEN: Normal. OTHER FINDINGS: None. IMPRESSION: No interval acute cardiopulmonary disease appreciated.
[2018-03-19] MEDS ORDERED: (Novolin R) Insulin Human Regular 100 units/ml vial IV ONE (11:12)
[2018-03-19] MEDS ORDERED: (Novolin R) Insulin Human Regular 100 units/ml vial ONE (11:22)
--- NOTE | 2018-03-19 11:48 | C.PDOC ---
History Of Present Illness 42 y/o female, w/PMHX of asthma, presents to the ER complaining of SOB and cough which has been present for the past 2 days. Patient states that she took home medications without relief. Patient admits to smoking. Denies having fever , chills, CP, and hx of intubations. Time Seen by Provider: 03/19/18 09:15 Chief Complaint (Nursing): Shortness Of Breath History Per: Patient History/Exam Limitations: no limitations Onset/Duration Of Symptoms: Days Current Symptoms Are (Timing): Still Present Severity: Moderate Past Medical History Reviewed: Historical Data, Nursing Documentation, Vital Signs Vital Signs: Last Vital Signs Temp 98.6 F 03/19/18 11:43 Pulse 83 03/19/18 11:43 Resp 18 03/19/18 11:43 BP 153/108 H 03/19/18 11:53 Pulse Ox 98 03/19/18 12:07 - Medical History PMH: Anxiety, Arthritis, Asthma, Back Problems, Bronchitis, COPD, Depression, Diabetes, Emphysema, Gastritis, Gastrointestinal Ulcer, HTN, Hypercholesterolemia, Pancreatitis, Pneumonia, Rheumatoid Arthritis Denies: Chronic Kidney Disease Surgical History: Endoscopy (X2) - [facility] Procedures CLOSED ENDOSCOPIC BIOPSY OF LARGE INTESTINE (03/05/14) CORONAR ARTERIOGR-2 CATH (03/28/12) ESOPHAGOGASTRODUODENOSCOPY [EGD] W/CLOSED BIOPSY (03/10/14) EXCISION OF SMALL INTESTINE, ENDO, DIAGN (11/17/17) EXCISION OF STOMACH, ENDO, DIAGN (10/27/15) INJECT/INFUSE NEC (05/04/14) LEFT HEART CARDIAC CATH (03/28/12) LT HEART ANGIOCARDIOGRAM (03/28/12) Family History: States: No Known Family Hx - Social History Hx Tobacco Use: Yes Hx Alcohol Use: No Hx Substance Use: No - Immunization History Hx Tetanus Toxoid Vaccination: No Hx Influenza Vaccination: Yes (December 2016) Hx Pneumococcal Vaccination: Yes (Oct 2015) Review Of Systems Except As Marked, All Systems Reviewed And Found Negative. Constitutional: Negative for: Fever, Chills Cardiovascular: Negative for: Chest Pain Respiratory: Positive for: Cough, Shortness of Breath Physical Exam - Physical Exam Appears: Non-toxic, No Acute Distress Skin: Normal Color, Warm, Dry Head: Atraumatic, Normacephalic Eye(s): bilateral: Normal Inspection Ear(s): Bilateral: Normal Nose: Normal Oral Mucosa: Moist Throat: Normal, No Erythema, No Exudate Neck: Supple Chest: Symmetrical Cardiovascular: Rhythm Regular Respiratory: No Rales, No Rhonchi, Wheezing (diffuse expiratory wheezing) Gastrointestinal/Abdominal: Normal Exam, Soft, No Tenderness Neurological/Psych: Oriented x3, Normal Speech ED Course And Treatment - Laboratory Results Result Diagrams: 03/19/18 09:32 03/19/18 09:32 ECG: Interpreted By Me, Viewed By Me ECG Rhythm: Sinus Rhythm Interpretation Of ECG: NSR with normal intervals, normal axises, and no ST/ T wave abnormalities Rate From EC O2 Sat by Pulse Oximetry: 98 (RA) Pulse Ox Interpretation: Normal - Radiology CXR: Interpreted by Me, Viewed By Me CXR Interpretation: Yes: No Acute Disease Medical Decision Making Medical Decision Making: Assessment: Asthma Exacerbation Plan: --Labs --ECG --CXR --Cozaar PO -Norvasc PO --Insulin IV --Solu- Medrol IV Updates: On - re-evaluation, patient 's symptoms have not improved. Case discussed patient's PMD, . Patient will be admitted to Med Surg Observation under the service of . Disposition Discussed With .: Corey Orellana Doctor Will See Patient In The: Hospital Counseled Patient/Family Regarding: Studies Performed, Diagnosis - Disposition Disposition: HOSPITALIZED Disposition Time: 11:47 Condition: FAIR Forms: [facility] (Tajik) - Clinical Impression Clinical Impression: Status asthmaticus - Scribe Statement The provider has reviewed the documentation as recorded by the Bertha Mcdaniel Provider Attestation: All medical record entries made by the Yuriibe were at my direction and personally dictated by me. I have reviewed the chart and agree that the record accurately reflects my personal performance of the history, physical exam, medical decision making, and the department course for this patient. I have also personally directed, reviewed, and agree with the discharge instructions and disposition.
[2018-03-19] MEDS ORDERED: (Novolog) Insulin Aspart, Recombinant 100 u/ml 10 ml vial SC SCH (16:30)
[2018-03-19] MEDS ORDERED: (Novolin R) Insulin Human Regular 100 units/ml vial SC SCH (16:30)
[2018-03-19] MEDS: Sucralfate 1 gm/10 ml Oral Susp UD PO SCH (17:52)
[2018-03-19] MEDS: (Novolog) Insulin Aspart, Recombinant 100 u/ml 10 ml vial SC SCH ×2 (17:53→21:20)
[2018-03-19] MEDS ORDERED: Mometasone 220 mcg/puff-14 puff Inh INH SCH (18:00)
[2018-03-19] MEDS: oxyCODONE 5 mg Immediate Release Tab PO PRN (18:21)
[2018-03-19] MEDS: MethylPREDNISolone 40 mg Vial IV SCH (21:20)
--- NOTE | 2018-03-19 22:52 | CP.PCM.HP ---
History of Present Illness - History of Present Illness History of Present Illness: CC: cough,congestion History Of Present Illness 42 y/o female, w/PMHX of asthma, presents to the ER complaining of SOB and cough which has been present for the past 2 days. Patient states that she took home medications without relief. Patient admits to smoking. Denies having fever , chills, CP, and hx of intubations. Present on Admission - Present on Admission Any Indicators Present on Admission: Yes Review of Systems - Review of Systems Systems not reviewed;Unavailable: Acuity of Condition - Constitutional Constitutional: Fatigue, Lethargy - EENT Eyes: absent: As Per HPI, Blind Spots, Blurred Vision, Change in Vision, Decreased Night Vision, Diplopia, Discharge, Dry Eye, Exophthalmos, Floaters, Irritation, Itchy Eyes, Loss of Peripheral Vision, Pain, Photophobia, Requires Corrective Lenses, Sees Flashes, Spots in Vision, Tunnel Vision, Other Visual Disturbances, Loss of Vision, Other Nose/Mouth/Throat: Nasal Congestion - Respiratory Respiratory: Cough, Dyspnea, Dyspnea on Exertion, Wheezing, Chest Congestion - Gastrointestinal Gastrointestinal: absent: As Per HPI, Abdominal Pain, Belching, Bloating, Change in Bowel Habits, Change in Stool Character, Coffee Ground Emesis, Constipation, Cramping, Diarrhea, Dyspepsia, Dysphagia, Early Satiety, Excessive Flatus, Fecal Incontinence, Heartburn, Hematemesis, Hematochezia, Loose Stools, Melena, Nausea, Odynophagia, Temesmus, Vomiting, Other - Genitourinary Genitourinary: absent: As Per HPI, Change in Urinary Stream, Difficulty Urinating, Dysuria, Flank Pain, Hematuria, Pyuria, Nocturia, Urinary Incontinence, Urinary Frequency, Urinary Hesitance, Urinary Urgency, Voiding Freq/Small Amts, Freq UTI, Hx Renal/Bladder Calculi, Hx /Renal Surgery, Bladder Distension, Other Past Patient History - Infectious Disease Hx of Infectious Diseases: None - Past Medical History & Family History Past Medical History?: Yes - Past Social History Smoking Status: Current Some Days Smoker - CARDIAC Hx Hypercholesterolemia: Yes Hx Hypertension: Yes - PULMONARY Hx Asthma: Yes Hx Bronchitis: Yes Hx Chronic Obstructive Pulmonary Disease (COPD): Yes Hx Emphysema: Yes Hx Pneumonia: Yes - NEUROLOGICAL Hx Neurological Disorder: No - HEENT Hx HEENT Problems: Yes Hx Glaucoma: Yes - RENAL Hx Chronic Kidney Disease: No - ENDOCRINE/METABOLIC Hx Endocrine Disorders: Yes Hx Diabetes Mellitus Type 2: Yes Hx Systemic Lupus Erythematosus: Yes - HEMATOLOGICAL/ONCOLOGICAL Hx Blood Disorders: No - INTEGUMENTARY Hx Dermatological Problems: No - MUSCULOSKELETAL/RHEUMATOLOGICAL Hx Arthritis: Yes Hx Rheumatoid Arthritis: Yes - GASTROINTESTINAL Hx Gastritis: Yes Hx Pancreatitis: Yes - GENITOURINARY/GYNECOLOGICAL Hx Genitourinary Disorders: Yes (SEE COMMENT) Other/Comment: endometriosis - PSYCHIATRIC Hx Anxiety: Yes Hx Depression: Yes Hx Substance Use: No - SURGICAL HISTORY Hx Section: Yes (X 2) Hx Dilation and Curettage: Yes (X 2) - ANESTHESIA Hx Anesthesia: Yes Hx Anesthesia Reactions: No Hx Malignant Hyperthermia: No Meds Allergies/Adverse Reactions: Allergies Allergy/AdvReac Type Severity Reaction Status Date / Time methylergonovine maleate Allergy Intermediate RASH Verified 03/11/18 18:34 [From Methergine] Penicillins Allergy Intermediate RASH Verified 03/11/18 18:34 Physical Exam - Constitutional Appears: No Acute Distress - Head Exam Head Exam: ATRAUMATIC, NORMAL INSPECTION, NORMOCEPHALIC - Eye Exam Eye Exam: EOMI, Normal appearance, PERRL Pupil Exam: NORMAL ACCOMODATION, PERRL - Respiratory Exam Respiratory Exam: Decreased Breath Sounds, Rhonchi, Wheezes - Cardiovascular Exam Cardiovascular Exam: REGULAR RHYTHM - GI/Abdominal Exam GI & Abdominal Exam: Normal Bowel Sounds, Soft. absent: Tenderness - Rectal Exam Rectal Exam: Deferred Results - Vital Signs Recent Vital Signs: Last Vital Signs Temp 99.3 F 03/19/18 16:00 Pulse 86 03/19/18 16:00 Resp 20 03/19/18 16:00 BP 135/80 03/19/18 16:00 Pulse Ox 97 03/19/18 16:00 - Labs Result Diagrams: 03/19/18 09:32 03/19/18 09:32 Labs: Laboratory Results - last 24 hr 03/19/18 03/19/18 03/19/18 09:32 09:32 09:45 WBC 12.3 H D RBC 5.06 Hgb 14.6 Hct 42.8 MCV 84.6 MCH 28.9 MCHC 34.1 RDW 14.4 Plt Count 165 MPV 10.2 Neut % (Auto) 80.7 H Lymph % (Auto) 12.2 L [place] % (Auto) 6.6 Eos % (Auto) 0.2 Baso % (Auto) 0.3 Neut # (Auto) 9.9 H Lymph # (Auto) 1.5 [place] # (Auto) 0.8 Eos # (Auto) 0.0 Baso # (Auto) 0.0 Sodium 135 Potassium 4.4 Chloride 101 Carbon Dioxide 19 L Anion Gap 18 BUN 20 H Creatinine 0.8 Est GFR ( Amer) > 60 Est GFR (Non-Af Amer) > 60 POC Glucose (mg/dL) Random Glucose 321 H Calcium 9.7 Total Bilirubin 0.6 AST 29 ALT 32 Alkaline Phosphatase 132 H D Troponin I < 0.0120 NT-Pro-B Natriuret Pep 103 Total Protein 8.0 Albumin 4.1 Globulin 3.9 Albumin/Globulin Ratio 1.1 Urine Color Yellow Urine Clarity Clear Urine pH 6.0 Ur Specific [place] 1.017 Urine Protein 2+ H Urine Glucose (UA) 3+ H Urine Ketones Negative Urine Blood Negative Urine Nitrate Negative Urine Bilirubin Negative Urine Urobilinogen Normal Ur Leukocyte Esterase Neg Urine WBC (Auto) < 1 Urine RBC (Auto) 1 Ur Squamous Epith Cells 1 03/19/18 03/19/18 03/19/18 12:06 16:15 21:09 WBC RBC Hgb Hct MCV MCH MCHC RDW Plt Count MPV Neut % (Auto) Lymph % (Auto) [place] % (Auto) Eos % (Auto) Baso % (Auto) Neut # (Auto) Lymph # (Auto) [place] # (Auto) Eos # (Auto) Baso # (Auto) Sodium Potassium Chloride Carbon Dioxide Anion Gap BUN Creatinine Est GFR ( Amer) Est GFR (Non-Af Amer) POC Glucose (mg/dL) 251 H 444 H* 230 H Random Glucose Calcium Total Bilirubin AST ALT Alkaline Phosphatase Troponin I NT-Pro-B Natriuret Pep Total Protein Albumin Globulin Albumin/Globulin Ratio Urine Color Urine Clarity Urine pH Ur Specific [place] Urine Protein Urine Glucose (UA) Urine Ketones Urine Blood Urine Nitrate Urine Bilirubin Urine Urobilinogen Ur Leukocyte Esterase Urine WBC (Auto) Urine RBC (Auto) Ur Squamous Epith Cells Assessment & Plan (1) Asthma exacerbation Status: Acute (2) Asthma Status: Acute
[2018-03-19] MEDS: Albuterol 0.083% Inhal Sol (2.5 mg/3 mL) UD INH SCH (23:37)
[2018-03-20] MEDS: oxyCODONE 5 mg Immediate Release Tab PO PRN ×4 (01:20→20:42)
[2018-03-20] MEDS: Albuterol 0.083% Inhal Sol (2.5 mg/3 mL) UD INH SCH ×5 (01:38→16:01)
[2018-03-20] MEDS: Sucralfate 1 gm/10 ml Oral Susp UD PO SCH ×3 (07:25→16:15)
[2018-03-20] MEDS: (Novolog) Insulin Aspart, Recombinant 100 u/ml 10 ml vial SC SCH ×4 (07:29→22:09)
[2018-03-20] MEDS ORDERED: Tiotropium 18 mcg Cap For Inhalation INH SCH (08:00)
[2018-03-20] MEDS: MethylPREDNISolone 40 mg Vial IV SCH ×3 (09:31→21:37)
[2018-03-20] MEDS: Enoxaparin 40 mg Syringe SC SCH ×2 (09:32→11:32)
[2018-03-20] MEDS ORDERED: Moxifloxacin IV 400mg/250ml NS 400 MG/250 ML BAG IVPB SCH (14:00)
--- NOTE | 2018-03-20 15:35 | CP.PCM.PN ---
Subjective - Date & Time of Evaluation Date of Evaluation: 03/20/18 Time of Evaluation: 15:35 - Subjective Subjective: alert, awake, has bilateral wheezing and cough. Objective - Vital Signs/Intake and Output Vital Signs (last 24 hours): Temp Pulse Resp BP Pulse Ox 98.7 F 63 20 141/80 93 L 03/20/18 08:00 03/20/18 08:00 03/20/18 08:00 03/20/18 08:00 03/20/18 12:00 - Medications Medications: Current Medications Albuterol Sulfate (Albuterol 0.083% Inhal [place] (2.5 Mg/3 Ml) Ud) 2.5 mg INH RQ4 [facility] Alprazolam (Xanax) 0.5 mg PO TID PRN PRN Reason: Anxiety Last Admin: 03/20/18 13:38 Dose: 0.5 mg Amlodipine Besylate (Norvasc) 5 mg PO DAILY REPLACED BY [facility] Last Admin: 03/20/18 09:31 Dose: 5 mg Enoxaparin Sodium (Lovenox) 40 mg SC DAILY [facility]PL[facility]ED BY [facility] Last Admin: 03/20/18 11:32 Dose: Not Given Famotidine (Pepcid) 20 mg PO BID REPL[facility]ED BY [facility] Last Admin: 03/20/18 09:45 Dose: 20 mg Gabapentin (Neurontin) 300 mg PO BID REPL[facility]ED BY [facility] Last Admin: 03/20/18 09:45 Dose: 300 mg Hydrochlorothiazide (Hydrodiuril) 25 mg PO DAILY [facility] BY [facility] Last Admin: 03/20/18 09:31 Dose: 25 mg Hydroxychloroquine Sulfate (Plaquenil) 200 mg PO BID [facility]PL[facility] BY [facility] PRN Reason: Protocol Last Admin: 03/20/18 09:30 Dose: 200 mg Insulin Aspart (Novolog) 0 unit SC ACHS REPLACED BY [facility] PRN Reason: Protocol Last Admin: 03/20/18 11:38 Dose: 3 unit Latanoprost (Xalatan Opht) 0 ml OU HS REPLACED BY [facility] Losartan Potassium (Cozaar) 100 mg PO DAILY [facility]PL[facility]ED BY [facility] Last Admin: 03/20/18 09:31 Dose: 100 mg Metformin HCl (Glucophage) 850 mg PO BID REPLACED BY [facility] Last Admin: 03/20/18 09:31 Dose: 850 mg Methylprednisolone (Solu-Medrol) 40 mg IV Q8H REPLACED BY [facility] Last Admin: 03/20/18 14:08 Dose: 40 mg Metoclopramide HCl (Reglan) 5 mg PO 0600,1130,1630,2200 [facility]PL[facility]ED BY [facility] Last Admin: 03/20/18 11:37 Dose: 5 mg Mometasone Furoate (Asmanex Twisthaler 220 Mcg) 220 puff INH QPM [facility] Moxifloxacin HCl (Avelox) 400 mg PO DAILY [facility] PRN Reason: Protocol Last Admin: 03/20/18 14:08 Dose: 400 mg Oxycodone HCl (Oxycodone Immediate Release Tab) 15 mg PO Q6 PRN PRN Reason: Pain, severe (8-10) Last Admin: 03/20/18 13:38 Dose: 15 mg Sucralfate (Carafate Oral Susp) 1 gm PO TIDAC REPLACED BY [facility] Last Admin: 03/20/18 11:37 Dose: 1 gm Tiotropium [place] (Spiriva) 18 mcg INH RQ24 [facility] - Labs Labs: 03/19/18 09:32 03/19/18 09:32 Assessment and Plan - Assessment and Plan (Free Text) Assessment: Patient admitted with asthma exacerbation, seen and examined. Alert and orientedx3, noticed sob and active wheezing and productive cough. discussed with DR Orellana and changed to inpatient status. Increased duoneb to q 4hourly, solumedrol 40mg q8h and added avelox to the med list. Monitor closely.
[2018-03-20] MEDS: Albuterol-Ipratrop 3 mg / 0.5 (3 ml) UD INH SCH ×3 (19:40→23:42)
[2018-03-20] MEDS: Latanoprost 2.5 ml Opht Soln OU SCH (21:38)
--- NOTE | 2018-03-20 23:36 | CP.PCM.PN ---
Subjective - Date & Time of Evaluation Date of Evaluation: 03/20/18 Time of Evaluation: 18:00 - Subjective Subjective: Pt seen & examined at bedside, she has cough, congestion and shortness of breath Objective - Vital Signs/Intake and Output Vital Signs (last 24 hours): Temp Pulse Resp BP Pulse Ox 98.5 F 76 20 126/76 99 03/20/18 16:00 03/20/18 16:00 03/20/18 16:00 03/20/18 16:00 03/20/18 16:00 - Medications Medications: Current Medications Albuterol/Ipratropium (Duoneb 3 Mg/0.5 Mg (3 Ml) Ud) 3 ml INH RQ4 [facility] Last Admin: 03/20/18 19:40 Dose: 3 ml Alprazolam (Xanax) 0.5 mg PO TID PRN PRN Reason: Anxiety Last Admin: 03/20/18 21:43 Dose: 0.5 mg Amlodipine Besylate (Norvasc) 5 mg PO DAILY [facility] Last Admin: 03/20/18 09:31 Dose: 5 mg Enoxaparin Sodium (Lovenox) 40 mg SC DAILY [facility] Last Admin: 03/20/18 11:32 Dose: Not Given Famotidine (Pepcid) 20 mg PO BID [facility] Last Admin: 03/20/18 17:40 Dose: 20 mg Gabapentin (Neurontin) 300 mg PO BID [facility] Last Admin: 03/20/18 17:41 Dose: 300 mg Hydrochlorothiazide (Hydrodiuril) 25 mg PO DAILY [facility] Last Admin: 03/20/18 09:31 Dose: 25 mg Hydroxychloroquine Sulfate (Plaquenil) 200 mg PO BID [facility] PRN Reason: Protocol Last Admin: 03/20/18 17:40 Dose: 200 mg Insulin Aspart (Novolog) 0 unit SC ACHS [facility] PRN Reason: Protocol Last Admin: 03/20/18 22:09 Dose: Not Given Latanoprost (Xalatan Opht) 0 ml OU HS [facility] Last Admin: 03/20/18 21:38 Dose: 2.5 ml Losartan Potassium (Cozaar) 100 mg PO DAILY [facility] Last Admin: 03/20/18 09:31 Dose: 100 mg Metformin HCl (Glucophage) 850 mg PO BID [facility] Last Admin: 03/20/18 17:41 Dose: 850 mg Methylprednisolone (Solu-Medrol) 80 mg IV Q12 [facility] Metoclopramide HCl (Reglan) 5 mg PO 0600,1130,1630,2200 [facility] Last Admin: 03/20/18 21:36 Dose: 5 mg Mometasone Furoate (Asmanex Twisthaler 220 Mcg) 220 puff INH QPM [facility] Moxifloxacin HCl (Avelox) 400 mg PO DAILY [facility] PRN Reason: Protocol Last Admin: 03/20/18 14:08 Dose: 400 mg Oxycodone HCl (Oxycodone Immediate Release Tab) 15 mg PO Q6 PRN PRN Reason: Pain, severe (8-10) Last Admin: 03/20/18 20:42 Dose: 15 mg Sucralfate (Carafate Oral Susp) 1 gm PO TIDAC [facility] Last Admin: 03/20/18 16:15 Dose: 1 gm Tiotropium [place] (Spiriva) 18 mcg INH RQ24 [facility] - Labs Labs: 03/19/18 09:32 03/19/18 09:32 - Constitutional Appears: No Acute Distress - Head Exam Head Exam: ATRAUMATIC, NORMAL INSPECTION, NORMOCEPHALIC - ENT Exam ENT Exam: Mucous Membranes Moist - Neck Exam Neck Exam: Full ROM, Normal Inspection. absent: Lymphadenopathy - Respiratory Exam Respiratory Exam: Decreased Breath Sounds, Rales, Rhonchi - Cardiovascular Exam Cardiovascular Exam: REGULAR RHYTHM, +S1, +S2. absent: Murmur - GI/Abdominal Exam GI & Abdominal Exam: Soft, Normal Bowel Sounds. absent: Tenderness Assessment and Plan (1) Asthma Assessment & Plan: Increased duoneb to q 4hourly, solumedrol 40mg q8h and added avelox to the med list Status: Acute
[2018-03-21] MEDS: Albuterol-Ipratrop 3 mg / 0.5 (3 ml) UD INH SCH ×5 (03:21→19:40)
[2018-03-21] MEDS: oxyCODONE 5 mg Immediate Release Tab PO PRN ×2 (05:15→16:35)
[2018-03-21] MEDS: Tiotropium 18 mcg Cap For Inhalation INH SCH (07:17)
[2018-03-21] MEDS: Sucralfate 1 gm/10 ml Oral Susp UD PO SCH ×3 (07:39→16:31)
[2018-03-21] MEDS: (Novolog) Insulin Aspart, Recombinant 100 u/ml 10 ml vial SC SCH ×4 (08:06→21:53)
[2018-03-21] MEDS: MethylPREDNISolone 40 mg Vial IV SCH ×2 (10:05→21:40)
[2018-03-21] MEDS: Enoxaparin 40 mg Syringe SC SCH (10:06)
[2018-03-21] MEDS: Latanoprost 2.5 ml Opht Soln OU SCH (21:40)
--- NOTE | 2018-03-21 23:03 | CP.PCM.PN ---
Subjective - Date & Time of Evaluation Date of Evaluation: 03/21/18 Time of Evaluation: 19:00 - Subjective Subjective: Pt seen and examined at bedside, LESS cough, congestion, shortness of breath, COUGHING AND WHEEZING Objective - Vital Signs/Intake and Output Vital Signs (last 24 hours): Temp Pulse Resp BP Pulse Ox 98.2 F 89 20 125/72 98 03/21/18 17:01 03/21/18 17:01 03/21/18 17:01 03/21/18 17:01 03/21/18 17:01 - Medications Medications: Current Medications Albuterol/Ipratropium (Duoneb 3 Mg/0.5 Mg (3 Ml) Ud) 3 ml INH RQ4 [facility] Last Admin: 03/21/18 19:40 Dose: 3 ml Alprazolam (Xanax) 0.5 mg PO TID PRN PRN Reason: Anxiety Last Admin: 03/21/18 21:45 Dose: 0.5 mg Amlodipine Besylate (Norvasc) 5 mg PO DAILY [facility] Last Admin: 03/21/18 10:05 Dose: 5 mg Enoxaparin Sodium (Lovenox) 40 mg SC DAILY [facility] Last Admin: 03/21/18 10:06 Dose: Not Given Famotidine (Pepcid) 20 mg PO BID [facility] Last Admin: 03/21/18 17:27 Dose: 20 mg Gabapentin (Neurontin) 300 mg PO BID [facility] Last Admin: 03/21/18 17:26 Dose: 300 mg Hydrochlorothiazide (Hydrodiuril) 25 mg PO DAILY [facility] Last Admin: 03/21/18 10:04 Dose: 25 mg Hydroxychloroquine Sulfate (Plaquenil) 200 mg PO BID [facility] PRN Reason: Protocol Last Admin: 03/21/18 17:26 Dose: 200 mg Insulin Aspart (Novolog) 0 unit SC ACHS [facility] PRN Reason: Protocol Last Admin: 03/21/18 21:53 Dose: 2 unit Latanoprost (Xalatan Opht) 0 ml OU HS [facility] Last Admin: 03/21/18 21:40 Dose: 2.5 ml Losartan Potassium (Cozaar) 100 mg PO DAILY [facility] Last Admin: 03/21/18 10:04 Dose: 100 mg Metformin HCl (Glucophage) 850 mg PO BID [facility] Last Admin: 03/21/18 17:27 Dose: 850 mg Methylprednisolone (Solu-Medrol) 80 mg IV Q12 [facility] Last Admin: 03/21/18 21:40 Dose: 80 mg Metoclopramide HCl (Reglan) 5 mg PO 0600,1130,1630,2200 [facility] Last Admin: 03/21/18 21:40 Dose: 5 mg Mometasone Furoate (Asmanex Twisthaler 220 Mcg) 220 puff INH QPM [facility] Moxifloxacin HCl (Avelox) 400 mg PO DAILY [facility] PRN Reason: Protocol Last Admin: 03/21/18 10:04 Dose: 400 mg Oxycodone HCl (Oxycodone Immediate Release Tab) 15 mg PO Q6 PRN PRN Reason: Pain, severe (8-10) Last Admin: 03/21/18 16:35 Dose: 15 mg Sucralfate (Carafate Oral Susp) 1 gm PO TIDAC [facility] Last Admin: 03/21/18 16:31 Dose: 1 gm Tiotropium [place] (Spiriva) 18 mcg INH RQ24 [facility] Last Admin: 03/21/18 07:17 Dose: 18 mcg - Labs Labs: 03/19/18 09:32 03/19/18 09:32 - Constitutional Appears: No Acute Distress - Head Exam Head Exam: ATRAUMATIC, NORMAL INSPECTION, NORMOCEPHALIC - Eye Exam Eye Exam: EOMI, Normal appearance, PERRL Pupil Exam: NORMAL ACCOMODATION, PERRL - ENT Exam ENT Exam: Mucous Membranes Moist, Normal Exam - Neck Exam Neck Exam: Full ROM, Normal Inspection. absent: Lymphadenopathy - Respiratory Exam Respiratory Exam: Decreased Breath Sounds, Wheezes - Cardiovascular Exam Cardiovascular Exam: REGULAR RHYTHM, +S1, +S2. absent: Murmur - GI/Abdominal Exam GI & Abdominal Exam: Soft, Normal Bowel Sounds. absent: Tenderness Assessment and Plan (1) Asthma exacerbation Assessment & Plan: OXYGEN. SOLUMEDROL, NEBULIZER Status: Acute (2) Asthma Status: Acute (3) GERD (gastroesophageal reflux disease) Assessment & Plan: POSITIVE DYSPEPSIA Status: Acute
[2018-03-22] MEDS: Albuterol-Ipratrop 3 mg / 0.5 (3 ml) UD INH SCH ×7 (00:18→23:28)
[2018-03-22] MEDS: oxyCODONE 5 mg Immediate Release Tab PO PRN ×2 (05:05→12:46)
--- NOTE | 2018-03-22 05:56 | CARD ---
APPROVED REPORT EKG Measurement Heart [id number] <Conclusion> Normal sinus rhythm with sinus arrhythmia Normal ECG
[2018-03-22] MEDS: Tiotropium 18 mcg Cap For Inhalation INH SCH (07:17)
[2018-03-22] MEDS: Sucralfate 1 gm/10 ml Oral Susp UD PO SCH ×3 (08:39→17:03)
[2018-03-22] MEDS: (Novolog) Insulin Aspart, Recombinant 100 u/ml 10 ml vial SC SCH ×4 (08:40→21:50)
[2018-03-22] MEDS: Enoxaparin 40 mg Syringe SC SCH ×2 (10:04→10:14)
[2018-03-22] MEDS: MethylPREDNISolone 40 mg Vial IV SCH ×2 (10:04→21:47)
[2018-03-22] MEDS: Latanoprost 2.5 ml Opht Soln OU SCH (21:49)
[2018-03-23] MEDS: oxyCODONE 5 mg Immediate Release Tab PO PRN ×3 (00:15→20:46)
[2018-03-23] MEDS: Albuterol-Ipratrop 3 mg / 0.5 (3 ml) UD INH SCH ×6 (03:20→23:38)
--- NOTE | 2018-03-23 05:24 | CP.PCM.PN ---
Subjective - Date & Time of Evaluation Date of Evaluation: 03/22/18 Time of Evaluation: 19:00 - Subjective Subjective: Pt seen and examined at bedside, LESS cough, congestion, shortness of breath, COUGHING AND WHEEZING Objective - Vital Signs/Intake and Output Vital Signs (last 24 hours): Temp Pulse Resp BP Pulse Ox 98.2 F 83 20 130/81 98 03/23/18 00:45 03/23/18 00:45 03/23/18 00:45 03/23/18 00:45 03/23/18 00:45 Intake and Output: 03/22/18 03/23/18 18:59 06:59 Intake Total 400 Balance 400 - Medications Medications: Current Medications Albuterol/Ipratropium (Duoneb 3 Mg/0.5 Mg (3 Ml) Ud) 3 ml INH RQ4 [facility] Last Admin: 03/23/18 03:20 Dose: 3 ml Alprazolam (Xanax) 0.5 mg PO TID PRN PRN Reason: Anxiety Last Admin: 03/22/18 17:16 Dose: 0.5 mg Amlodipine Besylate (Norvasc) 5 mg PO DAILY [facility] Last Admin: 03/22/18 10:05 Dose: 5 mg Enoxaparin Sodium (Lovenox) 40 mg SC DAILY [facility] Last Admin: 03/22/18 10:14 Dose: Not Given Famotidine (Pepcid) 20 mg PO BID [facility] Last Admin: 03/22/18 17:16 Dose: 20 mg Gabapentin (Neurontin) 300 mg PO BID [facility] Last Admin: 03/22/18 17:16 Dose: 300 mg Hydrochlorothiazide (Hydrodiuril) 25 mg PO DAILY [facility] Last Admin: 03/22/18 10:05 Dose: 25 mg Hydroxychloroquine Sulfate (Plaquenil) 200 mg PO BID [facility] PRN Reason: Protocol Last Admin: 03/22/18 17:17 Dose: 200 mg Insulin Aspart (Novolog) 0 unit SC ACHS [facility] PRN Reason: Protocol Last Admin: 03/22/18 21:50 Dose: 3 unit Latanoprost (Xalatan Opht) 0 ml OU HS [facility] Last Admin: 03/22/18 21:49 Dose: 2.5 ml Losartan Potassium (Cozaar) 100 mg PO DAILY [facility] Last Admin: 03/22/18 10:05 Dose: 100 mg Metformin HCl (Glucophage) 850 mg PO BID [facility] Last Admin: 03/22/18 17:17 Dose: 850 mg Methylprednisolone (Solu-Medrol) 80 mg IV Q12 [facility] Last Admin: 03/22/18 21:47 Dose: 80 mg Metoclopramide HCl (Reglan) 5 mg PO 0600,1130,1630,2200 [facility] Last Admin: 03/22/18 21:49 Dose: 5 mg Mometasone Furoate (Asmanex Twisthaler 220 Mcg) 220 puff INH QPM [facility] Moxifloxacin HCl (Avelox) 400 mg PO DAILY [facility] PRN Reason: Protocol Last Admin: 03/22/18 10:49 Dose: 400 mg Oxycodone HCl (Oxycodone Immediate Release Tab) 15 mg PO Q6 PRN PRN Reason: Pain, severe (8-10) Last Admin: 03/23/18 00:15 Dose: 15 mg Sucralfate (Carafate Oral Susp) 1 gm PO TIDAC [facility] Last Admin: 03/22/18 17:03 Dose: 1 gm Tiotropium [place] (Spiriva) 18 mcg INH RQ24 [facility] Last Admin: 03/22/18 07:17 Dose: 18 mcg - Labs Labs: 03/19/18 09:32 03/19/18 09:32 - Constitutional Appears: No Acute Distress - Head Exam Head Exam: ATRAUMATIC, NORMAL INSPECTION, NORMOCEPHALIC - Eye Exam Eye Exam: EOMI, Normal appearance, PERRL Pupil Exam: NORMAL ACCOMODATION, PERRL - Respiratory Exam Respiratory Exam: Decreased Breath Sounds, Rhonchi, Wheezes - Cardiovascular Exam Cardiovascular Exam: REGULAR RHYTHM, +S1, +S2. absent: Murmur - GI/Abdominal Exam GI & Abdominal Exam: Soft, Normal Bowel Sounds. absent: Tenderness Assessment and Plan (1) Asthma exacerbation Assessment & Plan: OXYGEN NEBULIZER SOLUMEDROL Status: Acute (2) Asthma Status: Acute (3) GERD (gastroesophageal reflux disease) Status: Acute
--- NOTE | 2018-03-23 05:57 | CP.PCM.PN ---
Subjective - Date & Time of Evaluation Date of Evaluation: 03/23/18 Time of Evaluation: 18:00 - Subjective Subjective: Pt seen & examined at bedside Objective - Vital Signs/Intake and Output Vital Signs (last 24 hours): Temp Pulse Resp BP Pulse Ox 98.2 F 83 20 130/81 98 03/23/18 00:45 03/23/18 00:45 03/23/18 00:45 03/23/18 00:45 03/23/18 00:45 Intake and Output: 03/22/18 03/23/18 18:59 06:59 Intake Total 400 Balance 400 - Medications Medications: Current Medications Albuterol/Ipratropium (Duoneb 3 Mg/0.5 Mg (3 Ml) Ud) 3 ml INH RQ4 [facility] Last Admin: 03/23/18 03:20 Dose: 3 ml Alprazolam (Xanax) 0.5 mg PO TID PRN PRN Reason: Anxiety Last Admin: 03/23/18 05:30 Dose: 0.5 mg Amlodipine Besylate (Norvasc) 5 mg PO DAILY [facility] Last Admin: 03/22/18 10:05 Dose: 5 mg Enoxaparin Sodium (Lovenox) 40 mg SC DAILY [facility] Last Admin: 03/22/18 10:14 Dose: Not Given Famotidine (Pepcid) 20 mg PO BID [facility] Last Admin: 03/22/18 17:16 Dose: 20 mg Gabapentin (Neurontin) 300 mg PO BID [facility] Last Admin: 03/22/18 17:16 Dose: 300 mg Hydrochlorothiazide (Hydrodiuril) 25 mg PO DAILY [facility] Last Admin: 03/22/18 10:05 Dose: 25 mg Hydroxychloroquine Sulfate (Plaquenil) 200 mg PO BID [facility] PRN Reason: Protocol Last Admin: 03/22/18 17:17 Dose: 200 mg Insulin Aspart (Novolog) 0 unit SC ACHS [facility] PRN Reason: Protocol Last Admin: 03/22/18 21:50 Dose: 3 unit Latanoprost (Xalatan Opht) 0 ml OU HS [facility] Last Admin: 03/22/18 21:49 Dose: 2.5 ml Losartan Potassium (Cozaar) 100 mg PO DAILY [facility] Last Admin: 03/22/18 10:05 Dose: 100 mg Metformin HCl (Glucophage) 850 mg PO BID [facility] Last Admin: 03/22/18 17:17 Dose: 850 mg Methylprednisolone (Solu-Medrol) 80 mg IV Q12 [facility] Last Admin: 03/22/18 21:47 Dose: 80 mg Metoclopramide HCl (Reglan) 5 mg PO 0600,1130,1630,2200 [facility] Last Admin: 03/23/18 05:25 Dose: 5 mg Mometasone Furoate (Asmanex Twisthaler 220 Mcg) 220 puff INH QPM [facility] Moxifloxacin HCl (Avelox) 400 mg PO DAILY [facility] PRN Reason: Protocol Last Admin: 03/22/18 10:49 Dose: 400 mg Oxycodone HCl (Oxycodone Immediate Release Tab) 15 mg PO Q6 PRN PRN Reason: Pain, severe (8-10) Last Admin: 03/23/18 00:15 Dose: 15 mg Sucralfate (Carafate Oral Susp) 1 gm PO TIDAC [facility] Last Admin: 03/22/18 17:03 Dose: 1 gm Tiotropium [place] (Spiriva) 18 mcg INH RQ24 [facility] Last Admin: 03/22/18 07:17 Dose: 18 mcg - Labs Labs: 03/19/18 09:32 03/19/18 09:32 Assessment and Plan (1) Asthma exacerbation Status: Acute (2) Asthma Status: Acute (3) GERD (gastroesophageal reflux disease) Status: Acute
[2018-03-23] MEDS: Tiotropium 18 mcg Cap For Inhalation INH SCH (07:13)
[2018-03-23] MEDS: Sucralfate 1 gm/10 ml Oral Susp UD PO SCH ×3 (08:48→16:44)
[2018-03-23] MEDS: (Novolog) Insulin Aspart, Recombinant 100 u/ml 10 ml vial SC SCH ×4 (08:48→21:46)
[2018-03-23] MEDS: MethylPREDNISolone 40 mg Vial IV SCH ×2 (09:39→21:32)
[2018-03-23] MEDS: Enoxaparin 40 mg Syringe SC SCH (09:40)
[2018-03-23] MEDS ORDERED: guaiFENesin 600 mg ER Tab PO SCH (14:00)
[2018-03-23] MEDS ORDERED: Mometasone 220 mcg/puff-14 puff Inh INH SCH (18:00)
[2018-03-23] MEDS: Latanoprost 2.5 ml Opht Soln OU SCH (21:36)
[2018-03-24] MEDS: Albuterol-Ipratrop 3 mg / 0.5 (3 ml) UD INH SCH ×5 (03:16→20:20)
[2018-03-24] MEDS: oxyCODONE 5 mg Immediate Release Tab PO PRN ×3 (07:22→22:20)
[2018-03-24] MEDS: Tiotropium 18 mcg Cap For Inhalation INH SCH (07:37)
[2018-03-24] MEDS: Sucralfate 1 gm/10 ml Oral Susp UD PO SCH ×3 (08:15→16:42)
[2018-03-24] MEDS: (Novolog) Insulin Aspart, Recombinant 100 u/ml 10 ml vial SC SCH ×4 (08:15→23:17)
--- NOTE | 2018-03-24 09:29 | RAD ---
Chest x-ray two views History: Asthma exacerbation. Comparison: 03/19/2018 Findings: Mild prominence of the central pulmonary interstitium. Bilateral hilar prominence. Mild patchy increased markings at the left lung base. Tortuous aorta. Heart size within normal limits. Degenerative changes spine. Impression Mild prominence of the central pulmonary interstitium. Bilateral hilar prominence. Mild patchy increased markings at the left lung base. Tortuous aorta. Heart size within normal limits.
[2018-03-24] MEDS: Enoxaparin 40 mg Syringe SC SCH (10:31)
[2018-03-24] MEDS: MethylPREDNISolone 40 mg Vial IV SCH ×2 (10:31→21:36)
[2018-03-24 15:06] LABS: ABG ALLEN TEST POS; ARTERIAL BLOOD GAS HCO3 22.9 mmol/L (21-28); ARTERIAL BLOOD GAS HEMOGLOBIN 14.6 g/dL (11.7-17.4); ARTERIAL BLOOD GAS O2 SAT 99.1 % (95-98); ARTERIAL BLOOD GAS PCO2 29 mm/Hg (35-45); ARTERIAL BLOOD GAS PH 7.45 (7.35-7.45); ARTERIAL BLOOD GAS PO2 111 mm/Hg (80-100); ARTERIAL BLOOD GAS TCO2 21.1 mmol/L (22-28)
[2018-03-24] MEDS: guaiFENesin 600 mg ER Tab PO SCH (17:58)
[2018-03-24] MEDS: Latanoprost 2.5 ml Opht Soln OU SCH (21:36)
[2018-03-25] MEDS: Albuterol-Ipratrop 3 mg / 0.5 (3 ml) UD INH SCH ×5 (01:01→15:47)
--- NOTE | 2018-03-25 05:27 | CP.PCM.PN ---
Subjective - Date & Time of Evaluation Date of Evaluation: 03/24/18 Time of Evaluation: 20:00 - Subjective Subjective: PT SEEN AND EXAMINED AT BEDSIDE Objective - Vital Signs/Intake and Output Vital Signs (last 24 hours): Temp Pulse Resp BP Pulse Ox 97.6 F 76 20 131/83 100 03/25/18 00:00 03/25/18 00:00 03/25/18 00:00 03/25/18 00:00 03/25/18 00:00 Intake and Output: 03/24/18 03/25/18 18:59 06:59 Intake Total 480 1000 Balance 480 1000 - Medications Medications: Current Medications Albuterol/Ipratropium (Duoneb 3 Mg/0.5 Mg (3 Ml) Ud) 3 ml INH RQ4 [facility] Last Admin: 03/25/18 01:01 Dose: 3 ml Alprazolam (Xanax) 0.5 mg PO TID PRN PRN Reason: Anxiety Last Admin: 03/25/18 05:20 Dose: 0.5 mg Amlodipine Besylate (Norvasc) 5 mg PO DAILY [facility] Last Admin: 03/24/18 10:30 Dose: 5 mg Enoxaparin Sodium (Lovenox) 40 mg SC DAILY [facility] Last Admin: 03/24/18 10:31 Dose: Not Given Famotidine (Pepcid) 20 mg PO BID [facility] Last Admin: 03/24/18 17:58 Dose: 20 mg Gabapentin (Neurontin) 300 mg PO BID [facility] Last Admin: 03/24/18 17:58 Dose: 300 mg Guaifenesin (Mucinex [place]) 600 mg PO BID [facility] Last Admin: 03/24/18 17:58 Dose: 600 mg Hydrochlorothiazide (Hydrodiuril) 25 mg PO DAILY [facility] Last Admin: 03/24/18 10:30 Dose: 25 mg Insulin Aspart (Novolog) 0 unit SC ACHS [facility] PRN Reason: Protocol Last Admin: 03/24/18 23:17 Dose: Not Given Latanoprost (Xalatan Opht) 0 ml OU HS [facility] Last Admin: 03/24/18 21:36 Dose: 2.5 ml Losartan Potassium (Cozaar) 100 mg PO DAILY [facility] Last Admin: 03/24/18 10:30 Dose: 100 mg Metformin HCl (Glucophage) 850 mg PO BID [facility] Last Admin: 03/24/18 18:00 Dose: 850 mg Methylprednisolone (Solu-Medrol) 80 mg IV Q12 [facility] Last Admin: 03/24/18 21:36 Dose: 80 mg Metoclopramide HCl (Reglan) 5 mg PO 0600,1130,1630,2200 [facility] Last Admin: 03/25/18 05:16 Dose: 5 mg Mometasone Furoate (Asmanex Twisthaler 220 Mcg) 1 puff INH RBID [facility] Moxifloxacin HCl (Avelox) 400 mg PO DAILY [facility] PRN Reason: Protocol Last Admin: 03/24/18 10:29 Dose: 400 mg Oxycodone HCl (Oxycodone Immediate Release Tab) 15 mg PO Q6 PRN PRN Reason: Pain, severe (8-10) Last Admin: 03/24/18 22:20 Dose: 15 mg Sucralfate (Carafate Oral Susp) 1 gm PO TIDAC [facility] Last Admin: 03/24/18 16:42 Dose: Not Given Tiotropium [place] (Spiriva) 18 mcg INH RQ24 [facility] Last Admin: 03/24/18 07:37 Dose: 18 mcg - Labs Labs: 03/19/18 09:32 03/19/18 09:32 Assessment and Plan (1) Asthma exacerbation Status: Acute (2) Asthma Status: Acute (3) GERD (gastroesophageal reflux disease) Status: Acute
[2018-03-25] MEDS: Tiotropium 18 mcg Cap For Inhalation INH SCH (07:53)
[2018-03-25] MEDS: Sucralfate 1 gm/10 ml Oral Susp UD PO SCH ×3 (08:19→17:08)
[2018-03-25] MEDS: (Novolog) Insulin Aspart, Recombinant 100 u/ml 10 ml vial SC SCH ×3 (08:19→17:16)
[2018-03-25] MEDS: guaiFENesin 600 mg ER Tab PO SCH ×2 (09:33→17:12)
[2018-03-25] MEDS: Enoxaparin 40 mg Syringe SC SCH (09:34)
[2018-03-25] MEDS ORDERED: MethylPREDNISolone 40 mg Vial IV SCH (10:00)
[2018-03-25] MEDS: oxyCODONE 5 mg Immediate Release Tab PO PRN (11:42)
--- NOTE | 2018-03-25 12:40 | RAD ---
HISTORY: Asthma. COMPARISON: Comparison made with prior chest radiograph 03/24/2018 TECHNIQUE: Chest PA and lateral FINDINGS: LUNGS: The interstitial markings are slightly increased and coarsened within few scattered peribronchial cuffing changes. Rule out sequela of reactive/inflammatory airway disease or viral illness.There also is some minimal linear atelectasis or scarring left medial lung base PLEURA: No significant pleural effusion identified. No pneumothorax apparent. CARDIOVASCULAR: Normal. OSSEOUS STRUCTURES: No significant abnormalities. VISUALIZED UPPER ABDOMEN: Normal. OTHER FINDINGS: None. IMPRESSION: The interstitial markings are slightly increased and coarsened within few scattered peribronchial cuffing changes. Rule out sequela of reactive/inflammatory airway disease or viral illness.There also is some minimal linear atelectasis or scarring left medial lung base
--- NOTE | 2018-03-25 15:36 | CP.PCM.PN ---
Objective - Vital Signs/Intake and Output Vital Signs (last 24 hours): Temp Pulse Resp BP Pulse Ox 97.8 F 80 20 123/77 100 03/25/18 07:30 03/25/18 11:03 03/25/18 07:30 03/25/18 07:30 03/25/18 07:30 Intake and Output: 03/25/18 03/25/18 06:59 18:59 Intake Total 1000 1080 Balance 1000 1080 - Medications Medications: Current Medications Albuterol/Ipratropium (Duoneb 3 Mg/0.5 Mg (3 Ml) Ud) 3 ml INH RQ4 [facility] Last Admin: 03/25/18 11:02 Dose: 3 ml Alprazolam (Xanax) 0.5 mg PO TID PRN PRN Reason: Anxiety Last Admin: 03/25/18 14:45 Dose: 0.5 mg Amlodipine Besylate (Norvasc) 5 mg PO DAILY [facility] Last Admin: 03/25/18 09:33 Dose: 5 mg Enoxaparin Sodium (Lovenox) 40 mg SC DAILY [facility] Last Admin: 03/25/18 09:34 Dose: 40 mg Famotidine (Pepcid) 20 mg PO BID [facility] Last Admin: 03/25/18 09:33 Dose: 20 mg Gabapentin (Neurontin) 300 mg PO BID [facility] Last Admin: 03/25/18 09:33 Dose: 300 mg Guaifenesin (Mucinex [place]) 600 mg PO BID [facility] Last Admin: 03/25/18 09:33 Dose: 600 mg Hydrochlorothiazide (Hydrodiuril) 25 mg PO DAILY [facility] Last Admin: 03/25/18 09:33 Dose: 25 mg Insulin Aspart (Novolog) 0 unit SC ACHS [facility] PRN Reason: Protocol Last Admin: 03/25/18 11:40 Dose: 4 unit Latanoprost (Xalatan Opht) 0 ml OU HS [facility] Last Admin: 03/24/18 21:36 Dose: 2.5 ml Losartan Potassium (Cozaar) 100 mg PO DAILY [facility] Last Admin: 03/25/18 09:34 Dose: 100 mg Metformin HCl (Glucophage) 850 mg PO BID [facility] Last Admin: 03/25/18 09:33 Dose: 850 mg Methylprednisolone (Solu-Medrol) 40 mg IV Q12 [facility] Last Admin: 03/25/18 10:06 Dose: 40 mg Metoclopramide HCl (Reglan) 5 mg PO 0600,1130,1630,2200 [facility] Last Admin: 03/25/18 11:40 Dose: 5 mg Mometasone Furoate (Asmanex Twisthaler 220 Mcg) 1 puff INH RBID USMAN Oxycodone HCl (Oxycodone Immediate Release Tab) 15 mg PO Q6 PRN PRN Reason: Pain, severe (8-10) Last Admin: 03/25/18 11:42 Dose: 15 mg Sucralfate (Carafate Oral Susp) 1 gm PO TIDAC [facility] Last Admin: 03/25/18 11:40 Dose: 1 gm Tiotropium [place] (Spiriva) 18 mcg INH RQ24 [facility] Last Admin: 03/25/18 07:53 Dose: 18 mcg - Labs Labs: 03/19/18 09:32 03/19/18 09:32 Assessment and Plan - Assessment and Plan (Free Text) Assessment: Patient admitted [facility] asthma exacerbation, seen and examined. ALERT AND ORIENTX3 , Denies acute distress, no sob , chest pain, no wheezing. Discussed [facility] Dr Orellana, plan to discharge home today. Advised to follow uo in the office in 1 week
[2018-03-25 16:52] VITALS: BP 124/75; PULSE 83; RESP 21; TEMP 97.4; O2SAT 95
--- NOTE | 2018-03-26 08:16 | CON ---
DATE: 03/25/2018 HISTORY OF PRESENT ILLNESS: This 42-year-old lady nonsmoker with history of asthma, hypertension, diabetes mellitus, obesity, and arthritis who is now admitted with shortness of breath, cough, and wheezing and aching in the joints. She has cough with scanty mucoid sputum. There is no hemoptysis. There is no chest pain. No vomiting. There is no history of dizziness. SOCIAL HISTORY: She is a nonsmoker. Does not consume alcohol. ALLERGIES: SHE HAS A HISTORY OF ALLERGY TO PENICILLIN. FAMILY HISTORY: There is no significant family history. REVIEW OF SYSTEMS: As stated above with no history of seizures, but with history of shortness of breath, cough, and wheezing. No urinary symptoms. Skeletal system: Has history of arthritis. No vomiting or abdominal pain. PHYSICAL EXAMINATION: VITAL SIGNS: On examination, she is afebrile with blood pressure 122/76, pulse 84, respirations 20, hemoglobin oxygen saturation of 100% on 28% of FiO2. GENERAL: She is alert, oriented, obese, not in severe distress at rest. HEENT: EENT exam is remarkable. She has had sinus surgery in the past because of repeated sinusitis. There is no thyromegaly. There is no lymphadenopathy. HEART: Regular. There is no gallop or rhythm. LUNGS: Clear. Diminished breath sounds over the lung bases and occasional wheezing and rhonchi. ABDOMEN: Soft. There is minimal swelling of the ankles. Anterior blood gas studies on FiO2 of 28% showed pH of 7.45, pCO2 of 29, pO2 of 111, bicarbonate of 23, hemoglobin oxygen saturation of 99%. Her blood sugar is 342 today. Her white count is 12,300. Hemoglobin 14.6, platelet count 165,000, neutrophils are 81%. Chest x-ray shows mild prominence of interstitium with increased markings over the lung bases. There is bilateral hilar prominence, probably vascular. IMPRESSION: Respiratory insufficiency, exacerbation of asthma, history of snoring, obesity, and oxygen saturation on room air are suggestive of airways problem and requires further studies and is suggestive of obesity hypoventilation syndrome and obstructive sleep apnea, hypertensive cardiovascular disease, arthritis. PLAN: To continue with the current management, bronchodilators, oxygen therapy, vasodilators, incentive spirometry, PFT and would recommend sleep studies and control of diabetes mellitus, and analgesics for arthritis. Alhaji Soto MD [facility] # [id number]
--- NOTE | 2018-03-26 09:44 | CP.PCM.DIS ---
Provider - Provider Date of Admission: 03/20/18 16:14 Attending physician: Corey Orellana MD Time Spent in preparation of Discharge (in minutes): 45 Diagnosis - Discharge Diagnosis (1) Asthma exacerbation Status: Acute (2) Asthma Status: Acute (3) GERD (gastroesophageal reflux disease) Status: Acute Hospital Course - Lab Results Lab Results: Micro Results 03/19/18 09:24 Blood Blood Culture - Final NO GROWTH AFTER 5 DAYS 03/19/18 09:24 Blood Gram Stain - Final TEST NOT PERFORMED 03/19/18 09:24 Blood Blood Culture - Final NO GROWTH AFTER 5 DAYS Most Recent Lab Values WBC 12.3 K/uL (4.8-10.8) H D 03/19/18 09:32 RBC 5.06 Mil/uL (3.80-5.20) 03/19/18 09:32 Hgb 14.6 g/dL (11.0-16.0) 03/19/18 09:32 Hct 42.8 % (34.0-47.0) 03/19/18 09:32 MCV 84.6 fL (81.0-99.0) 03/19/18 09:32 MCH 28.9 pg (27.0-31.0) 03/19/18 09:32 MCHC 34.1 g/dL (33.0-37.0) 03/19/18 09:32 RDW 14.4 % (11.5-14.5) 03/19/18 09:32 Plt Count 165 K/uL (130-400) 03/19/18 09:32 MPV 10.2 fL (7.2-11.7) 03/19/18 09:32 Neut % (Auto) 80.7 % (50.0-75.0) H 03/19/18 09:32 Lymph % (Auto) 12.2 % (20.0-40.0) L 03/19/18 09:32 [place] % (Auto) 6.6 % (0.0-10.0) 03/19/18 09:32 Eos % (Auto) 0.2 % (0.0-4.0) 03/19/18 09:32 Baso % (Auto) 0.3 % (0.0-2.0) 03/19/18 09:32 Neut # (Auto) 9.9 K/uL (1.8-7.0) H 03/19/18 09:32 Lymph # (Auto) 1.5 K/uL (1.0-4.3) 03/19/18 09:32 [place] # (Auto) 0.8 K/uL (0.0-0.8) 03/19/18 09:32 Eos # (Auto) 0.0 K/uL (0.0-0.7) 03/19/18 09:32 Baso # (Auto) 0.0 K/uL (0.0-0.2) 03/19/18 09:32 Puncture Site Lra 03/24/18 15:00 pCO2 29 mm/Hg (35-45) L 03/24/18 15:00 pO2 111 mm/Hg (80-100) H 03/24/18 15:00 HCO3 22.9 mmol/L (21-28) 03/24/18 15:00 ABG pH 7.45 (7.35-7.45) 03/24/18 15:00 ABG Total CO2 21.1 mmol/L (22-28) L 03/24/18 15:00 ABG O2 Saturation 99.1 % (95-98) H 03/24/18 15:00 ABG Base Excess -2.5 mmol/L (-2.0-3.0) L 03/24/18 15:00 ABG Hemoglobin 14.6 g/dL (11.7-17.4) 03/24/18 15:00 ABG Carboxyhemoglobin 1.5 % (0.5-1.5) 03/24/18 15:00 POC ABG HHb (Measured) 0.9 % (0.0-5.0) 03/24/18 15:00 ABG Methemoglobin 1.4 % (0.0-3.0) 03/24/18 15:00 [place] Test Pos 03/24/18 15:00 Hgb O2 Saturation 96.2 % (95.0-98.0) 03/24/18 15:00 Liter Flow 2.0 03/24/18 15:00 Sodium 135 mmol/L (132-148) 03/19/18 09:32 Potassium 4.4 mmol/L (3.6-5.2) 03/19/18 09:32 Chloride 101 mmol/L (98-107) 03/19/18 09:32 Carbon Dioxide 19 mmol/L (22-30) L 03/19/18 09:32 Anion Gap 18 (10-20) 03/19/18 09:32 BUN 20 mg/dL (7-17) H 03/19/18 09:32 Creatinine 0.8 mg/dL (0.7-1.2) 03/19/18 09:32 Est GFR ( Amer) > 60 03/19/18 09:32 Est GFR (Non-Af Amer) > 60 03/19/18 09:32 POC Glucose (mg/dL) 265 mg/dL (65-110) H 03/25/18 16:26 Random Glucose 321 mg/dL (65-105) H 03/19/18 09:32 Calcium 9.7 mg/dl (8.6-10.4) 03/19/18 09:32 Total Bilirubin 0.6 mg/dL (0.2-1.3) 03/19/18 09:32 AST 29 U/L (14-36) 03/19/18 09:32 ALT 32 U/L (9-52) 03/19/18 09:32 Alkaline Phosphatase 132 U/L (38-126) H D 03/19/18 09:32 Troponin I < 0.0120 ng/mL (0.00-0.120) 03/19/18 09:32 NT-Pro-B Natriuret Pep 103 pg/mL (0-450) 03/19/18 09:32 Total Protein 8.0 g/dL (6.3-8.3) 03/19/18 09:32 Albumin 4.1 g/dL (3.5-5.0) 03/19/18 09:32 Globulin 3.9 gm/dL (2.2-3.9) 03/19/18 09:32 Albumin/Globulin Ratio 1.1 (1.0-2.1) 03/19/18 09:32 Urine Color Yellow (YELLOW) 03/19/18 09:45 Urine Clarity Clear (Clear) 03/19/18 09:45 Urine pH 6.0 (5.0-8.0) 03/19/18 09:45 Ur Specific [place] 1.017 (1.003-1.030) 03/19/18 09:45 Urine Protein 2+ mg/dL (NEGATIVE) H 03/19/18 09:45 Urine Glucose (UA) 3+ mg/dL (Normal) H 03/19/18 09:45 Urine Ketones Negative mg/dL (NEGATIVE) 03/19/18 09:45 Urine Blood Negative (NEGATIVE) 03/19/18 09:45 Urine Nitrate Negative (NEGATIVE) 03/19/18 09:45 Urine Bilirubin Negative (NEGATIVE) 03/19/18 09:45 Urine Urobilinogen Normal mg/dL (0.2-1.0) 03/19/18 09:45 Ur Leukocyte Esterase Neg [place]/uL (Negative) 03/19/18 09:45 Urine WBC (Auto) < 1 /hpf (0-5) 03/19/18 09:45 Urine RBC (Auto) 1 /hpf (0-3) 03/19/18 09:45 Ur Squamous Epith Cells 1 /hpf (0-5) 03/19/18 09:45 - Hospital Course Hospital Course: Patient admitted [facility] asthma exacerbation, seen and examined. ALERT AND ORIENTX3 , Denies acute distress, no sob , chest pain, no wheezing. plan to discharge home today. Advised to follow uo in the office in 1 week Discharge Exam - Head Exam Head Exam: ATRAUMATIC, NORMAL INSPECTION, NORMOCEPHALIC Discharge Plan - Discharge Medications Prescriptions: Losartan [Cozaar] 100 mg PO DAILY #30 tab Albuterol/Ipratropium [Duoneb 3 mg/0.5 mg (3 ml) UD] 3 ml INH RQ4 PRN #50 neb PRN Reason: Wheezing MetFORMIN [glucoPHAGE] 850 mg PO BID #60 tab hydroCHLOROthiazide [Hydrodiuril] 25 mg PO DAILY #30 tab Methylprednisolone [Medrol Dose Pack (21 tabs)] 4 mg PO DAILY #21 mg guaiFENesin [Mucinex LA] 600 mg PO BID #20 tab Gabapentin [Neurontin] 300 mg PO BID #60 capsule amLODIPine [Norvasc] 5 mg PO DAILY #30 tab Famotidine [Pepcid] 20 mg PO BID #60 tab - Follow Up Plan Condition: FAIR Disposition: HOME/ ROUTINE Instructions: Asthma, Adult (DC), Acid Reflux (Gastroesophageal Reflux Disease) , Adult (DC) Referrals: Corey Orellana MD [Staff Provider] -
== END 2018-03-25 18:20 | disposition home or self-care (01) | DRG 96 ==
LOC: C.ER 08:52 → C.9E 11:47 → C.3T 12:38 → OBSVTOIN 03-20 16:14 → C.3T 03-24 00:51
PROVIDERS: ADMIT Internal Medicine; ATTEND Internal Medicine
DX: J45.902 Unspecified asthma with status asthmaticus (principal); M32.9 Systemic lupus erythematosus, unspecified; J43.9 Emphysema, unspecified; E66.2 Morbid (severe) obesity with alveolar hypoventilation; F17.200 Nicotine dependence, unspecified, uncomplicated; I10 Essential (primary) hypertension; K21.9 Gastro-esophageal reflux disease without esophagitis; E78.00 Pure hypercholesterolemia, unspecified; H40.9 Unspecified glaucoma; E11.9 Type 2 diabetes mellitus without complications; Z68.41 Body mass index [BMI] 40.0-44.9, adult; Z79.4 Long term (current) use of insulin

== ENCOUNTER 2018-05-10 15:26 | Emergency (ER) | payer MEDICAID ==
[2018-05-10 15:27] VITALS: BMI 39.3
[2018-05-10 15:47] VITALS: RESP 18
[2018-05-10] MEDS ORDERED: Sodium Chloride 0.9% 1,000 ML IV ONE (16:03)
[2018-05-10 16:16] LABS: BASO # 0.1 K/uL (0.0-0.2); EOS # 0.3 K/uL (0.0-0.7); EOS % 3.9 % (0.0-4.0); HEMOGLOBIN 14.2 g/dL (11.0-16.0); LYMPH # 2.3 K/uL (1.0-4.3); LYMPH % 25.4 % (20.0-40.0); MEAN CELL VOLUME 83.5 fL (81.0-99.0); MEAN CORPUSCULAR HEMOGLOBIN 28.2 pg (27.0-31.0); MEAN CORPUSCULAR HGB CONC 33.7 g/dL (33.0-37.0); MEAN PLATELET VOLUME 9.7 fL (7.2-11.7); MONO # 0.9 K/uL (0.0-0.8); MONO % 10.2 % (0.0-10.0); NEUT # 5.3 K/uL (1.8-7.0); NEUT % 59.5 % (50.0-75.0); NRBC % 0.1 % (0.0-2.0); RBC 5.04 Mil/uL (3.80-5.20); RED CELL DISTRIBUTION WIDTH 14.3 % (11.5-14.5); WHITE BLOOD COUNT 8.9 K/uL (4.8-10.8)
[2018-05-10 16:27] LABS: ALB/GLOB RATIO 1.5 (1.0-2.1); ALBUMIN 4.5 g/dL (3.5-5.0); ALT/SGPT 39 U/L (9-52); AST/SGOT 24 U/L (14-36); BLOOD UREA NITROGEN 11 mg/dL (7-17); CALCIUM 9.6 mg/dl (8.6-10.4); GFR AFRICAN-AMERICAN > 60; GFR NON-AFRICAN AMERICAN > 60; LIPASE 117 U/L (23-300)
[2018-05-10 16:39] LABS: HCG,QUALITATIVE URINE NEGATIVE (NEGATIVE)
[2018-05-10 16:40] LABS: SQUAMOUS EPITHIAL 2 /hpf (0-5); URINE BILIRUBIN NEGATIVE (NEGATIVE); URINE BLOOD NEGATIVE (NEGATIVE); URINE CLARITY Clear (Clear); URINE COLOR Yellow (YELLOW); URINE GLUCOSE (UA) NORMAL (Normal); URINE LEUKOCYTE ESTERASE NEG Leu/uL (Negative); URINE PROTEIN 2+ mg/dL (NEGATIVE); URINE UROBILINOGEN NORMAL mg/dL (0.2-1.0)
[2018-05-10] MEDS ORDERED: Sodium Chloride 0.9% 1,000 ML ONE (16:56)
--- NOTE | 2018-05-10 17:29 | C.PDOC ---
Time Seen by Provider: 05/10/18 15:53 Chief Complaint (Nursing): GI Problem History Per: Patient Onset/Duration Of Symptoms: Days (1) Current Symptoms Are (Timing): Still Present Severity: Moderate Location Of Pain/Discomfort: Epigastric Quality Of Discomfort: Unable To Describe Associated Symptoms: Nausea, Vomiting Exacerbating Factors: Other (Emotional upset) Last Bowel Movement: Today Additional History Per: Prior Records Past Medical History Reviewed: Historical Data, Nursing Documentation, Vital Signs Vital Signs: Last Vital Signs Temp 98.4 F 05/10/18 15:45 Pulse 81 05/10/18 15:45 Resp 18 05/10/18 15:45 BP 152/104 H 05/10/18 15:45 Pulse Ox 98 05/10/18 17:29 - Medical History PMH: Anxiety, Arthritis, Asthma, Back Problems, Bronchitis, COPD (Emphysema), Depression, Diabetes, Emphysema, Gastritis, Gastrointestinal Ulcer, HTN, Hypercholesterolemia, Pancreatitis, Pneumonia, Rheumatoid Arthritis Surgical History: Endoscopy (X2) - [facility] Procedures CLOSED ENDOSCOPIC BIOPSY OF LARGE INTESTINE (03/05/14) CORONAR ARTERIOGR-2 CATH (03/28/12) ESOPHAGOGASTRODUODENOSCOPY [EGD] W/CLOSED BIOPSY (03/10/14) EXCISION OF SMALL INTESTINE, ENDO, DIAGN (11/17/17) EXCISION OF STOMACH, ENDO, DIAGN (10/27/15) INJECT/INFUSE NEC (05/04/14) LEFT HEART CARDIAC CATH (03/28/12) LT HEART ANGIOCARDIOGRAM (03/28/12) Family History: States: Unknown Family Hx - Social History Hx Tobacco Use: Yes Hx Alcohol Use: No Hx Substance Use: No - Immunization History Hx Tetanus Toxoid Vaccination: No Hx Influenza Vaccination: Yes (December 2016) Hx Pneumococcal Vaccination: Yes (Oct 2015) Review Of Systems Except As Marked, All Systems Reviewed And Found Negative. Constitutional: Negative for: Fever Cardiovascular: Negative for: Chest Pain Respiratory: Negative for: Shortness of Breath Gastrointestinal: Positive for: Nausea, Vomiting. Negative for: Diarrhea, Constipation, Melena, Hematochezia, Hematemesis Genitourinary: Negative for: Dysuria Skin: Negative for: Rash Neurological: Negative for: Weakness, Numbness, Headache Psych: Negative for: Suicidal ideation Physical Exam - Physical Exam Appears: Non-toxic, No Acute Distress Skin: Normal Color, Warm, Dry, No Rash Head: Atraumatic, Normacephalic Eye(s): bilateral: Normal Inspection, PERRL, EOMI Neck: Normal ROM, Supple Cardiovascular: Rhythm Regular Respiratory: Normal Breath Sounds, No Accessory Muscle Use Gastrointestinal/Abdominal: Soft, No Tenderness, No Distention Back: No CVA Tenderness Extremity: Normal ROM Neurological/Psych: Oriented x3, Normal Motor, Normal Sensation ED Course And Treatment - Laboratory Results Result Diagrams: 05/10/18 16:10 05/10/18 16:10 Lab Interpretation: No Acute Changes Urine POC: Negative O2 Sat by Pulse Oximetry: 98 Pulse Ox Interpretation: Normal Progress Note: Pt feels much better and wants to go home. Reassessment Condition: Improved Progress - Interventions Interventions:: Observation, Intravenous fluid - Medications Administered Intravenous: Antiemetic, H-2 percy, NSAID - Data Reviewed Data Reviewed: Lab, Old records - Patient Status Patient status: Mostly improved - Continuity of Care Discussed patient case with:: Patient, ED Nurse - Patient Plan Patient Plan: Discharge, F/U with PCP, Continue present meds Disposition Counseled Patient/Family Regarding: Studies Performed, Diagnosis, Need For Followup, Rx Given - Disposition Referrals: Corey Orellana MD [Staff Provider] - Disposition: HOME/ ROUTINE Disposition Time: 17:33 Condition: IMPROVED Additional Instructions: Follow up with your doctor for further evaluation and treatment. Return to the ER if you develop fever, bleeding, worsening of symptoms or if you have any other concerns. Prescriptions: Metoclopramide [Reglan] 1 tab PO TID PRN #15 tab PRN Reason: Nausea/Vomiting Instructions: Nausea and Vomiting, Adult (DC) Forms: [employer] [employer] (L[place]uanian) - Clinical Impression Clinical Impression: Nausea & vomiting
[2018-05-10 17:41] VITALS: BP 151/99; PULSE 82; TEMP 98.9; O2SAT 99
== END 2018-05-10 18:00 | disposition home or self-care (01) ==
LOC: C.ER 15:26
DX: R11.2 Nausea with vomiting, unspecified (principal)
CPT/HCPCS: 80053; 81001; 83690; 84703; 85025; 96361; 96374; 96375; 99285; J1885; J2765; J7030

== ENCOUNTER 2018-05-13 16:15 | Inpatient (IN) | payer MEDICAID ==
[2018-05-13 16:16] VITALS: BMI 39.3
--- NOTE | 2018-05-13 16:36 | C.PDOC ---
History Of Present Illness 42 year old female presents to the ED for evaluation of abdominal pain and episodes of vomiting which began 3 days ago. Patient was evaluated in this ED for similar symptoms on 05/10, and was discharged after her symptoms improved. Patient has not been able to see her PMD. She denies fever, chills, diarrhea. PMD: Dr. Corey Orellana Time Seen by Provider: 05/13/18 16:20 Chief Complaint (Nursing): Abdominal Pain History Per: Patient History/Exam Limitations: no limitations Onset/Duration Of Symptoms: Days (3) Current Symptoms Are (Timing): Still Present Location Of Pain/Discomfort: Diffuse Radiation Of Pain To:: None Quality Of Discomfort: "Pain" Associated Symptoms: Nausea, Vomiting. denies: Fever, Chills, Diarrhea Recent travel outside of the [place]: No Additional History Per: Patient Abnormal Vaginal Bleeding: No Last Menstral Period: 04/17/2018 Past Medical History Reviewed: Historical Data, Nursing Documentation, Vital Signs Vital Signs: Last Vital Signs Temp 98 F 05/13/18 16:28 Pulse 63 05/13/18 16:28 Resp 16 05/13/18 16:28 BP 180/103 H 05/13/18 16:28 Pulse Ox 99 05/13/18 18:49 - Medical History PMH: Anxiety, Arthritis, Asthma, Back Problems, Bronchitis, COPD (Emphysema), Depression, Diabetes, Emphysema, Gastritis, Gastrointestinal Ulcer, HTN, Hypercholesterolemia, Pancreatitis, Pneumonia, Rheumatoid Arthritis Denies: Chronic Kidney Disease Surgical History: Endoscopy (X2) - [facility] Procedures CLOSED ENDOSCOPIC BIOPSY OF LARGE INTESTINE (03/05/14) CORONAR ARTERIOGR-2 CATH (03/28/12) ESOPHAGOGASTRODUODENOSCOPY [EGD] W/CLOSED BIOPSY (03/10/14) EXCISION OF SMALL INTESTINE, ENDO, DIAGN (11/17/17) EXCISION OF STOMACH, ENDO, DIAGN (10/27/15) INJECT/INFUSE NEC (05/04/14) LEFT HEART CARDIAC CATH (03/28/12) LT HEART ANGIOCARDIOGRAM (03/28/12) Family History: States: Unknown Family Hx - Social History Hx Tobacco Use: Yes Hx Alcohol Use: No Hx Substance Use: No - Immunization History Hx Tetanus Toxoid Vaccination: No Hx Influenza Vaccination: Yes (December 2016) Hx Pneumococcal Vaccination: Yes (Oct 2015) Review Of Systems Constitutional: Negative for: Fever, Chills Gastrointestinal: Positive for: Vomiting, Abdominal Pain. Negative for: Diarrhea Physical Exam - Physical Exam Appears: Non-toxic, No Acute Distress Skin: Normal Color, Warm, Dry Head: Atraumatic, Normacephalic Eye(s): bilateral: Normal Inspection Oral Mucosa: Moist Neck: Supple Chest: Symmetrical, No Deformity, No Tenderness Cardiovascular: Rhythm Regular, No Murmur Respiratory: Normal Breath Sounds, No Rales, No Rhonchi, No Wheezing Gastrointestinal/Abdominal: Soft, Tenderness (diffuse ), No Guarding, No Rebound Extremity: Normal ROM, Capillary Refill (less than 2 seconds ) Neurological/Psych: Oriented x3, Normal Speech, Normal Cognition ED Course And Treatment - Laboratory Results Result Diagrams: 05/13/18 16:42 05/13/18 16:42 O2 Sat by Pulse Oximetry: 99 (on RA) Pulse Ox Interpretation: Normal Medical Decision Making Medical Decision Making: Assessment: 42 year old female with abdominal pain and vomiting Plan: * bloodwork * urinalysis * CT A/P * Pepcid IVP * Toradol IVP * Zofran IVP * IV Fluids * reassess and disposition Progress: Bloodwork, urinalysis, CT A/P ordered. Pepcid IVP, Toradol IVP, Zofran IVP and IV Fluids given. Disposition - Disposition Disposition Time: 19:00 Condition: STABLE Forms: [facility] (Occitan) - Clinical Impression Clinical Impression: Abdominal pain - Scribe Statement The provider has reviewed the documentation as recorded by the Scribe (Helena Sullivan) Provider Attestation: All medical record entries made by the Scribe were at my direction and personally dictated by me. I have reviewed the chart and agree that the record accurately reflects my personal performance of the history, physical exam, medical decision making, and the department course for this patient. I have also personally directed, reviewed, and agree with the discharge instructions and disposition. Physician Patient Turnover Patient Signed Over To: Viraj Naranjo Handoff Comments: pending ct scan of abd/pelvis, reevaluation and dispo.
[2018-05-13] MEDS ORDERED: Sodium Chloride 0.9% 1,000 ML IV ONE ×2 (16:37→20:50)
[2018-05-13 16:46] LABS: BASO % 0.2 % (0.0-2.0); HEMOGLOBIN 16.1 g/dL (11.0-16.0); LYMPH # 0.8 K/uL (1.0-4.3); LYMPH % 5.1 % (20.0-40.0); MEAN CELL VOLUME 82.1 fL (81.0-99.0); MEAN CORPUSCULAR HEMOGLOBIN 28.1 pg (27.0-31.0); MEAN CORPUSCULAR HGB CONC 34.2 g/dL (33.0-37.0); MEAN PLATELET VOLUME 9.7 fL (7.2-11.7); MONO # 0.3 K/uL (0.0-0.8); MONO % 1.9 % (0.0-10.0); NEUT # 15.1 K/uL (1.8-7.0); NEUT % 92.8 % (50.0-75.0); NRBC % 0.3 % (0.0-2.0); PLATELET COUNT 214 K/uL (130-400); RBC 5.72 Mil/uL (3.80-5.20); RED CELL DISTRIBUTION WIDTH 14.3 % (11.5-14.5)
[2018-05-13] MEDS ORDERED: Sodium Chloride 0.9% 1,000 ML ONE ×2 (16:48→20:57)
[2018-05-13 16:49] LABS: WHITE BLOOD COUNT 16.3 K/uL (4.8-10.8)
[2018-05-13 17:02] LABS: ALB/GLOB RATIO 1.4 (1.0-2.1); ALBUMIN 4.7 g/dL (3.5-5.0); ALT/SGPT 49 U/L (9-52); AST/SGOT 26 U/L (14-36); BLOOD UREA NITROGEN 13 mg/dL (7-17); GFR AFRICAN-AMERICAN > 60; GFR NON-AFRICAN AMERICAN > 60; LIPASE 79 U/L (23-300)
[2018-05-13 17:20] LABS: LYMPHOCYTE 7 % (20-40); MONOCYTE 1 % (0-10); NEUTROPHIL 92 % (50-75); PLATELET ESTIMATE NORMAL (NORMAL); TOTAL CELLS COUNTED 100
[2018-05-13] MEDS ORDERED: Iodixanol 320 MG/ML 100 ML BOTTLE IV ONE (17:52)
--- NOTE | 2018-05-13 18:51 | CT ---
Date of service: 05/13/2018 PROCEDURE: CT Abdomen and Pelvis with contrast HISTORY: Periumbilical pain COMPARISON: 05/14/2017 and 05/18/[address] scans abdomen and pelvis. 11/17/2017 abdominal ultrasound TECHNIQUE: Contrast dose: 100 cc Visipaque 320. Radiation dose: Total exam DLP = 1107.37 mGy-cm. This CT exam was performed using one or more of the following dose reduction techniques: Automated exposure control, adjustment of the mA and/or kV according to patient size, and/or use of iterative reconstruction technique. FINDINGS: LOWER THORAX: Unremarkable. LIVER: Hepatic steatosis. No focal masses. No intrahepatic bile duct dilatation or perihepatic ascites. GALLBLADDER AND BILE DUCTS: Unremarkable. PANCREAS: Unremarkable. No gross lesion or ductal dilatation. SPLEEN: Unremarkable. ADRENALS: Unremarkable. No mass. KIDNEYS AND URETERS: Unremarkable. No hydronephrosis. No solid mass. VASCULATURE: Unremarkable. No aortic aneurysm. BOWEL: Unremarkable. No obstruction. No gross mural thickening. APPENDIX: Normal appendix. PERITONEUM: Unremarkable. No free fluid. No free air. LYMPH NODES: Unremarkable. No enlarged lymph nodes. BLADDER: Unremarkable. REPRODUCTIVE: Unremarkable uterus. Cysts/follicles identified in a otherwise unremarkable adnexa. BONES: No acute fracture. OTHER FINDINGS: None. IMPRESSION: No significant or acute findings to account for/ related to the clinical presentation. Additional benign and/or incidental findings described above. No significant interval change compared to the prior examination(s).
[2018-05-13 20:19] LABS: SQUAMOUS EPITHIAL 3 /hpf (0-5); URINE BILIRUBIN NEGATIVE (NEGATIVE); URINE BLOOD NEGATIVE (NEGATIVE); URINE CLARITY Clear (Clear); URINE COLOR Yellow (YELLOW); URINE GLUCOSE (UA) 3+ mg/dL (Normal); URINE LEUKOCYTE ESTERASE NEG Leu/uL (Negative); URINE PROTEIN 2+ mg/dL (NEGATIVE); URINE UROBILINOGEN NORMAL mg/dL (0.2-1.0)
[2018-05-13] MEDS ORDERED: metroNIDAZOLE IV 500 mg/100 ml 500 MG/100 ML BAG IVPB SCH (20:45)
[2018-05-13] MEDS ORDERED: Ciprofloxacin 400mg/200ml D5W 400 MG/200 ML BAG IVPB STA (20:50)
[2018-05-13] MEDS ORDERED: Ciprofloxacin 400mg/200ml D5W 400 MG/200 ML BAG IVPB ONE (20:57)
[2018-05-13] MEDS ORDERED: metroNIDAZOLE IV 500 mg/100 ml 500 MG/100 ML BAG ONE (22:28)
[2018-05-13] MEDS: metroNIDAZOLE IV 500 mg/100 ml 500 MG/100 ML BAG IVPB SCH (23:21)
[2018-05-13] MEDS: Ciprofloxacin 400mg/200ml D5W 400 MG/200 ML BAG IVPB SCH (23:22)
[2018-05-14] MEDS: Albuterol HFA 90 mcg/actuation (8 g) IH SCH ×5 (02:30→20:26)
[2018-05-14] MEDS ORDERED: Nitroglycerin 2% Ointment Foilpak UD TOP STA (02:44)
[2018-05-14] MEDS ORDERED: Nitroglycerin 2% Ointment Foilpak UD TOP SCH (06:00)
[2018-05-14] MEDS: metroNIDAZOLE IV 500 mg/100 ml 500 MG/100 ML BAG IVPB SCH ×3 (06:31→23:53)
[2018-05-14 07:57] LABS: BASO % 0.2 % (0.0-2.0); EOS % 0.1 % (0.0-4.0); HEMOGLOBIN 14.2 g/dL (11.0-16.0); LYMPH # 1.2 K/uL (1.0-4.3); MEAN CELL VOLUME 82.7 fL (81.0-99.0); MEAN CORPUSCULAR HEMOGLOBIN 28.6 pg (27.0-31.0); MEAN CORPUSCULAR HGB CONC 34.6 g/dL (33.0-37.0); MEAN PLATELET VOLUME 9.9 fL (7.2-11.7); MONO # 1.1 K/uL (0.0-0.8); MONO % 6.4 % (0.0-10.0); NEUT # 14.8 K/uL (1.8-7.0); NEUT % 86.3 % (50.0-75.0); PLATELET COUNT 194 K/uL (130-400); RBC 4.97 Mil/uL (3.80-5.20); RED CELL DISTRIBUTION WIDTH 14.7 % (11.5-14.5); WHITE BLOOD COUNT 17.1 K/uL (4.8-10.8)
[2018-05-14] MEDS ORDERED: Tiotropium 18 mcg Cap For Inhalation IH SCH (08:00)
[2018-05-14 08:26] LABS: ALB/GLOB RATIO 1.5 (1.0-2.1); ALT/SGPT 38 U/L (9-52); AST/SGOT 15 U/L (14-36); BLOOD UREA NITROGEN 16 mg/dL (7-17); CALCIUM 8.5 mg/dl (8.6-10.4); GFR AFRICAN-AMERICAN > 60; GFR NON-AFRICAN AMERICAN > 60
[2018-05-14 08:27] LABS: BANDS 1 % (0-2); LYMPHOCYTE 10 % (20-40); MONOCYTE 4 % (0-10); NEUTROPHIL 85 % (50-75); PLATELET ESTIMATE NORMAL (NORMAL); TOTAL CELLS COUNTED 100
[2018-05-14] MEDS: (Novolin R) Insulin Human Regular 100 units/ml vial SC SCH ×4 (08:47→22:07)
[2018-05-14] MEDS: Nitroglycerin 2% Ointment Foilpak UD TOP SCH ×4 (09:18→23:54)
[2018-05-14] MEDS: Enoxaparin 40 mg Syringe SC SCH (09:55)
[2018-05-14] MEDS: POLYETHYLENE GLYCOL 3350 17 GM/Dose PACKET PO SCH ×2 (10:26→17:54)
--- NOTE | 2018-05-14 11:00 | CP.PCM.HP ---
History of Present Illness - History of Present Illness History of Present Illness: Chief Complaint: Abdominal Pain History Of Present Illness 42 year old female presents to the ED for evaluation of abdominal pain and episodes of vomiting which began 3 days ago. Patient was evaluated in this ED for similar symptoms on 05/10, and was discharged after her symptoms improved. Patient has not been able to see her PMD. She denies fever, chills, diarrhea. Past Patient History - Infectious Disease Hx of Infectious Diseases: None - Past Medical History & Family History Past Medical History?: Yes - Past Social History Smoking Status: Never Smoked - CARDIAC Hx Cardiac Disorders: Yes Hx Hypercholesterolemia: Yes Hx Hypertension: Yes - PULMONARY Hx Respiratory Disorders: Yes Hx Asthma: Yes Hx Bronchitis: Yes Hx Chronic Obstructive Pulmonary Disease (COPD): Yes (Emphysema) Hx Emphysema: Yes Hx Pneumonia: Yes - NEUROLOGICAL Hx Neurological Disorder: No - HEENT Hx HEENT Problems: Yes Hx Glaucoma: Yes - RENAL Hx Chronic Kidney Disease: No - ENDOCRINE/METABOLIC Hx Endocrine Disorders: Yes Hx Diabetes Mellitus Type 2: Yes - HEMATOLOGICAL/ONCOLOGICAL Hx Blood Disorders: No - INTEGUMENTARY Hx Dermatological Problems: No - MUSCULOSKELETAL/RHEUMATOLOGICAL Hx Musculoskeletal Disorders: Yes Hx Arthritis: Yes Hx Falls: No Hx Rheumatoid Arthritis: Yes - GASTROINTESTINAL Hx Gastrointestinal Disorders: Yes Hx Gastritis: Yes Hx Pancreatitis: Yes - GENITOURINARY/GYNECOLOGICAL Hx Genitourinary Disorders: Yes (SEE COMMENT) Other/Comment: endometriosis - PSYCHIATRIC Hx Psychophysiologic Disorder: Yes Hx Anxiety: Yes Hx Depression: Yes Hx Substance Use: No - SURGICAL HISTORY Hx Surgeries: Yes Hx Section: Yes (X 2) Hx Dilation and Curettage: Yes (X 2) - ANESTHESIA Hx Anesthesia: Yes Hx Anesthesia Reactions: No Hx Malignant Hyperthermia: No Has any member of the family had a problem w/ anesthesia?: No Meds Allergies/Adverse Reactions: Allergies Allergy/AdvReac Type Severity Reaction Status Date / Time methylergonovine maleate Allergy Intermediate RASH Verified 03/11/18 18:34 [From Methergine] Penicillins Allergy Intermediate RASH Verified 03/11/18 18:34 Results - Vital Signs Recent Vital Signs: Last Vital Signs Temp 98.7 F 05/14/18 07:00 Pulse 78 05/14/18 07:00 Resp 20 05/14/18 07:00 BP 169/87 H 05/14/18 07:00 Pulse Ox 96 05/14/18 07:00 - Labs Result Diagrams: 05/14/18 07:47 05/14/18 07:47 Labs: Laboratory Results - last 24 hr 05/13/18 05/13/18 05/13/18 16:42 16:42 20:01 WBC 16.3 H D RBC 5.72 H Hgb 16.1 H Hct 46.9 MCV 82.1 MCH 28.1 MCHC 34.2 RDW 14.3 Plt Count 214 MPV 9.7 Neut % (Auto) 92.8 H Lymph % (Auto) 5.1 L [place] % (Auto) 1.9 Eos % (Auto) 0.0 Baso % (Auto) 0.2 Neut # (Auto) 15.1 H Lymph # (Auto) 0.8 L [place] # (Auto) 0.3 Eos # (Auto) 0.0 Baso # (Auto) 0.0 Neutrophils % (Manual) 92 H Band Neutrophils % Lymphocytes % (Manual) 7 L Monocytes % (Manual) 1 Platelet Estimate Normal RBC Morphology Sodium 137 Potassium 3.5 L Chloride 98 Carbon Dioxide 23 Anion Gap 20 BUN 13 Creatinine 0.7 Est GFR ( Amer) > 60 Est GFR (Non-Af Amer) > 60 POC Glucose (mg/dL) Random Glucose 294 H Calcium 10.0 Total Bilirubin 0.6 AST 26 ALT 49 Alkaline Phosphatase 145 H D Troponin I < 0.0120 Total Protein 8.2 Albumin 4.7 Globulin 3.5 Albumin/Globulin Ratio 1.4 Lipase 79 Urine Color Yellow Urine Clarity Clear Urine pH 6.0 Ur Specific [place] > 1.060 H Urine Protein 2+ H Urine Glucose (UA) 3+ H Urine Ketones 2+ H Urine Blood Negative Urine Nitrate Negative Urine Bilirubin Negative Urine Urobilinogen Normal Ur Leukocyte Esterase Neg Urine WBC (Auto) 1 Urine RBC (Auto) 4 H Ur Squamous Epith Cells 3 05/13/18 05/14/18 05/14/18 20:14 06:38 07:47 WBC 17.1 H RBC 4.97 Hgb 14.2 Hct 41.1 MCV 82.7 MCH 28.6 MCHC 34.6 RDW 14.7 H Plt Count 194 MPV 9.9 Neut % (Auto) 86.3 H Lymph % (Auto) 7.0 L [place] % (Auto) 6.4 Eos % (Auto) 0.1 Baso % (Auto) 0.2 Neut # (Auto) 14.8 H Lymph # (Auto) 1.2 [place] # (Auto) 1.1 H Eos # (Auto) 0.0 Baso # (Auto) 0.0 Neutrophils % (Manual) 85 H Band Neutrophils % 1 Lymphocytes % (Manual) 10 L Monocytes % (Manual) 4 Platelet Estimate Normal RBC Morphology Normal Sodium Potassium Chloride Carbon Dioxide Anion Gap BUN Creatinine Est GFR ( Amer) Est GFR (Non-Af Amer) POC Glucose (mg/dL) 241 H 216 H Random Glucose Calcium Total Bilirubin AST ALT Alkaline Phosphatase Troponin I Total Protein Albumin Globulin Albumin/Globulin Ratio Lipase Urine Color Urine Clarity Urine pH Ur Specific [place] Urine Protein Urine Glucose (UA) Urine Ketones Urine Blood Urine Nitrate Urine Bilirubin Urine Urobilinogen Ur Leukocyte Esterase Urine WBC (Auto) Urine RBC (Auto) Ur Squamous Epith Cells 05/14/18 07:47 WBC RBC Hgb Hct MCV MCH MCHC RDW Plt Count MPV Neut % (Auto) Lymph % (Auto) [place] % (Auto) Eos % (Auto) Baso % (Auto) Neut # (Auto) Lymph # (Auto) [place] # (Auto) Eos # (Auto) Baso # (Auto) Neutrophils % (Manual) Band Neutrophils % Lymphocytes % (Manual) Monocytes % (Manual) Platelet Estimate RBC Morphology Sodium 136 Potassium 3.2 L Chloride 101 Carbon Dioxide 20 L Anion Gap 19 BUN 16 Creatinine 0.7 Est GFR ( Amer) > 60 Est GFR (Non-Af Amer) > 60 POC Glucose (mg/dL) Random Glucose 226 H Calcium 8.5 L Total Bilirubin 0.5 AST 15 ALT 38 Alkaline Phosphatase 112 Troponin I Total Protein 6.8 Albumin 4.0 Globulin 2.7 Albumin/Globulin Ratio 1.5 Lipase Urine Color Urine Clarity Urine pH Ur Specific [place] Urine Protein Urine Glucose (UA) Urine Ketones Urine Blood Urine Nitrate Urine Bilirubin Urine Urobilinogen Ur Leukocyte Esterase Urine WBC (Auto) Urine RBC (Auto) Ur Squamous Epith Cells
--- NOTE | 2018-05-14 11:49 | CP.PCM.CON ---
History of Present Illness - History of Present Illness History of Present Illness: GI Fellow PGY4, Consult note. Consulted for PUD. Josefina Delgado is a Female with a complex medical history of RA/SLE, uncontrolled DM, gastroparesis, gastritis, chronic pain with opiates, anxiety presenting with intractable nausea and vomiting. Patient states she has been having non-stop nonbloody emesis x2-3 days. She complains of diffuse crampy abdominal pain. Nothing has improved her symptoms. She takes chronic reglan, but it has not been helping, she also has constipation. Patient believe this started due to stress. Her uncle and aunt recently passed unexpectedly and this is when her symptoms started. She denies sick contacts. PMHx - see above PSHx - EGD (11/08) and CSPY (2014) with retained fluid, esophagitis, gastritis, hemorrhoids, spastic colon. FMHx - None SocHx - Occasional smoking. Occasional alcohol. 12pt ROS completed and negative except for above. Past Patient History - Infectious Disease Hx of Infectious Diseases: None - Past Medical History & Family History Past Medical History?: Yes - Past Social History Smoking Status: Never Smoked - CARDIAC Hx Cardiac Disorders: Yes Hx Hypercholesterolemia: Yes Hx Hypertension: Yes - PULMONARY Hx Respiratory Disorders: Yes Hx Asthma: Yes Hx Bronchitis: Yes Hx Chronic Obstructive Pulmonary Disease (COPD): Yes (Emphysema) Hx Emphysema: Yes Hx Pneumonia: Yes - NEUROLOGICAL Hx Neurological Disorder: No - HEENT Hx HEENT Problems: Yes Hx Glaucoma: Yes - RENAL Hx Chronic Kidney Disease: No - ENDOCRINE/METABOLIC Hx Endocrine Disorders: Yes Hx Diabetes Mellitus Type 2: Yes - HEMATOLOGICAL/ONCOLOGICAL Hx Blood Disorders: No - INTEGUMENTARY Hx Dermatological Problems: No - MUSCULOSKELETAL/RHEUMATOLOGICAL Hx Musculoskeletal Disorders: Yes Hx Arthritis: Yes Hx Falls: No Hx Rheumatoid Arthritis: Yes - GASTROINTESTINAL Hx Gastrointestinal Disorders: Yes Hx Gastritis: Yes Hx Pancreatitis: Yes - GENITOURINARY/GYNECOLOGICAL Hx Genitourinary Disorders: Yes (SEE COMMENT) Other/Comment: endometriosis - PSYCHIATRIC Hx Psychophysiologic Disorder: Yes Hx Anxiety: Yes Hx Depression: Yes Hx Substance Use: No - SURGICAL HISTORY Hx Surgeries: Yes Hx Section: Yes (X 2) Hx Dilation and Curettage: Yes (X 2) - ANESTHESIA Hx Anesthesia: Yes Hx Anesthesia Reactions: No Hx Malignant Hyperthermia: No Has any member of the family had a problem w/ anesthesia?: No Meds Allergies/Adverse Reactions: Allergies Allergy/AdvReac Type Severity Reaction Status Date / Time methylergonovine maleate Allergy Intermediate RASH Verified 03/11/18 18:34 [From Methergine] Penicillins Allergy Intermediate RASH Verified 03/11/18 18:34 - Medications Medications: Current Medications Albuterol (Ventolin Hfa 90 Mcg/Actuation (8 G)) 2 puff IH RQ6 [facility] Last Admin: 05/14/18 02:40 Dose: Not Given Albuterol/Ipratropium (Duoneb 3 Mg/0.5 Mg (3 Ml) Ud) 3 ml INH RQ4 PRN PRN Reason: Wheezing Alprazolam (Xanax) 0.5 mg PO TID PRN PRN Reason: Nausea/Vomiting Stop: 05/21/18 09:47 Last Admin: 05/14/18 10:26 Dose: 0.5 mg Amlodipine Besylate (Norvasc) 5 mg PO DAILY [facility] Last Admin: 05/14/18 09:55 Dose: 5 mg Enoxaparin Sodium (Lovenox) 40 mg SC DAILY [facility] Last Admin: 05/14/18 09:55 Dose: Not Given Famotidine (Pepcid) 20 mg PO BID [facility] Last Admin: 05/14/18 09:54 Dose: 20 mg Folic Acid (Folic Acid) 1 mg PO DAILY [facility] Last Admin: 05/14/18 09:54 Dose: 1 mg Gabapentin (Neurontin) 300 mg PO BID [facility] Last Admin: 05/14/18 09:54 Dose: 300 mg Ciprofloxacin (Cipro 400mg/200ml Dsw) 400 mg in 200 mls @ 133 mls/hr IVPB Q12H [facility] PRN Reason: Protocol Last Admin: 05/13/18 23:22 Dose: Not Given Metronidazole (Flagyl) 500 mg in 100 mls @ 100 mls/hr IVPB Q8H [facility] PRN Reason: Protocol Last Admin: 05/14/18 06:31 Dose: 100 mls/hr Potassium Chloride (Potassium Chloride 20 Meq/100 Ml) 20 meq in 100 mls @ 50 mls/hr IVPB Q2 [facility] Stop: 05/14/18 13:59 Last Admin: 05/14/18 09:55 Dose: 50 mls/hr Insulin Human Regular (Novolin R) 0 unit SC ACHS [facility] PRN Reason: Protocol Last Admin: 05/14/18 08:47 Dose: Not Given Latanoprost (Xalatan Opht) 0 ml OU HS [facility] Losartan Potassium (Cozaar) 100 mg PO DAILY [facility] Last Admin: 05/14/18 09:55 Dose: 100 mg Metformin HCl (Glucophage) 850 mg PO BID [facility] Last Admin: 05/14/18 09:55 Dose: Not Given Metoclopramide HCl (Reglan) 10 mg IVP Q6 PRN PRN Reason: Nausea/Vomiting Last Admin: 05/14/18 09:14 Dose: 10 mg Morphine Sulfate (Morphine) 2 mg SC Q4 PRN PRN Reason: pain Last Admin: 05/14/18 10:02 Dose: 2 mg Nitroglycerin (Nitro-Bid 2% Oint) 1 ea TOP Q6 PRN PRN Reason: HIGH BLOOD PRESSURE Nitroglycerin (Nitro-Bid 2% Oint) 1 ea TOP Q6 [facility] Last Admin: 05/14/18 09:18 Dose: Not Given Oxycodone HCl (Oxycodone Immediate Release Tab) 15 mg PO Q6 PRN PRN Reason: Pain, moderate (4-7) Pantoprazole Sodium (Protonix Inj) 40 mg IVP DAILY [facility] Last Admin: 05/14/18 09:55 Dose: 40 mg Polyethylene Glycol (Miralax) 17 gm PO BID [facility] Last Admin: 05/14/18 10:26 Dose: 17 gm Tiotropium [place] (Spiriva) 18 mcg IH RQD [facility] Physical Exam - Constitutional Appears: Non-toxic, No Acute Distress, Older Than Stated Age - Head Exam Head Exam: ATRAUMATIC, NORMAL INSPECTION - Eye Exam Eye Exam: EOMI, Normal appearance - ENT Exam ENT Exam: Mucous Membranes Moist, Normal Exam - Respiratory Exam Respiratory Exam: Clear to Auscultation Bilateral, NORMAL BREATHING PATTERN. absent: Wheezes - Cardiovascular Exam Cardiovascular Exam: REGULAR RHYTHM, +S1, +S2 - GI/Abdominal Exam GI & Abdominal Exam: Hypoactive Bowel Sounds, Soft. absent: Distended, Guarding Additional comments: Mild, non-specific tenderness diffusely. - Extremities Exam Extremities exam: Positive for: normal inspection - Psychiatric Exam Psychiatric exam: Depressed, Normal Affect, Normal Mood - Skin Skin Exam: Dry, Normal Color Results - Vital Signs Recent Vital Signs: Last Vital Signs Temp 98.7 F 05/14/18 07:00 Pulse 78 05/14/18 07:00 Resp 20 05/14/18 07:00 BP 169/87 H 05/14/18 07:00 Pulse Ox 96 05/14/18 07:00 - Labs Result Diagrams: 05/14/18 07:47 05/14/18 07:47 Labs: Laboratory Results - last 24 hr 05/13/18 05/13/18 05/13/18 16:42 16:42 20:01 WBC 16.3 H D RBC 5.72 H Hgb 16.1 H Hct 46.9 MCV 82.1 MCH 28.1 MCHC 34.2 RDW 14.3 Plt Count 214 MPV 9.7 Neut % (Auto) 92.8 H Lymph % (Auto) 5.1 L [place] % (Auto) 1.9 Eos % (Auto) 0.0 Baso % (Auto) 0.2 Neut # (Auto) 15.1 H Lymph # (Auto) 0.8 L [place] # (Auto) 0.3 Eos # (Auto) 0.0 Baso # (Auto) 0.0 Neutrophils % (Manual) 92 H Band Neutrophils % Lymphocytes % (Manual) 7 L Monocytes % (Manual) 1 Platelet Estimate Normal RBC Morphology Sodium 137 Potassium 3.5 L Chloride 98 Carbon Dioxide 23 Anion Gap 20 BUN 13 Creatinine 0.7 Est GFR ( Amer) > 60 Est GFR (Non-Af Amer) > 60 POC Glucose (mg/dL) Random Glucose 294 H Calcium 10.0 Total Bilirubin 0.6 AST 26 ALT 49 Alkaline Phosphatase 145 H D Troponin I < 0.0120 Total Protein 8.2 Albumin 4.7 Globulin 3.5 Albumin/Globulin Ratio 1.4 Lipase 79 Urine Color Yellow Urine Clarity Clear Urine pH 6.0 Ur Specific [place] > 1.060 H Urine Protein 2+ H Urine Glucose (UA) 3+ H Urine Ketones 2+ H Urine Blood Negative Urine Nitrate Negative Urine Bilirubin Negative Urine Urobilinogen Normal Ur Leukocyte Esterase Neg Urine WBC (Auto) 1 Urine RBC (Auto) 4 H Ur Squamous Epith Cells 3 05/13/18 05/14/18 05/14/18 20:14 06:38 07:47 WBC 17.1 H RBC 4.97 Hgb 14.2 Hct 41.1 MCV 82.7 MCH 28.6 MCHC 34.6 RDW 14.7 H Plt Count 194 MPV 9.9 Neut % (Auto) 86.3 H Lymph % (Auto) 7.0 L [place] % (Auto) 6.4 Eos % (Auto) 0.1 Baso % (Auto) 0.2 Neut # (Auto) 14.8 H Lymph # (Auto) 1.2 [place] # (Auto) 1.1 H Eos # (Auto) 0.0 Baso # (Auto) 0.0 Neutrophils % (Manual) 85 H Band Neutrophils % 1 Lymphocytes % (Manual) 10 L Monocytes % (Manual) 4 Platelet Estimate Normal RBC Morphology Normal Sodium Potassium Chloride Carbon Dioxide Anion Gap BUN Creatinine Est GFR ( Amer) Est GFR (Non-Af Amer) POC Glucose (mg/dL) 241 H 216 H Random Glucose Calcium Total Bilirubin AST ALT Alkaline Phosphatase Troponin I Total Protein Albumin Globulin Albumin/Globulin Ratio Lipase Urine Color Urine Clarity Urine pH Ur Specific [place] Urine Protein Urine Glucose (UA) Urine Ketones Urine Blood Urine Nitrate Urine Bilirubin Urine Urobilinogen Ur Leukocyte Esterase Urine WBC (Auto) Urine RBC (Auto) Ur Squamous Epith Cells 05/14/18 05/14/18 07:47 11:09 WBC RBC Hgb Hct MCV MCH MCHC RDW Plt Count MPV Neut % (Auto) Lymph % (Auto) [place] % (Auto) Eos % (Auto) Baso % (Auto) Neut # (Auto) Lymph # (Auto) [place] # (Auto) Eos # (Auto) Baso # (Auto) Neutrophils % (Manual) Band Neutrophils % Lymphocytes % (Manual) Monocytes % (Manual) Platelet Estimate RBC Morphology Sodium 136 Potassium 3.2 L Chloride 101 Carbon Dioxide 20 L Anion Gap 19 BUN 16 Creatinine 0.7 Est GFR ( Amer) > 60 Est GFR (Non-Af Amer) > 60 POC Glucose (mg/dL) 226 H Random Glucose 226 H Calcium 8.5 L Total Bilirubin 0.5 AST 15 ALT 38 Alkaline Phosphatase 112 Troponin I Total Protein 6.8 Albumin 4.0 Globulin 2.7 Albumin/Globulin Ratio 1.5 Lipase Urine Color Urine Clarity Urine pH Ur Specific [place] Urine Protein Urine Glucose (UA) Urine Ketones Urine Blood Urine Nitrate Urine Bilirubin Urine Urobilinogen Ur Leukocyte Esterase Urine WBC (Auto) Urine RBC (Auto) Ur Squamous Epith Cells Assessment & Plan - Assessment and Plan (Free Text) Assessment: 42F with multiple comorbidities presenting with intractable non-bloody emesis. #Intractable vomiting #Abdominal pain #Constipation #Uncontrolled DM #RA #Chronic pain #Chronic opiate use #Anxiety Plan: -Afeb/HDS -Continue supportive care -Multiple factors associated with her intractable vomiting (gastroparesis, uncontrolled DM, chronic pain meds, constipation, emotional stress) -Continue IV reglan -Start Xanax as needed -Avoid opiates as possible -Blood sugars below 200 -Miralax for bowel regimen -NPO except for meds -EGD 11/08 did not show significant anatomical abnormalities. Consider EGD again if other contributors to her N/V are controlled but still symptomatic. -Further recommendation per clinical course. - Date & Time Date: 05/14/18 Time: 08:10
[2018-05-14] MEDS: Ciprofloxacin 400mg/200ml D5W 400 MG/200 ML BAG IVPB SCH ×2 (12:23→22:22)
[2018-05-14] MEDS: Latanoprost 2.5 ml Opht Soln OU SCH (22:21)
[2018-05-15] MEDS: Albuterol HFA 90 mcg/actuation (8 g) IH SCH ×3 (01:50→21:21)
[2018-05-15] MEDS: metroNIDAZOLE IV 500 mg/100 ml 500 MG/100 ML BAG IVPB SCH ×3 (06:30→22:23)
[2018-05-15] MEDS: Nitroglycerin 2% Ointment Foilpak UD TOP SCH ×3 (06:30→17:58)
[2018-05-15 07:21] LABS: HEMOGLOBIN 15.5 g/dL (11.0-16.0); MEAN CELL VOLUME 82.9 fL (81.0-99.0); MEAN CORPUSCULAR HEMOGLOBIN 28.8 pg (27.0-31.0); MEAN CORPUSCULAR HGB CONC 34.7 g/dL (33.0-37.0); MEAN PLATELET VOLUME 9.9 fL (7.2-11.7); RBC 5.4 Mil/uL (3.80-5.20); RED CELL DISTRIBUTION WIDTH 14.9 % (11.5-14.5); WHITE BLOOD COUNT 13.1 K/uL (4.8-10.8)
[2018-05-15] MEDS: (Novolin R) Insulin Human Regular 100 units/ml vial SC SCH ×4 (07:30→21:54)
[2018-05-15 07:35] LABS: BLOOD UREA NITROGEN 10 mg/dL (7-17); CALCIUM 9.2 mg/dl (8.6-10.4); GFR AFRICAN-AMERICAN > 60; GFR NON-AFRICAN AMERICAN > 60
[2018-05-15] MEDS ORDERED: Tiotropium 18 mcg Cap For Inhalation IH SCH (08:00)
[2018-05-15] MEDS: POLYETHYLENE GLYCOL 3350 17 GM/Dose PACKET PO SCH ×2 (10:03→17:55)
[2018-05-15] MEDS: Enoxaparin 40 mg Syringe SC SCH (10:04)
[2018-05-15] MEDS ORDERED: Potassium Chloride 20 mEq ER Tab PO ONE (10:15)
[2018-05-15] MEDS: Nitroglycerin 2% Ointment Foilpak UD TOP PRN (11:05)
[2018-05-15] MEDS: Ciprofloxacin 400mg/200ml D5W 400 MG/200 ML BAG IVPB SCH ×2 (11:05→23:52)
--- NOTE | 2018-05-15 12:50 | CP.PCM.PN ---
Subjective - Date & Time of Evaluation Date of Evaluation: 05/15/18 Time of Evaluation: 06:45 - Subjective Subjective: GI Fellow PGY4, Progress note. Patient seen and examined. BP significantly elevated and blood sugars still above 200. She denies vomiting x24hrs but still having nausea and non-specific abdominal pain. 12PT ROS completed and negative except for above. Objective - Vital Signs/Intake and Output Vital Signs (last 24 hours): Temp Pulse Resp BP Pulse Ox 98.3 F 102 H 20 161/102 H 96 05/15/18 07:46 05/15/18 10:09 05/15/18 07:46 05/15/18 10:09 05/15/18 07:46 - Medications Medications: Current Medications Albuterol (Ventolin Hfa 90 Mcg/Actuation (8 G)) 2 puff IH RQ6 [facility] Last Admin: 05/15/18 07:55 Dose: Not Given Albuterol/Ipratropium (Duoneb 3 Mg/0.5 Mg (3 Ml) Ud) 3 ml INH RQ4 PRN PRN Reason: Wheezing Alprazolam (Xanax) 0.5 mg PO TID PRN PRN Reason: Nausea/Vomiting Stop: 05/21/18 09:47 Last Admin: 05/15/18 08:30 Dose: 0.5 mg Amlodipine Besylate (Norvasc) 5 mg PO DAILY [facility] Last Admin: 05/15/18 10:52 Dose: Not Given Enoxaparin Sodium (Lovenox) 40 mg SC DAILY [facility] Last Admin: 05/15/18 10:04 Dose: Not Given Famotidine (Pepcid) 20 mg PO BID [facility] Last Admin: 05/15/18 10:00 Dose: 20 mg Folic Acid (Folic Acid) 1 mg PO DAILY [facility] Last Admin: 05/15/18 10:00 Dose: 1 mg Gabapentin (Neurontin) 300 mg PO BID [facility] Last Admin: 05/15/18 10:00 Dose: 300 mg Hydralazine HCl (Apresoline) 25 mg PO BID [facility] Ciprofloxacin (Cipro 400mg/200ml Dsw) 400 mg in 200 mls @ 133 mls/hr IVPB Q12H [facility] PRN Reason: Protocol Last Admin: 05/15/18 11:05 Dose: 133 mls/hr Metronidazole (Flagyl) 500 mg in 100 mls @ 100 mls/hr IVPB Q8H [facility] PRN Reason: Protocol Last Admin: 05/15/18 06:30 Dose: 100 mls/hr Potassium Chloride (Potassium Chloride 20 Meq/100 Ml) 20 meq in 100 mls @ 50 mls/hr IVPB Q2 [facility] Stop: 05/15/18 17:59 Last Admin: 05/15/18 12:13 Dose: 50 mls/hr Insulin Human Regular (Novolin R) 0 unit SC ACHS [facility] PRN Reason: Protocol Last Admin: 05/15/18 12:12 Dose: 1 unit Latanoprost (Xalatan Opht) 0 ml OU HS [facility] Last Admin: 05/14/18 22:21 Dose: 2.5 ml Losartan Potassium (Cozaar) 100 mg PO DAILY [facility] Last Admin: 05/15/18 10:50 Dose: Not Given Metformin HCl (Glucophage) 850 mg PO BID [facility] Last Admin: 05/15/18 09:59 Dose: 850 mg Metoclopramide HCl (Reglan) 10 mg IVP Q6 PRN PRN Reason: Nausea/Vomiting Last Admin: 05/15/18 04:57 Dose: 10 mg Morphine Sulfate (Morphine) 2 mg SC Q4 PRN PRN Reason: pain Last Admin: 05/15/18 11:53 Dose: 2 mg Nitroglycerin (Nitro-Bid 2% Oint) 1 ea TOP Q6 PRN PRN Reason: HIGH BLOOD PRESSURE Last Admin: 05/15/18 11:05 Dose: 1 ea Nitroglycerin (Nitro-Bid 2% Oint) 1 ea TOP Q6 [facility] Last Admin: 05/15/18 06:30 Dose: 1 ea Oxycodone HCl (Oxycodone Immediate Release Tab) 15 mg PO Q6 PRN PRN Reason: Pain, moderate (4-7) Pantoprazole Sodium (Protonix Inj) 40 mg IVP DAILY [facility] Last Admin: 05/15/18 10:00 Dose: 40 mg Polyethylene Glycol (Miralax) 17 gm PO BID [facility] Last Admin: 05/15/18 10:03 Dose: Not Given Tiotropium [place] (Spiriva) 18 mcg IH RQD [facility] - Labs Labs: 05/15/18 07:06 05/15/18 07:06 - Constitutional Appears: Non-toxic, No Acute Distress, Older Than Stated Age - Head Exam Head Exam: ATRAUMATIC, NORMAL INSPECTION - Eye Exam Eye Exam: EOMI, Normal appearance - ENT Exam ENT Exam: Mucous Membranes Moist, Normal Exam - Respiratory Exam Respiratory Exam: Clear to Ausculation Bilateral, NORMAL BREATHING PATTERN. absent: Wheezes - Cardiovascular Exam Cardiovascular Exam: REGULAR RHYTHM, +S1, +S2 - GI/Abdominal Exam GI & Abdominal Exam: Soft, Normal Bowel Sounds. absent: Tenderness - Extremities Exam Extremities Exam: Normal Inspection - Psychiatric Exam Psychiatric exam: Depressed, Flat Affect - Skin Skin Exam: Dry, Normal Color Assessment and Plan - Assessment and Plan (Free Text) Assessment: 42F with multiple comorbidities presenting with intractable non-bloody emesis. #Intractable vomiting #Gastroparesis #Abdominal pain #Constipation #Uncontrolled DM #RA #Chronic pain #Chronic opiate use #Anxiety Plan: -Afeb/HDS -Continue supportive care -Multiple factors associated with her intractable vomiting (gastroparesis, uncontrolled DM, chronic pain meds, constipation, emotional stress) -Continue IV reglan -Start Xanax as needed -Avoid opiates as possible -Blood sugars goal below 200 -Miralax for bowel regimen -Clear liquids for now. -NPO at midnight for possible EGD tomorrow if symptoms remain. BP must be controlled below 160mmHg. -EGD 11/08 did not show significant anatomical abnormalities, but gastritis/ esophagitis -Further recommendation per clinical course.
[2018-05-15] MEDS: Albuterol-Ipratrop 3 mg / 0.5 (3 ml) UD INH PRN (21:22)
[2018-05-15] MEDS: Latanoprost 2.5 ml Opht Soln OU SCH (21:51)
--- NOTE | 2018-05-15 23:38 | CP.PCM.PN ---
Subjective - Date & Time of Evaluation Date of Evaluation: 05/15/18 Time of Evaluation: 18:00 - Subjective Subjective: Patient seen and examined.she has generalized weakness, BP significantly elevated and blood sugars still above 200. She denies vomiting x24hrs but still having nausea and non-specific abdominal pain.she reports headache due to elevated blood pressure Objective - Vital Signs/Intake and Output Vital Signs (last 24 hours): Temp Pulse Resp BP Pulse Ox 99.1 F 102 H 20 175/90 H 97 05/15/18 15:13 05/15/18 21:26 05/15/18 15:13 05/15/18 21:11 05/15/18 15:13 Intake and Output: 05/15/18 05/16/18 18:59 06:59 Intake Total 900 Balance 900 - Medications Medications: Current Medications Albuterol (Ventolin Hfa 90 Mcg/Actuation (8 G)) 2 puff IH RQ6 [facility] Last Admin: 05/15/18 21:21 Dose: Not Given Albuterol/Ipratropium (Duoneb 3 Mg/0.5 Mg (3 Ml) Ud) 3 ml INH RQ4 PRN PRN Reason: Wheezing Last Admin: 05/15/18 21:22 Dose: 3 ml Alprazolam (Xanax) 0.5 mg PO TID PRN PRN Reason: Nausea/Vomiting Stop: 05/21/18 09:47 Last Admin: 05/15/18 21:51 Dose: 0.5 mg Amlodipine Besylate (Norvasc) 5 mg PO DAILY [facility] Last Admin: 05/15/18 10:52 Dose: Not Given Enoxaparin Sodium (Lovenox) 40 mg SC DAILY [facility] Last Admin: 05/15/18 10:04 Dose: Not Given Famotidine (Pepcid) 20 mg PO BID [facility] Last Admin: 05/15/18 17:55 Dose: 20 mg Folic Acid (Folic Acid) 1 mg PO DAILY [facility] Last Admin: 05/15/18 10:00 Dose: 1 mg Gabapentin (Neurontin) 300 mg PO BID [facility] Last Admin: 05/15/18 17:55 Dose: 300 mg Hydralazine HCl (Apresoline) 25 mg PO BID [facility] Last Admin: 05/15/18 17:55 Dose: 25 mg Ciprofloxacin (Cipro 400mg/200ml Dsw) 400 mg in 200 mls @ 133 mls/hr IVPB Q12H [facility] PRN Reason: Protocol Last Admin: 05/15/18 11:05 Dose: 133 mls/hr Metronidazole (Flagyl) 500 mg in 100 mls @ 100 mls/hr IVPB Q8H [facility] PRN Reason: Protocol Last Admin: 05/15/18 22:23 Dose: 100 mls/hr Insulin Human Regular (Novolin R) 0 unit SC ACHS [facility] PRN Reason: Protocol Last Admin: 05/15/18 21:54 Dose: Not Given Latanoprost (Xalatan Opht) 0 ml OU HS [facility] Last Admin: 05/15/18 21:51 Dose: 2.5 ml Losartan Potassium (Cozaar) 100 mg PO DAILY [facility] Last Admin: 05/15/18 10:50 Dose: Not Given Metformin HCl (Glucophage) 850 mg PO BID [facility] Last Admin: 05/15/18 17:06 Dose: Not Given Metoclopramide HCl (Reglan) 10 mg IVP Q6 PRN PRN Reason: Nausea/Vomiting Last Admin: 05/15/18 17:58 Dose: 10 mg Morphine Sulfate (Morphine) 2 mg SC Q4 PRN PRN Reason: pain Last Admin: 05/15/18 16:07 Dose: 2 mg Nitroglycerin (Nitro-Bid 2% Oint) 1 ea TOP Q6 PRN PRN Reason: HIGH BLOOD PRESSURE Last Admin: 05/15/18 11:05 Dose: 1 ea Oxycodone HCl (Oxycodone Immediate Release Tab) 15 mg PO Q6 PRN PRN Reason: Pain, moderate (4-7) Pantoprazole Sodium (Protonix Inj) 40 mg IVP DAILY [facility] Last Admin: 05/15/18 10:00 Dose: 40 mg Polyethylene Glycol (Miralax) 17 gm PO BID [facility] Last Admin: 05/15/18 17:55 Dose: 17 gm Tiotropium [place] (Spiriva) 18 mcg IH RQD [facility] - Labs Labs: 05/15/18 07:06 05/15/18 07:06 - Constitutional Appears: No Acute Distress - Head Exam Head Exam: ATRAUMATIC, NORMAL INSPECTION, NORMOCEPHALIC - Eye Exam Eye Exam: EOMI, Normal appearance, PERRL Pupil Exam: NORMAL ACCOMODATION, PERRL - ENT Exam ENT Exam: Mucous Membranes Moist, Normal Exam - Respiratory Exam Respiratory Exam: Clear to Ausculation Bilateral, NORMAL BREATHING PATTERN - Cardiovascular Exam Cardiovascular Exam: REGULAR RHYTHM, +S1, +S2. absent: Murmur - GI/Abdominal Exam GI & Abdominal Exam: Soft, Normal Bowel Sounds. absent: Tenderness - Neurological Exam Neurological Exam: Alert, Awake, CN II-XII Intact, Normal Gait, Oriented x3 - Psychiatric Exam Psychiatric exam: Anxious Assessment and Plan (1) Weakness Status: Acute (2) Abdominal pain Status: Acute (3) Leukocytosis Assessment & Plan: wbc doen on cipro, flagyl Status: Acute (4) Gastritis Assessment & Plan: rule out coliitis Status: Acute (5) Diabetes mellitus type 2 Status: Chronic (6) Accelerated hypertension Assessment & Plan: hydralazine 25 Status: Acute
--- NOTE | 2018-05-15 23:38 | CP.PCM.CON ---
History of Present Illness - History of Present Illness History of Present Illness: Patient seen and evaluated Consulted for abnormal EKG Will check ECHO and Trops Past Patient History - Infectious Disease Hx of Infectious Diseases: None - Past Medical History & Family History Past Medical History?: Yes - Past Social History Smoking Status: Never Smoked - CARDIAC Hx Cardiac Disorders: Yes Hx Hypercholesterolemia: Yes Hx Hypertension: Yes - PULMONARY Hx Respiratory Disorders: Yes Hx Asthma: Yes Hx Bronchitis: Yes Hx Chronic Obstructive Pulmonary Disease (COPD): Yes (Emphysema) Hx Emphysema: Yes Hx Pneumonia: Yes - NEUROLOGICAL Hx Neurological Disorder: No - HEENT Hx HEENT Problems: Yes Hx Glaucoma: Yes - RENAL Hx Chronic Kidney Disease: No - ENDOCRINE/METABOLIC Hx Endocrine Disorders: Yes Hx Diabetes Mellitus Type 2: Yes - HEMATOLOGICAL/ONCOLOGICAL Hx Blood Disorders: No - INTEGUMENTARY Hx Dermatological Problems: No - MUSCULOSKELETAL/RHEUMATOLOGICAL Hx Musculoskeletal Disorders: Yes Hx Arthritis: Yes Hx Falls: No Hx Rheumatoid Arthritis: Yes - GASTROINTESTINAL Hx Gastrointestinal Disorders: Yes Hx Gastritis: Yes Hx Pancreatitis: Yes - GENITOURINARY/GYNECOLOGICAL Hx Genitourinary Disorders: Yes (SEE COMMENT) Other/Comment: endometriosis - PSYCHIATRIC Hx Psychophysiologic Disorder: Yes Hx Anxiety: Yes Hx Depression: Yes Hx Substance Use: No - SURGICAL HISTORY Hx Surgeries: Yes Hx Section: Yes (X 2) Hx Dilation and Curettage: Yes (X 2) - ANESTHESIA Hx Anesthesia: Yes Hx Anesthesia Reactions: No Hx Malignant Hyperthermia: No Has any member of the family had a problem w/ anesthesia?: No Meds Allergies/Adverse Reactions: Allergies Allergy/AdvReac Type Severity Reaction Status Date / Time methylergonovine maleate Allergy Intermediate RASH Verified 03/11/18 18:34 [From Methergine] Penicillins Allergy Intermediate RASH Verified 03/11/18 18:34 - Medications Medications: Current Medications Albuterol (Ventolin Hfa 90 Mcg/Actuation (8 G)) 2 puff IH RQ6 [facility] Last Admin: 05/15/18 21:21 Dose: Not Given Albuterol/Ipratropium (Duoneb 3 Mg/0.5 Mg (3 Ml) Ud) 3 ml INH RQ4 PRN PRN Reason: Wheezing Last Admin: 05/15/18 21:22 Dose: 3 ml Alprazolam (Xanax) 0.5 mg PO TID PRN PRN Reason: Nausea/Vomiting Stop: 05/21/18 09:47 Last Admin: 05/15/18 21:51 Dose: 0.5 mg Amlodipine Besylate (Norvasc) 5 mg PO DAILY [facility] Last Admin: 05/15/18 10:52 Dose: Not Given Enoxaparin Sodium (Lovenox) 40 mg SC DAILY [facility] Last Admin: 05/15/18 10:04 Dose: Not Given Famotidine (Pepcid) 20 mg PO BID [facility] Last Admin: 05/15/18 17:55 Dose: 20 mg Folic Acid (Folic Acid) 1 mg PO DAILY [facility] Last Admin: 05/15/18 10:00 Dose: 1 mg Gabapentin (Neurontin) 300 mg PO BID [facility] Last Admin: 05/15/18 17:55 Dose: 300 mg Hydralazine HCl (Apresoline) 25 mg PO BID [facility] Last Admin: 05/15/18 17:55 Dose: 25 mg Ciprofloxacin (Cipro 400mg/200ml Dsw) 400 mg in 200 mls @ 133 mls/hr IVPB Q12H [facility] PRN Reason: Protocol Last Admin: 05/15/18 11:05 Dose: 133 mls/hr Metronidazole (Flagyl) 500 mg in 100 mls @ 100 mls/hr IVPB Q8H [facility] PRN Reason: Protocol Last Admin: 05/15/18 22:23 Dose: 100 mls/hr Insulin Human Regular (Novolin R) 0 unit SC ACHS [facility] PRN Reason: Protocol Last Admin: 05/15/18 21:54 Dose: Not Given Latanoprost (Xalatan Opht) 0 ml OU HS [facility] Last Admin: 05/15/18 21:51 Dose: 2.5 ml Losartan Potassium (Cozaar) 100 mg PO DAILY [facility] Last Admin: 05/15/18 10:50 Dose: Not Given Metformin HCl (Glucophage) 850 mg PO BID [facility] Last Admin: 05/15/18 17:06 Dose: Not Given Metoclopramide HCl (Reglan) 10 mg IVP Q6 PRN PRN Reason: Nausea/Vomiting Last Admin: 05/15/18 17:58 Dose: 10 mg Morphine Sulfate (Morphine) 2 mg SC Q4 PRN PRN Reason: pain Last Admin: 05/15/18 16:07 Dose: 2 mg Nitroglycerin (Nitro-Bid 2% Oint) 1 ea TOP Q6 PRN PRN Reason: HIGH BLOOD PRESSURE Last Admin: 05/15/18 11:05 Dose: 1 ea Oxycodone HCl (Oxycodone Immediate Release Tab) 15 mg PO Q6 PRN PRN Reason: Pain, moderate (4-7) Pantoprazole Sodium (Protonix Inj) 40 mg IVP DAILY [facility] Last Admin: 05/15/18 10:00 Dose: 40 mg Polyethylene Glycol (Miralax) 17 gm PO BID [facility] Last Admin: 05/15/18 17:55 Dose: 17 gm Tiotropium Umbarger (Spiriva) 18 mcg IH RQD [facility] Results - Vital Signs Recent Vital Signs: Last Vital Signs Temp 99.1 F 05/15/18 15:13 Pulse 102 H 05/15/18 21:26 Resp 20 05/15/18 15:13 BP 175/90 H 05/15/18 21:11 Pulse Ox 97 05/15/18 15:13 - Labs Result Diagrams: 05/15/18 07:06 05/15/18 07:06 Labs: Laboratory Results - last 24 hr 05/15/18 05/15/18 05/15/18 06:18 07:06 07:06 WBC 13.1 H RBC 5.40 H Hgb 15.5 Hct 44.8 MCV 82.9 MCH 28.8 MCHC 34.7 RDW 14.9 H Plt Count 185 MPV 9.9 Sodium 134 Potassium 3.1 L Chloride 97 L Carbon Dioxide 23 Anion Gap 18 BUN 10 Creatinine 0.6 L Est GFR ( Amer) > 60 Est GFR (Non-Af Amer) > 60 POC Glucose (mg/dL) 201 H Random Glucose 228 H Calcium 9.2 05/15/18 05/15/18 11:00 16:01 WBC RBC Hgb Hct MCV MCH MCHC RDW Plt Count MPV Sodium Potassium Chloride Carbon Dioxide Anion Gap BUN Creatinine Est GFR ( Amer) Est GFR (Non-Af Amer) POC Glucose (mg/dL) 196 H 198 H Random Glucose Calcium
[2018-05-16] MEDS: Nitroglycerin 2% Ointment Foilpak UD TOP PRN ×2 (01:19→08:21)
[2018-05-16] MEDS: Albuterol HFA 90 mcg/actuation (8 g) IH SCH (01:28)
[2018-05-16] MEDS: metroNIDAZOLE IV 500 mg/100 ml 500 MG/100 ML BAG IVPB SCH ×3 (06:33→22:16)
[2018-05-16] MEDS: (Novolin R) Insulin Human Regular 100 units/ml vial SC SCH ×4 (07:58→21:17)
[2018-05-16 08:52] LABS: BLOOD UREA NITROGEN 11 mg/dL (7-17); CALCIUM 9.1 mg/dl (8.6-10.4); GFR AFRICAN-AMERICAN > 60; GFR NON-AFRICAN AMERICAN > 60
--- NOTE | 2018-05-16 10:55 | CP.PCM.PN ---
Subjective - Date & Time of Evaluation Date of Evaluation: 05/16/18 Time of Evaluation: 07:15 - Subjective Subjective: GI Fellow PGY4, progress note. Patient still with nausea. Denies vomiting. Mild abdominal pain that is non- specific. No BMs and taking Miralax. Cardiac work up today. 12pt ROS negative except for above. Objective - Vital Signs/Intake and Output Vital Signs (last 24 hours): Temp Pulse Resp BP Pulse Ox 98.1 F 95 H 20 186/103 H 98 05/16/18 09:00 05/16/18 09:00 05/16/18 09:00 05/16/18 09:00 05/16/18 09:00 Intake and Output: 05/16/18 05/16/18 06:59 18:59 Intake Total 900 Balance 900 - Medications Medications: Current Medications Albuterol (Ventolin Hfa 90 Mcg/Actuation (8 G)) 2 puff IH RQ6 [facility] Last Admin: 05/16/18 01:28 Dose: Not Given Albuterol/Ipratropium (Duoneb 3 Mg/0.5 Mg (3 Ml) Ud) 3 ml INH RQ4 PRN PRN Reason: Wheezing Last Admin: 05/15/18 21:22 Dose: 3 ml Alprazolam (Xanax) 0.5 mg PO TID PRN PRN Reason: Nausea/Vomiting Stop: 05/21/18 09:47 Last Admin: 05/16/18 07:56 Dose: 0.5 mg Amlodipine Besylate (Norvasc) 5 mg PO DAILY [facility] Last Admin: 05/15/18 10:52 Dose: Not Given Enoxaparin Sodium (Lovenox) 40 mg SC DAILY [facility] Last Admin: 05/15/18 10:04 Dose: Not Given Famotidine (Pepcid) 20 mg PO BID [facility] Last Admin: 05/15/18 17:55 Dose: 20 mg Folic Acid (Folic Acid) 1 mg PO DAILY [facility] Last Admin: 05/15/18 10:00 Dose: 1 mg Gabapentin (Neurontin) 300 mg PO BID [facility] Last Admin: 05/15/18 17:55 Dose: 300 mg Hydralazine HCl (Apresoline) 25 mg PO BID [facility] Last Admin: 05/16/18 08:21 Dose: 25 mg Ciprofloxacin (Cipro 400mg/200ml Dsw) 400 mg in 200 mls @ 133 mls/hr IVPB Q12H [facility] PRN Reason: Protocol Last Admin: 05/15/18 23:52 Dose: 133 mls/hr Metronidazole (Flagyl) 500 mg in 100 mls @ 100 mls/hr IVPB Q8H [facility] PRN Reason: Protocol Last Admin: 05/16/18 06:33 Dose: 100 mls/hr Insulin Human Regular (Novolin R) 0 unit SC ACHS [facility] PRN Reason: Protocol Last Admin: 05/16/18 07:58 Dose: Not Given Latanoprost (Xalatan Opht) 0 ml OU HS [facility] Last Admin: 05/15/18 21:51 Dose: 2.5 ml Losartan Potassium (Cozaar) 100 mg PO DAILY [facility] Last Admin: 05/15/18 10:50 Dose: Not Given Metformin HCl (Glucophage) 850 mg PO BID [facility] Last Admin: 05/15/18 17:06 Dose: Not Given Metoclopramide HCl (Reglan) 10 mg IVP Q6 PRN PRN Reason: Nausea/Vomiting Last Admin: 05/16/18 08:00 Dose: 10 mg Morphine Sulfate (Morphine) 2 mg SC Q4 PRN PRN Reason: pain Last Admin: 05/16/18 04:41 Dose: 2 mg Nitroglycerin (Nitro-Bid 2% Oint) 1 ea TOP Q6 PRN PRN Reason: HIGH BLOOD PRESSURE Last Admin: 05/16/18 08:21 Dose: 1 ea Oxycodone HCl (Oxycodone Immediate Release Tab) 15 mg PO Q6 PRN PRN Reason: Pain, moderate (4-7) Pantoprazole Sodium (Protonix Inj) 40 mg IVP DAILY [facility] Last Admin: 05/15/18 10:00 Dose: 40 mg Polyethylene Glycol (Miralax) 17 gm PO BID [facility] Last Admin: 05/15/18 17:55 Dose: 17 gm Tiotropium [place] (Spiriva) 18 mcg IH RQD [facility] - Labs Labs: 05/15/18 07:06 05/16/18 08:24 - Constitutional Appears: Non-toxic, No Acute Distress, Older Than Stated Age, Chronically Ill - Head Exam Head Exam: ATRAUMATIC, NORMAL INSPECTION - Eye Exam Eye Exam: Normal appearance - ENT Exam ENT Exam: Normal Exam - Respiratory Exam Respiratory Exam: Clear to Ausculation Bilateral, NORMAL BREATHING PATTERN. absent: Wheezes - Cardiovascular Exam Cardiovascular Exam: REGULAR RHYTHM, +S1, +S2 - GI/Abdominal Exam GI & Abdominal Exam: Soft, Hypoactive Bowel Sounds. absent: Distended, Tenderness - Extremities Exam Extremities Exam: Normal Inspection - Neurological Exam Neurological Exam: Alert, Awake, Oriented x3 - Psychiatric Exam Psychiatric exam: Normal Affect, Normal Mood - Skin Skin Exam: Normal Color Assessment and Plan - Assessment and Plan (Free Text) Assessment: 42F with multiple comorbidities presenting with intractable non-bloody emesis. #Intractable vomiting #Gastroparesis #Abdominal pain #Constipation #Uncontrolled DM #RA #Chronic pain #Chronic opiate use #Anxiety Plan: -Afeb/HDS -Continue supportive care -Multiple factors associated with her intractable vomiting (gastroparesis, uncontrolled DM, chronic pain meds, constipation, emotional stress) -Continue IV reglan -Start Xanax as needed -Avoid morphine, try PO opiates for chronic pain. -Avoid opiates as possible -Blood sugars goal below 200 -Miralax for bowel regimen -Add senna -Full liquids for now. -NPO at midnight for EGD tomorrow. BP must be controlled below 160mmHg. -EGD 11/08 did not show significant anatomical abnormalities, but gastritis/ esophagitis -Further recommendation per clinical course.
[2018-05-16] MEDS: POLYETHYLENE GLYCOL 3350 17 GM/Dose PACKET PO SCH ×2 (11:06→17:26)
[2018-05-16] MEDS: Enoxaparin 40 mg Syringe SC SCH ×2 (11:07→11:13)
[2018-05-16] MEDS: oxyCODONE 5 mg Immediate Release Tab PO PRN ×2 (11:08→17:26)
[2018-05-16] MEDS: Ciprofloxacin 400mg/200ml D5W 400 MG/200 ML BAG IVPB SCH (11:19)
[2018-05-16] MEDS: Docusate-Senna 50 mg-8.6 mg Tab PO SCH (11:19)
--- NOTE | 2018-05-16 11:30 | CARD ---
APPROVED REPORT Date of service: 05/15/2018 EKG Measurement Heart [id number] <Conclusion> Normal sinus rhythm Possible Left atrial enlargement Septal infarct, age undetermined Possible Lateral infarct, age undetermined Abnormal ECG
--- NOTE | 2018-05-16 12:01 | CP.PCM.PN ---
<Lucita Khan - Last Filed: 05/16/18 17:47> Subjective - Date & Time of Evaluation Date of Evaluation: 05/16/18 Time of Evaluation: 13:00 - Subjective Subjective: PGY2- Progress Note for Dr. Cifuentes Patient with PMHx of HTN, asthma, RA/SLE, uncontrolled DMII, gastroparesis, gastritis, bilateral glaucoma, endometriosis, herniated discs, anxiety admitted for intractable vomiting. Cardiology consulted for uncontrolled hypertension. Patient seen and examined at bedside. Patient says she is feeling better. Patient has not vomited since 05/14/18. Patient denies chest pain, shortness of breath, headache, blurry vision. Patient is still having some generalized abdominal pain. Objective - Vital Signs/Intake and Output Vital Signs (last 24 hours): Temp Pulse Resp BP Pulse Ox 98.1 F 99 H 20 171/110 H 98 05/16/18 09:00 05/16/18 11:20 05/16/18 09:00 05/16/18 11:20 05/16/18 09:00 Intake and Output: 05/16/18 05/16/18 06:59 18:59 Intake Total 900 Balance 900 - Medications Medications: Current Medications Albuterol (Ventolin Hfa 90 Mcg/Actuation (8 G)) 2 puff IH RQ6 [facility] [place] Last Admin: 05/16/18 01:28 Dose: Not Given Albuterol/Ipratropium (Duoneb 3 Mg/0.5 Mg (3 Ml) Ud) 3 ml INH RQ4 PRN PRN Reason: Wheezing Last Admin: 05/15/18 21:22 Dose: 3 ml Alprazolam (Xanax) 0.5 mg PO TID PRN PRN Reason: Nausea/Vomiting Stop: 05/21/18 09:47 Last Admin: 05/16/18 07:56 Dose: 0.5 mg Amlodipine Besylate (Norvasc) 5 mg PO DAILY [facility] [place] Last Admin: 05/16/18 11:06 Dose: 5 mg Enoxaparin Sodium (Lovenox) 40 mg SC DAILY [facility] [place] Last Admin: 05/16/18 11:13 Dose: Not Given Famotidine (Pepcid) 20 mg PO BID [facility] [place] Last Admin: 05/16/18 11:06 Dose: 20 mg Folic Acid (Folic Acid) 1 mg PO DAILY [facility] [place] Last Admin: 05/16/18 11:05 Dose: 1 mg Gabapentin (Neurontin) 300 mg PO BID [facility] [place] Last Admin: 05/16/18 11:06 Dose: 300 mg Hydralazine HCl (Apresoline) 25 mg PO BID [facility] [place] Last Admin: 05/16/18 11:07 Dose: Not Given Ciprofloxacin (Cipro 400mg/200ml Dsw) 400 mg in 200 mls @ 133 mls/hr IVPB Q12H [facility] PRN Reason: Protocol Last Admin: 05/16/18 11:19 Dose: 133 mls/hr Metronidazole (Flagyl) 500 mg in 100 mls @ 100 mls/hr IVPB Q8H [facility] PRN Reason: Protocol Last Admin: 05/16/18 06:33 Dose: 100 mls/hr Insulin Human Regular (Novolin R) 0 unit SC ACHS [facility] [place] PRN Reason: Protocol Last Admin: 05/16/18 07:58 Dose: Not Given Latanoprost (Xalatan Opht) 0 ml OU HS [facility] [place] Last Admin: 05/15/18 21:51 Dose: 2.5 ml Losartan Potassium (Cozaar) 100 mg PO DAILY [facility] [place] Last Admin: 05/16/18 11:05 Dose: 100 mg Metformin HCl (Glucophage) 850 mg PO BID [facility] [place] Last Admin: 05/16/18 11:18 Dose: 850 mg Metoclopramide HCl (Reglan) 10 mg IVP Q6 PRN PRN Reason: Nausea/Vomiting Last Admin: 05/16/18 08:00 Dose: 10 mg Nitroglycerin (Nitro-Bid 2% Oint) 1 ea TOP Q6 PRN PRN Reason: HIGH BLOOD PRESSURE Last Admin: 05/16/18 08:21 Dose: 1 ea Oxycodone HCl (Oxycodone Immediate Release Tab) 15 mg PO Q6 PRN PRN Reason: Pain, moderate (4-7) Last Admin: 05/16/18 11:08 Dose: 15 mg Pantoprazole Sodium (Protonix Inj) 40 mg IVP DAILY [facility] [place] Last Admin: 05/16/18 11:06 Dose: 40 mg Polyethylene Glycol (Miralax) 17 gm PO BID [facility] [place] Last Admin: 05/16/18 11:06 Dose: 17 gm Senna/Docusate Sodium (Senokot S 50 Mg-8.6 Mg) 1 tab PO DAILY [facility] [place] Tiotropium Ramsey (Spiriva) 18 mcg IH RQD [facility] [place] - Labs Labs: 05/15/18 07:06 05/16/18 08:24 - Constitutional Appears: Non-toxic, No Acute Distress - Head Exam Head Exam: ATRAUMATIC, NORMAL INSPECTION, NORMOCEPHALIC - Eye Exam Eye Exam: EOMI, Normal appearance - ENT Exam ENT Exam: Mucous Membranes Dry - Respiratory Exam Respiratory Exam: Clear to Ausculation Bilateral, NORMAL BREATHING PATTERN. absent: Rales, Rhonchi, Wheezes, Respiratory Distress, Stridor - Cardiovascular Exam Cardiovascular Exam: REGULAR RHYTHM, RRR, +S1, +S2 - GI/Abdominal Exam GI & Abdominal Exam: Soft, Tenderness, Normal Bowel Sounds - Extremities Exam Extremities Exam: Full ROM, Normal Inspection - Back Exam Back Exam: NORMAL INSPECTION - Neurological Exam Neurological Exam: Alert, Awake, Oriented x3 - Psychiatric Exam Psychiatric exam: Normal Affect, Normal Mood - Skin Skin Exam: Intact, Normal Color, Warm Assessment and Plan - Assessment and Plan (Free Text) Assessment: HTN better controlled Norvasc 5mg po daily Hydralazine 25mg po BID Losartan 100mg po daily Nitroglycerin oint q6h prn continue to monitor Abnormal EKG EKG: NSR, possible left atrial enlargement, possible septal infarct, possible lateral infarct Troponin negative x 2 ECHO (05/15/18): LVEF is normal. No regional wall motion abnormalities. Grade I abnormal relaxation pattern. Left ventricular filling pressure is normal discussed with Dr. Cifuentes <Tarun Cifuentes - Last Filed: 05/16/18 22:55> Objective - Vital Signs/Intake and Output Vital Signs (last 24 hours): Temp Pulse Resp BP Pulse Ox 98.3 F 73 20 136/82 98 05/16/18 15:00 05/16/18 22:23 05/16/18 15:00 05/16/18 22:23 05/16/18 15:00 Intake and Output: 05/16/18 05/17/18 18:59 06:59 Intake Total 300 800 Balance 300 800 - Medications Medications: Current Medications Albuterol (Ventolin Hfa 90 Mcg/Actuation (8 G)) 2 puff IH RQ6 [facility] [place] Last Admin: 05/16/18 01:28 Dose: Not Given Albuterol/Ipratropium (Duoneb 3 Mg/0.5 Mg (3 Ml) Ud) 3 ml INH RQ4 PRN PRN Reason: Wheezing Last Admin: 05/15/18 21:22 Dose: 3 ml Alprazolam (Xanax) 0.5 mg PO TID PRN PRN Reason: Nausea/Vomiting Stop: 05/21/18 09:47 Last Admin: 05/16/18 16:12 Dose: 0.5 mg Amlodipine Besylate (Norvasc) 5 mg PO DAILY [facility] [place] Last Admin: 05/16/18 11:06 Dose: 5 mg Enoxaparin Sodium (Lovenox) 40 mg SC DAILY [facility] [place] Last Admin: 05/16/18 11:13 Dose: Not Given Famotidine (Pepcid) 20 mg PO BID [facility] [place] Last Admin: 05/16/18 17:27 Dose: 20 mg Folic Acid (Folic Acid) 1 mg PO DAILY [facility] [place] Last Admin: 05/16/18 11:05 Dose: 1 mg Gabapentin (Neurontin) 300 mg PO BID [facility] [place] Last Admin: 05/16/18 17:27 Dose: 300 mg Hydralazine HCl (Apresoline) 25 mg PO BID [facility] [place] Last Admin: 05/16/18 17:27 Dose: 25 mg Ciprofloxacin (Cipro 400mg/200ml Dsw) 400 mg in 200 mls @ 133 mls/hr IVPB Q12H [facility] [place] PRN Reason: Protocol Last Admin: 05/16/18 11:19 Dose: 133 mls/hr Metronidazole (Flagyl) 500 mg in 100 mls @ 100 mls/hr IVPB Q8H [facility] PRN Reason: Protocol Last Admin: 05/16/18 22:16 Dose: 100 mls/hr Insulin Human Regular (Novolin R) 0 unit SC ACHS [facility] [place] PRN Reason: Protocol Last Admin: 05/16/18 21:17 Dose: Not Given Latanoprost (Xalatan Opht) 0 ml OU HS [facility] [place] Last Admin: 05/16/18 22:15 Dose: 2.5 ml Losartan Potassium (Cozaar) 100 mg PO DAILY [facility] [place] Last Admin: 05/16/18 11:05 Dose: 100 mg Metformin HCl (Glucophage) 850 mg PO BID [facility] [place] Last Admin: 05/16/18 17:26 Dose: 850 mg Metoclopramide HCl (Reglan) 10 mg IVP Q6 PRN PRN Reason: Nausea/Vomiting Last Admin: 05/16/18 16:48 Dose: 10 mg Nitroglycerin (Nitro-Bid 2% Oint) 1 ea TOP Q6 PRN PRN Reason: HIGH BLOOD PRESSURE Last Admin: 05/16/18 08:21 Dose: 1 ea Oxycodone HCl (Oxycodone Immediate Release Tab) 15 mg PO Q6 PRN PRN Reason: Pain, moderate (4-7) Last Admin: 05/16/18 17:26 Dose: 15 mg Pantoprazole Sodium (Protonix Inj) 40 mg IVP DAILY [facility] [place] Last Admin: 05/16/18 11:06 Dose: 40 mg Polyethylene Glycol (Miralax) 17 gm PO BID [facility] [place] Last Admin: 05/16/18 17:26 Dose: 17 gm Senna/Docusate Sodium (Senokot S 50 Mg-8.6 Mg) 1 tab PO DAILY [facility] [place] Last Admin: 05/16/18 11:19 Dose: 1 tab Tiotropium Ramsey (Spiriva) 18 mcg IH RQD [facility] - Labs Labs: 05/15/18 07:06 05/16/18 08:24 Assessment and Plan - Assessment and Plan (Free Text) Assessment: Patient seen and evaluated personally by me. Plan of care d/w the medical research assistant and as documented
--- NOTE | 2018-05-16 14:20 | CARD ---
APPROVED REPORT Date of service: 05/16/2018 EXAM: Two-dimensional and M-mode echocardiogram with Doppler and color Doppler. INDICATION Abnormal EKG/Arrhythmia Pneumonia RISK FACTORS Hypertension Hyperlipidemia Diabetes 2D DIMENSIONS IVSd1.0 (0.7-1.1cm)LVDd4.0 (3.9-5.9cm) PWd1.0 (0.7-1.1cm)LVDs2.5 (2.5-4.0cm) FS (%) 38.6 %LVEF (%)69.5 (>50%) M-Mode DIMENSIONS Left Atrium (MM)3.04 (2.5-4.0cm)IVSd1.18 (0.7-1.1cm) Aortic Root3.17 (2.2-3.7cm)LVDd4.69 (4.0-5.6cm) Aortic Cusp Exc.1.96 (1.5-2.0cm)PWd0.99 (0.7-1.1cm) FS (%) 37 %LVDs2.95 (2.0-3.8cm) LVEF (%)67 (>50%) Aortic Valve AoV Peak Vulzraca414.4cm/Karlos Peak GR.11mmHg Mitral Valve MV E Vuyamyfz66.6cm/sMV A Vmnxnplf630.7cm/sE/A ratio0.5 TDI E/Lateral E'0.0E/Medial E'0.0 LEFT VENTRICLE The left ventricle is normal size. There is normal left ventricular wall thickness. The left ventricular function is normal. The left ventricular ejection fraction is within the normal range. No regional wall motion abnormalities noted. Transmitral Doppler flow pattern is Grade I-abnormal relaxation pattern. Left ventricular filling pressure is normal No left ventricle thrombus noted on this study. There is no ventricular septal defect visualized. There is no left ventricular aneurysm. There is no mass noted in the left ventricle. RIGHT VENTRICLE The right ventricle is normal size. There is normal right ventricular wall thickness. The right ventricular systolic function is normal. ATRIA The left atrium size is normal. The right atrium size is normal. The interatrial septum is intact with no evidence for an atrial septal defect. AORTIC VALVE The aortic valve is normal in structure and function. No aortic regurgitation is present. There is no aortic valvular stenosis. There is no aortic valvular vegetation. MITRAL VALVE The mitral valve is normal in structure and function. There is no evidence of mitral valve prolapse. There is no mitral valve stenosis. There is no mitral valve regurgitation noted. TRICUSPID VALVE The tricuspid valve is normal in structure and function. There is no tricuspid valve regurgitation noted. There is no tricuspid valve prolapse or vegetation. There is no tricuspid valve stenosis. PULMONIC VALVE The pulmonary valve is normal in structure and function. There is no pulmonic valvular regurgitation. There is no pulmonic valvular stenosis. GREAT VESSELS The aortic root is normal in size. The ascending aorta is normal in size. The pulmonary artery is normal. The IVC is normal in size and collapses >50% with inspiration. PERICARDIAL EFFUSION The pericardium appears normal. There is no pleural effusion. <Conclusion> The left ventricular function is normal. The left ventricular ejection fraction is within the normal range. No regional wall motion abnormalities noted. Transmitral Doppler flow pattern is Grade I-abnormal relaxation pattern. Left ventricular filling pressure is normal
[2018-05-16] MEDS: Latanoprost 2.5 ml Opht Soln OU SCH (22:15)
--- NOTE | 2018-05-16 23:24 | CP.PCM.PN ---
Subjective - Date & Time of Evaluation Date of Evaluation: 05/16/18 Time of Evaluation: 18:45 - Subjective Subjective: Patient seen and examined, fluctuating blood pressure, have been also seen by cardiology, still with nausea. Denies vomiting. Mild abdominal pain that is non- specific. No BMs and taking Miralax. Cardiac work up today. Objective - Vital Signs/Intake and Output Vital Signs (last 24 hours): Temp Pulse Resp BP Pulse Ox 98.3 F 73 20 136/82 98 05/16/18 15:00 05/16/18 22:23 05/16/18 15:00 05/16/18 22:23 05/16/18 15:00 Intake and Output: 05/16/18 05/17/18 18:59 06:59 Intake Total 300 800 Balance 300 800 - Medications Medications: Current Medications Albuterol (Ventolin Hfa 90 Mcg/Actuation (8 G)) 2 puff IH RQ6 [facility] Last Admin: 05/16/18 01:28 Dose: Not Given Albuterol/Ipratropium (Duoneb 3 Mg/0.5 Mg (3 Ml) Ud) 3 ml INH RQ4 PRN PRN Reason: Wheezing Last Admin: 05/15/18 21:22 Dose: 3 ml Alprazolam (Xanax) 0.5 mg PO TID PRN PRN Reason: Nausea/Vomiting Stop: 05/21/18 09:47 Last Admin: 05/16/18 16:12 Dose: 0.5 mg Amlodipine Besylate (Norvasc) 5 mg PO DAILY [facility] Last Admin: 05/16/18 11:06 Dose: 5 mg Enoxaparin Sodium (Lovenox) 40 mg SC DAILY [facility] Last Admin: 05/16/18 11:13 Dose: Not Given Famotidine (Pepcid) 20 mg PO BID [facility] Last Admin: 05/16/18 17:27 Dose: 20 mg Folic Acid (Folic Acid) 1 mg PO DAILY [facility] Last Admin: 05/16/18 11:05 Dose: 1 mg Gabapentin (Neurontin) 300 mg PO BID [facility] Last Admin: 05/16/18 17:27 Dose: 300 mg Hydralazine HCl (Apresoline) 25 mg PO BID [facility] Last Admin: 05/16/18 17:27 Dose: 25 mg Insulin Human Regular (Novolin R) 0 unit SC [facility] PRN Reason: Protocol Last Admin: 05/16/18 21:17 Dose: Not Given Latanoprost (Xalatan Opht) 0 ml OU HS [facility] Last Admin: 05/16/18 22:15 Dose: 2.5 ml Losartan Potassium (Cozaar) 100 mg PO DAILY [facility] Last Admin: 05/16/18 11:05 Dose: 100 mg Metformin HCl (Glucophage) 850 mg PO BID [facility] Last Admin: 05/16/18 17:26 Dose: 850 mg Metoclopramide HCl (Reglan) 10 mg IVP Q6 PRN PRN Reason: Nausea/Vomiting Last Admin: 05/16/18 16:48 Dose: 10 mg Nitroglycerin (Nitro-Bid 2% Oint) 1 ea TOP Q6 PRN PRN Reason: HIGH BLOOD PRESSURE Last Admin: 05/16/18 08:21 Dose: 1 ea Oxycodone HCl (Oxycodone Immediate Release Tab) 15 mg PO Q6 PRN PRN Reason: Pain, moderate (4-7) Last Admin: 05/16/18 17:26 Dose: 15 mg Pantoprazole Sodium (Protonix Inj) 40 mg IVP DAILY [facility] Last Admin: 05/16/18 11:06 Dose: 40 mg Polyethylene Glycol (Miralax) 17 gm PO BID [facility] Last Admin: 05/16/18 17:26 Dose: 17 gm Senna/Docusate Sodium (Senokot S 50 Mg-8.6 Mg) 1 tab PO DAILY [facility] Last Admin: 05/16/18 11:19 Dose: 1 tab Tiotropium [place] (Spiriva) 18 mcg IH RQD [facility] - Labs Labs: 05/15/18 07:06 05/16/18 08:24 - Constitutional Appears: No Acute Distress - Eye Exam Eye Exam: EOMI, Normal appearance, PERRL Pupil Exam: NORMAL ACCOMODATION, PERRL - ENT Exam ENT Exam: Mucous Membranes Moist, Normal Exam - Respiratory Exam Respiratory Exam: Clear to Ausculation Bilateral, NORMAL BREATHING PATTERN - Cardiovascular Exam Cardiovascular Exam: REGULAR RHYTHM, +S1, +S2. absent: Murmur - GI/Abdominal Exam GI & Abdominal Exam: Soft, Normal Bowel Sounds. absent: Tenderness Assessment and Plan (1) Weakness Status: Acute (2) Abdominal pain Status: Acute (3) Leukocytosis Status: Acute (4) Gastritis Status: Acute (5) Diabetes mellitus type 2 Status: Chronic (6) Accelerated hypertension Status: Acute
[2018-05-17] MEDS: Ciprofloxacin 400mg/200ml D5W 400 MG/200 ML BAG IVPB SCH (00:13)
[2018-05-17] MEDS: oxyCODONE 5 mg Immediate Release Tab PO PRN ×3 (00:19→20:45)
[2018-05-17] MEDS: Albuterol HFA 90 mcg/actuation (8 g) IH SCH ×4 (02:58→19:45)
[2018-05-17] MEDS: Albuterol-Ipratrop 3 mg / 0.5 (3 ml) UD INH PRN ×2 (07:41→12:57)
[2018-05-17] MEDS: (Novolin R) Insulin Human Regular 100 units/ml vial SC SCH ×4 (08:25→21:25)
[2018-05-17 08:46] LABS: BLOOD UREA NITROGEN 11 mg/dL (7-17); CALCIUM 8.5 mg/dl (8.6-10.4); GFR AFRICAN-AMERICAN > 60; GFR NON-AFRICAN AMERICAN > 60
[2018-05-17] MEDS ORDERED: Propofol 10 mg/ml Inj (20 ML) ONE ×2 (09:32→10:29)
[2018-05-17] MEDS: Tiotropium 18 mcg Cap For Inhalation IH SCH (10:34)
[2018-05-17] MEDS: POLYETHYLENE GLYCOL 3350 17 GM/Dose PACKET PO SCH ×2 (10:34→17:09)
[2018-05-17] MEDS: Enoxaparin 40 mg Syringe SC SCH (10:34)
[2018-05-17] MEDS: Docusate-Senna 50 mg-8.6 mg Tab PO SCH (10:34)
[2018-05-17 16:01] VITALS: RESP 20
[2018-05-17] MEDS: Lactated Ringer's 500 ML IV SCH ×2 (17:10→17:21)
[2018-05-17] MEDS: Latanoprost 2.5 ml Opht Soln OU SCH (21:35)
[2018-05-18 00:44] VITALS: TEMP 98.3
[2018-05-18] MEDS: Albuterol HFA 90 mcg/actuation (8 g) IH SCH ×2 (01:04→07:40)
[2018-05-18] MEDS: Lactated Ringer's 500 ML IV SCH ×2 (06:10→12:30)
[2018-05-18] MEDS: oxyCODONE 5 mg Immediate Release Tab PO PRN ×2 (06:55→13:52)
[2018-05-18] MEDS: (Novolin R) Insulin Human Regular 100 units/ml vial SC SCH ×2 (07:30→11:30)
[2018-05-18 07:43] VITALS: BP 148/93; O2SAT 96
[2018-05-18] MEDS: Albuterol-Ipratrop 3 mg / 0.5 (3 ml) UD INH PRN ×2 (08:08→11:53)
[2018-05-18] MEDS: Tiotropium 18 mcg Cap For Inhalation IH SCH (08:09)
[2018-05-18] MEDS: Docusate-Senna 50 mg-8.6 mg Tab PO SCH (09:59)
[2018-05-18] MEDS: POLYETHYLENE GLYCOL 3350 17 GM/Dose PACKET PO SCH (10:02)
[2018-05-18] MEDS: Enoxaparin 40 mg Syringe SC SCH ×2 (10:02→10:13)
[2018-05-18 11:40] VITALS: PULSE 96
--- NOTE | 2018-05-18 14:50 | CP.PCM.PN ---
Subjective - Date & Time of Evaluation Date of Evaluation: 05/17/18 Time of Evaluation: 18:30 - Subjective Subjective: patient seen and examined Objective - Vital Signs/Intake and Output Vital Signs (last 24 hours): Temp Pulse Resp BP Pulse Ox 98.3 F 96 H 20 148/93 H 96 05/18/18 07:00 05/18/18 11:40 05/18/18 07:00 05/18/18 07:00 05/18/18 07:00 Intake and Output: 05/18/18 05/18/18 06:59 18:59 Intake Total 1400 Balance 1400 - Medications Medications: Current Medications Albuterol (Ventolin Hfa 90 Mcg/Actuation (8 G)) 2 puff IH RQ6 [facility] Last Admin: 05/18/18 07:40 Dose: Not Given Albuterol/Ipratropium (Duoneb 3 Mg/0.5 Mg (3 Ml) Ud) 3 ml INH RQ4 PRN PRN Reason: Wheezing Last Admin: 05/18/18 11:53 Dose: 3 ml Alprazolam (Xanax) 0.5 mg PO TID PRN PRN Reason: Nausea/Vomiting Stop: 05/21/18 09:47 Last Admin: 05/18/18 10:01 Dose: 0.5 mg Amlodipine Besylate (Norvasc) 5 mg PO DAILY [facility] Last Admin: 05/18/18 10:01 Dose: 5 mg Enoxaparin Sodium (Lovenox) 40 mg SC DAILY [facility] Last Admin: 05/18/18 10:13 Dose: Not Given Famotidine (Pepcid) 20 mg PO BID [facility] Last Admin: 05/18/18 10:01 Dose: 20 mg Fluconazole (Diflucan) 100 mg PO Q24H [facility] PRN Reason: Protocol Last Admin: 05/18/18 13:50 Dose: 100 mg Folic Acid (Folic Acid) 1 mg PO DAILY [facility] Last Admin: 05/18/18 10:01 Dose: 1 mg Gabapentin (Neurontin) 300 mg PO BID [facility] Last Admin: 05/18/18 10:01 Dose: 300 mg Hydralazine HCl (Apresoline) 25 mg PO BID [facility] Last Admin: 05/18/18 10:01 Dose: 25 mg Lactated Ringer's (Lactated Ringer's 500ml) 500 mls @ 75 mls/hr IV .Q6H40M [facility] Last Admin: 05/18/18 12:30 Dose: Not Given Insulin Human Regular (Novolin R) 0 unit SC ACHS [facility] PRN Reason: Protocol Last Admin: 05/18/18 11:30 Dose: 2 unit Latanoprost (Xalatan Opht) 0 ml OU HS [facility] Last Admin: 05/17/18 21:35 Dose: 2.5 ml Losartan Potassium (Cozaar) 100 mg PO DAILY [facility] Last Admin: 05/18/18 10:00 Dose: 100 mg Metformin HCl (Glucophage) 850 mg PO BID [facility] Last Admin: 05/18/18 09:59 Dose: 850 mg Metoclopramide HCl (Reglan) 10 mg IVP Q6 PRN PRN Reason: Nausea/Vomiting Last Admin: 05/18/18 10:01 Dose: 10 mg Nitroglycerin (Nitro-Bid 2% Oint) 1 ea TOP Q6 PRN PRN Reason: HIGH BLOOD PRESSURE Last Admin: 05/16/18 08:21 Dose: 1 ea Oxycodone HCl (Oxycodone Immediate Release Tab) 15 mg PO Q6 PRN PRN Reason: Pain, moderate (4-7) Last Admin: 05/18/18 13:52 Dose: 15 mg Polyethylene Glycol (Miralax) 17 gm PO BID [facility] Last Admin: 05/18/18 10:02 Dose: 17 gm Senna/Docusate Sodium (Senokot S 50 Mg-8.6 Mg) 1 tab PO DAILY [facility] Last Admin: 05/18/18 09:59 Dose: 1 tab Tiotropium [place] (Spiriva) 18 mcg IH RQD [facility] Last Admin: 05/18/18 08:09 Dose: 18 mcg - Labs Labs: 05/15/18 07:06 05/17/18 08:26 Assessment and Plan (1) Weakness Status: Acute (2) Abdominal pain Status: Acute (3) Leukocytosis Status: Acute (4) Gastritis Status: Acute (5) Diabetes mellitus type 2 Status: Chronic (6) Accelerated hypertension Status: Acute
--- NOTE | 2018-05-18 14:53 | CP.PCM.PN ---
Subjective - Date & Time of Evaluation Date of Evaluation: 05/18/18 Time of Evaluation: 18:35 - Subjective Subjective: Pt seen and examined at bedside Objective - Vital Signs/Intake and Output Vital Signs (last 24 hours): Temp Pulse Resp BP Pulse Ox 98.3 F 96 H 20 148/93 H 96 05/18/18 07:00 05/18/18 11:40 05/18/18 07:00 05/18/18 07:00 05/18/18 07:00 Intake and Output: 05/18/18 05/18/18 06:59 18:59 Intake Total 1400 Balance 1400 - Medications Medications: Current Medications Albuterol (Ventolin Hfa 90 Mcg/Actuation (8 G)) 2 puff IH RQ6 [facility] Last Admin: 05/18/18 07:40 Dose: Not Given Albuterol/Ipratropium (Duoneb 3 Mg/0.5 Mg (3 Ml) Ud) 3 ml INH RQ4 PRN PRN Reason: Wheezing Last Admin: 05/18/18 11:53 Dose: 3 ml Alprazolam (Xanax) 0.5 mg PO TID PRN PRN Reason: Nausea/Vomiting Stop: 05/21/18 09:47 Last Admin: 05/18/18 10:01 Dose: 0.5 mg Amlodipine Besylate (Norvasc) 5 mg PO DAILY [facility] Last Admin: 05/18/18 10:01 Dose: 5 mg Enoxaparin Sodium (Lovenox) 40 mg SC DAILY [facility] Last Admin: 05/18/18 10:13 Dose: Not Given Famotidine (Pepcid) 20 mg PO BID [facility] Last Admin: 05/18/18 10:01 Dose: 20 mg Fluconazole (Diflucan) 100 mg PO Q24H [facility] PRN Reason: Protocol Last Admin: 05/18/18 13:50 Dose: 100 mg Folic Acid (Folic Acid) 1 mg PO DAILY [facility] Last Admin: 05/18/18 10:01 Dose: 1 mg Gabapentin (Neurontin) 300 mg PO BID [facility] Last Admin: 05/18/18 10:01 Dose: 300 mg Hydralazine HCl (Apresoline) 25 mg PO BID [facility] Last Admin: 05/18/18 10:01 Dose: 25 mg Lactated Ringer's (Lactated Ringer's 500ml) 500 mls @ 75 mls/hr IV .Q6H40M [facility] Last Admin: 05/18/18 12:30 Dose: Not Given Insulin Human Regular (Novolin R) 0 unit SC ACHS [facility] PRN Reason: Protocol Last Admin: 05/18/18 11:30 Dose: 2 unit Latanoprost (Xalatan Opht) 0 ml OU HS [facility] Last Admin: 05/17/18 21:35 Dose: 2.5 ml Losartan Potassium (Cozaar) 100 mg PO DAILY [facility] Last Admin: 05/18/18 10:00 Dose: 100 mg Metformin HCl (Glucophage) 850 mg PO BID [facility] Last Admin: 05/18/18 09:59 Dose: 850 mg Metoclopramide HCl (Reglan) 10 mg IVP Q6 PRN PRN Reason: Nausea/Vomiting Last Admin: 05/18/18 10:01 Dose: 10 mg Nitroglycerin (Nitro-Bid 2% Oint) 1 ea TOP Q6 PRN PRN Reason: HIGH BLOOD PRESSURE Last Admin: 05/16/18 08:21 Dose: 1 ea Oxycodone HCl (Oxycodone Immediate Release Tab) 15 mg PO Q6 PRN PRN Reason: Pain, moderate (4-7) Last Admin: 05/18/18 13:52 Dose: 15 mg Polyethylene Glycol (Miralax) 17 gm PO BID [facility] Last Admin: 05/18/18 10:02 Dose: 17 gm Senna/Docusate Sodium (Senokot S 50 Mg-8.6 Mg) 1 tab PO DAILY [facility] Last Admin: 05/18/18 09:59 Dose: 1 tab Tiotropium [place] (Spiriva) 18 mcg IH RQD [facility] Last Admin: 05/18/18 08:09 Dose: 18 mcg - Labs Labs: 05/15/18 07:06 05/17/18 08:26 Assessment and Plan (1) Weakness Status: Acute (2) Abdominal pain Status: Acute (3) Leukocytosis Status: Acute (4) Gastritis Status: Acute (5) Diabetes mellitus type 2 Status: Chronic (6) Accelerated hypertension Status: Acute
--- NOTE | 2018-05-18 19:03 | CP.PCM.PN ---
Subjective - Date & Time of Evaluation Date of Evaluation: 05/17/18 Time of Evaluation: 16:10 - Subjective Subjective: Patient with PMHx of HTN, asthma, RA/SLE, uncontrolled DMII, gastroparesis, gastritis, bilateral glaucoma, endometriosis, herniated discs, anxiety admitted for intractable vomiting. Cardiology consulted for uncontrolled hypertension. Patient seen and examined at bedside. Patient says she is feeling better. Patient has not vomited since 05/14/18. Patient denies chest pain, shortness of breath, headache, blurry vision. Patient is still having some generalized abdominal pain. Physical examination - Constitutional Appears: Non-toxic, No Acute Distress - Head Exam Head Exam: ATRAUMATIC, NORMAL INSPECTION, NORMOCEPHALIC - Eye Exam Eye Exam: EOMI, Normal appearance - ENT Exam ENT Exam: Mucous Membranes Dry - Respiratory Exam Respiratory Exam: Clear to Ausculation Bilateral, NORMAL BREATHING PATTERN. absent: Rales, Rhonchi, Wheezes, Respiratory Distress, Stridor - Cardiovascular Exam Cardiovascular Exam: REGULAR RHYTHM, RRR, +S1, +S2 - GI/Abdominal Exam GI & Abdominal Exam: Soft, Tenderness, Normal Bowel Sounds - Extremities Exam Extremities Exam: Full ROM, Normal Inspection - Back Exam Back Exam: NORMAL INSPECTION - Neurological Exam Neurological Exam: Alert, Awake, Oriented x3 - Psychiatric Exam Psychiatric exam: Normal Affect, Normal Mood - Skin Skin Exam: Intact, Normal Color, Warm Objective - Vital Signs/Intake and Output Vital Signs (last 24 hours): Temp Pulse Resp BP Pulse Ox 98.3 F 96 H 20 148/93 H 96 05/18/18 07:00 05/18/18 11:40 05/18/18 07:00 05/18/18 07:00 05/18/18 07:00 - Labs Labs: 05/15/18 07:06 05/17/18 08:26 Assessment and Plan - Assessment and Plan (Free Text) Assessment: HTN better controlled Norvasc 5mg po daily Hydralazine 25mg po BID Losartan 100mg po daily Nitroglycerin oint q6h prn continue to monitor Abnormal EKG EKG: NSR, possible left atrial enlargement, possible septal infarct, possible lateral infarct Troponin negative x 2 ECHO (05/15/18): LVEF is normal. No regional wall motion abnormalities. Grade I abnormal relaxation pattern. Left ventricular filling pressure is normal
== END 2018-05-18 15:40 | disposition home or self-care (01) | DRG 551 ==
LOC: C.ER 16:15 → C.9E 20:54 → C.5S 05-14 01:38
PROVIDERS: ADMIT Internal Medicine; ATTEND Internal Medicine
PROC: 0DB68ZX Excision of Stomach, Via Natural or Artificial Opening Endoscopic, Diagnostic (ICD-10-PCS; principal; 2018-05-17 10:10)
DX: K25.9 Gastric ulcer, unspecified as acute or chronic, without hemorrhage or perforation (principal); B37.81 Candidal esophagitis; E11.65 Type 2 diabetes mellitus with hyperglycemia; E11.43 Type 2 diabetes mellitus with diabetic autonomic (poly)neuropathy; M32.9 Systemic lupus erythematosus, unspecified; J43.9 Emphysema, unspecified; K29.50 Unspecified chronic gastritis without bleeding; D72.829 Elevated white blood cell count, unspecified; G89.29 Other chronic pain; I10 Essential (primary) hypertension; K31.84 Gastroparesis; K58.9 Irritable bowel syndrome, unspecified; K64.9 Unspecified hemorrhoids; M06.9 Rheumatoid arthritis, unspecified; F41.9 Anxiety disorder, unspecified; E78.00 Pure hypercholesterolemia, unspecified; N80.9 Endometriosis, unspecified; H40.9 Unspecified glaucoma; F17.210 Nicotine dependence, cigarettes, uncomplicated; Z79.891 Long term (current) use of opiate analgesic; Z79.899 Other long term (current) drug therapy; Z87.01 Personal history of pneumonia (recurrent); Z87.11 Personal history of peptic ulcer disease

== ENCOUNTER 2018-07-17 16:33 | Emergency (ER) | payer MEDICAID ==
[2018-07-17 16:34] VITALS: BMI 39.3
[2018-07-17 16:51] VITALS: BP 153/93; PULSE 91; RESP 18; TEMP 98.3; O2SAT 98
--- NOTE | 2018-07-17 16:58 | C.PDOC ---
History Of Present Illness 43 y/o female presents to the ER complaining of bilateral eye irritation which began after she started smoking cigarettes 2 days ago.Patient denies having changes in vision, fever, and chills. Of note, patient has extensive history of psychiatric illness. Time Seen by Provider: 07/17/18 16:52 Chief Complaint (Nursing): Eye Problem History Per: Patient History/Exam Limitations: no limitations Onset/Duration Of Symptoms: Days Current Symptoms Are (Timing): Still Present Severity: Moderate Past Medical History Reviewed: Historical Data, Nursing Documentation, Vital Signs Vital Signs: Last Vital Signs Temp 98.3 F 07/17/18 16:46 Pulse 91 H 07/17/18 16:46 Resp 18 07/17/18 16:46 BP 153/93 H 07/17/18 16:46 Pulse Ox 98 07/17/18 16:46 - Medical History PMH: Anxiety, Arthritis, Asthma, Back Problems, Bronchitis, COPD (Emphysema), Depression, Diabetes, Emphysema, Gastritis, Gastrointestinal Ulcer, HTN, Hypercholesterolemia, Pancreatitis, Pneumonia, Rheumatoid Arthritis Denies: Chronic Kidney Disease Surgical History: Endoscopy (X2) - [facility] Procedures CLOSED ENDOSCOPIC BIOPSY OF LARGE INTESTINE (03/05/14) CORONAR ARTERIOGR-2 CATH (03/28/12) ESOPHAGOGASTRODUODENOSCOPY [EGD] W/CLOSED BIOPSY (03/10/14) EXCISION OF SMALL INTESTINE, ENDO, DIAGN (11/17/17) EXCISION OF STOMACH, ENDO, DIAGN (05/13/18) INJECT/INFUSE NEC (05/04/14) LEFT HEART CARDIAC CATH (03/28/12) LT HEART ANGIOCARDIOGRAM (03/28/12) Family History: States: No Known Family Hx - Social History Hx Tobacco Use: Yes Hx Alcohol Use: No Hx Substance Use: No - Immunization History Hx Tetanus Toxoid Vaccination: No Hx Influenza Vaccination: Yes (December 2016) Hx Pneumococcal Vaccination: Yes (Oct 2015) Review Of Systems Except As Marked, All Systems Reviewed And Found Negative. Constitutional: Negative for: Fever, Chills Eyes: Positive for: Other (eye irritation). Negative for: Vision Change Physical Exam - Physical Exam Appears: Other (morbidly obese, anxious, bizarre) Skin: Normal Color, Warm, Dry Head: Atraumatic, Normacephalic Eye(s): bilateral: Other (mild scleral injection, no discharge) Nose: Normal Oral Mucosa: Moist Neck: Supple Chest: Symmetrical Neurological/Psych: Oriented x3, Normal Speech ED Course And Treatment O2 Sat by Pulse Oximetry: 98 (RA) Pulse Ox Interpretation: Normal Medical Decision Making Medical Decision Making: eye irritation due to cigarette smoking x 2 days no eye d/c defer abx drops now Claritin recommended Disposition Doctor Will See Patient In The: Office Counseled Patient/Family Regarding: Studies Performed, Diagnosis - Disposition Referrals: Corey Orellana MD [Staff Provider] - Disposition: HOME/ ROUTINE Disposition Time: 16:58 Condition: GOOD Additional Instructions: avoid cigarette smoking- this irritates the eyes Visine eye drops as needed Claritin 10 mg daily as needed- antihistamine in case of seasonal allergies and reduces irritation due to smoke Instructions: Conjunctivitis (Noninfectious [place]) Forms: [employer] (Korean) - Clinical Impression Clinical Impression: Eye irritation - Scribe Statement The provider has reviewed the documentation as recorded by the Yuriibyumi Mcdaniel Provider Attestation: All medical record entries made by the Yuriibe were at my direction and personally dictated by me. I have reviewed the chart and agree that the record accurately reflects my personal performance of the history, physical exam, medical decision making, and the department course for this patient. I have also personally directed, reviewed, and agree with the discharge instructions and disposition.
== END 2018-07-17 17:09 | disposition home or self-care (01) ==
LOC: C.ER 16:33
DX: H57.8 Other specified disorders of eye and adnexa (principal); E11.9 Type 2 diabetes mellitus without complications

== ENCOUNTER 2018-09-30 14:48 | Inpatient (IN) | payer MEDICAID ==
[2018-09-30 14:48] VITALS: BMI 39.3
[2018-09-30] MEDS ORDERED: Sodium Chloride 0.9% 1,000 ML IV ONE (16:12)
--- NOTE | 2018-09-30 16:12 | C.PDOC ---
History Of Present Illness 43 yo female w/PMHx of RA/SLE, uncontrolled DM, gastroparesis, gastritis, chronic pain with opiates, anxiety presenting with intractable nausea and vomiting associated with diffuse epigastric abdominal pain developed for past few days. Patient states she has been having non-stop non-bilious, non-bloody vomiting since today AM. Pt admits, was seen at [facility] yesterday " felt little better after their treatment but started to vomiting this AM, was unable to tolerate any PO today". Pt sts, blood owrk , CT A/P performed at [facility] yesterday, normal results ( pt has copy, results review). AT present time, appears in pain. PSHx - EGD (11/08) and CSPY (2014) with retained fluid, esophagitis, gastritis, hemorrhoids, spastic colon. Time Seen by Provider: 09/30/18 16:03 Chief Complaint (Nursing): GI Problem History Per: Patient Onset/Duration Of Symptoms: Gradual Past Medical History Reviewed: Historical Data, Nursing Documentation, Vital Signs Vital Signs: Last Vital Signs Temp 98.0 F 09/30/18 14:57 Pulse 75 09/30/18 14:57 Resp 18 09/30/18 14:57 BP 208/93 H 09/30/18 14:57 Pulse Ox 98 09/30/18 14:57 - Medical History PMH: Anxiety, Arthritis, Asthma, Back Problems, Bronchitis, COPD (Emphysema), Depression, Diabetes, Emphysema, Gastritis, Gastrointestinal Ulcer, HTN, Hypercholesterolemia, Pancreatitis, Pneumonia, Rheumatoid Arthritis Denies: Chronic Kidney Disease Surgical History: Endoscopy (X2) - [facility] Procedures CLOSED ENDOSCOPIC BIOPSY OF LARGE INTESTINE (03/05/14) CORONAR ARTERIOGR-2 CATH (03/28/12) ESOPHAGOGASTRODUODENOSCOPY [EGD] W/CLOSED BIOPSY (03/10/14) EXCISION OF SMALL INTESTINE, ENDO, DIAGN (11/17/17) EXCISION OF STOMACH, ENDO, DIAGN (05/13/18) INJECT/INFUSE NEC (05/04/14) LEFT HEART CARDIAC CATH (03/28/12) LT HEART ANGIOCARDIOGRAM (03/28/12) Family History: States: Unknown Family Hx - Social History Hx Tobacco Use: Yes Hx Alcohol Use: No Hx Substance Use: Yes (cannabinoids) - Immunization History Hx Tetanus Toxoid Vaccination: No Hx Influenza Vaccination: No Hx Pneumococcal Vaccination: Yes (Oct 2015) Review Of Systems Except As Marked, All Systems Reviewed And Found Negative. Constitutional: Negative for: Fever, Chills ENT: Negative for: Throat Pain Cardiovascular: Negative for: Chest Pain, Palpitations Respiratory: Negative for: Cough, Shortness of Breath, Wheezing Gastrointestinal: Positive for: Nausea, Vomiting, Abdominal Pain. Negative for: Diarrhea Genitourinary: Negative for: Dysuria Musculoskeletal: Negative for: Neck Pain Skin: Negative for: Rash Neurological: Negative for: Altered Mental Status Physical Exam - Physical Exam Appears: Well, Non-toxic, Other (in pain) Skin: Normal Color, Warm, Dry Head: Normacephalic Eye(s): bilateral: PERRL Nose: No Flaring, No Discharge Oral Mucosa: Moist Throat: No Drooling Neck: Trachea Midline, Supple Cardiovascular: Rhythm Regular, No Murmur, No JVD, Other ((-) carotid bruits B/L) Respiratory: No Decreased Breath Sounds, No Accessory Muscle Use, No Stridor, No Wheezing Gastrointestinal/Abdominal: Soft, Tenderness (diffuse epigastric, mod), No Distention, No Guarding, No Rebound Extremity: Normal ROM, No Pedal Edema, No Deformity Neurological/Psych: Oriented x3, Normal Speech ED Course And Treatment - Laboratory Results Result Diagrams: 09/30/18 16:52 09/30/18 16:52 Lab Interpretation: Abnormal O2 Sat by Pulse Oximetry: 98 Pulse Ox Interpretation: Normal - CT Scan/US CT A/P Other Rad Studies (CT/US): Radiology Report Reviewed CT/US Interpretation: . Progress Note: Blood owrk review and appears abnormal compare to yesterday one , copy from [facility]. Acute leukocytosis with left shift, dehydration with sig high LIpase. CT A/P ordered again. Pt is NPO, hydration with IVF, analgesics, anti- emetic given. case discussed with and admission arranged. Disposition - Disposition Disposition: HOSPITALIZED Disposition Time: 17:40 Condition: STABLE - Clinical Impression Clinical Impression: Acute pancreatitis
[2018-09-30 16:56] LABS: BASO % 0.2 % (0.0-2.0); HEMOGLOBIN 15.2 g/dL (11.0-16.0); LYMPH # 0.9 K/uL (1.0-4.3); LYMPH % 4.9 % (20.0-40.0); MEAN CORPUSCULAR HEMOGLOBIN 28.4 pg (27.0-31.0); MEAN CORPUSCULAR HGB CONC 33.4 g/dL (33.0-37.0); MEAN PLATELET VOLUME 10.1 fL (7.2-11.7); MONO # 0.5 K/uL (0.0-0.8); MONO % 2.7 % (0.0-10.0); NEUT % 92.2 % (50.0-75.0); PLATELET COUNT 181 K/uL (130-400); RBC 5.36 Mil/uL (3.80-5.20); RED CELL DISTRIBUTION WIDTH 13.2 % (11.5-14.5); WHITE BLOOD COUNT 19.5 K/uL (4.8-10.8)
[2018-09-30 17:10] LABS: ALB/GLOB RATIO 1.2 (1.0-2.1); ALBUMIN 4.4 g/dL (3.5-5.0); ALT/SGPT 33 U/L (9-52); AST/SGOT 25 U/L (14-36); BLOOD UREA NITROGEN 18 mg/dL (7-17); CALCIUM 9.2 mg/dl (8.6-10.4); GFR NON-AFRICAN AMERICAN > 60
[2018-09-30 17:21] LABS: LIPASE 2426 U/L (23-300)
[2018-09-30 17:22] LABS: SQUAMOUS EPITHIAL 2 /hpf (0-5); URINE BACTERIA OCC (<OCC); URINE BILIRUBIN NEGATIVE (NEGATIVE); URINE BLOOD 2+ (NEGATIVE); URINE CLARITY Clear (Clear); URINE COLOR Yellow (YELLOW); URINE GLUCOSE (UA) 3+ mg/dL (Normal); URINE LEUKOCYTE ESTERASE NEG Leu/uL (Negative); URINE PROTEIN 3+ mg/dL (NEGATIVE); URINE UROBILINOGEN NORMAL mg/dL (0.2-1.0)
[2018-09-30 17:24] LABS: HCG,QUALITATIVE URINE NEGATIVE (NEGATIVE)
[2018-09-30 17:38] LABS: LARGE PLATELETS PRESENT; LYMPHOCYTE 2 % (20-40); MONOCYTE 2 % (0-10); NEUTROPHIL 96 % (50-75); PLATELET ESTIMATE NORMAL (NORMAL); TOTAL CELLS COUNTED 100
[2018-09-30 17:39] LABS: INR 1.1
--- NOTE | 2018-09-30 17:47 | RAD ---
Date of service: 09/30/2018 HISTORY: abd pain COMPARISON: None available. FINDINGS: LUNGS: No active pulmonary disease. PLEURA: No significant pleural effusion identified, no pneumothorax apparent. CARDIOVASCULAR: No aortic atherosclerotic calcification present. Normal cardiac size. No pulmonary vascular congestion. OSSEOUS STRUCTURES: No significant abnormalities. VISUALIZED UPPER ABDOMEN: Normal. OTHER FINDINGS: None. IMPRESSION: No active disease.
[2018-09-30] MEDS ORDERED: Morphine 4 MG/ML VIAL ONE (17:48)
[2018-09-30] MEDS ORDERED: Iodixanol 320 MG/ML 100 ML BOTTLE IV ONE (18:30)
[2018-09-30] MEDS ORDERED: oxyCODONE 5 mg Immediate Release Tab PO PRN (19:37)
[2018-09-30] MEDS ORDERED: Dextrose 5%/0.33% NS 1,000 ML IV SCH (19:45)
[2018-09-30] MEDS ORDERED: Albuterol-Ipratrop 3 mg / 0.5 (3 ml) UD IH PRN (20:30)
[2018-09-30] MEDS: Dextrose 5%/0.45% NS 1,000 ML IV SCH ×2 (20:33→22:19)
[2018-09-30] MEDS: (Novolin R) Insulin Human Regular 100 units/ml vial SC SCH (22:11)
[2018-09-30] MEDS: Latanoprost 2.5 ml Opht Soln OU SCH (22:24)
--- NOTE | 2018-09-30 22:31 | CP.PCM.HP ---
Past Patient History - Infectious Disease Hx of Infectious Diseases: None - Past Medical History & Family History Past Medical History?: Yes - Past Social History Smoking Status: Never Smoked - CARDIAC Hx Cardiac Disorders: Yes Hx Hypercholesterolemia: Yes Hx Hypertension: Yes - PULMONARY Hx Respiratory Disorders: Yes Hx Asthma: Yes Hx Bronchitis: Yes Hx Chronic Obstructive Pulmonary Disease (COPD): Yes (Emphysema) Hx Emphysema: Yes Hx Pneumonia: Yes - NEUROLOGICAL Hx Neurological Disorder: No - HEENT Hx HEENT Problems: Yes Hx Glaucoma: Yes - RENAL Hx Chronic Kidney Disease: No - ENDOCRINE/METABOLIC Hx Endocrine Disorders: Yes Hx Diabetes Mellitus Type 2: Yes - HEMATOLOGICAL/ONCOLOGICAL Hx Blood Disorders: No - INTEGUMENTARY Hx Dermatological Problems: No - MUSCULOSKELETAL/RHEUMATOLOGICAL Hx Arthritis: Yes Hx Rheumatoid Arthritis: Yes - GASTROINTESTINAL Hx Gastrointestinal Disorders: Yes Hx Gastritis: Yes Hx Pancreatitis: Yes - GENITOURINARY/GYNECOLOGICAL Hx Genitourinary Disorders: Yes (SEE COMMENT) Other/Comment: endometriosis - PSYCHIATRIC Hx Psychophysiologic Disorder: Yes Hx Anxiety: Yes Hx Depression: Yes Hx Substance Use: Yes (cannabinoids) - SURGICAL HISTORY Hx Surgeries: Yes Hx Section: Yes (X 2) Hx Dilation and Curettage: Yes (X 2) - ANESTHESIA Hx Anesthesia: Yes Hx Anesthesia Reactions: No Hx Malignant Hyperthermia: No Meds Allergies/Adverse Reactions: Allergies Allergy/AdvReac Type Severity Reaction Status Date / Time methylergonovine maleate Allergy Intermediate RASH Verified 09/30/18 14:58 [From Methergine] Penicillins Allergy Intermediate RASH Verified 09/30/18 14:58 Results - Vital Signs Recent Vital Signs: Last Vital Signs Temp 99.3 F 09/30/18 20:32 Pulse 84 09/30/18 20:32 Resp 18 09/30/18 20:32 BP 120/72 09/30/18 20:32 Pulse Ox 100 09/30/18 20:32 - Labs Result Diagrams: 09/30/18 16:52 09/30/18 16:52 Labs: Laboratory Results - last 24 hr 09/30/18 09/30/18 09/30/18 16:52 16:52 16:52 WBC 19.5 H RBC 5.36 H Hgb 15.2 Hct 45.5 MCV 85.0 D MCH 28.4 MCHC 33.4 RDW 13.2 Plt Count 181 MPV 10.1 Neut % (Auto) 92.2 H Lymph % (Auto) 4.9 L [place] % (Auto) 2.7 Eos % (Auto) 0.0 Baso % (Auto) 0.2 Neut # (Auto) 18.0 H Lymph # (Auto) 0.9 L [place] # (Auto) 0.5 Eos # (Auto) 0.0 Baso # (Auto) 0.0 Neutrophils % (Manual) 96 H Lymphocytes % (Manual) 2 L Monocytes % (Manual) 2 Platelet Estimate Normal Large Platelets Present PT 12.0 INR 1.1 APTT 30 Sodium Potassium Chloride Carbon Dioxide Anion Gap BUN Creatinine Est GFR ( Amer) Est GFR (Non-Af Amer) POC Glucose (mg/dL) Random Glucose Calcium Total Bilirubin AST ALT Alkaline Phosphatase Troponin I Total Protein Albumin Globulin Albumin/Globulin Ratio Lipase Urine Color Yellow Urine Clarity Clear Urine pH 6.0 Ur Specific [place] 1.029 Urine Protein 3+ H Urine Glucose (UA) 3+ H Urine Ketones 1+ H Urine Blood 2+ H Urine Nitrate Negative Urine Bilirubin Negative Urine Urobilinogen Normal Ur Leukocyte Esterase Neg Urine WBC (Auto) 2 Urine RBC (Auto) 4 H Ur Squamous Epith Cells 2 Urine Bacteria Occ H Urine HCG, Qual Negative 09/30/18 09/30/18 16:52 21:56 WBC RBC Hgb Hct MCV MCH MCHC RDW Plt Count MPV Neut % (Auto) Lymph % (Auto) [place] % (Auto) Eos % (Auto) Baso % (Auto) Neut # (Auto) Lymph # (Auto) [place] # (Auto) Eos # (Auto) Baso # (Auto) Neutrophils % (Manual) Lymphocytes % (Manual) Monocytes % (Manual) Platelet Estimate Large Platelets PT INR APTT Sodium 134 Potassium 3.6 Chloride 99 Carbon Dioxide 24 Anion Gap 15 BUN 18 H Creatinine 0.6 L Est GFR ( Amer) > 60 Est GFR (Non-Af Amer) > 60 POC Glucose (mg/dL) 285 H Random Glucose 255 H Calcium 9.2 Total Bilirubin 0.6 AST 25 ALT 33 Alkaline Phosphatase 130 H Troponin I 0.0120 Total Protein 7.9 Albumin 4.4 Globulin 3.5 Albumin/Globulin Ratio 1.2 Lipase 2426 H Urine Color Urine Clarity Urine pH Ur Specific [place] Urine Protein Urine Glucose (UA) Urine Ketones Urine Blood Urine Nitrate Urine Bilirubin Urine Urobilinogen Ur Leukocyte Esterase Urine WBC (Auto) Urine RBC (Auto) Ur Squamous Epith Cells Urine Bacteria Urine HCG, Qual
[2018-09-30] MEDS: Nitroglycerin 2% Ointment Foilpak UD TOP SCH (23:58)
[2018-10-01] MEDS: Nitroglycerin 2% Ointment Foilpak UD TOP SCH ×4 (05:43→23:51)
--- NOTE | 2018-10-01 06:38 | HP ---
CHIEF COMPLAINT: Persistent nausea and vomiting x2 days. HISTORY OF PRESENT ILLNESS: This is a 43-year-old female, well known to me, with history of morbid obesity; diabetic gastroparesis, type 2 diabetes, not on insulin; hypertension; anxiety; depression; and she has history of chronic pain syndrome and she is on opioid therapy. She came in because of intractable nausea, vomiting associated with diffuse epigastric pain lasted for the last 2 to 3 days. According to the patient, she is not tolerating any food. She has persistent nausea, vomiting, and retching. She has epigastric pain radiating through to the back, generalized weakness, tiredness, anorexia, malaise, and fatigue. She denies any dysuria, hematuria, or pyuria. She denies any polyuria, polydipsia, or polyphagia. She denies any history of trauma, fall, or loss of consciousness. She has tingling and numbness in the feet. She denies any chest pain. There is no history of trauma, fall, or loss of consciousness. There is no history of seizure-like activity. The patient denies any joint pain, hip pain, knee pain, or leg pain. She has neck pain. The patient has prior EGD done. The patient has history of diabetic gastroparesis. The patient denies any substance abuse. CURRENT MEDICATIONS AT HOME: Oxycodone, HydroDIURIL, Norvasc, Spiriva, Carafate, Protonix, Reglan, Glucophage, Cozaar, Xalatan eye drops, Plaquenil, Neurontin, Flovent HFA, Pepcid, DuoNeb, and Ventolin. PAST MEDICAL HISTORY: Type 2 diabetes, diabetic gastroparesis, hypertension, and morbid obesity. SOCIAL HISTORY: She is nonsmoker, non-ETOH user. PHYSICAL EXAMINATION: GENERAL: Alert, oriented female, in distress with abdominal pain, nausea, and vomiting. VITAL SIGNS: Blood pressure 208/93, pulse 75, respiratory rate 18, and temperature 98. SKIN: Dry. Poor turgor. HEENT: Atraumatic, normocephalic. Negative pallor. Negative jaundice. Extraocular movements are intact. NECK: Supple. No JVD. No lymph node. No thyromegaly. No carotid bruit. CHEST WALL: Bilateral symmetrical expansion. No tenderness.. LUNGS: Bilaterally clear. No rales. No rhonchi. CARDIOVASCULAR SYSTEM: S1, S2, regular. No heave. No thrill. ABDOMEN: Bowel sounds are exaggerated. There is diffuse abdominal tenderness with guarding. No rigidity. No rebound. There is no visceromegaly. RECTAL: Refused. PELVIC: Refused. EXTREMITIES: No clubbing, cyanosis, or edema. CENTRAL NERVOUS SYSTEM: Awake, alert, oriented x3. Cranial nerves II through XII are normal. Power 5/5 x4. Plantars are downgoing. ASSESSMENT: 1. Acute abdominal pain, nausea, vomiting. Rule out diabetic gastroparesis. Rule out gastritis. Rule out peptic ulcer disease. 2. Dehydration. 3. Poorly controlled hypertension. 4. Type 2 diabetes. 5. Pancreatitis. 6. Rule out urinary tract infection. PLAN: Admit. Detailed orders are written. Seen and examined. Corey Orellana MD
[2018-10-01] MEDS: (Novolin R) Insulin Human Regular 100 units/ml vial SC SCH ×4 (08:53→21:15)
[2018-10-01] MEDS: Enoxaparin 40 mg Syringe SC SCH (09:27)
[2018-10-01] MEDS ORDERED: Tiotropium 18 mcg Cap For Inhalation IH SCH (10:00)
--- NOTE | 2018-10-01 11:08 | CT ---
Date of service: 09/30/2018 PROCEDURE: CT Abdomen and Pelvis with contrast HISTORY: epigastric pain COMPARISON: Comparison made with prior CT scan the abdomen and pelvis 05/13/2018.. TECHNIQUE: Radiation dose: Total exam DLP = 1097.01 mGy-cm. This CT exam was performed using one or more of the following dose reduction techniques: Automated exposure control, adjustment of the mA and/or kV according to patient size, and/or use of iterative reconstruction technique. FINDINGS: LOWER THORAX: Heart size is within range of normal. No significant pericardial effusion. Tiny hiatal hernia. Lung bases clear without evidence of effusion or pneumothorax. LIVER: The liver exhibits enlarged measuring over 20 cm in CC dimension. There appears to be mild fatty hepatic infiltration. No evidence of of parenchymal masses collections or calcifications. Portal and splenic veins are opacified. No significant intrahepatic biliary ductal dilatation. GALLBLADDER AND BILE DUCTS: The gallbladder contains hyperdense material likely representing sludge possibly admixed with small gravel. PANCREAS: Unremarkable. No gross lesion or ductal dilatation. SPLEEN: Spleen exhibits normal size and attenuation pattern without masses collections or calcifications.. ADRENALS: No adrenal lesions.. KIDNEYS AND URETERS: The kidneys demonstrate symmetric nephrograms. No evidence of nephrolithiasis or hydronephrosis. No renal mass or collection seen.. VASCULATURE: Unremarkable. No aortic aneurysm. No aortic atherosclerotic calcification or mural plaque present. BOWEL: Evaluation of the bowel is somewhat limited due to the lack of oral contrast material.. The stomach is incompletely distended which in part accounts for the appearance however the possibility gastritis not excluded. Clinical correlation recommended determine whether follow-up endoscopy is warranted. Visualized loops of small bowel exhibit normal contour and caliber. No evidence of acute mechanical small bowel obstruction. APPENDIX: Normal appearing appendix without evidence of periapical appendiceal inflammation.. PERITONEUM: Unremarkable. No free fluid. No free air. Small fat containing umbilical hernia. LYMPH NODES: There are multiple small nonspecific retroperitoneal lymph nodes are present. BLADDER: Urinary bladder is incompletely distended which in part accounts for thick-walled appearance. Correlation with urinalysis to exclude UTI. REPRODUCTIVE: Unremarkable. BONES: Minor multilevel degenerative spondylosis of the lower thoracic and lumbar spine. OTHER FINDINGS: None. IMPRESSION: Intraluminal gallbladder sludge and possibly gravel.. Mild hepatomegaly. Wall thickening of the stomach in part due to incomplete distention however gastritis not excluded. Multiple small nonspecific retroperitoneal lymph nodes are present. See above discussion for additional details and findings..
[2018-10-01] MEDS: HYDROmorphone 0.5 mg/0.5 ml ISec IVP PRN ×3 (12:00→23:51)
[2018-10-01] MEDS ORDERED: Mometasone 220 mcg/puff-14 puff Inh INH SCH (18:00)
[2018-10-01] MEDS: NIFEdipine 90 mg ER Tab PO SCH (21:31)
--- NOTE | 2018-10-01 21:47 | CARD ---
APPROVED REPORT Date of service: 09/30/2018 EKG Measurement Heart [id number] <Conclusion> Sinus rhythm with marked sinus arrhythmia Nonspecific ST abnormality Abnormal ECG
[2018-10-01] MEDS: Latanoprost 2.5 ml Opht Soln OU SCH (22:46)
--- NOTE | 2018-10-01 22:46 | CP.PCM.PN ---
Subjective - Subjective Subjective: dictated Objective - Vital Signs/Intake and Output Vital Signs (last 24 hours): Temp Pulse Resp BP Pulse Ox 98.6 F 77 20 181/98 H 96 10/01/18 16:00 10/01/18 16:00 10/01/18 16:00 10/01/18 16:00 10/01/18 16:00 Intake and Output: 10/01/18 10/02/18 18:59 06:59 Intake Total 640 Output Total 200 Balance 440 - Medications Medications: Current Medications Albuterol/Ipratropium (Duoneb 3 Mg/0.5 Mg (3 Ml) Ud) 3 ml IH RQ6 PRN PRN Reason: Shortness of Breath Enoxaparin Sodium (Lovenox) 40 mg SC DAILY [facility] Last Admin: 10/01/18 09:27 Dose: Not Given Famotidine (Pepcid) 20 mg PO BID [facility] Last Admin: 10/01/18 18:15 Dose: Not Given Folic Acid (Folic Acid) 1 mg PO DAILY [facility] Last Admin: 10/01/18 09:11 Dose: 1 mg Gabapentin (Neurontin) 300 mg PO BID [facility] Last Admin: 10/01/18 18:14 Dose: Not Given Hydromorphone HCl (Dilaudid) 0.5 mg IVP Q6H PRN PRN Reason: Pain, severe (8-10) Last Admin: 10/01/18 17:57 Dose: 0.5 mg Hydroxychloroquine Sulfate (Plaquenil) 200 mg PO BID [facility]; Protocol Last Admin: 10/01/18 18:15 Dose: Not Given Dextrose/Sodium Chloride (Dextrose 5%/0.45% Ns 1000 Ml) 1,000 mls @ 80 mls/hr IV .[id number] [facility] Last Admin: 09/30/18 22:19 Dose: 80 mls/hr Influenza Virus Vaccine (Fluzone Quad [id number]) 60 mcg IM .ONCE ONE Stop: 10/02/18 10:01 Insulin Human Regular (Novolin R) 0 unit SC [facility]; Protocol Last Admin: 10/01/18 21:15 Dose: Not Given Latanoprost (Xalatan Opht) 0 ml OU HS [facility] Last Admin: 09/30/18 22:24 Dose: 2.5 ml Losartan Potassium (Cozaar) 100 mg PO DAILY [facility] Last Admin: 10/01/18 09:11 Dose: 100 mg Metoclopramide HCl (Reglan) 10 mg IVP ACHS [facility] Last Admin: 10/01/18 17:57 Dose: 10 mg Mometasone Furoate (Asmanex Twisthaler 220 Mcg) 220 puff INH QPM [facility] Last Admin: 10/01/18 21:31 Dose: Not Given Nifedipine (Procardia Xl) 90 mg PO DAILY [facility] Last Admin: 10/01/18 21:31 Dose: 90 mg Nitroglycerin (Nitro-Bid 2% Oint) 1 ea TOP Q6 [facility] Last Admin: 10/01/18 17:57 Dose: 1 ea Ondansetron HCl (Zofran Inj) 4 mg IVP Q8H PRN PRN Reason: Nausea/Vomiting Last Admin: 10/01/18 21:29 Dose: 4 mg Pantoprazole Sodium (Protonix Inj) 40 mg IVP DAILY [facility] Last Admin: 10/01/18 09:12 Dose: 40 mg Sucralfate (Carafate Tab) 1 gm PO TID [facility] Last Admin: 10/01/18 21:13 Dose: Not Given Tiotropium [place] (Spiriva) 18 mcg IH DAILY [facility] Tiotropium [place] (Spiriva Inhalation Handihaler Device) 1 inhaler INH DAILY [facility] - Labs Labs: 09/30/18 16:52 09/30/18 16:52 PT 12.0 SECONDS (9.7-12.2) 09/30/18 16:52 INR 1.1 09/30/18 16:52 APTT 30 SECONDS (21-34) 09/30/18 16:52
[2018-10-01] MEDS: Dextrose 5%/0.45% NS 1,000 ML IV SCH (23:51)
--- NOTE | 2018-10-02 01:24 | PN ---
DATE: 10/01/2018 SUBJECTIVE: Josefina is having persistent nausea, vomiting, and upper abdominal pain with elevated blood pressure and weakness, dizziness, and palpitation. She is n.p.o. She has nausea, vomiting, and abdominal pain. PHYSICAL EXAMINATION: VITAL SIGNS: Blood pressure 181/98, pulse , respiratory rate 20, and temperature 98.6. LUNGS: Clear. CARDIOPULMONARY: S1 and S2 regular. ABDOMEN: Soft. Epigastric tenderness. Bowel sounds are exaggerated. ASSESSMENT: 1. Acute pancreatitis. Etiology of acute pancreatitis is unclear. The patient's CT of the abdomen and pelvis shows gallbladder sludge and gallbladder wall thickening of the stomach with distention. The patient's chest x-ray is negative. 2. Hypertension. 3. Diabetes. PLAN: Continue current medications. N.p.o. Monitor the patient. Corey Orellana MD
[2018-10-02] MEDS: Nitroglycerin 2% Ointment Foilpak UD TOP SCH ×3 (06:14→18:08)
[2018-10-02] MEDS: HYDROmorphone 0.5 mg/0.5 ml ISec IVP PRN ×3 (06:21→18:13)
[2018-10-02 07:27] LABS: BASO % 0.3 % (0.0-2.0); EOS # 0.1 K/uL (0.0-0.7); EOS % 0.6 % (0.0-4.0); HEMOGLOBIN 15.5 g/dL (11.0-16.0); LYMPH # 1.4 K/uL (1.0-4.3); LYMPH % 14.2 % (20.0-40.0); MEAN CELL VOLUME 86.5 fL (81.0-99.0); MEAN CORPUSCULAR HEMOGLOBIN 29.8 pg (27.0-31.0); MEAN CORPUSCULAR HGB CONC 34.5 g/dL (33.0-37.0); MEAN PLATELET VOLUME 9.2 fL (7.2-11.7); MONO % 9.9 % (0.0-10.0); NEUT # 7.2 K/uL (1.8-7.0); NRBC % 0.1 % (0.0-2.0); RBC 5.2 Mil/uL (3.80-5.20); RED CELL DISTRIBUTION WIDTH 12.8 % (11.5-14.5)
[2018-10-02 07:34] LABS: WHITE BLOOD COUNT 9.7 K/uL (4.8-10.8)
[2018-10-02 08:02] LABS: ALB/GLOB RATIO 1.3 (1.0-2.1); ALBUMIN 4.3 g/dL (3.5-5.0); ALT/SGPT 24 U/L (9-52); AMYLASE 112 U/L (30-110); AST/SGOT 17 U/L (14-36); BLOOD UREA NITROGEN 8 mg/dL (7-17); CALCIUM 8.6 mg/dl (8.6-10.4); GFR NON-AFRICAN AMERICAN > 60; LIPASE 234 U/L (23-300)
[2018-10-02] MEDS: (Novolin R) Insulin Human Regular 100 units/ml vial SC SCH ×4 (08:29→21:31)
[2018-10-02] MEDS: NIFEdipine 90 mg ER Tab PO SCH (09:42)
[2018-10-02] MEDS: Enoxaparin 40 mg Syringe SC SCH (09:46)
[2018-10-02] MEDS ORDERED: Influenza Vaccine 60 MCG/0.5 ML SYR (3 yr & up) IM ONE (10:00)
[2018-10-02] MEDS: Dextrose 5%/0.45% NS 1,000 ML IV SCH (10:45)
[2018-10-02] MEDS: Potassium Chl 10 mEq in D5-1/2 1,000 ML IV SCH (16:31)
--- NOTE | 2018-10-02 21:38 | CP.PCM.PN ---
Subjective - Subjective Subjective: dictated Objective - Vital Signs/Intake and Output Vital Signs (last 24 hours): Temp Pulse Resp BP Pulse Ox 99.0 F 71 20 179/92 H 96 10/02/18 15:00 10/02/18 15:00 10/02/18 15:00 10/02/18 15:00 10/02/18 15:00 Intake and Output: 10/02/1818 18:59 06:59 Intake Total 760 Balance 760 - Medications Medications: Current Medications Albuterol/Ipratropium (Duoneb 3 Mg/0.5 Mg (3 Ml) Ud) 3 ml IH RQ6 PRN PRN Reason: Shortness of Breath Alprazolam (Xanax) 0.5 mg PO Q12 PRN PRN Reason: Anxiety Last Admin: 10/02/18 21:32 Dose: 0.5 mg Enoxaparin Sodium (Lovenox) 40 mg SC DAILY [facility] Last Admin: 10/02/18 09:46 Dose: Not Given Famotidine (Pepcid) 20 mg PO BID [facility] Last Admin: 10/02/18 18:08 Dose: 20 mg Folic Acid (Folic Acid) 1 mg PO DAILY [facility] Last Admin: 10/02/18 09:46 Dose: Not Given Gabapentin (Neurontin) 300 mg PO BID [facility] Last Admin: 10/02/18 18:08 Dose: 300 mg Hydromorphone HCl (Dilaudid) 0.5 mg IVP Q6H PRN PRN Reason: Pain, severe (8-10) Last Admin: 10/02/18 18:13 Dose: 0.5 mg Hydroxychloroquine Sulfate (Plaquenil) 200 mg PO BID [facility]; Protocol Last Admin: 10/02/18 18:08 Dose: 200 mg Potassium Chloride (Potassium Chloride 20 Meq/100 Ml) 20 meq in 100 mls @ 50 mls/hr IVPB Q2 [facility] Stop: 10/02/18 21:59 Last Admin: 10/02/18 20:00 Dose: 50 mls/hr Potassium Chloride/Dextrose/Sod Cl (Potassium Chl 10 Meq In D5-1/2ns) 1,000 mls @ 80 mls/hr IV .[id number] [facility] Last Admin: 10/02/18 16:31 Dose: 80 mls/hr Insulin Human Regular (Novolin R) 0 unit SC [facility]; Protocol Last Admin: 10/02/18 21:31 Dose: Not Given Latanoprost (Xalatan Opht) 0 ml OU HS [facility] Last Admin: 10/01/18 22:46 Dose: Not Given Losartan Potassium (Cozaar) 100 mg PO DAILY [facility] Last Admin: 10/02/18 09:42 Dose: 100 mg Metoclopramide HCl (Reglan) 10 mg IVP ACHS [facility] Last Admin: 10/02/18 21:32 Dose: 10 mg Mometasone Furoate (Asmanex Twisthaler 220 Mcg) 220 puff INH QPM [facility] Last Admin: 10/01/18 21:31 Dose: Not Given Nifedipine (Procardia Xl) 90 mg PO DAILY [facility] Last Admin: 10/02/18 09:42 Dose: 90 mg Nitroglycerin (Nitro-Bid 2% Oint) 1 ea TOP Q6 [facility] Last Admin: 10/02/18 18:08 Dose: 1 ea Ondansetron HCl (Zofran Inj) 4 mg IVP Q8H PRN PRN Reason: Nausea/Vomiting Last Admin: 10/01/18 21:29 Dose: 4 mg Pantoprazole Sodium (Protonix Inj) 40 mg IVP DAILY [facility] Last Admin: 10/02/18 09:40 Dose: 40 mg Sucralfate (Carafate Tab) 1 gm PO TID [facility] Last Admin: 10/02/18 18:08 Dose: 1 gm Tiotropium [place] (Spiriva) 18 mcg IH DAILY [facility] Tiotropium [place] (Spiriva Inhalation Handihaler Device) 1 inhaler INH DAILY [facility] - Labs Labs: 10/02/18 07:19 10/02/18 07:19 PT 12.0 SECONDS (9.7-12.2) 09/30/18 16:52 INR 1.1 09/30/18 16:52 APTT 30 SECONDS (21-34) 09/30/18 16:52
--- NOTE | 2018-10-02 22:17 | PN ---
DATE: 10/02/2018UBJECTIVE: This 43-year-old female, seen initially for GI consultation on 10/01/2018, reexamined again today with a complaint of generalized abdominal pain, nausea with intermittent vomiting, but no actual chest pain, palpitation, no significant clinical changes. No shortness of breath. The entire chart is reviewed including but not limited to the most recent lab and radiology study results, current and the previous medication list, current and the previous medical events and today's lipase normal to 234 and amylase elevated to 112. The patient is still complaining of nausea and vomiting with blood glucose level 186, but normal hemoglobin and hematocrit. Initial CT scan of the abdomen and pelvis report is seen. PHYSICAL EXAMINATION: GENERAL: A 43-year-old female. VITAL SIGNS: Afebrile with pulse of 68, respiratory rate 20 to 22, blood pressure 174/90. HEENT: Showed pale dry oral mucoid membrane. Nonicteric sclerae. LUNGS: Few scattered crepitation. Decreased air entry at bases. HEART: Positive S1 and S2. ABDOMEN: Soft with mild generalized tenderness. No mass or organomegaly. No rebound tenderness or guarding. EXTREMITIES: Without significant clubbing, cyanosis or edema. NEUROLOGIC: No reported new neurological deficits, sensory or motor. IMPRESSION: 1. Re-exacerbation of peptic ulcer disease, to rule out gastric versus duodenal ulcer. 2. Poorly controlled diabetes mellitus with possible diabetic gastroparesis. 3. Multiple past medical history including but not limited to chronic obstructive pulmonary disease with bronchitis, osteoarthritis, severe anxiety syndrome, hypertension with hyperlipidemia. 4. Acute pancreatitis, gradually improving. 5. Known history of pneumonia. SUGGESTIONS: 1. Continue current management. 2. Endoscopic evaluation of the upper GI tract when the patient is more stable clinically. 3. Reglan IV to be continued. 4. Carafate liquid p.o. 5. Further recommendation to follow. 6. Cancer markers to be ordered. Roni Graff MD
[2018-10-02] MEDS: Latanoprost 2.5 ml Opht Soln OU SCH (22:45)
[2018-10-03] MEDS: Nitroglycerin 2% Ointment Foilpak UD TOP SCH ×2 (00:24→12:24)
--- NOTE | 2018-10-03 01:03 | PN ---
DATE: 10/02/2018 SUBJECTIVE: The patient is denying any nausea or vomiting. She has decreased abdominal pain, decreased distention. She denies any headache and palpitation. She feels much better. PHYSICAL EXAMINATION: VITAL SIGNS: Blood pressure is 179/92, pulse 71, respiratory rate 20, temperature 97. LUNGS: Clear. ABDOMEN: Soft and nontender. Bowel sounds are positive. ASSESSMENT: 1. Pancreatitis. 2. Diabetes. 3. Hypertension. 4. Type 2 diabetes. PLAN: Start clear liquid diet. Monitor amylase and lipase. Monitor the patient. Corey Orellana MD
[2018-10-03] MEDS: HYDROmorphone 0.5 mg/0.5 ml ISec IVP PRN ×4 (02:05→23:59)
[2018-10-03] MEDS: Potassium Chl 10 mEq in D5-1/2 1,000 ML IV SCH ×3 (05:43→21:05)
[2018-10-03 06:49] LABS: HEMOGLOBIN 16.2 g/dL (11.0-16.0); MEAN CELL VOLUME 84.6 fL (81.0-99.0); MEAN CORPUSCULAR HGB CONC 34.3 g/dL (33.0-37.0); MEAN PLATELET VOLUME 10.1 fL (7.2-11.7); RBC 5.58 Mil/uL (3.80-5.20); RED CELL DISTRIBUTION WIDTH 12.7 % (11.5-14.5); WHITE BLOOD COUNT 11.2 K/uL (4.8-10.8)
[2018-10-03] MEDS: (Novolin R) Insulin Human Regular 100 units/ml vial SC SCH ×4 (07:24→21:16)
[2018-10-03 07:30] LABS: AMYLASE 71 U/L (30-110); BLOOD UREA NITROGEN 9 mg/dL (7-17); CALCIUM 8.8 mg/dl (8.6-10.4); GFR NON-AFRICAN AMERICAN > 60; LIPASE 88 U/L (23-300)
[2018-10-03] MEDS ORDERED: Lactated Ringer's 1,000 ML IV ONE (09:25)
[2018-10-03] MEDS ORDERED: Propofol 10 mg/ml Inj (20 ML) ONE (09:31)
[2018-10-03] MEDS: Enoxaparin 40 mg Syringe SC SCH (10:51)
[2018-10-03] MEDS: NIFEdipine 90 mg ER Tab PO SCH ×2 (10:52→12:37)
[2018-10-03 16:51] VITALS: RESP 20
[2018-10-03] MEDS: Latanoprost 2.5 ml Opht Soln OU SCH (21:16)
--- NOTE | 2018-10-03 21:53 | CP.PCM.PN ---
Subjective - Subjective Subjective: dictated Objective - Vital Signs/Intake and Output Vital Signs (last 24 hours): Temp Pulse Resp BP Pulse Ox 98 F 81 20 142/87 96 10/03/18 16:50 10/03/18 16:50 10/03/18 16:50 10/03/18 16:50 10/03/18 16:50 - Medications Medications: Current Medications Acetaminophen (Tylenol 325mg Tab) 650 mg PO Q6 PRN PRN Reason: Pain, Mild (1-3) Last Admin: 10/03/18 05:37 Dose: 650 mg Albuterol/Ipratropium (Duoneb 3 Mg/0.5 Mg (3 Ml) Ud) 3 ml IH RQ6 PRN PRN Reason: Shortness of Breath Alprazolam (Xanax) 0.5 mg PO Q12 PRN PRN Reason: Anxiety Last Admin: 10/03/18 14:46 Dose: 0.5 mg Enoxaparin Sodium (Lovenox) 40 mg SC DAILY [facility] Last Admin: 10/03/18 10:51 Dose: Not Given Famotidine (Pepcid) 20 mg PO BID [facility] Last Admin: 10/03/18 17:57 Dose: 20 mg Folic Acid (Folic Acid) 1 mg PO DAILY [facility] Last Admin: 10/03/18 10:51 Dose: Not Given Gabapentin (Neurontin) 300 mg PO BID [facility] Last Admin: 10/03/18 17:58 Dose: 300 mg Hydrochlorothiazide (Hydrodiuril) 25 mg PO DAILY [facility] Last Admin: 10/03/18 13:40 Dose: 25 mg Hydromorphone HCl (Dilaudid) 0.5 mg IVP Q6H PRN PRN Reason: Pain, severe (8-10) Last Admin: 10/03/18 17:59 Dose: 0.5 mg Hydroxychloroquine Sulfate (Plaquenil) 200 mg PO BID [facility]; Protocol Last Admin: 10/03/18 17:57 Dose: 200 mg Potassium Chloride/Dextrose/Sod Cl (Potassium Chl 10 Meq In D5-1/2ns) 1,000 mls @ 80 mls/hr IV .[id number] [facility] Last Admin: 10/03/18 21:05 Dose: 80 mls/hr Insulin Human Regular (Novolin R) 0 unit SC [facility]; Protocol Last Admin: 10/03/18 21:16 Dose: Not Given Latanoprost (Xalatan Opht) 0 ml OU HS [facility] Last Admin: 10/03/18 21:16 Dose: 2.5 ml Losartan Potassium (Cozaar) 100 mg PO DAILY [facility] Last Admin: 10/03/18 10:51 Dose: Not Given Metoclopramide HCl (Reglan) 10 mg IVP ACHS [facility] Last Admin: 10/03/18 21:16 Dose: 10 mg Mometasone Furoate (Asmanex Twisthaler 220 Mcg) 220 puff INH QPM [facility] Last Admin: 10/01/18 21:31 Dose: Not Given Nifedipine (Procardia Xl) 90 mg PO DAILY [facility] Last Admin: 10/03/18 12:37 Dose: 90 mg Ondansetron HCl (Zofran Inj) 4 mg IVP Q8H PRN PRN Reason: Nausea/Vomiting Last Admin: 10/01/18 21:29 Dose: 4 mg Pantoprazole Sodium (Protonix Inj) 40 mg IVP DAILY [facility] Last Admin: 10/03/18 10:50 Dose: 40 mg Sucralfate (Carafate Tab) 1 gm PO TID [facility] Last Admin: 10/03/18 18:00 Dose: Not Given Sucralfate (Carafate Tab) 1 gm PO ACBHS [facility] Last Admin: 10/03/18 21:16 Dose: 1 gm Tiotropium [place] (Spiriva) 18 mcg IH DAILY [facility] Tiotropium [place] (Spiriva Inhalation Handihaler Device) 1 inhaler INH DAILY [facility] - Labs Labs: 10/03/18 06:40 10/03/18 06:40 PT 12.0 SECONDS (9.7-12.2) 09/30/18 16:52 INR 1.1 09/30/18 16:52 APTT 30 SECONDS (21-34) 09/30/18 16:52
[2018-10-04] MEDS: HYDROmorphone 0.5 mg/0.5 ml ISec IVP PRN ×2 (06:31→11:49)
[2018-10-04 07:47] LABS: HEMOGLOBIN 16.4 g/dL (11.0-16.0); MEAN CELL VOLUME 86.1 fL (81.0-99.0); MEAN CORPUSCULAR HEMOGLOBIN 29.7 pg (27.0-31.0); MEAN CORPUSCULAR HGB CONC 34.5 g/dL (33.0-37.0); MEAN PLATELET VOLUME 9.7 fL (7.2-11.7); RBC 5.52 Mil/uL (3.80-5.20); RED CELL DISTRIBUTION WIDTH 13.1 % (11.5-14.5); WHITE BLOOD COUNT 11.3 K/uL (4.8-10.8)
[2018-10-04 08:13] VITALS: BP 152/89; PULSE 86; TEMP 98.1; O2SAT 96
[2018-10-04] MEDS: (Novolin R) Insulin Human Regular 100 units/ml vial SC SCH ×2 (08:20→12:03)
[2018-10-04 08:23] LABS: AMYLASE 83 U/L (30-110); BLOOD UREA NITROGEN 7 mg/dL (7-17); GFR NON-AFRICAN AMERICAN > 60; LIPASE 85 U/L (23-300)
[2018-10-04] MEDS: Enoxaparin 40 mg Syringe SC SCH ×2 (09:41→09:49)
[2018-10-04] MEDS: NIFEdipine 90 mg ER Tab PO SCH (09:42)
[2018-10-04] MEDS: Potassium Chl 10 mEq in D5-1/2 1,000 ML IV SCH (11:50)
[2018-10-04] MEDS ORDERED: Potassium Chloride 20 mEq ER Tab PO ONE (14:00)
[2018-10-04] MEDS ORDERED: Potassium Chloride 20 mEq ER Tab PO SCH (14:00)
[2018-10-04] MEDS ORDERED: Influenza Vaccine 60 MCG/0.5 ML SYR (3 yr & up) IM ONE (14:15)
--- NOTE | 2018-10-04 23:52 | CP.PCM.DIS ---
Provider - Provider Date of Admission: 09/30/18 17:33 Attending physician: Corey Orellana MD Consults: 09/30/18 19:41 Gastroenterology Consult Routine Comment: Consulting Provider: Roni Kwok Consulting Physician: Roni Kwok Reason for Consult: abd.pain 10/01/18 17:27 Cardiology Consult Routine Comment: Consulting Provider: Soledad Emanuel Consulting Physician: Soledad Emanuel Reason for Consult: patient's second hand paper machine, missed apt today Hospital Course - Lab Results Lab Results: Most Recent Lab Values WBC 11.3 K/uL (4.8-10.8) H 10/04/18 07:38 RBC 5.52 Mil/uL (3.80-5.20) H 10/04/18 07:38 Hgb 16.4 g/dL (11.0-16.0) H 10/04/18 07:38 Hct 47.5 % (34.0-47.0) H 10/04/18 07:38 MCV 86.1 fL (81.0-99.0) 10/04/18 07:38 MCH 29.7 pg (27.0-31.0) 10/04/18 07:38 MCHC 34.5 g/dL (33.0-37.0) 10/04/18 07:38 RDW 13.1 % (11.5-14.5) 10/04/18 07:38 Plt Count 207 K/uL (130-400) 10/04/18 07:38 MPV 9.7 fL (7.2-11.7) 10/04/18 07:38 Neut % (Auto) 75.0 % (50.0-75.0) 10/02/18 07:19 Lymph % (Auto) 14.2 % (20.0-40.0) L 10/02/18 07:19 Taylor % (Auto) 9.9 % (0.0-10.0) 10/02/18 07:19 Eos % (Auto) 0.6 % (0.0-4.0) 10/02/18 07:19 Baso % (Auto) 0.3 % (0.0-2.0) 10/02/18 07:19 Neut # (Auto) 7.2 K/uL (1.8-7.0) H 10/02/18 07:19 Lymph # (Auto) 1.4 K/uL (1.0-4.3) 10/02/18 07:19 Taylor # (Auto) 1.0 K/uL (0.0-0.8) H 10/02/18 07:19 Eos # (Auto) 0.1 K/uL (0.0-0.7) 10/02/18 07:19 Baso # (Auto) 0.0 K/uL (0.0-0.2) 10/02/18 07:19 Neutrophils % (Manual) 96 % (50-75) H 09/30/18 16:52 Lymphocytes % (Manual) 2 % (20-40) L 09/30/18 16:52 Monocytes % (Manual) 2 % (0-10) 09/30/18 16:52 Platelet Estimate Normal (NORMAL) 09/30/18 16:52 Large Platelets Present 09/30/18 16:52 PT 12.0 SECONDS (9.7-12.2) 09/30/18 16:52 INR 1.1 09/30/18 16:52 APTT 30 SECONDS (21-34) 09/30/18 16:52 Sodium 129 mmol/L (132-148) L 10/04/18 07:38 Potassium 3.6 mmol/L (3.6-5.2) 10/04/18 07:38 Chloride 95 mmol/L (98-107) L 10/04/18 07:38 Carbon Dioxide 24 mmol/L (22-30) 10/04/18 07:38 Anion Gap 14 (10-20) 10/04/18 07:38 BUN 7 mg/dL (7-17) 10/04/18 07:38 Creatinine 0.7 mg/dL (0.7-1.2) 10/04/18 07:38 Est GFR ( Amer) > 60 10/04/18 07:38 Est GFR (Non-Af Amer) > 60 10/04/18 07:38 POC Glucose (mg/dL) 203 mg/dL (65-110) H 10/04/18 11:53 Random Glucose 253 mg/dL (65-105) H 10/04/18 07:38 Calcium 9.0 mg/dl (8.6-10.4) 10/04/18 07:38 Phosphorus 2.6 mg/dL (2.5-4.5) 10/02/18 07:19 Magnesium 1.6 mg/dL (1.6-2.3) 10/02/18 07:19 Total Bilirubin 0.6 mg/dL (0.2-1.3) 10/02/18 07:19 AST 17 U/L (14-36) 10/02/18 07:19 ALT 24 U/L (9-52) 10/02/18 07:19 Alkaline Phosphatase 124 U/L (38-126) 10/02/18 07:19 Troponin I 0.0120 ng/mL (0.00-0.120) 09/30/18 16:52 Total Protein 7.7 g/dL (6.3-8.3) 10/02/18 07:19 Albumin 4.3 g/dL (3.5-5.0) 10/02/18 07:19 Globulin 3.4 gm/dL (2.2-3.9) 10/02/18 07:19 Albumin/Globulin Ratio 1.3 (1.0-2.1) 10/02/18 07:19 Amylase 83 U/L (30-110) 10/04/18 07:38 Lipase 85 U/L (23-300) 10/04/18 07:38 Carcinoembryonic Ag 2.9 ng/mL (0-3.0) 10/02/18 07:19 CA 19-9 Antigen 13.1 U/mL (0-37) 10/02/18 07:19 CA 125 Antigen 9.9 U/mL (0-35) 10/02/18 07:19 Beta HCG, Quant < 2.39 mIU/ML 10/03/18 06:40 Urine Color Yellow (YELLOW) 09/30/18 16:52 Urine Clarity Clear (Clear) 09/30/18 16:52 Urine pH 6.0 (5.0-8.0) 09/30/18 16:52 Ur Specific [place] 1.029 (1.003-1.030) 09/30/18 16:52 Urine Protein 3+ mg/dL (NEGATIVE) H 09/30/18 16:52 Urine Glucose (UA) 3+ mg/dL (Normal) H 09/30/18 16:52 Urine Ketones 1+ mg/dL (NEGATIVE) H 09/30/18 16:52 Urine Blood 2+ (NEGATIVE) H 09/30/18 16:52 Urine Nitrate Negative (NEGATIVE) 09/30/18 16:52 Urine Bilirubin Negative (NEGATIVE) 09/30/18 16:52 Urine Urobilinogen Normal mg/dL (0.2-1.0) 09/30/18 16:52 Ur Leukocyte Esterase Neg Archana/uL (Negative) 09/30/18 16:52 Urine WBC (Auto) 2 /hpf (0-5) 09/30/18 16:52 Urine RBC (Auto) 4 /hpf (0-3) H 09/30/18 16:52 Ur Squamous Epith Cells 2 /hpf (0-5) 09/30/18 16:52 Urine Bacteria Occ (<OCC) H 09/30/18 16:52 Urine HCG, Qual Negative (NEGATIVE) 09/30/18 16:52 Discharge Plan - Follow Up Plan Condition: STABLE Disposition: HOME/ ROUTINE Instructions: Type 2 Diabetes, High Blood Pressure (DC), Pancreatitis (DC) Additional Instructions: Follow up with Dr. Orellana in one week. Please return to your nearest Emergency Room for any new or worsening symptoms. Referrals: Roni Kwok [Staff Provider] - Soledad Emanuel MD [Staff Provider] - Corey Orellana MD [Staff Provider] -
--- NOTE | 2018-10-05 05:59 | DS ---
ADMISSION DIAGNOSIS: Abdominal pain. DISCHARGE DIAGNOSES: 1. Acute pancreatitis due to diabetes. 2. Poorly controlled diabetes. 3. Hypertension. 4. Hypokalemia. 5. Hypertension. 6. Chronic pain syndrome. HISTORY OF PRESENT ILLNESS AND HOSPITAL COURSE: This is a 43-year-old female, morbid obese with history of sleep apnea, type 2 diabetes, hypertension, hyperlipidemia, osteoarthritis, chronic pain, on pain management with opioid. She was compliant with diet, medications and followup, being followed up by Cardiology, came in because of abdominal pain, nausea, and vomiting, found to have pancreatitis. The patient was treated with n.p.o., IV fluids, Accu-Checks, sliding scale, blood sugar control, pain medication. The patient's condition improved and she is for discharge. CONDITION UPON DISCHARGE: Stable. DIAGNOSIS: Pancreatitis. PHYSICAL EXAMINATION: VITAL SIGNS: Blood pressure 127/79, pulse 98, respiratory rate 20, temperature 99.6. LABORATORY DATA: WBC 11.3, hemoglobin 16.4, hematocrit 47.5, and platelets 267. Sodium 129, potassium 3.6, chloride 95, bicarbonate 24, BUN 7, creatinine 0.7. Amylase and lipase were elevated. CONDITION UPON DISCHARGE: Stable. Corey Orellana MD
--- NOTE | 2018-10-07 10:06 | PN ---
DATE: 10/04/2018 SUBJECTIVE: Josefina Beaver is afebrile. No shortness of breath. The patient has decreased nausea and vomiting as she is status post KCl supplementation. PHYSICAL EXAMINATION: VITAL SIGNS: Blood pressure 142/87, pulse 81, respiratory rate 20, and temperature 98. LUNGS: Clear. CARDIOVASCULAR SYSTEM: S1 and S2 are regular. ABDOMEN: Soft. LABORATORY DATA: WBC 11.2, hemoglobin 16.2, hematocrit 47.2, and platelets 193. Sodium 131, potassium 3.2, chloride 95, bicarb 23, BUN 9, and creatinine 0.6. ASSESSMENT: 1. Hypokalemia, status post potassium supplementation. 2. Hypertension. 3. Pancreatitis. 4. Type 2 diabetes. CONDITION UPON DISCHARGE: Stable. PLAN: Continue current medications. Corey Orellana MD
== END 2018-10-04 14:45 | disposition home or self-care (01) | DRG 204 ==
LOC: C.ER 14:48 → C.9E 17:33 → C.5S 19:01
PROVIDERS: ADMIT Internal Medicine; ATTEND Internal Medicine
DX: K85.80 Other acute pancreatitis without necrosis or infection (principal); E11.65 Type 2 diabetes mellitus with hyperglycemia; E86.0 Dehydration; E87.6 Hypokalemia; J44.9 Chronic obstructive pulmonary disease, unspecified; M32.9 Systemic lupus erythematosus, unspecified; E11.43 Type 2 diabetes mellitus with diabetic autonomic (poly)neuropathy; E66.01 Morbid (severe) obesity due to excess calories; E78.00 Pure hypercholesterolemia, unspecified; G89.4 Chronic pain syndrome; I10 Essential (primary) hypertension; G47.30 Sleep apnea, unspecified; K31.84 Gastroparesis; M06.9 Rheumatoid arthritis, unspecified

== ENCOUNTER 2018-11-25 23:58 | Inpatient (IN) | payer MEDICAID ==
[2018-11-25 23:58] VITALS: BMI 39.3
[2018-11-26] MEDS ORDERED: Sodium Chloride 0.9% 1,000 ML IV ONE (00:33)
--- NOTE | 2018-11-26 00:33 | C.PDOC ---
History Of Present Illness Patient presents to the ER with a complaint of nausea and vomiting over the last day or so. Patient a Hx of pancreatitis. States she has been having nonbilious, nonbloody vomitous. Denies fever or chills. Time Seen by Provider: 11/26/18 00:33 Chief Complaint (Nursing): Abdominal Pain History Per: Patient History/Exam Limitations: no limitations Onset/Duration Of Symptoms: Hrs Current Symptoms Are (Timing): Still Present Severity: Moderate Pain Scale Rating Of: 4 Location Of Pain/Discomfort: Diffuse, Epigastric Radiation Of Pain To:: None Quality Of Discomfort: Unable To Describe Associated Symptoms: Nausea, Vomiting. denies: Fever, Chills Exacerbating Factors: None Alleviating Factors: None Last Bowel Movement: Today Recent travel outside of the [place]: No Additional History Per: Patient Abnormal Vaginal Bleeding: No Past Medical History Reviewed: Historical Data, Nursing Documentation, Vital Signs Vital Signs: Last Vital Signs Temp 98.7 F 11/26/18 00:08 Pulse 62 11/26/18 00:08 Resp 20 11/26/18 00:08 BP 208/131 H 11/26/18 00:08 Pulse Ox 98 11/26/18 00:08 - Medical History PMH: Anxiety, Arthritis, Asthma, Back Problems, Bronchitis, COPD (Emphysema), Depression, Diabetes, Emphysema, Gastritis, Gastrointestinal Ulcer, HTN, Hypercholesterolemia, Pancreatitis, Pneumonia, Rheumatoid Arthritis Denies: Chronic Kidney Disease Surgical History: Endoscopy (X2) - [facility] Procedures CLOSED ENDOSCOPIC BIOPSY OF LARGE INTESTINE (03/05/14) CORONAR ARTERIOGR-2 CATH (03/28/12) ESOPHAGOGASTRODUODENOSCOPY [EGD] W/CLOSED BIOPSY (03/10/14) EXCISION OF SMALL INTESTINE, ENDO, DIAGN (11/17/17) EXCISION OF STOMACH, ENDO, DIAGN (09/30/18) INJECT/INFUSE NEC (05/04/14) LEFT HEART CARDIAC CATH (03/28/12) LT HEART ANGIOCARDIOGRAM (03/28/12) Family History: States: No Known Family Hx - Social History Hx Tobacco Use: Yes Hx Alcohol Use: No Hx Substance Use: Yes (cannabinoids) - Immunization History Hx Tetanus Toxoid Vaccination: No Hx Influenza Vaccination: No Hx Pneumococcal Vaccination: Yes (Oct 2015) Review Of Systems Constitutional: Negative for: Fever, Chills Cardiovascular: Negative for: Chest Pain, Palpitations Respiratory: Negative for: Cough, Shortness of Breath Gastrointestinal: Positive for: Nausea, Vomiting, Abdominal Pain Genitourinary: Negative for: Dysuria Musculoskeletal: Negative for: Back Pain Skin: Negative for: Rash Neurological: Negative for: Weakness, Numbness Psych: Negative for: Anxiety Physical Exam - Physical Exam Appears: Non-toxic, Other (Obese) Skin: Warm, Dry Head: Normacephalic Eye(s): bilateral: Normal Inspection Oral Mucosa: Moist Neck: Trachea Midline, Supple Chest: Symmetrical, No Tenderness Cardiovascular: Rhythm Regular Respiratory: No Rales, No Rhonchi, No Wheezing Gastrointestinal/Abdominal: Soft, Tenderness (Diffuse epigastric), No Guarding, No Rebound Back: No CVA Tenderness Extremity: Normal ROM Extremity: Bilateral: Atraumatic Pulses: Left Dorsalis Pedis: Normal, Right Dorsalis Pedis: Normal Neurological/Psych: Oriented x3 Gait: Steady ED Course And Treatment - Laboratory Results Result Diagrams: 11/26/18 01:23 11/26/18 01:23 O2 Sat by Pulse Oximetry: 98 (Room air) Pulse Ox Interpretation: Normal Progress Note: Blood work and urinalysis ordered. Pepcid, zofran, and IV fluids administered. Disposition Discussed With Dr.: Corey Orellana Comment: accepted the pt [facility] is service and took over the care at 2:15 AM Doctor Will See Patient In The: Hospital Counseled Patient/Family Regarding: Studies Performed, Diagnosis - Disposition Disposition: HOSPITALIZED Disposition Time: 00:33 Condition: FAIR Forms: [facility] (M[place]ese) - POA Present On Arrival: Poor Glycemic Control - Clinical Impression Clinical Impression: Hyperglycemia, Abdominal pain, Intractable vomiting - Scribe Statement The provider has reviewed the documentation as recorded by the Scribe Willian Vo All medical record entries made by the Scribe were at my direction and personally dictated by me. I have reviewed the chart and agree that the record accurately reflects my personal performance of the history, physical exam, medical decision making, and the department course for this patient. I have also personally directed, reviewed, and agree with the discharge instructions and disposition.
[2018-11-26 01:29] LABS: BASO # 0.1 K/uL (0.0-0.2); BASO % 0.5 % (0.0-2.0); EOS % 0.2 % (0.0-4.0); HEMOGLOBIN 14.6 g/dL (11.0-16.0); LYMPH # 0.8 K/uL (1.0-4.3); LYMPH % 6.4 % (20.0-40.0); MEAN CORPUSCULAR HGB CONC 33.3 g/dL (33.0-37.0); MEAN PLATELET VOLUME 10.3 fL (7.2-11.7); MONO # 0.3 K/uL (0.0-0.8); MONO % 2.5 % (0.0-10.0); NEUT # 11.6 K/uL (1.8-7.0); NEUT % 90.4 % (50.0-75.0); NRBC % 0.1 % (0.0-2.0); PLATELET COUNT 165 K/uL (130-400); RBC 5.04 Mil/uL (3.80-5.20); RED CELL DISTRIBUTION WIDTH 13.4 % (11.5-14.5); WHITE BLOOD COUNT 12.9 K/uL (4.8-10.8)
[2018-11-26 01:34] LABS: HCG,QUALITATIVE URINE NEGATIVE (NEGATIVE)
[2018-11-26 01:36] LABS: SQUAMOUS EPITHIAL < 1 /hpf (0-5); URINE BILIRUBIN NEGATIVE (NEGATIVE); URINE BLOOD 3+ (NEGATIVE); URINE CLARITY Clear (Clear); URINE COLOR Yellow (YELLOW); URINE GLUCOSE (UA) 3+ mg/dL (Normal); URINE LEUKOCYTE ESTERASE NEG Leu/uL (Negative); URINE PROTEIN 3+ mg/dL (NEGATIVE); URINE UROBILINOGEN NORMAL mg/dL (0.2-1.0)
[2018-11-26 01:43] LABS: ALB/GLOB RATIO 1.3 (1.0-2.1); ALBUMIN 4.5 g/dL (3.5-5.0); ALT/SGPT 37 U/L (9-52); AST/SGOT 39 U/L (14-36); BLOOD UREA NITROGEN 17 mg/dL (7-17); CALCIUM 9.2 mg/dl (8.6-10.4); GFR NON-AFRICAN AMERICAN > 60; LIPASE 98 U/L (23-300)
[2018-11-26 02:11] LABS: LYMPHOCYTE 2 % (20-40); MONOCYTE 4 % (0-10); NEUTROPHIL 94 % (50-75); PLATELET ESTIMATE NORMAL (NORMAL); TOTAL CELLS COUNTED 100
[2018-11-26] MEDS ORDERED: Lactated Ringer's 1,000 ML IV ONE (02:19)
[2018-11-26] MEDS ORDERED: oxyCODONE 5 mg Immediate Release Tab PO PRN (02:33)
[2018-11-26] MEDS ORDERED: Lactated Ringer's 1,000 ML ONE (02:41)
[2018-11-26] MEDS ORDERED: Nitroglycerin 2% Ointment Foilpak UD TOP ONE ×2 (05:32→05:38)
[2018-11-26] MEDS ORDERED: Calcium Gluconate 4.65 mEq/10 ml Inj ONE (07:35)
[2018-11-26] MEDS ORDERED: Enoxaparin 30 mg Syringe SC SCH (10:00)
[2018-11-26] MEDS ORDERED: Albuterol-Ipratrop 3 mg / 0.5 (3 ml) UD IH PRN (11:44)
[2018-11-26] MEDS: Lactated Ringer's 1,000 ML IV SCH ×2 (12:08→21:42)
[2018-11-26] MEDS: Latanoprost 2.5 ml Opht Soln OU SCH ×2 (21:48→22:44)
--- NOTE | 2018-11-26 22:36 | CP.PCM.HP ---
Present on Admission - Present on Admission Any Indicators Present on Admission: No Past Patient History - Infectious Disease Hx of Infectious Diseases: None - Past Medical History & Family History Past Medical History?: Yes - Past Social History Smoking Status: Never Smoked - CARDIAC Hx Cardiac Disorders: Yes Hx Hypercholesterolemia: Yes Hx Hypertension: Yes - PULMONARY Hx Respiratory Disorders: Yes Hx Asthma: Yes Hx Bronchitis: Yes Hx Chronic Obstructive Pulmonary Disease (COPD): Yes (Emphysema) Hx Emphysema: Yes Hx Pneumonia: Yes - NEUROLOGICAL Hx Neurological Disorder: No - HEENT Hx HEENT Problems: Yes Hx Glaucoma: Yes - RENAL Hx Chronic Kidney Disease: No - ENDOCRINE/METABOLIC Hx Endocrine Disorders: Yes Hx Diabetes Mellitus Type 2: Yes - HEMATOLOGICAL/ONCOLOGICAL Hx Blood Disorders: No - INTEGUMENTARY Hx Dermatological Problems: No - MUSCULOSKELETAL/RHEUMATOLOGICAL Hx Arthritis: Yes Hx Falls: No Hx Rheumatoid Arthritis: Yes - GASTROINTESTINAL Hx Gastrointestinal Disorders: Yes Hx Gastritis: Yes Hx Pancreatitis: Yes - GENITOURINARY/GYNECOLOGICAL Hx Genitourinary Disorders: Yes (SEE COMMENT) Other/Comment: endometriosis - PSYCHIATRIC Hx Psychophysiologic Disorder: Yes Hx Anxiety: Yes Hx Depression: Yes Hx Substance Use: Yes (cannabinoids) - SURGICAL HISTORY Hx Surgeries: Yes Hx Section: Yes (X 2) Hx Dilation and Curettage: Yes (X 2) - ANESTHESIA Hx Anesthesia: Yes Hx Anesthesia Reactions: No Hx Malignant Hyperthermia: No Meds Allergies/Adverse Reactions: Allergies Allergy/AdvReac Type Severity Reaction Status Date / Time methylergonovine maleate Allergy Intermediate RASH Verified 11/26/18 00:11 [From Methergine] Penicillins Allergy Intermediate RASH Verified 11/26/18 00:11 Results - Vital Signs Recent Vital Signs: Last Vital Signs Temp 98.5 F 11/26/18 16:00 Pulse 86 11/26/18 16:00 Resp 20 11/26/18 16:00 BP 121/72 11/26/18 16:00 Pulse Ox 95 11/26/18 16:00 - Labs Result Diagrams: 11/26/18 01:23 11/26/18 01:23 Labs: Laboratory Results - last 24 hr 11/26/18 11/26/18 11/26/18 01:23 01:23 01:23 WBC 12.9 H RBC 5.04 Hgb 14.6 Hct 43.9 MCV 87.0 MCH 29.0 MCHC 33.3 RDW 13.4 Plt Count 165 MPV 10.3 Neut % (Auto) 90.4 H Lymph % (Auto) 6.4 L [place] % (Auto) 2.5 Eos % (Auto) 0.2 Baso % (Auto) 0.5 Neut # (Auto) 11.6 H Lymph # (Auto) 0.8 L [place] # (Auto) 0.3 Eos # (Auto) 0.0 Baso # (Auto) 0.1 Neutrophils % (Manual) 94 H Lymphocytes % (Manual) 2 L Monocytes % (Manual) 4 Platelet Estimate Normal Sodium 135 Potassium 3.8 Chloride 102 Carbon Dioxide 20 L Anion Gap 17 BUN 17 Creatinine 0.6 L Est GFR ( Amer) > 60 Est GFR (Non-Af Amer) > 60 POC Glucose (mg/dL) Random Glucose 270 H Calcium 9.2 Total Bilirubin 0.5 AST 39 H D ALT 37 Alkaline Phosphatase 139 H Total Protein 8.0 Albumin 4.5 Globulin 3.5 Albumin/Globulin Ratio 1.3 Lipase 98 Carcinoembryonic Ag CA 19-9 Antigen CA 125 Antigen Urine Color Yellow Urine Clarity Clear Urine pH 7.0 Ur Specific Fletcher 1.018 Urine Protein 3+ H Urine Glucose (UA) 3+ H Urine Ketones 1+ H Urine Blood 3+ H Urine Nitrate Negative Urine Bilirubin Negative Urine Urobilinogen Normal Ur Leukocyte Esterase Neg Urine WBC (Auto) 6 H Urine RBC (Auto) 1389 H Ur Squamous Epith Cells < 1 Urine HCG, Qual Negative 11/26/18 11/26/18 11/26/18 12:12 16:49 17:19 WBC RBC Hgb Hct MCV MCH MCHC RDW Plt Count MPV Neut % (Auto) Lymph % (Auto) [place] % (Auto) Eos % (Auto) Baso % (Auto) Neut # (Auto) Lymph # (Auto) [place] # (Auto) Eos # (Auto) Baso # (Auto) Neutrophils % (Manual) Lymphocytes % (Manual) Monocytes % (Manual) Platelet Estimate Sodium Potassium Chloride Carbon Dioxide Anion Gap BUN Creatinine Est GFR ( Amer) Est GFR (Non-Af Amer) POC Glucose (mg/dL) 252 H 177 H Random Glucose Calcium Total Bilirubin AST ALT Alkaline Phosphatase Total Protein Albumin Globulin Albumin/Globulin Ratio Lipase Carcinoembryonic Ag 2.5 CA 19-9 Antigen 11.4 CA 125 Antigen 9.7 Urine Color Urine Clarity Urine pH Ur Specific Fletcher Urine Protein Urine Glucose (UA) Urine Ketones Urine Blood Urine Nitrate Urine Bilirubin Urine Urobilinogen Ur Leukocyte Esterase Urine WBC (Auto) Urine RBC (Auto) Ur Squamous Epith Cells Urine HCG, Qual 11/26/18 20:59 WBC RBC Hgb Hct MCV MCH MCHC RDW Plt Count MPV Neut % (Auto) Lymph % (Auto) [place] % (Auto) Eos % (Auto) Baso % (Auto) Neut # (Auto) Lymph # (Auto) [place] # (Auto) Eos # (Auto) Baso # (Auto) Neutrophils % (Manual) Lymphocytes % (Manual) Monocytes % (Manual) Platelet Estimate Sodium Potassium Chloride Carbon Dioxide Anion Gap BUN Creatinine Est GFR ( Amer) Est GFR (Non-Af Amer) POC Glucose (mg/dL) 136 H Random Glucose Calcium Total Bilirubin AST ALT Alkaline Phosphatase Total Protein Albumin Globulin Albumin/Globulin Ratio Lipase Carcinoembryonic Ag CA 19-9 Antigen CA 125 Antigen Urine Color Urine Clarity Urine pH Ur Specific Fletcher Urine Protein Urine Glucose (UA) Urine Ketones Urine Blood Urine Nitrate Urine Bilirubin Urine Urobilinogen Ur Leukocyte Esterase Urine WBC (Auto) Urine RBC (Auto) Ur Squamous Epith Cells Urine HCG, Qual
[2018-11-27] MEDS: Enoxaparin 40 mg Syringe SC SCH (09:08)
--- NOTE | 2018-11-27 10:08 | CP.PCM.CON ---
History of Present Illness - History of Present Illness History of Present Illness: GI Consult Note for Dr. Kwok CC: nausea, vomiting, abdominal pain HPI: 43 y/o female with PMHx COPD, DM, gastritis, pancreatitis, RA, endometriosis presented to the ED on 11/26 with nausea, vomiting, and diffuse epigastric abdominal pain 01/29. Patient has been feeling nauseated and appetite loss a few days beforehand. Patient sates the same sx occurred last September [address] Kwok did endoscopy on her. She felt better after the endoscopy and sx resolved. Patient states that she vomited last night (first night in the hospital) a few times yellow fluid. Per RN she was asleep this morning. Today after her first overnight stay, patient still feels diffuse abdominal pain and still nauseated. She is currently on reglan scheduled which does not help per patient. Night house doctor was called due to her vomiting and gave her zofran 4 mg IVP x 1. She vomited immediately after that med administration, however, has not vomited ever since. Patient has been NPO. Patient feels chills, still nauseated, but denies SOB, chest pain, palpitations. Of note, patient states her blood glucose is elevated in the 200s at home when she has nausea, vomiting, and abdominal pain symptoms. She does accuchecks re gularly at home. Patient is only on metformin for her diabetes and not insulin. Upper endoscopies: 09/2018: erythematous mucosa fundus, body, antrum. Gastroparesis. 04/2018: LA grade A esophagitis, one non-bleeding superficial gastric ulcer. Antrum with edema. 10/2017: erythematous mucosa gastric antrum 10/2015: normal esophagus, gastric antrum with erythematous mucosa, fluid in gastric fundus ROS: as per HPI PMHx: as stated above PSHx: 2 laps for endometriosis FHx: mom w/ HTN and asthma, brother w/ Hodkin's lymphoma, grandma w/ breast CA SocHx: denies EtOH, smoking, and illicit drugs now. Former smoker of marijuana but quit 2 months ago. Did it for 20+ years. Home meds: metformin, losartan 100 mg, norvasc 5 mg, plaquenil for lupus and RA, gabapentin, oxycodone PRN, ibuprofen PRN, carafate, reglan, pepcid, pantoprazole, "asthma inhaler" Allergies: PCN Past Patient History - Infectious Disease Hx of Infectious Diseases: None - Past Medical History & Family History Past Medical History?: Yes - Past Social History Smoking Status: Never Smoked - CARDIAC Hx Cardiac Disorders: Yes Hx Hypercholesterolemia: Yes Hx Hypertension: Yes - PULMONARY Hx Respiratory Disorders: Yes Hx Asthma: Yes Hx Bronchitis: Yes Hx Chronic Obstructive Pulmonary Disease (COPD): Yes (Emphysema) Hx Emphysema: Yes Hx Pneumonia: Yes - NEUROLOGICAL Hx Neurological Disorder: No - HEENT Hx HEENT Problems: Yes Hx Glaucoma: Yes - RENAL Hx Chronic Kidney Disease: No - ENDOCRINE/METABOLIC Hx Endocrine Disorders: Yes Hx Diabetes Mellitus Type 2: Yes - HEMATOLOGICAL/ONCOLOGICAL Hx Blood Disorders: No - INTEGUMENTARY Hx Dermatological Problems: No - MUSCULOSKELETAL/RHEUMATOLOGICAL Hx Arthritis: Yes Hx Falls: No Hx Rheumatoid Arthritis: Yes - GASTROINTESTINAL Hx Gastrointestinal Disorders: Yes Hx Gastritis: Yes Hx Pancreatitis: Yes - GENITOURINARY/GYNECOLOGICAL Hx Genitourinary Disorders: Yes (SEE COMMENT) Other/Comment: endometriosis - PSYCHIATRIC Hx Psychophysiologic Disorder: Yes Hx Anxiety: Yes Hx Depression: Yes Hx Substance Use: Yes (cannabinoids) - SURGICAL HISTORY Hx Surgeries: Yes Hx Section: Yes (X 2) Hx Dilation and Curettage: Yes (X 2) - ANESTHESIA Hx Anesthesia: Yes Hx Anesthesia Reactions: No Hx Malignant Hyperthermia: No Meds Allergies/Adverse Reactions: Allergies Allergy/AdvReac Type Severity Reaction Status Date / Time methylergonovine maleate Allergy Intermediate RASH Verified 11/26/18 00:11 [From Methergine] Penicillins Allergy Intermediate RASH Verified 11/26/18 00:11 - Medications Medications: Current Medications Albuterol/Ipratropium (Duoneb 3 Mg/0.5 Mg (3 Ml) Ud) 3 ml IH RQ6 PRN PRN Reason: Shortness of Breath Alprazolam (Xanax) 0.5 mg PO TID PRN PRN Reason: Anxiety Last Admin: 11/27/18 07:53 Dose: 0.5 mg Amlodipine Besylate (Norvasc) 10 mg PO DAILY [facility] Last Admin: 11/27/18 07:53 Dose: 10 mg Enoxaparin Sodium (Lovenox) 40 mg SC DAILY [facility] Last Admin: 11/27/18 09:08 Dose: Not Given Folic Acid (Folic Acid) 1 mg PO DAILY [facility] Last Admin: 11/27/18 09:08 Dose: 1 mg Gabapentin (Neurontin) 300 mg PO BID [facility] Last Admin: 11/27/18 09:08 Dose: 300 mg Hydrochlorothiazide (Microzide) 12.5 mg PO DAILY [facility] Lactated Ringer's (Lactated Ringer's) 1,000 mls @ 100 mls/hr IV .Q10H [facility] Last Admin: 11/26/18 21:42 Dose: Not Given Ketorolac Tromethamine (Toradol) 30 mg IVP Q6H PRN PRN Reason: Pain, moderate (4-7) Latanoprost (Xalatan Opht) 0 ml OU HS [facility] Last Admin: 11/26/18 22:44 Dose: 2.5 ml Losartan Potassium (Cozaar) 100 mg PO DAILY [facility] Last Admin: 11/27/18 09:08 Dose: 100 mg Metoclopramide HCl (Reglan) 10 mg IVP Q8 [facility] Last Admin: 11/27/18 05:20 Dose: 10 mg Mometasone Furoate (Asmanex Twisthaler 220 Mcg) 1 puff INH QPM [facility] Morphine Sulfate (Morphine) 3 mg IVP Q4 PRN PRN Reason: Pain, severe (8-10) Last Admin: 11/27/18 06:46 Dose: 3 mg Oxycodone HCl (Oxycodone Immediate Release Tab) 15 mg PO Q6 PRN PRN Reason: Pain, severe (8-10) Sucralfate (Carafate Tab) 1 gm PO [facility] Last Admin: 11/27/18 07:53 Dose: 1 gm Physical Exam - Constitutional Appears: Well, Non-toxic Additional comments: Obese female in NAD - Head Exam Head Exam: ATRAUMATIC, NORMAL INSPECTION - Eye Exam Eye Exam: EOMI, Normal appearance - Neck Exam Neck exam: Positive for: Normal Inspection - Respiratory Exam Respiratory Exam: Clear to Auscultation Bilateral, NORMAL BREATHING PATTERN - Cardiovascular Exam Cardiovascular Exam: REGULAR RHYTHM - GI/Abdominal Exam GI & Abdominal Exam: Normal Bowel Sounds, Soft - Extremities Exam Extremities exam: Positive for: normal inspection. Negative for: calf tenderness, joint swelling - Neurological Exam Neurological exam: Alert, Oriented x3 - Psychiatric Exam Psychiatric exam: Normal Affect, Normal Mood - Skin Skin Exam: Dry, Intact, Normal Color, Warm Results - Vital Signs Recent Vital Signs: Last Vital Signs Temp 98.2 F 11/27/18 07:30 Pulse 78 11/27/18 07:30 Resp 20 11/27/18 07:30 BP 204/100 H 11/27/18 07:49 Pulse Ox 98 11/27/18 07:30 - Labs Result Diagrams: 11/26/18 01:23 11/26/18 01:23 Labs: Laboratory Results - last 24 hr 11/26/18 11/26/18 11/26/18 12:12 16:49 17:19 POC Glucose (mg/dL) 252 H 177 H Carcinoembryonic Ag 2.5 CA 19-9 Antigen 11.4 CA 125 Antigen 9.7 11/26/18 11/27/18 20:59 06:17 POC Glucose (mg/dL) 136 H 220 H Carcinoembryonic Ag CA 19-9 Antigen CA 125 Antigen Assessment & Plan - Assessment and Plan (Free Text) Assessment: 43 y/o female with PMHx COPD, DM, gastritis, pancreatitis, RA, endometriosis presented to the ED on 11/26 with nausea, vomiting, and diffuse epigastric abdominal pain. Abdominal pain, n/v -likely 2/2 diabetic gastroparesis -NPO now, and advance to clear liquid diet once symptoms subside -scheduled reglan 10 mg IV q8h, can consider increasing -LR at 100cc/h -replete lytes as needed -f/u BMP today, ordered, especially in the setting of active vomiting History of gastric ulcer -Per EGD 04/2018 -ordered protonix 40 mg IV -sucralfate 1 g PO ACBHS DM -ISS -recommend blood glucose < 200 for diabetic gastroparesis
[2018-11-27] MEDS: Lactated Ringer's 1,000 ML IV SCH (11:26)
[2018-11-27 14:12] LABS: BASO % 0.3 % (0.0-2.0); EOS % 0.2 % (0.0-4.0); LYMPH # 1.5 K/uL (1.0-4.3); LYMPH % 11.9 % (20.0-40.0); MEAN CELL VOLUME 86.3 fL (81.0-99.0); MEAN CORPUSCULAR HEMOGLOBIN 29.1 pg (27.0-31.0); MEAN CORPUSCULAR HGB CONC 33.6 g/dL (33.0-37.0); MONO % 7.8 % (0.0-10.0); NEUT # 9.9 K/uL (1.8-7.0); NEUT % 79.8 % (50.0-75.0); NRBC % 0.1 % (0.0-2.0); RBC 5.49 Mil/uL (3.80-5.20); RED CELL DISTRIBUTION WIDTH 13.3 % (11.5-14.5); WHITE BLOOD COUNT 12.4 K/uL (4.8-10.8)
[2018-11-27 14:21] LABS: ALB/GLOB RATIO 1.2 (1.0-2.1); ALBUMIN 4.4 g/dL (3.5-5.0); ALT/SGPT 28 U/L (9-52); AST/SGOT 24 U/L (14-36); BLOOD UREA NITROGEN 15 mg/dL (7-17); CALCIUM 9.1 mg/dl (8.6-10.4); GFR NON-AFRICAN AMERICAN > 60
--- NOTE | 2018-11-27 14:26 | HP ---
CHIEF COMPLAINT: Intractable abdominal pain x1 day. HISTORY OF PRESENT ILLNESS: This is a 43-year-old female, well known to me with history of morbid obesity, sleep apnea, type 2 diabetes, hypertension, hyperlipidemia, allergic rhinitis, and asthma, who is compliant with her diet, medication and follow up. She has chronic pain in the back, in the joint and hips and the patient also has history of pancreatitis. The patient is seeing pain management and she is getting high-dose opiate, analgesic. she is compliant and the patient developed nausea, vomiting, abdominal pain. The abdominal pain is diffuse, it is about 6/10 along with that nausea, vomiting and she had normal bowel movement. She does take laxative on and off. She denies any history of . According to the patient, vomiting is non-projectile, it is mostly yellow liquid along with food particles, no blood. The patient denies any hematemesis, melena or hematochezia. She denies any history of polyuria, polydipsia. She denies any dysuria, hematuria or pyuria. She denies any sneezing, itchy eyes, itchy nose. There is no history of fever, chills, rigors. No history of joint pain. The patient has no back pain, hip pain, knee pain and she is complaining of pain despite medication. She also has history of anxiety, easy distractibility, irritability and the patient has headaches and dizziness. The patient denies any shortness of breath. PAST MEDICAL HISTORY: Type 2 diabetes, morbid obesity, hypertension, back pain, anxiety, depression and bronchial asthma. SOCIAL HISTORY: She smokes. She drinks socially. FAMILY HISTORY: Positive for asthma in the mother. CURRENT MEDICATIONS: At home, she is on multiple medications at home including Xanax, oxycodone, hydrochlorothiazide, Norvasc, Spiriva, Carafate, Protonix, Reglan, Glucophage, Cozaar, Xalatan, Plaquenil, Neurontin, folic acid, Flovent, DuoNeb, Ventolin HFA, Pepcid, Diflucan. PHYSICAL EXAMINATION: GENERAL: This is a middle aged female in distress with pain. VITAL SIGNS: Blood pressure 134/86, pulse 100, respiratory rate 20, temperature 98. SKIN: No rashes. No bruises. No purpura. No petechiae. No ecchymosis. HEENT: Atraumatic, normocephalic. Negative pallor. Negative jaundice. Extraocular movements are intact. NECK: Supple. No JVD. No lymph node. No thyromegaly. No carotid bruit. CHEST: Chest wall, bilateral symmetrical expansion. LUNGS: Clear. No rales. No rhonchi. CARDIOVASCULAR SYSTEM: PMI not localized. S1 and S2, regular. No heave. No thrill. ABDOMEN: Soft. There is diffuse tenderness on superficial and deep palpation. No guarding, no rigidity, no bruit or rebound. Bowel sounds are exaggerated. RECTAL: No masses. No bleed EXTREMITIES: No clubbing, cyanosis or edema. CENTRAL NERVOUS SYSTEM: Awake, alert, oriented x3. Cranial nerves II through XII are normal. Power 5/5 x4. Plantars are downgoing. ASSESSMENT: 1. Acute abdominal pain, rule out peptic ulcer disease, rule out gastritis, rule out colitis and diverticulitis and rule out urinary tract infection . 2. Dehydration. 3. Back pain. 4. Poorly controlled diabetes. 5. Hypertension. PLAN: Admit. Nothing by mouth, intravenous fluids, intravenous Pepcid, hydration, Accu-Chek sliding scale, pain medications, gastrointestinal evaluation and blood pressure control, monitor electrolytes and follow the evaluation and recommendation of Gastroenterology vocational rehab consultant, . Corey Orellana MD
[2018-11-27] MEDS ORDERED: Potassium Chloride 20 mEq ER Tab PO ONE (16:00)
[2018-11-27] MEDS: Nitroglycerin 2% Ointment Foilpak UD TOP PRN (16:54)
[2018-11-27] MEDS: Morphine 4 MG/ML VIAL IVP PRN (20:31)
[2018-11-27] MEDS: Mometasone 220 mcg/puff-14 puff Inh INH SCH (20:36)
[2018-11-27] MEDS: Latanoprost 2.5 ml Opht Soln OU SCH (21:41)
--- NOTE | 2018-11-27 22:05 | CP.PCM.PN ---
Subjective - Date & Time of Evaluation Date of Evaluation: 11/27/18 Time of Evaluation: 07:00 - Subjective Subjective: dictated Objective - Vital Signs/Intake and Output Vital Signs (last 24 hours): Temp Pulse Resp BP Pulse Ox 98.8 F 86 20 126/79 98 11/27/18 15:00 11/27/18 21:00 11/27/18 15:00 11/27/18 21:00 11/27/18 07:30 - Medications Medications: Current Medications Albuterol/Ipratropium (Duoneb 3 Mg/0.5 Mg (3 Ml) Ud) 3 ml IH RQ6 PRN PRN Reason: Shortness of Breath Alprazolam (Xanax) 0.5 mg PO TID PRN PRN Reason: Anxiety Last Admin: 11/27/18 07:53 Dose: 0.5 mg Amlodipine Besylate (Norvasc) 10 mg PO DAILY [facility] Last Admin: 11/27/18 10:10 Dose: Not Given Enoxaparin Sodium (Lovenox) 40 mg SC DAILY [facility] Last Admin: 11/27/18 09:08 Dose: Not Given Folic Acid (Folic Acid) 1 mg PO DAILY [facility] Last Admin: 11/27/18 09:08 Dose: 1 mg Gabapentin (Neurontin) 300 mg PO BID [facility] Last Admin: 11/27/18 17:08 Dose: 300 mg Hydralazine HCl (Apresoline) 50 mg PO BID [facility] Last Admin: 11/27/18 17:08 Dose: 50 mg Hydrochlorothiazide (Microzide) 12.5 mg PO DAILY [facility] Last Admin: 11/27/18 11:07 Dose: 12.5 mg Ketorolac Tromethamine (Toradol) 30 mg IVP Q6H PRN PRN Reason: Pain, moderate (4-7) Latanoprost (Xalatan Opht) 0 ml OU HS [facility] Last Admin: 11/27/18 21:41 Dose: 2.5 ml Losartan Potassium (Cozaar) 100 mg PO DAILY [facility] Last Admin: 11/27/18 09:08 Dose: 100 mg Metoclopramide HCl (Reglan) 10 mg IVP Q8 [facility] Last Admin: 11/27/18 21:38 Dose: 10 mg Mometasone Furoate (Asmanex Twisthaler 220 Mcg) 1 puff INH QPM [facility] Last Admin: 11/27/18 20:36 Dose: Not Given Morphine Sulfate (Morphine) 3 mg IVP Q4 PRN PRN Reason: Pain, severe (8-10) Last Admin: 11/27/18 20:31 Dose: 3 mg Nitroglycerin (Nitro-Bid 2% Oint) 1 ea TOP Q6H PRN PRN Reason: Other Last Admin: 11/27/18 16:54 Dose: 1 ea Oxycodone HCl (Oxycodone Immediate Release Tab) 15 mg PO Q6 PRN PRN Reason: Pain, severe (8-10) Pantoprazole Sodium (Protonix Inj) 40 mg IVP DAILY [facility] Last Admin: 11/27/18 11:07 Dose: 40 mg Sucralfate (Carafate Tab) 1 gm PO ACBHS [facility] Last Admin: 11/27/18 21:38 Dose: 1 gm - Labs Labs: 11/27/18 14:01 11/27/18 14:01
[2018-11-28] MEDS: Morphine 4 MG/ML VIAL IVP PRN ×4 (02:34→21:49)
[2018-11-28] MEDS: Nitroglycerin 2% Ointment Foilpak UD TOP PRN (08:08)
[2018-11-28 09:14] LABS: BASO % 0.3 % (0.0-2.0); EOS # 0.1 K/uL (0.0-0.7); EOS % 0.5 % (0.0-4.0); HEMOGLOBIN 16.1 g/dL (11.0-16.0); LYMPH # 1.4 K/uL (1.0-4.3); LYMPH % 13.3 % (20.0-40.0); MEAN CELL VOLUME 86.2 fL (81.0-99.0); MEAN CORPUSCULAR HEMOGLOBIN 29.9 pg (27.0-31.0); MEAN CORPUSCULAR HGB CONC 34.7 g/dL (33.0-37.0); MONO # 0.9 K/uL (0.0-0.8); MONO % 8.8 % (0.0-10.0); NEUT # 8.1 K/uL (1.8-7.0); NEUT % 77.1 % (50.0-75.0); NRBC % 0.1 % (0.0-2.0); RBC 5.4 Mil/uL (3.80-5.20); RED CELL DISTRIBUTION WIDTH 13.3 % (11.5-14.5); WHITE BLOOD COUNT 10.5 K/uL (4.8-10.8)
[2018-11-28] MEDS ORDERED: Lidocaine 4% (Laryng-O-Jet) Kit MM ONE (09:18)
[2018-11-28 09:30] LABS: ALB/GLOB RATIO 1.3 (1.0-2.1); ALBUMIN 4.4 g/dL (3.5-5.0); ALT/SGPT 15 U/L (9-52); AST/SGOT 18 U/L (14-36); BLOOD UREA NITROGEN 15 mg/dL (7-17); GFR NON-AFRICAN AMERICAN > 60
[2018-11-28] MEDS ORDERED: Lactated Ringer's 500 ML IV ONE ×2 (09:49)
[2018-11-28] MEDS ORDERED: Propofol 10 mg/ml Inj (20 ML) ONE ×2 (09:51→09:59)
--- NOTE | 2018-11-28 09:51 | PN ---
DATE: 11/27/2018 SUBJECTIVE: Josefina Delgado still has abdominal pain, nausea, no vomiting. She is n.p.o. She has been seen by GI. She is on supportive care. Her blood pressure is very high. PHYSICAL EXAMINATION: VITAL SIGNS: Afebrile, blood pressure 210/110, pulse 92, respiratory rate 20, temperature 98.8. LUNGS: Clear. CARDIOVASCULAR: S1 and S2. Regular. ABDOMEN: Epigastric tenderness. ASSESSMENT: 1. Gastritis, rule out pancreatitis. 2. Dehydration. 3. Poorly controlled hypertension. 4. Poorly controlled diabetes. PLAN: Continue n.p.o. Gastroenterology evaluation. Monitor the patient. Intravenous fluids, Zofran, Reglan and pain medications. Blood pressure control. Corey Orellana MD [facility] # [id number]
[2018-11-28] MEDS: Enoxaparin 40 mg Syringe SC SCH (11:16)
[2018-11-28 12:12] LABS: SQUAMOUS EPITHIAL 2 /hpf (0-5); URINE BILIRUBIN NEGATIVE (NEGATIVE); URINE BLOOD 2+ (NEGATIVE); URINE CLARITY Clear (Clear); URINE COLOR Yellow (YELLOW); URINE GLUCOSE (UA) NORMAL (Normal); URINE LEUKOCYTE ESTERASE NEG Leu/uL (Negative); URINE PROTEIN 3+ mg/dL (NEGATIVE); URINE UROBILINOGEN NORMAL mg/dL (0.2-1.0)
--- NOTE | 2018-11-28 21:37 | CP.PCM.PN ---
Subjective - Date & Time of Evaluation Date of Evaluation: 11/28/18 Time of Evaluation: 09:20 - Subjective Subjective: dictated Objective - Vital Signs/Intake and Output Vital Signs (last 24 hours): Temp Pulse Resp BP Pulse Ox 98.2 F 94 H 20 166/92 H 96 11/28/18 16:21 11/28/18 16:21 11/28/18 16:21 11/28/18 16:21 11/28/18 16:21 - Medications Medications: Current Medications Albuterol/Ipratropium (Duoneb 3 Mg/0.5 Mg (3 Ml) Ud) 3 ml IH RQ6 PRN PRN Reason: Shortness of Breath Alprazolam (Xanax) 0.5 mg PO TID PRN PRN Reason: Anxiety Last Admin: 11/28/18 05:55 Dose: 0.5 mg Amlodipine Besylate (Norvasc) 10 mg PO DAILY [facility] Last Admin: 11/28/18 11:16 Dose: Not Given Enoxaparin Sodium (Lovenox) 40 mg SC DAILY [facility] Last Admin: 11/28/18 11:16 Dose: Not Given Folic Acid (Folic Acid) 1 mg PO DAILY [facility] Last Admin: 11/28/18 11:14 Dose: 1 mg Gabapentin (Neurontin) 300 mg PO BID [facility] Last Admin: 11/28/18 17:45 Dose: 300 mg Hydralazine HCl (Apresoline) 50 mg PO BID [facility] Last Admin: 11/28/18 17:45 Dose: 50 mg Hydrochlorothiazide (Microzide) 12.5 mg PO DAILY [facility] Last Admin: 11/28/18 11:15 Dose: 12.5 mg Ketorolac Tromethamine (Toradol) 30 mg IVP Q6H PRN PRN Reason: Pain, moderate (4-7) Latanoprost (Xalatan Opht) 0 ml OU HS [facility] Last Admin: 11/27/18 21:41 Dose: 2.5 ml Losartan Potassium (Cozaar) 100 mg PO DAILY [facility] Last Admin: 11/28/18 11:16 Dose: Not Given Metoclopramide HCl (Reglan) 10 mg IVP Q8 [facility] Last Admin: 11/28/18 14:20 Dose: 10 mg Mometasone Furoate (Asmanex Twisthaler 220 Mcg) 1 puff INH QPM [facility] Last Admin: 11/27/18 20:36 Dose: Not Given Morphine Sulfate (Morphine) 3 mg IVP Q4 PRN PRN Reason: Pain, severe (8-10) Last Admin: 11/28/18 17:46 Dose: 3 mg Nitroglycerin (Nitro-Bid 2% Oint) 1 ea TOP Q6H PRN PRN Reason: Other Last Admin: 11/28/18 08:08 Dose: 1 ea Ondansetron HCl (Zofran Inj) 4 mg IVP Q4 PRN PRN Reason: Nausea/Vomiting Last Admin: 11/28/18 18:44 Dose: 4 mg Oxycodone HCl (Oxycodone Immediate Release Tab) 15 mg PO Q6 PRN PRN Reason: Pain, severe (8-10) Pantoprazole Sodium (Protonix Inj) 40 mg IVP DAILY [facility] Last Admin: 11/28/18 11:15 Dose: 40 mg Sucralfate (Carafate Tab) 1 gm PO ACBHS [facility] Last Admin: 11/28/18 06:55 Dose: 1 gm - Labs Labs: 11/28/18 09:00 11/28/18 09:00
[2018-11-28] MEDS: Latanoprost 2.5 ml Opht Soln OU SCH (21:53)
[2018-11-28] MEDS: Mometasone 220 mcg/puff-14 puff Inh INH SCH (21:55)
[2018-11-29 00:43] VITALS: RESP 20
--- NOTE | 2018-11-29 03:07 | PN ---
DATE: 11/28/2018 SUBJECTIVE: The patient has decreased nausea, decreased vomiting. The patient is on diet. The patient is afebrile. Her neck pain and headache is better. Her blood pressure is down. She denies any cough, sore throat. She has nausea, no vomiting. She denies any rectal bleeding. The patient has been by GI. The patient denies any tremor. PHYSICAL EXAMINATION: VITAL SIGNS: Blood pressure 166/92, pulse 94, respiratory rate 20, and temperature 98.2. LUNGS: Clear. CARDIOVASCULAR SYSTEM: S1 and S2, regular. ABDOMEN: Soft. ASSESSMENT: 1. Acute gastritis. 2. Dehydration with hypokalemia. 3. Poorly controlled hypertension. 4. Poorly controlled diabetes. PLAN: Medical management. Monitor the patient. Proceed diet. Corey Orellana MD
[2018-11-29] MEDS: Morphine 4 MG/ML VIAL IVP PRN ×4 (05:39→21:23)
[2018-11-29 07:55] LABS: BASO % 0.4 % (0.0-2.0); EOS # 0.2 K/uL (0.0-0.7); EOS % 2.2 % (0.0-4.0); HEMOGLOBIN 16.8 g/dL (11.0-16.0); LYMPH # 1.9 K/uL (1.0-4.3); LYMPH % 20.6 % (20.0-40.0); MEAN CELL VOLUME 86.9 fL (81.0-99.0); MEAN CORPUSCULAR HEMOGLOBIN 30.6 pg (27.0-31.0); MEAN CORPUSCULAR HGB CONC 35.3 g/dL (33.0-37.0); MEAN PLATELET VOLUME 9.9 fL (7.2-11.7); MONO # 1.2 K/uL (0.0-0.8); MONO % 13.2 % (0.0-10.0); NEUT # 5.9 K/uL (1.8-7.0); NEUT % 63.6 % (50.0-75.0); NRBC % 0.1 % (0.0-2.0); RBC 5.47 Mil/uL (3.80-5.20); RED CELL DISTRIBUTION WIDTH 13.4 % (11.5-14.5); WHITE BLOOD COUNT 9.4 K/uL (4.8-10.8)
[2018-11-29 08:10] LABS: BLOOD UREA NITROGEN 16 mg/dL (7-17); CALCIUM 9.1 mg/dl (8.6-10.4); GFR NON-AFRICAN AMERICAN > 60
[2018-11-29] MEDS: Nitroglycerin 2% Ointment Foilpak UD TOP PRN (09:17)
--- NOTE | 2018-11-29 09:56 | CP.PCM.PN ---
Subjective - Date & Time of Evaluation Date of Evaluation: 11/29/18 Time of Evaluation: 09:52 - Subjective Subjective: GI Progress Note for Dr. Kwok Patient seen this morning. She states she vomited last night. Denies BM ever since she was admitted to hospital, she thinks it is because she has not eaten much here. Currentl on liquid diet. Patient wonders if she has pancratitis but lipase wnl. Patient states her stomach feels like it is "working out" even at rest. Feels a little nauseated. Objective - Vital Signs/Intake and Output Vital Signs (last 24 hours): Temp Pulse Resp BP Pulse Ox 97.9 F 86 20 176/91 H 95 11/29/18 08:36 11/29/18 08:36 11/29/18 08:36 11/29/18 08:36 11/29/18 08:36 - Medications Medications: Current Medications Albuterol/Ipratropium (Duoneb 3 Mg/0.5 Mg (3 Ml) Ud) 3 ml IH RQ6 PRN PRN Reason: Shortness of Breath Alprazolam (Xanax) 0.5 mg PO TID PRN PRN Reason: Anxiety Last Admin: 11/29/18 00:11 Dose: 0.5 mg Amlodipine Besylate (Norvasc) 10 mg PO DAILY [facility] Last Admin: 11/28/18 11:16 Dose: Not Given Enoxaparin Sodium (Lovenox) 40 mg SC DAILY [facility] Last Admin: 11/28/18 11:16 Dose: Not Given Folic Acid (Folic Acid) 1 mg PO DAILY [facility] Last Admin: 11/28/18 11:14 Dose: 1 mg Gabapentin (Neurontin) 300 mg PO BID [facility] Last Admin: 11/28/18 17:45 Dose: 300 mg Hydralazine HCl (Apresoline) 50 mg PO BID [facility] Last Admin: 11/28/18 17:45 Dose: 50 mg Hydrochlorothiazide (Microzide) 12.5 mg PO DAILY [facility] Last Admin: 11/28/18 11:15 Dose: 12.5 mg Ketorolac Tromethamine (Toradol) 30 mg IVP Q6H PRN PRN Reason: Pain, moderate (4-7) Latanoprost (Xalatan Opht) 0 ml OU HS [facility] Last Admin: 11/28/18 21:53 Dose: 2.5 ml Losartan Potassium (Cozaar) 100 mg PO DAILY [facility] Last Admin: 11/28/18 11:16 Dose: Not Given Metoclopramide HCl (Reglan) 10 mg IVP Q8 [facility] Last Admin: 11/29/18 06:57 Dose: 10 mg Mometasone Furoate (Asmanex Twisthaler 220 Mcg) 1 puff INH QPM [facility] Last Admin: 11/28/18 21:55 Dose: Not Given Morphine Sulfate (Morphine) 3 mg IVP Q4 PRN PRN Reason: Pain, severe (8-10) Last Admin: 11/29/18 05:39 Dose: 3 mg Nitroglycerin (Nitro-Bid 2% Oint) 1 ea TOP Q6H PRN PRN Reason: Other Last Admin: 11/29/18 09:17 Dose: 1 ea Ondansetron HCl (Zofran Inj) 4 mg IVP Q4 PRN PRN Reason: Nausea/Vomiting Last Admin: 11/29/18 06:58 Dose: 4 mg Oxycodone HCl (Oxycodone Immediate Release Tab) 15 mg PO Q6 PRN PRN Reason: Pain, severe (8-10) Pantoprazole Sodium (Protonix Inj) 40 mg IVP DAILY [facility] Last Admin: 11/28/18 11:15 Dose: 40 mg Potassium Chloride (K-Dur 20 Meq Er Tab) 20 meq PO ONCE ONE Stop: 11/29/18 10:01 Sucralfate (Carafate Oral Susp) 1 gm PO ACHS [facility] - Labs Labs: 11/29/18 07:49 11/29/18 07:49 - Constitutional Appears: Well, Non-toxic - Head Exam Head Exam: ATRAUMATIC, NORMAL INSPECTION - Neck Exam Neck Exam: Normal Inspection - Respiratory Exam Respiratory Exam: NORMAL BREATHING PATTERN - Cardiovascular Exam Cardiovascular Exam: REGULAR RHYTHM - GI/Abdominal Exam GI & Abdominal Exam: Soft, Tenderness (diffuse and ttp throughout upper abdomen), Normal Bowel Sounds - Neurological Exam Neurological Exam: Alert, Awake, Oriented x3 - Psychiatric Exam Psychiatric exam: Normal Affect, Normal Mood - Skin Skin Exam: Dry, Intact Assessment and Plan - Assessment and Plan (Free Text) Assessment: 43 y/o female with PMHx COPD, DM, gastritis, pancreatitis, RA, endometriosis presented to the ED on 2/5 with nausea, vomiting, and diffuse epigastric abdominal pain. Abdominal pain, n/v -likely 2/2 diabetic gastroparesis -continue with liquid diet, if worsening patient to be NPO -scheduled reglan 10 mg IV q8h, increased to 15 as patient not improving -can consider ativan 1 mg BID and/or erythromycin if persisting -LR at 100cc/h -replete lytes as needed -f/u BMP History of gastric ulcer -Per EGD 04/2018 and recently on 11/28/18 patient w/ nonbleeding duodenal ulcer -protonix 40 mg IV -sucralfate 1 g PO ACBHS -> changed to liquid due to patient's request DM -ISS -recommend blood glucose < 200 for diabetic gastroparesis
[2018-11-29] MEDS ORDERED: Potassium Chloride 20 mEq ER Tab PO ONE (10:00)
[2018-11-29] MEDS: Sucralfate 1 gm/10 ml Oral Susp UD PO SCH ×4 (11:02→21:22)
[2018-11-29] MEDS: Enoxaparin 40 mg Syringe SC SCH (11:03)
[2018-11-29] MEDS: SODIUM CHLORIDE 0.9% IVP SCH ×3 (13:56→23:51)
[2018-11-29] MEDS: METOCLOPRAMIDE IVP SCH ×3 (13:56→23:51)
[2018-11-29] MEDS: Mometasone 220 mcg/puff-14 puff Inh INH SCH (20:09)
[2018-11-29] MEDS: Latanoprost 2.5 ml Opht Soln OU SCH (21:23)
--- NOTE | 2018-11-29 21:30 | CP.PCM.PN ---
Subjective - Date & Time of Evaluation Date of Evaluation: 11/29/18 Time of Evaluation: 18:20 - Subjective Subjective: dictated Objective - Vital Signs/Intake and Output Vital Signs (last 24 hours): Temp Pulse Resp BP Pulse Ox 98.8 F 94 H 20 138/83 95 11/29/18 15:44 11/29/18 15:44 11/29/18 15:44 11/29/18 15:44 11/29/18 15:44 - Medications Medications: Current Medications Albuterol/Ipratropium (Duoneb 3 Mg/0.5 Mg (3 Ml) Ud) 3 ml IH RQ6 PRN PRN Reason: Shortness of Breath Alprazolam (Xanax) 0.5 mg PO TID PRN PRN Reason: Anxiety Last Admin: 11/29/18 09:53 Dose: 0.5 mg Amlodipine Besylate (Norvasc) 10 mg PO DAILY [facility] Last Admin: 11/29/18 11:03 Dose: 10 mg Enoxaparin Sodium (Lovenox) 40 mg SC DAILY [facility] Last Admin: 11/29/18 11:03 Dose: Not Given Folic Acid (Folic Acid) 1 mg PO DAILY [facility] Last Admin: 11/29/18 11:02 Dose: 1 mg Gabapentin (Neurontin) 300 mg PO BID [facility] Last Admin: 11/29/18 17:11 Dose: 300 mg Hydralazine HCl (Apresoline) 50 mg PO BID [facility] Last Admin: 11/29/18 17:11 Dose: 50 mg Hydrochlorothiazide (Microzide) 12.5 mg PO DAILY [facility] Last Admin: 11/29/18 11:07 Dose: 12.5 mg Metoclopramide HCl 15 mg/ (Sodium Chloride) 53 mls @ 212 mls/hr IVP Q6H [facility] Last Admin: 11/29/18 19:00 Dose: 212 mls/hr Ketorolac Tromethamine (Toradol) 30 mg IVP Q6H PRN PRN Reason: Pain, moderate (4-7) Latanoprost (Xalatan Opht) 0 ml OU HS [facility] Last Admin: 11/29/18 21:23 Dose: 2.5 ml Losartan Potassium (Cozaar) 100 mg PO DAILY [facility] Last Admin: 11/29/18 11:03 Dose: 100 mg Mometasone Furoate (Asmanex Twisthaler 220 Mcg) 1 puff INH QPM [facility] Last Admin: 11/29/18 20:09 Dose: Not Given Morphine Sulfate (Morphine) 3 mg IVP Q4 PRN PRN Reason: Pain, severe (8-10) Last Admin: 11/29/18 21:23 Dose: 3 mg Nitroglycerin (Nitro-Bid 2% Oint) 1 ea TOP Q6H PRN PRN Reason: Other Last Admin: 11/29/18 09:17 Dose: 1 ea Ondansetron HCl (Zofran Inj) 4 mg IVP Q4 PRN PRN Reason: Nausea/Vomiting Last Admin: 11/29/18 06:58 Dose: 4 mg Oxycodone HCl (Oxycodone Immediate Release Tab) 15 mg PO Q6 PRN PRN Reason: Pain, severe (8-10) Pantoprazole Sodium (Protonix Inj) 40 mg IVP DAILY [facility] Last Admin: 11/29/18 11:02 Dose: 40 mg Sucralfate (Carafate Oral Susp) 1 gm PO ACHS [facility] Last Admin: 11/29/18 21:22 Dose: 1 gm - Labs Labs: 11/29/18 07:49 11/29/18 07:49
[2018-11-30] MEDS: Morphine 4 MG/ML VIAL IVP PRN ×4 (01:27→15:49)
--- NOTE | 2018-11-30 02:18 | PN ---
DATE: 11/29/2018 SUBJECTIVE: The patient is on solid food, she vomited yesterday. Other than that, she is tolerating food. She has decreased abdominal pain, decreased nausea and vomiting. No fever. No chills. No rigors. PHYSICAL EXAMINATION: VITAL SIGNS: Blood pressure 138/83, pulse 94, respiratory rate 20, temperature 98.8. LUNGS: Clear. No rales. No rhonchi. CARDIOVASCULAR SYSTEM: S1 and S2, regular. ABDOMEN: Soft, nontender. Bowel sounds are positive. ASSESSMENT: 1. Gastritis. 2. Hypertension. 3. Morbid obesity. 4. Type 2 diabetes. PLAN: Proceed diet. Monitor the patient. Potassium supplementation. Blood pressure control. Corey Orellana MD
[2018-11-30] MEDS: METOCLOPRAMIDE IVP SCH (05:59)
[2018-11-30] MEDS: SODIUM CHLORIDE 0.9% IVP SCH (05:59)
[2018-11-30] MEDS: Sucralfate 1 gm/10 ml Oral Susp UD PO SCH ×3 (06:57→17:58)
[2018-11-30] MEDS: Enoxaparin 40 mg Syringe SC SCH (10:42)
--- NOTE | 2018-11-30 10:49 | CP.PCM.PN ---
Subjective - Date & Time of Evaluation Date of Evaluation: 11/30/18 Time of Evaluation: 10:49 - Subjective Subjective: PATIENT SEEN AND EXAMINED AT THE BEDSIDE Objective - Vital Signs/Intake and Output Vital Signs (last 24 hours): Temp Pulse Resp BP Pulse Ox 98.0 F 72 20 119/75 96 11/30/18 07:30 11/30/18 07:30 11/30/18 07:30 11/30/18 07:30 11/30/18 07:30 - Medications Medications: Current Medications Albuterol/Ipratropium (Duoneb 3 Mg/0.5 Mg (3 Ml) Ud) 3 ml IH RQ6 PRN PRN Reason: Shortness of Breath Alprazolam (Xanax) 0.5 mg PO TID PRN PRN Reason: Anxiety Last Admin: 11/30/18 00:52 Dose: 0.5 mg Amlodipine Besylate (Norvasc) 10 mg PO DAILY [facility] Last Admin: 11/29/18 11:03 Dose: 10 mg Enoxaparin Sodium (Lovenox) 40 mg SC DAILY [facility] Last Admin: 11/30/18 10:42 Dose: Not Given Fluconazole (Diflucan) 100 mg PO DAILY [facility]; Protocol Folic Acid (Folic Acid) 1 mg PO DAILY [facility] Last Admin: 11/30/18 10:42 Dose: 1 mg Gabapentin (Neurontin) 300 mg PO BID [facility] Last Admin: 11/30/18 10:42 Dose: 300 mg Hydralazine HCl (Apresoline) 50 mg PO BID [facility] Last Admin: 11/29/18 17:11 Dose: 50 mg Hydrochlorothiazide (Microzide) 12.5 mg PO DAILY [facility] Last Admin: 11/29/18 11:07 Dose: 12.5 mg Metoclopramide HCl 15 mg/ (Sodium Chloride) 53 mls @ 212 mls/hr IVP Q6H [facility] Last Admin: 11/30/18 05:59 Dose: 212 mls/hr Insulin Aspart (Novolog) 0 unit SC ACHS [facility]; Protocol Ketorolac Tromethamine (Toradol) 30 mg IVP Q6H PRN PRN Reason: Pain, moderate (4-7) Latanoprost (Xalatan Opht) 0 ml OU HS [facility] Last Admin: 11/29/18 21:23 Dose: 2.5 ml Losartan Potassium (Cozaar) 100 mg PO DAILY [facility] Last Admin: 11/29/18 11:03 Dose: 100 mg Metformin HCl (Glucophage) 850 mg PO BIDCC [facility] Mometasone Furoate (Asmanex Twisthaler 220 Mcg) 1 puff INH QPM [facility] Last Admin: 11/29/18 20:09 Dose: Not Given Morphine Sulfate (Morphine) 3 mg IVP Q4 PRN PRN Reason: Pain, severe (8-10) Last Admin: 11/30/18 05:59 Dose: 3 mg Nitroglycerin (Nitro-Bid 2% Oint) 1 ea TOP Q6H PRN PRN Reason: Other Last Admin: 11/29/18 09:17 Dose: 1 ea Pantoprazole Sodium (Protonix Inj) 40 mg IVP DAILY [facility] Last Admin: 11/30/18 10:42 Dose: 40 mg Sucralfate (Carafate Oral Susp) 1 gm PO ACHS [facility] Last Admin: 11/30/18 06:57 Dose: 1 gm - Labs Labs: 11/29/18 07:49 11/29/18 07:49 Assessment and Plan - Assessment and Plan (Free Text) Assessment: FOLLOW UP WITH DR KHAN IN HIS OFFICE ----CALL FOR APPOINTMENT FOLLOW UP WITH DR JAMES IN HIS OFFICE ------CALL FOR APPOINTMENT CONTINUE HOME MEDICATION NEW PRESCRIPTION GIVEN AMLODIPINE 10 MG PO DAILY HYDRALAZINE 50 MG PO BID CARAGFATE WAS SWITCH TO LIQUID FROM PO ACTIVITY TOLERATED CALL DR KHAN OR GO TO THE EMERGENCY ROOM IF SYMPTOM RETURN OR WORSENING
[2018-11-30 11:38] LABS: BASO # 0.1 K/uL (0.0-0.2); BASO % 0.5 % (0.0-2.0); EOS # 0.9 K/uL (0.0-0.7); EOS % 8.8 % (0.0-4.0); HEMOGLOBIN 15.6 g/dL (11.0-16.0); LYMPH # 1.9 K/uL (1.0-4.3); LYMPH % 19.6 % (20.0-40.0); MEAN CELL VOLUME 87.6 fL (81.0-99.0); MEAN CORPUSCULAR HEMOGLOBIN 29.6 pg (27.0-31.0); MEAN CORPUSCULAR HGB CONC 33.7 g/dL (33.0-37.0); MONO # 1.1 K/uL (0.0-0.8); MONO % 11.5 % (0.0-10.0); NEUT # 5.9 K/uL (1.8-7.0); NEUT % 59.6 % (50.0-75.0); NRBC % 0.1 % (0.0-2.0); RBC 5.26 Mil/uL (3.80-5.20); RED CELL DISTRIBUTION WIDTH 13.4 % (11.5-14.5)
[2018-11-30 11:57] LABS: ALB/GLOB RATIO 1.3 (1.0-2.1); ALBUMIN 3.8 g/dL (3.5-5.0); ALT/SGPT 22 U/L (9-52); AST/SGOT 28 U/L (14-36); BLOOD UREA NITROGEN 17 mg/dL (7-17); GFR NON-AFRICAN AMERICAN > 60
[2018-11-30] MEDS: (Novolog) Insulin Aspart, Recombinant 100 u/ml 10 ml vial SC SCH ×2 (12:40→17:59)
[2018-11-30] MEDS ORDERED: METOCLOPRAMIDE IVPB SCH (12:45)
[2018-11-30] MEDS ORDERED: SODIUM CHLORIDE 0.9% IVPB SCH (12:45)
[2018-11-30] MEDS ORDERED: Potassium Chloride 20 mEq ER Tab PO ONE (13:45)
--- NOTE | 2018-11-30 14:54 | PN ---
DATE: 11/30/2018 LOCATION: [facility], bed B SUBJECTIVE: A 43-year-old female seen and examined in rounds post upper endoscopy with biopsy. Biopsy report is still pending, somewhat tolerating oral intake, but with reported complaint of abdominal pain and postprandial abdominal distention with mild nausea and slight dysphagia, no reported active bleeding, chest pain or palpitation. The entire chart is reviewed including the most recent lab results with blood glucose level of 173. Case discussed with the staff at length. PHYSICAL EXAMINATION: GENERAL: A 43-year-old female, awake, alert, oriented. VITAL SIGNS: Afebrile with pulse of 76, respiratory rate 20 to 22, blood pressure of 124/72. HEENT: Showed mildly pale dry oral mucous membrane. Nonicteric sclerae. LUNGS: Few scattered crepitation. Decreased air entry at bases. HEART: Positive S1 and S2. ABDOMEN: Soft with mild generalized tenderness. No mass or organomegaly. No rebound tenderness or guarding. EXTREMITIES: Without edema, clubbing or cyanosis. IMPRESSION: 1. Re-exacerbation of peptic ulcer disease with gastritis and nonbleeding duodenal ulcer with evidence of diffuse duodenitis, by upper endoscopy. 2. Moderate-sized hiatus hernia. 3. Evidence of esophageal candidiasis by upper endoscopy. 4. Poorly controlled diabetes mellitus. 5. Multiple past medical history including but not limited to chronic obstructive pulmonary disease, depression, severe anxiety syndrome, hyperlipidemia, recurrent pancreatitis, rheumatoid arthritis with pneumonia, by history. SUGGESTIONS: 1. Continue current management. 2. p.o. 3. Adjust oral intake. 4. Reglan IV. 5. Cancer markers. 6. Guaiac all the stools daily x3. 7. Further recommendation to follow including mainly cancer markers to be ordered as well as lipid profile. Roni Graff MD
[2018-11-30 16:05] VITALS: BP 115/70; PULSE 75; TEMP 98.5; O2SAT 95
--- NOTE | 2018-12-01 19:21 | CP.PCM.DIS ---
Provider - Provider Date of Admission: 11/26/18 02:14 Attending physician: Corey Orellana MD Consults: 11/26/18 08:00 Gastroenterology Consult Routine Comment: Consulting Provider: Roni Kwok Consulting Physician: Roni Kwok Reason for Consult: Intractable vomiting,abdominal pain Time Spent in preparation of Discharge (in minutes): 30 Hospital Course - Lab Results Lab Results: Most Recent Lab Values WBC 10.0 K/uL (4.8-10.8) 11/30/18 11:33 RBC 5.26 Mil/uL (3.80-5.20) H 11/30/18 11:33 Hgb 15.6 g/dL (11.0-16.0) 11/30/18 11:33 Hct 46.1 % (34.0-47.0) 11/30/18 11:33 MCV 87.6 fL (81.0-99.0) 11/30/18 11:33 MCH 29.6 pg (27.0-31.0) 11/30/18 11:33 MCHC 33.7 g/dL (33.0-37.0) 11/30/18 11:33 RDW 13.4 % (11.5-14.5) 11/30/18 11:33 Plt Count 195 K/uL (130-400) 11/30/18 11:33 MPV 10.0 fL (7.2-11.7) 11/30/18 11:33 Neut % (Auto) 59.6 % (50.0-75.0) 11/30/18 11:33 Lymph % (Auto) 19.6 % (20.0-40.0) L 11/30/18 11:33 [place] % (Auto) 11.5 % (0.0-10.0) H 11/30/18 11:33 Eos % (Auto) 8.8 % (0.0-4.0) H 11/30/18 11:33 Baso % (Auto) 0.5 % (0.0-2.0) 11/30/18 11:33 Neut # (Auto) 5.9 K/uL (1.8-7.0) 11/30/18 11:33 Lymph # (Auto) 1.9 K/uL (1.0-4.3) 11/30/18 11:33 [place] # (Auto) 1.1 K/uL (0.0-0.8) H 11/30/18 11:33 Eos # (Auto) 0.9 K/uL (0.0-0.7) H 11/30/18 11:33 Baso # (Auto) 0.1 K/uL (0.0-0.2) 11/30/18 11:33 Neutrophils % (Manual) 94 % (50-75) H 11/26/18 01:23 Lymphocytes % (Manual) 2 % (20-40) L 11/26/18 01:23 Monocytes % (Manual) 4 % (0-10) 11/26/18 01:23 Platelet Estimate Normal (NORMAL) 11/26/18 01:23 Sodium 132 mmol/L (132-148) 11/30/18 11:33 Potassium 3.4 mmol/L (3.6-5.2) L 11/30/18 11:33 Chloride 100 mmol/L (98-107) 11/30/18 11:33 Carbon Dioxide 24 mmol/L (22-30) 11/30/18 11:33 Anion Gap 11 (10-20) 11/30/18 11:33 BUN 17 mg/dL (7-17) 11/30/18 11:33 Creatinine 0.8 mg/dL (0.7-1.2) 11/30/18 11:33 Est GFR ( Amer) > 60 11/30/18 11:33 Est GFR (Non-Af Amer) > 60 11/30/18 11:33 POC Glucose (mg/dL) 157 mg/dL (65-110) H 11/30/18 16:08 Random Glucose 157 mg/dL (65-105) H D 11/30/18 11:33 Hemoglobin A1c 7.4 % (4.2-6.5) H 11/27/18 14:01 Calcium 9.0 mg/dl (8.6-10.4) 11/30/18 11:33 Phosphorus 3.1 mg/dL (2.5-4.5) 11/28/18 09:00 Magnesium 1.8 mg/dL (1.6-2.3) 11/28/18 09:00 Total Bilirubin 0.7 mg/dL (0.2-1.3) 11/30/18 11:33 AST 28 U/L (14-36) 11/30/18 11:33 ALT 22 U/L (9-52) 11/30/18 11:33 Alkaline Phosphatase 102 U/L (38-126) 11/30/18 11:33 Total Protein 6.8 g/dL (6.3-8.3) 11/30/18 11:33 Albumin 3.8 g/dL (3.5-5.0) 11/30/18 11:33 Globulin 3.0 gm/dL (2.2-3.9) 11/30/18 11:33 Albumin/Globulin Ratio 1.3 (1.0-2.1) 11/30/18 11:33 Lipase 98 U/L (23-300) 11/26/18 01:23 Carcinoembryonic Ag 2.5 ng/mL (0-3.0) 11/26/18 17: CA 19-9 Antigen 11.4 U/mL (0-37) 11/26/18 17: CA 125 Antigen 9.7 U/mL (0-35) 11/26/18 17: Beta HCG, Quant < 2.39 mIU/ML 11/28/18 09:00 Urine Color Yellow (YELLOW) 11/28/18 11:56 Urine Clarity Clear (Clear) 11/28/18 11:56 Urine pH 6.0 (5.0-8.0) 11/28/18 11:56 Ur Specific Dexter 1.020 (1.003-1.030) 11/28/18 11:56 Urine Protein 3+ mg/dL (NEGATIVE) H 11/28/18 11:56 Urine Glucose (UA) Normal mg/dL (Normal) 11/28/18 11:56 Urine Ketones Trace mg/dL (NEGATIVE) 11/28/18 11:56 Urine Blood 2+ (NEGATIVE) H 11/28/18 11:56 Urine Nitrate Negative (NEGATIVE) 11/28/18 11:56 Urine Bilirubin Negative (NEGATIVE) 11/28/18 11:56 Urine Urobilinogen Normal mg/dL (0.2-1.0) 11/28/18 11:56 Ur Leukocyte Esterase Neg Archana/uL (Negative) 11/28/18 11:56 Urine WBC (Auto) 1 /hpf (0-5) 11/28/18 11:56 Urine RBC (Auto) 1 /hpf (0-3) 11/28/18 11:56 Ur Squamous Epith Cells 2 /hpf (0-5) 11/28/18 11:56 Urine HCG, Qual Negative (NEGATIVE) 11/26/18 01:23 Discharge Exam - Head Exam Head Exam: ATRAUMATIC, NORMAL INSPECTION Discharge Plan - Discharge Medications Prescriptions: Sucralfate [Carafate Oral Susp UD] 1 gm PO TID 30 Days udc Fluconazole [Diflucan] 200 mg PO DAILY #14 tab amLODIPine [Norvasc] 10 mg PO DAILY 30 Days tab - Follow Up Plan Condition: FAIR Disposition: HOME/ ROUTINE Instructions: Upper GI Endoscopy, Acute Abdomen (Belly Pain), Adult (DC), Nausea and Vomiting, Adult (DC), Upper GI Endoscopy (DC) Additional Instructions: FOLLOW UP WITH DR ORELLANA IN HIS OFFICE ----CALL FOR APPOINTMENT FOLLOW UP WITH DR KWOK IN HIS OFFICE ------CALL FOR APPOINTMENT CONTINUE HOME MEDICATION NEW PRESCRIPTION GIVEN AMLODIPINE 10 MG PO DAILY CARAGFATE WAS SWITCH TO LIQUID FROM PO DIFLUCAN 200 MG PO DAILY FOR 14 DAYS ACTIVITY TOLERATED CALL DR ORELLANA OR GO TO THE EMERGENCY ROOM IF SYMPTOM RETURN OR WORSENING. Referrals: Roni Kwok [Staff Provider] - Corey Orellana MD [Staff Provider] -
--- NOTE | 2018-12-02 15:29 | DS ---
DISCHARGE DIAGNOSES: 1. Acute gastritis/gastroesophageal reflux disease. 2. Dehydration. 3. Hypokalemia. 4. Type 2 diabetes. 5. Hypertension. HISTORY OF PRESENT ILLNESS: This is a 43-year-old female well known to me with history of type 2 diabetes, morbid obesity, bronchial asthma, hypertension, sleep apnea, who came in because of upper abdominal pain, nausea, vomiting, intractable, not responding to any treatment, generalized aches and pain, fever, chills, rigors, body aches, tiredness, anorexia, malaise and fatigue. The patient was admitted to the floor and the patient was started on intravenous fluids, n.p.o., Accu-Chek sliding scale, Ringer's lactate. The patient responded to treatment. The patient felt better and the patient is for discharge. The patient during course of hospitalization was seen by GI and endoscopy showed gastritis with gastroesophageal reflux disease. PHYSICAL EXAMINATION: ABDOMEN: Soft, tender. Bowel sounds are present with no guarding, no rebound, no rigidity. LUNGS: Clear. CENTRAL NERVOUS SYSTEM: Awake, alert, oriented x3. PLAN: The patient is discharged with outpatient followup. CONDITION UPON DISCHARGE: Stable. Corey Orellana MD
== END 2018-11-30 18:19 | disposition home or self-care (01) | DRG 18 ==
LOC: C.ER 23:58 → C.9E 11-26 02:14 → C.5S 11-26 09:14
PROVIDERS: ADMIT Internal Medicine; ATTEND Internal Medicine
PROC: 0DB88ZX Excision of Small Intestine, Via Natural or Artificial Opening Endoscopic, Diagnostic (ICD-10-PCS; principal; 2018-11-28 09:55)
DX: E11.43 Type 2 diabetes mellitus with diabetic autonomic (poly)neuropathy (principal); E11.65 Type 2 diabetes mellitus with hyperglycemia; E86.0 Dehydration; K21.9 Gastro-esophageal reflux disease without esophagitis; K29.00 Acute gastritis without bleeding; E87.6 Hypokalemia; K26.9 Duodenal ulcer, unspecified as acute or chronic, without hemorrhage or perforation; J44.9 Chronic obstructive pulmonary disease, unspecified; K31.84 Gastroparesis; E78.00 Pure hypercholesterolemia, unspecified; F17.210 Nicotine dependence, cigarettes, uncomplicated; G47.30 Sleep apnea, unspecified; I10 Essential (primary) hypertension

== ENCOUNTER 2018-12-25 12:41 | Outpatient (CLI) | payer MEDICAID | END 2018-12-25 12:42 | disposition home or self-care (01) | LOC: C.MAMMO 12:41 ==